=== PATIENT | male | born 1965 | race Caucasian/White ===

== ENCOUNTER 2023-11-06 10:25 | Emergency (ER) | payer SELFPAY ==
[2023-11-06] MEDS: ATIVAN 1 MG IV (10:39)
[2023-11-06 10:41] VITALS: BP 160/101; BMI 32.1
[2023-11-06 10:59] LABS: % Basophils 0.3 % (0-2); % Eosinophils 0.6 % (0-6); % Immature Granulocytes 0.3 % (0-0.5); % Monocytes 7.5 % (1.7-9.3); % Neutrophils 70.3 % (42.2-75.2); Absolute Lymphocytes 1.5 10^3/uL (1.2-3.4); Absolute Monocytes 0.5 10^3/uL (0.1-0.6); Absolute Neutrophils 5.1 10^3/uL (1.4-6.5); Hematocrit 45.7 % (39.0-52.0); Hemoglobin 15.8 g/dL (13.0-18.0); Mean Corp Hgb Conc. 34.6 g/dL (33.0-37.0); Mean Corpuscular Volume 95.4 fL (80.0-94.0); Nucleated Red Blood Cells % 0 % (-); Platelet Count 200 10^3/uL (130-400); Red Blood Cell Count 4.79 10^6/uL (4.70-6.10); Red Cell Dist. Width 12.7 % (11.5-14.5); White Blood Cell Count 7.2 10^3/uL (4.8-10.8)
--- NOTE | 2023-11-06 11:08 | ED.GENMED ---
History of Present Illness
General
Chief Complaint: Seizure
Source: patient
Exam Limitations: none
Time Seen by Provider: 11/06/23 10:26
Nursing documentation reviewed up to this point in time: agreed with
Travel History
Have you had any contact with someone who has COVID-19?: No
Do you have any symptoms of coronavirus? Fever > 100 degrees, chills, cough, shortness of breath, sore throat, loss of taste or smell, muscle aches, or headache?: No
History of Present Illness
History of Present Illness:
58-year-old male states he feels like a seizure was coming on has a long history of epilepsy, takes Dilantin and Ativan as needed, states he ran out of his Ativan, no fever or chills, no actual seizure no tongue bite no incontinence, he states his
last seizure was about a year ago, currently on disability/Workmen's Comp. does not drink or smoke
Past History
Past History
ED Past Medical History: HTN, Hypercholesterolemia, NIDDM, Seizures and Other (Seizure)
ED Past Surgical History: None
Social History
Tobacco: Non-smoker
Alcohol: None
Drug: None
Personal: Single
Living: alone
Employment: Disabled
Review of Systems
Review of Systems
All Other Systems: Not applicable
Constitutional: Denies fever or fatigue
Respiratory: Reports no symptoms
Cardiac: Reports no symptoms
ABD/GI: Reports no symptoms
: Reports no symptoms
Phy Exam
Physical Exam
Physical Exam:
Physical Exam
General: Chronically ill-appearing male appears older than stated age cooperative
Neck: No jaundice no tongue bite
Heart: s1/s2 regular rate and rhythm, no murmur. equal radial pulses.
Lungs: no acute respiratory distress. clear bilaterally
Abdomen: Not
Neuro: alert and oriented. no focal neurological deficits
Skin: no rash
Psychiatric: Somewhat disheveled but interactive and cooperative
Extremities: no edema.
Course
Orders/Labs/Results
Orders:
Orders
11/06/23 10:30
Lorazepam [Ativan] 1 mg IV NOW STA
11/06/23 10:52
Complete Blood Count/With Diff Urgent
Comprehensive Metabolic Panel Urgent
Dilantin Urgent
11/06/23 11:47
0.9% Sodium Chloride 1000 ml [Nss] 1,000 ml IV BOLUS
11/06/23 11:49
METFORMIN HCl [Glucophage] 500 mg PO NOW STA
Abnormal Lab Results
11/06/23 11/06/23
10:52 13:01
MCV 95.4 H fL
(80.0-94.0)
MCH 33.0 H pg
(27.0-31.0)
Sodium 129 L mmol/L
(135-145)
Chloride 94 L mmol/L
(98-107)
Glucose 479 H* mg/dl
(70-99)
Alkaline Phosphatase 173 H U/L
(38-126)
POC Glucose 385 H mg/dl
(70-99)
11/06/23 10:52
11/06/23 10:52
Vital Signs
Initial and Last Documented VS:
Initial Vital Signs
Temp Pulse Resp BP Pulse Ox
98.5 F 96 18 160/101 94
11/06/23 10:41 11/06/23 10:41 11/06/23 10:41 11/06/23 10:41 11/06/23 10:41
Last Documented Vital Signs
Temp Pulse Resp BP Pulse Ox
98.5 F 82 18 167/80 94
11/06/23 10:41 11/06/23 12:02 11/06/23 10:41 11/06/23 12:03 11/06/23 10:41
MDM/Problems Addressed
Differential Diagnosis Includes:
Seizure, aura before seizure dehydration electrolyte abnormality
MDM/Problems Addressed:
Possible seizure
Chronic conditions affecting care:
Seizure
Chronic conditions affecting care: DM and Neurological disorder
Acute Exacerbation and/or Progression of Chronic Illness: DM and Neurological disorder
*Pulse Oximetry
Patient hypoxic: no
*Ssn/Ssbn Assistant Navigator Interpretation
Rate: normal
Interpretation: normal
Heart Rate: 78
Rhythm: sinus
*Critical Care Note
Total Time (30-74mins, 75-104mins- exclusive of procedures): Not Applicable
Update Note
Update Note:
Update labs noted sugar up we will confirm his meds in the meantime start saline
Patient tells me he ran out of his metformin has not taken it a few weeks he believes he was on 500 mg twice a day
His Dilantin level is noted perhaps his symptoms today are as much from his hyperglycemia and or from a possible seizure coming on
Sodium is low reflecting hyperglycemia
ED Attending Note
-
Portions of this chart may have been created with voice recognition software.� Occasional wrong word or��sound alike� substitutions may have occurred due to the inherent limitations of voice recognition software.
Discharge Plan
Departure
Patient Disposition: Home (Routine Discharge)
Date of Disposition: 11/06/23
Time of Disposition: 12:38
Patient with high blood pressure during this ER visit?: No
Condition: Good
Discharge Problem:
Diabetes
Instructions: High Blood Sugar, Adult, Seizures, Adult (DC), How to Keep Track of Your Blood Sugar
Prescriptions:
New
metformin 500 mg tablet
500 mg PO BID Qty: 90 3RF
No Action
phenytoin sodium extended 100 mg Capsule
400 mg PO BID
Referrals:
UNKNOWN - PT DOES,NOT KNOW [Family Provider] -
Activity Restrictions/Additional Instructions:
Take your diabetes medication as prescribed
Continue to take Dilantin as prescribed
Call your family doctor to arrange follow-up care
Interventions
Interventions:
*Risk Screen - Suicide Last Done: 11/06/23 10:41
*General Assessment Last Done: 11/06/23 11:25
*Neglect/Abuse Screening Last Done: 11/06/23 10:41
ED- Fall Risk Assessment Last Done: 11/06/23 11:35
*ED COVID-19 Vaccine History Last Done: 11/06/23 11:25
*Nursing Disposition Last Done: 11/06/23 13:42
ED- Cardiac Assessment Last Done: 11/06/23 11:25
ED- Neurological Assessment Last Done: 11/06/23 11:25
ED- Pulmonary Assessment Last Done: 11/06/23 11:25
Discharge Date and Time
Discharge Date/Time: 11/06/23 13:43
[2023-11-06 11:16] LABS: ALT (SGPT) 18 U/L (0-50); AST (SGOT) 18 U/L (17-59); Albumin 4.1 g/dl (3.5-5.0); Alkaline Phosphatase 173 U/L (38-126); Blood Urea Nitrogen 18 mg/dl (9-20); Carbon Dioxide 26 mmol/L (22-30); Chloride 94 mmol/L (98-107); Dilantin 19.5 ug/ml (10-20); Estimated Creatinine Clearance 120 ml/min; Glucose 479 mg/dl (70-99); Potassium 4.6 mmol/L (3.5-5.1); Sodium 129 mmol/L (135-145); Total Bilirubin 0.3 mg/dl (0.2-1.3); Total Protein 7.4 g/dl (6.3-8.2); eGFR > 60.00
[2023-11-06] MEDS: GLUCOPHAGE 500 MG PO (11:54)
[2023-11-06] MEDS: NSS 1000 IV (11:55)
[2023-11-06 12:03] VITALS: BP 167/80
[2023-11-06 13:03] LABS: Glucose - Point of Care 385 mg/dl (70-99)
== END 2023-11-06 13:43 | disposition home or self-care (01) ==
LOC: EMR 10:25
PROVIDERS: EMERGENCY PHYSICIAN Emergency Medicine
DX: E11.9 Type 2 diabetes mellitus without complications (principal); G40.909 Epilepsy, unspecified, not intractable, without status epilepticus
CPT/HCPCS: 99284; 96374; 96361; 80053; 80185; 82962; 85025

== ENCOUNTER 2024-03-07 07:24 | Emergency (ER) | payer SELFPAY ==
[2024-03-07 07:35] VITALS: BMI 27.3
[2024-03-07] MEDS: ATIVAN 1 MG IV (07:50)
[2024-03-07] MEDS: NSS 1000 IV (07:50)
[2024-03-07 08:00] VITALS: BP 168/79
[2024-03-07 08:05] VITALS: BP 157/88
[2024-03-07 08:06] LABS: % Basophils 0.3 % (0-2); % Eosinophils 1.1 % (0-6); % Immature Granulocytes 0.2 % (0-0.5); % Lymphocytes 35.8 % (20.5-51.1); % Monocytes 7.8 % (1.7-9.3); % Neutrophils 54.8 % (42.2-75.2); Absolute Eosinophils 0.1 10^3/uL (0-0.7); Absolute Lymphocytes 3.2 10^3/uL (1.2-3.4); Absolute Monocytes 0.7 10^3/uL (0.1-0.6); Hematocrit 47.5 % (39.0-52.0); Hemoglobin 16.7 g/dL (13.0-18.0); Mean Corp Hgb Conc. 35.2 g/dL (33.0-37.0); Mean Corpuscular Hgb 33.3 pg (27.0-31.0); Mean Corpuscular Volume 94.6 fL (80.0-94.0); Mean Platelet Volume 9.8 fL (7.4-10.4); Nucleated Red Blood Cells % 0 % (-); Platelet Count 253 10^3/uL (130-400); Red Blood Cell Count 5.02 10^6/uL (4.70-6.10); Red Cell Dist. Width 12.7 % (11.5-14.5); White Blood Cell Count 9.1 10^3/uL (4.8-10.8)
[2024-03-07 08:17] LABS: ALT (SGPT) 18 U/L (0-50); AST (SGOT) 19 U/L (17-59); Albumin 4.7 g/dl (3.5-5.0); Alkaline Phosphatase 169 U/L (38-126); Blood Urea Nitrogen 19 mg/dl (9-20); Carbon Dioxide 31 mmol/L (22-30); Chloride 97 mmol/L (98-107); Estimated Creatinine Clearance 93 ml/min; Glucose 193 mg/dl (70-99); Potassium 4.3 mmol/L (3.5-5.1); Sodium 140 mmol/L (135-145); Total Bilirubin 0.5 mg/dl (0.2-1.3); Total Protein 8.1 g/dl (6.3-8.2); eGFR > 60.00
[2024-03-07 08:21] LABS: Dilantin 20.6 ug/ml (10-20)
--- NOTE | 2024-03-07 08:28 | ED.GENMED ---
History of Present Illness
General
Chief Complaint: Seizure
Source: patient
Exam Limitations: none
Time Seen by Provider: 03/07/24 07:37
Nursing documentation reviewed up to this point in time: agreed with
History of Present Illness
History of Present Illness:
58 y/o M with h/o NIDDM, epileopsy
on dilantin
compliant
here with feeling of aura like he may have seizure
startd this morning whne he woke up
he is extremely anxious, difficult to focus on questions
he denies drug/alcohol use, no recent illness, no head injuries
pt was seen by me previously for very similar presentation
he was extremely anxious and requesting ativan
once administered, he was calm and improved
pt is asking for ativan
Past History
Past History
ED Past Medical History: HTN, Hypercholesterolemia, NIDDM, Seizures and Other (Seizure)
ED Past Surgical History: None
Social History
Tobacco: Non-smoker
Alcohol: None
Drug: None
Personal: Single
Living: alone
Employment: Disabled
Review of Systems
Review of Systems
Allergies reviewed?: Yes
All Other Systems: Not applicable
Phy Exam
Physical Exam
Physical Exam:
GENERAL: Alert , very anxious, calling out, shifting around
HEAD: NCAT
EYE: pupils equal and reactive, no nystagmus, minimal photophobia
NECK: Supple,full rom, nontender
ENT: o/p clr, mmm.
CARDIAC: Regular rate and rhythm . no edema
LUNGS: Clear breath sounds bilaterally, no acute respiratory distress, no wheezes/rales/rhonchi
ABDOMEN: Soft, without focal tenderness, no r/g, no cvat
NEUROLOGICAL: Alert and orientedx 4, cn intact, no facial asymmetry, 5/5 strength in UE/LE, sensation intact, romberg neg, ambulates without assistance, neg pronator drift
SKIN: Warm and dry, skin intact.
MUSCULOSKELETAL: No edema, well perfused.
PSYCH: strange, anxious
Course
Orders/Labs/Results
Orders:
Orders
03/07/24 07:42
0.9% Sodium Chloride 1000 ml [Nss] 1,000 ml IV BOLUS
Lorazepam [Ativan] 1 mg IV NOW STA
03/07/24 07:53
Complete Blood Count/With Diff Urgent
Comprehensive Metabolic Panel Urgent
Dilantin Urgent
Abnormal Lab Results
03/07/24
07:53
MCV 94.6 H fL
(80.0-94.0)
MCH 33.3 H pg
(27.0-31.0)
Absolute Monos (auto) 0.7 H 10^3/uL
(0.1-0.6)
Chloride 97 L mmol/L
(98-107)
Carbon Dioxide 31 H mmol/L
(22-30)
Glucose 193 H mg/dl
(70-99)
Alkaline Phosphatase 169 H U/L
(38-126)
Phenytoin 20.6 H ug/ml
(10-20)
03/07/24 07:53
03/07/24 07:53
Vital Signs
Initial and Last Documented VS:
Initial Vital Signs
Temp Pulse Resp Pulse Ox
97.5 F 120 22 94
03/07/24 07:26 03/07/24 07:26 03/07/24 07:26 03/07/24 07:26
Last Documented Vital Signs
Temp Pulse Resp BP Pulse Ox
97.5 F 90 26 147/94 93
03/07/24 07:26 03/07/24 11:15 03/07/24 11:15 03/07/24 11:00 03/07/24 11:15
MDM/Problems Addressed
Differential Diagnosis Includes:
anxiety, panic attack, aura,
MDM/Problems Addressed:
58 y/o M with h/o NIDDM, epilepsy
compliant with dilantin
here with concerns he may have a seizure, he is getting an aura he decribes, like a feeling he will have one and is extremely anxious and wants to prevent
he says ativan works
i have seen him in the past, look just the same, very anxious, tachy, shifty, calling out and improved with ativan
his labs show some hyperglycemia which could be stress response
dilantin level therapeutic
recieved ativan, slept for a while and is no longe ranxious or tachy
d/c ome
*Critical Care Note
Total Time (30-74mins, 75-104mins- exclusive of procedures): Not Applicable
ED Attending Note
-
Portions of this chart may have been created with voice recognition software.� Occasional wrong word or��sound alike� substitutions may have occurred due to the inherent limitations of voice recognition software.
Discharge Plan
Departure
Patient Disposition: Home (Routine Discharge)
Date of Disposition: 03/07/24
Time of Disposition: 10:35
Patient with high blood pressure during this ER visit?: Yes
Condition: Fair
Covid-19: Not Applicable
Discharge Problem:
Anxiety, Aura
Instructions: Anxiety, Adult ED, Seizures, Adult ED, BLOOD PRESSURE
Prescriptions:
No Action
phenytoin sodium extended 100 mg Capsule
400 mg PO BID
metformin 500 mg tablet
500 mg PO BID Qty: 90 3RF
Referrals:
UNKNOWN - PT NOT,INTERVIEWE [Family Provider] -
Activity Restrictions/Additional Instructions:
Your blood work shows that your Dilantin level is therapeutic. Stay hydrated. Try to avoid seizure triggers. Return for any concerns
Interventions
Interventions:
*Risk Screen - Suicide Last Done: 03/07/24 07:36
*General Assessment Last Done: 03/07/24 07:28
*Neglect/Abuse Screening Last Done: 03/07/24 07:28
ED- Fall Risk Assessment Last Done: 03/07/24 07:36
*ED COVID-19 Vaccine History Last Done: 03/07/24 11:29
*Nursing Disposition Last Done: 03/07/24 11:29
ED- Cardiac Assessment Last Done: 03/07/24 07:36
ED- Neurological Assessment Last Done: 03/07/24 07:36
ED- Pulmonary Assessment Last Done: 03/07/24 07:36
Discharge Date and Time
Discharge Date/Time: 03/07/24 11:30
Print Language: ANDORRAN
[2024-03-07 09:00] VITALS: BP 155/91
[2024-03-07 10:00] VITALS: BP 151/82
[2024-03-07 11:00] VITALS: BP 147/94
== END 2024-03-07 11:30 | disposition home or self-care (01) ==
LOC: EMR 07:24
PROVIDERS: Physician Assistant; EMERGENCY PHYSICIAN Emergency Medicine
DX: G40.909 Epilepsy, unspecified, not intractable, without status epilepticus (principal); E11.65 Type 2 diabetes mellitus with hyperglycemia; E78.00 Pure hypercholesterolemia, unspecified; I10 Essential (primary) hypertension
CPT/HCPCS: 99283; 96374; 96361; 80053; 80185; 85025

== ENCOUNTER 2024-08-19 10:51 | Inpatient (IN) | payer MEDICARE, SELFPAY ==
[2024-08-19] VITALS (77 sets, daily range): BP systolic 58–241; BP diastolic 40–97; BMI 28.5
[2024-08-19 08:54] LABS: % Basophils 0.3 % (0-2); % Eosinophils 0.8 % (0-6); % Immature Granulocytes 0.4 % (0-0.5); % Lymphocytes 26.2 % (20.5-51.1); % Neutrophils 65.3 % (42.2-75.2); Absolute Eosinophils 0.1 10^3/uL (0-0.7); Absolute Monocytes 0.5 10^3/uL (0.1-0.6); Absolute Neutrophils 4.9 10^3/uL (1.4-6.5); Hematocrit 49.6 % (39.0-52.0); Hemoglobin 16.7 g/dL (13.0-18.0); Mean Corp Hgb Conc. 33.7 g/dL (33.0-37.0); Mean Corpuscular Hgb 32.6 pg (27.0-31.0); Mean Corpuscular Volume 96.9 fL (80.0-94.0); Mean Platelet Volume 9.3 fL (7.4-10.4); Nucleated Red Blood Cells % 0 % (-); Platelet Count 206 10^3/uL (130-400); Red Blood Cell Count 5.12 10^6/uL (4.70-6.10); Red Cell Dist. Width 12.6 % (11.5-14.5); White Blood Cell Count 7.5 10^3/uL (4.8-10.8)
[2024-08-19 09:06] LABS: ALT (SGPT) 24 U/L (0-50); AST (SGOT) 21 U/L (17-59); Albumin 4.6 g/dl (3.5-5.0); Alkaline Phosphatase 133 U/L (38-126); Blood Urea Nitrogen 17 mg/dl (9-20); Calcium 9.1 mg/dl (8.4-10.2); Carbon Dioxide 30 mmol/L (22-30); Chloride 94 mmol/L (98-107); Estimated Creatinine Clearance 93 ml/min; Glucose 213 mg/dl (70-99); Potassium 4.5 mmol/L (3.5-5.1); Sodium 135 mmol/L (135-145); Total Bilirubin 0.2 mg/dl (0.2-1.3); Total Protein 7.9 g/dl (6.3-8.2); eGFR > 60.00
[2024-08-19 09:09] LABS: Dilantin 22.8 ug/ml (10-20)
[2024-08-19] MEDS: NSS 1000 IV ×6 (09:49→20:05)
[2024-08-19] MEDS: ATIVAN 2 MG IV (09:50)
[2024-08-19] MEDS: SUBLIMAZE 85 MCG IV (09:52)
[2024-08-19] MEDS: DIPRIVAN 100 IV ×3 (09:55→23:33)
--- NOTE | 2024-08-19 10:09 | ED.GENMED ---
History of Present Illness
General
Chief Complaint: Seizure
Source: patient, records and other (Friend)
Exam Limitations: clinical condition
Time Seen by Provider: 08/19/24 08:57
Nursing documentation reviewed up to this point in time: agreed with
History of Present Illness
History of Present Illness:
58-year-old male presented to the emergency room with concern for seizure. Initial triage states that patient 'feels like brain is skipping.' Apparently has history of seizures and takes Dilantin. Unfortunately prior to my initial assessment
patient had a generalized tonic-clonic seizure and further history unavailable. Call placed to friend who dropped patient off but no answer x 1.
Past History
Past History
ED Past Medical History: HTN, Hypercholesterolemia, NIDDM, Seizures and Other (Seizure)
ED Past Surgical History: None
Social History
Tobacco: Non-smoker
Alcohol: None
Drug: None
Personal: Single
Living: alone
Employment: Disabled
Review of Systems
Review of Systems
Unable to obtain full review of systems at this time due to: due to acuity
All Other Systems: Not applicable
Phy Exam
Physical Exam
Physical Exam:
General: Actively seizing�tonic-clonic seizure
Head: Normocephalic, atraumatic
Eyes: Conjunctiva normal, during seizure activity gaze fixed towards the right; afterwards no gaze deviation, pupils midrange and reactive to light
Throat: Upper airway secretions which were suctioned at bedside
Neck: Trachea midline
Lungs: Bilateral breath sounds present
Heart: Tachycardia with regular rhythm, no murmurs, gallops, or rubs
Abd: Soft, non distended
Neuro: Generalized tonic-clonic movements for approximately 2 minutes followed by significant agitation and flailing
Skin: Diaphoretic, cyanotic
Extremities: No edema in extremities, warm and well-perfused
Scores
Heart Failure Risk
Heart Failure Risk Score: Not Applicable
Heart Score for Chest Pain Patients
STEMI patient?: Not applicable
Withdrawal Assessment of Alcohol
Withdrawal Assessment Completed?: Not applicable
Course
Orders/Labs/Results
Orders:
Orders
08/19/24 08:46
CMP [Comprehensive Metabolic Panel] Urgent
Complete Blood Count/With Diff Urgent
Dilantin Urgent
Erythrocyte Sed Rate Urgent
Comment: ADD ON
08/19/24 09:17
Lorazepam [Ativan] 2 mg IV NOW STA
08/19/24 09:38
CR Chest Portable - 1 View Urgent
Comment:
Reason For Exam: ETT
Reason Study Needs to be Portable: Unable to Transport
08/19/24 09:39
CT Head W/o Iv Contrast Urgent
Comment:
Reason For Exam: seizures
08/19/24 09:40
0.9% Sodium Chloride 1000 ml [Nss] 1,000 ml IV BOLUS
Fentanyl Citrate/Pf [Sublimaze] 50 mcg IV [id number] PRN
Propofol 1,000,000 Mcg/100 ml [Diprivan] 1,000,000 mcg in 100 ml IV NOW
Indication:: Light Sedation
Begin Infusion:: Now
Goal:: RASS 0 to -2
Maximum dose in mcg/kg/min:: 50
Initial dose based on RASS:: Yes
If RASS is:: +1 or pt hemodynamically unstable (SBP < 90mmHg), initiate at 10 mcg/kg/min
If RASS is:: +2, initiate at 20 mcg/kg/min
If RASS is:: greater than or equal to +3, initiate at 30 mcg/kg/min
Titration Instructions:: Titrate by 5-10 mcg/kg/min every 5 minutes until RASS 0 to -2 achieved.
Taper Instructions:: If RASS is at or below goal for 4 consecutive hours decrease infusion by
Taper Instructions:: 5-10 mcg/kg/min every 2 hours to off.
Over-sedation Instructions:: If CPOT 0-2 (at goal) AND RASS -3 to -5 (below goal) decrease sedative by
Over-sedation Instructions:: 50% first. If pain score remains at goal and RASS remains below goal in
Over-sedation Instructions:: 1 hour, decrease opioid infusion by 50%.
Notify provider:: immediately if patient exhibits signs/symptoms of propofol-related
Notify provider:: infusion syndrome.
Additional Instructions:: Patient MUST be mechanically ventilated and MUST receive analgesia.
08/19/24 09:47
Fentanyl Citrate/Pf [Sublimaze] 85 mcg IV NOW STA
08/19/24 09:54
Acetaminophen Urgent
Alcohol Urgent
COVID-19 Antigen Urgent
Source: Nasal Swab
CPK [Creatine Phosphokinase] Urgent
Free T4 Urgent
Lactate Level [Lactic Acid] Urgent
Lipase Urgent
Magnesium Urgent
TSH Reflex To Free T4 Urgent
Triglycerides Routine
Comment: baseline levels with propofol infusion
Blood Culture Q30M
ANTOINE Source: Blood/Venous
Specimen Description:
Blood Culture Q30M
ANTOINE Source: Blood/Venous
Specimen Description:
Influenza A+B Rapid Molecular Urgent
ANTOINE Source: Nasal Swab
Specimen Description:
08/19/24 09:56
FentaNYL 1,000 MCG/100 ML [Sublimaze] 1,000 mcg in 100 ml IV NOW
Indication:: Light Sedation
Begin Infusion:: Now
Goal:: pain score </= 1, CPOT 0-2
Maximum dose in mcg/hr:: 300
Continue currently infusing dose and titrate:: Yes
Initial Dose in mcg/hr:: 50.0
Titration Instructions:: Titrate every 30 minutes if patient exhibits signs of pain or discomfort
Titration Instructions:: (pain score >/= 2, CPOT >/= 3).
Titration Instructions:: Administer bolus dose and increase infusion by 25 mcg/hr.
Taper Instructions:: If pain score at goal for 4 consecutive hours (pain score </= 1, CPOT 0-2)
Taper Instructions:: decrease infusion by 50 mcg/hr every 2 hours.
Taper Instructions:: When dose </= 50 mcg/hr may turn infusion off and consider PRN
Taper Instructions:: intermittent bolus doses only.
Over-sedation Instructions:: If CPOT 0-2 (goal) and RASS -3 to -5 (below goal) decrease sedative by 50%
Over-sedation Instructions:: first. If pain score remains at goal and RASS remains below goal in 1 hour,
Over-sedation Instructions:: decrease opioid infusion by 50%.
Notify provider:: immediately if pt exhibits: chest wall rigidity, hemodynamic instability,
Notify provider:: agitation/pain despite maximum dosing, pain when RASS below goal.
Additional Instructions:: Patient MUST be mechanically ventilated.
08/19/24 09:58
Drug Screen, Urine [Urine Drug Abuse Screen] Urgent
Date Specimen was Collected: 08/19/24
Time Specimen was Collected: 09:58
Urinalysis Reflex To Culture Urgent
Date Specimen was Collected: 08/19/24
Time Specimen was Collected: 09:58
Urine Microscopic Reflex Cult Urgent
08/19/24 10:17
Admit/Transfer Patient As Directed
Co-Sign Provider:
Level of Care: Inpatient admission
Assign to:: ICU
Physician / Group: Mal
Diagnosis: seizure, acute hypoxemic respiratory failure, aspiration
Reason for Hospitalization: seizure, acute hypoxemic respiratory failure, aspiration
Expected length of stay greater than two midnights?: Yes
ELOS- Estimated Length of Stay in days: 6
I certify the patient meets the requirements for IP care: Yes
PRN Pain Medication Management As Directed
May give lesser potent ordered pain med per pt: Yes
preference::
Protocol:: Medication orders for pain may be administered in a
manner that supports deferring to patient preference
when the pt is:
- Requesting an ordered lesser potent pain medication.
Least to most potent pain medications are defined
as: acetaminophen < NSAID < tramadol < opioids
(morphine, oxycodone, hydromorphone).
- Requesting a lesser dose of the same medication IF
ORDERED.
- Requesting a less intrusive route of administration
if both routes are prescribed by the provider (PO <
IV).
08/19/24 10:19
Code Status As Directed
Resuscitation Status: Full Code
08/19/24 10:22
Consult Neurology [NEUROLOGY CONSULT] Stat
Consulting Provider: Taqueria Christensen
Was physician already notified: Yes
Reason for consult: seizure
EEG Routine Stat
Reason for Exam: seizure
08/19/24 10:39
ECG [Electrocardiogram (*1)] Stat
Reason for Study: Other
Other Reason for Exam: shock
Echo 2D MMode Color/Doppler Urgent
Reason for Study: shock
Cardiology Consult: Beto Rios
Comment: needs to be done today
CARDIOLOGY CONSULT Urgent
Consulting Provider: Beto Rios
Was physician already notified: Yes
Reason for consult: shock, concern for cardiogenic shock
08/19/24 10:42
Etomidate [Amidate 20 mg] 20 mg .ROUTE .K-MED ONE
08/19/24 10:44
Portable Chest Xray [CR Chest Portable - 1 View] Stat
Comment:
Reason For Exam: ET placement
Reason Study Needs to be Portable: Patient Unstable
08/19/24 10:45
0.9% Sodium Chloride 1000 ml [Nss] 1,000 ml IV 1,500 mls/hr
NORepinephrine 4 MG/250 ML [Levophed] 4 mg in 250 ml IV PER PROTOCOL
Initial dose in mcg/min, then titrate:: 2
Titrate to keep:: MAP > 65 mmHg
Titrate by mcg/min:: 1-2 mcg/min
Frequency of titrations (minutes):: 5
Maximum dose in ICU in mcg/min:: 30
Maximum dose in IMU in mcg/min:: 8
Maximum dose in IVU in mcg/min:: 4
Begin to taper infusion when:: Remained at goal for 4hrs
Taper by mcg/min:: 1-2 mcg/min
Frequency of taper (minutes) if patient maintains goal:: 30
Taper to off?: Yes
If infusion off & no longer maintaining goal:: Contact Provider
08/19/24 10:48
Add On- LAB Routine
Comments:: Please add to today's labs or draw as routine
Tests Added?: EtOH, UDS, ESR
08/19/24 12:00
Cefepime HCl [Maxipime] 2,000 mg IV Q8H
Valproate Sodium [Depacon] 2,000 mg 0.9% Sodium Chloride 50 ml [Nss] 50 ml IV Q12H
08/21/24 06:00
Depakane IN AM
Abnormal Lab Results
08/19/24 08/19/24 08/19/24
08:46 09:54 09:58
MCV 96.9 H fL
(80.0-94.0)
MCH 32.6 H pg
(27.0-31.0)
Chloride 94 L mmol/L
(98-107)
Glucose 213 H mg/dl
(70-99)
Lactic Acid 11.3 H* mmol/L
(0.7-2.0)
Alkaline Phosphatase 133 H U/L
(38-126)
Creatine Kinase 49 L U/L
(55-170)
Triglycerides 200 H mg/dl
(10-149)
TSH (Reflex) 45.60 H uIU/ml
(0.47-4.68)
Urine Ketones Trace A
(Negative)
Ur Occult Blood Reflex 1+ A
(Negative)
Leukocyte Esterase Rfl Trace A
(Negative)
Urine RBC 11-15 A /HPF
(0-2)
Urine Albumin (Reflex) 1+ A
(Neg - Trace)
Acetaminophen < 10 L ug/ml
(10-30)
Ur Barbiturates Screen Positive H
(Negative)
Phenytoin 22.8 H ug/ml
(10-20)
08/19/24 08:46
08/19/24 08:46
Vital Signs
Initial and Last Documented VS:
Initial Vital Signs
Temp Pulse Resp BP Pulse Ox
36.7 C 110 20 185/91 95
08/19/24 08:24 08/19/24 08:24 08/19/24 08:24 08/19/24 08:24 08/19/24 08:24
Last Documented Vital Signs
Temp Pulse Resp BP Pulse Ox
36.7 C 106 20 90/57 99
08/19/24 08:24 08/19/24 10:50 08/19/24 08:24 08/19/24 10:50 08/19/24 10:50
Procedures
Intubations
Procedure completed by: Robert Man MD
Method of Intubation: glidescope
Tube size (cm): 7.5
Placement confirmed by: auscutation, CXR, capnography, placement corrected and direct visualization
Breath sounds after intubation: equal
Additional information:
Self extubated after initial intubation and required reintubation; second intubation again done with glide scope good view of the cords, 7.5 ET tube passed, chest x-ray after reintubation showed right mainstem placement and ET tube was retracted
MDM/Problems Addressed
Differential Diagnosis Includes:
Seizure�primary seizure disorder versus alcohol withdrawal versus brain bleed
MDM/Problems Addressed:
58-year-old male presented with concern for seizure. Had witnessed grand mal seizure here and became cyanotic, hypoxic, bradycardic. Agitated and unable to adequately bag and decision was made to sedate and paralyzed for intubation. Patient was
successfully intubated and sedated. He was started on propofol and fentanyl infusions. Orders placed for CT head. Unfortunately he did self extubate after initial intubation and required reintubation as documented in procedure note. Chest x-ray
after second intubation showed right mainstem placement and ET tube was retracted. Case was discussed with neurology who evaluated the bedside, will load with valproate. Also discussed with hospitalist to facilitate ICU admission. Patient given
multiple boluses for adequate sedation after second intubation. Will take for CT head and route to ICU admission for seizure with suspected aspiration event and hypoxic respiratory failure.
Patient has had some post intubation hypotension suspect that this is primarily related to heavy sedation as well as positive pressure ventilation. He was started on Levophed by hospitalist. Hospitalist updated. Added broad-spectrum antibiotics
as well. Lactate, blood cultures, urinalysis sent off. Lactate elevated likely more related to seizures then sepsis.
Chronic conditions affecting care:
Seizures
*Radiology
Radiology exam reviewed: preliminary read by ED provider and radiology read reviewed
*Pulse Oximetry
Patient hypoxic: yes
*Critical Care Note
Total Time (30-74mins, 75-104mins- exclusive of procedures): 55
comment:
Critical care statement: A total of 55 minutes of critical care time was provided for this patient. This includes management of unstable vital signs, evaluation of the patient at bedside, frequent reassessment, discussion with
consultants/hospitalist, and review of pertinent medical records. This time was separate from time utilized to perform any aforementioned documented procedures
Data Reviewed
Review of Other/Old Records Reveals: Labs and Records
Source: patient, records and other (Friend)
Patient Management
Discussion with other providers: Hospitalist (Discussed with hospitalist) and Prosecuting Attorney (Discussed with neurologist)
Escalation/DeEscalation of care consider admission/obs:
Admission indicated to the ICU
ED Attending Note
-
Portions of this chart may have been created with voice recognition software.� Occasional wrong word or��sound alike� substitutions may have occurred due to the inherent limitations of voice recognition software.
Discharge Plan
Departure
Patient Disposition: Admit
Date of Disposition: 08/19/24
Time of Disposition: 10:09
Admit to doctor: Mal
Presentation/result/management discussed w/ accepting MD/DO: Hospitalist
Discharge Problem:
Seizure, Acute hypoxemic respiratory failure
Interventions
Interventions:
*Risk Screen - Suicide Last Done: 08/19/24 08:24
*General Assessment Last Done: 08/19/24 08:24
*Neglect/Abuse Screening Last Done: 08/19/24 08:37
ED- Fall Risk Assessment Last Done: 08/19/24 10:25
*ED COVID-19 Vaccine History Last Done: 08/19/24 08:24
ED- Cardiac Assessment Last Done: 08/19/24 08:37
ED- Neurological Assessment Last Done: 08/19/24 08:37
ED- Pulmonary Assessment Last Done: 08/19/24 08:37
[2024-08-19 10:10] LABS: Urine Albumin 1+ (Neg - Trace); Urine Bilirubin Negative (Negative); Urine Character Clear (Clear); Urine Color Yellow; Urine Glucose Negative (Negative); Urine Ketone Trace (Negative); Urine Leukocyte Trace (Negative); Urine Nitrite Negative (Negative); Urine Occult Blood 1+ (Negative); Urine Urobilinogen Negative (Neg - 1+)
[2024-08-19] MEDS: SUBLIMAZE 100 IV (10:18)
--- NOTE | 2024-08-19 10:23 | HPS.HSE ---
Family Physician
-
Family Physician:
Chief Complaint
-
seizure activity
History of Present Illness
58 y/o M with PMHx:
Essential HTN
HLD
seizure d/o
DM2
who p/w seizure activity. At the time of my evaluation the patient was intubated and sedated. Case discussed with ER attending Dr. Man. The patient apparently was dropped off by a friend. He had seizure activity in the ER and became cyanotic.
He was therefore intubated. Unable to obtain history from the patient as he is intubated and sedated.
Medical History
Past Medical History
Past Medical History: Reports NIDDM
Past Surgical History: Reports Other (unknown, intubated/sedated)
Social History
Unable to obtain full social history at this time due to: Patient Intubation
Family History
Family History: Not pertinent
Allergies / Home Medications
Allergies reflects when Allergies were last updated in [employer].
Home Medications with original date entered in [employer]
Allergy/Medication List:
Unable to obtain as pt intubated/sedated
If medication reconciliation has not been performed, why?: Other (Unable to obtain as pt intubated/sedated)
Review of Systems
-
Unable to obtain full review of systems at this time due to: Patient Intubation
Physical Exam
Vital Signs
Vital Signs
Temp Pulse Resp BP Pulse Ox
98.1 F 107 20 87/53 94
08/19/24 08:24 08/19/24 10:05 08/19/24 08:24 08/19/24 10:05 08/19/24 10:05
Physical Exam
General: Other (.)
Laboratory Results
-
08/19/24 08:46
08/19/24 08:46
Laboratory Results
Total Bilirubin 0.2 mg/dl (0.2-1.3) 08/19/24 08:46
AST 21 U/L (17-59) 08/19/24 08:46
ALT 24 U/L (0-50) 08/19/24 08:46
Alkaline Phosphatase 133 U/L (38-126) H 08/19/24 08:46
Impression/Plan
-
Gen: NAD, NCAT, appears well developed and nourished
Eyes: PERRLA, no scleral icterus.
Neck: supple.
CV: tachy, reg rhythm, +S1/S2, no m/r/g.
Resp: CTAB anteriorly, no rales, wheezes, or rhonchi.
Abd: +BS, soft, NT, ND
Skin: No rashes.
Neuro: intubated, sedated but moves all 4 extremities when nursing does nasal swab
Psych: Normal mood and affect.
Acute hypoxemic respiratory failure due to likely aspiration due to seizure activity:
-check CT Brain, UDS
-dilantin level 22.8, hold dilantin
-load with Keppra 1g IV, cont with Keppra 1g IV Q12H
-check EEG (possibly continuous, will d/w Dr. Christensen)
-cont ACMV, initial vent settings 500/16/5/60%, ABG in 1 hour
-support with IVFs
DM2:
-check a1c
-SSI/accuchecks
Essential HTN: SBP 88 at the time of my eval, cont to trend BP
HLD
FULL/SCDs until CT brain completed and without ICH
Total critical care time spent = 31 min
--- NOTE | 2024-08-19 10:27 | CON.NEURO ---
Neuro Assessment/Plan
Assessment
Acute recurrent generalized tonic-clonic seizure in a patient on routine phenytoin
Plan
Check phenytoin level
Attempt to replace phenytoin with alternative due to continued breakthrough events with the use of valproic acid 2000 mg twice a day
Follow valproic acid levels
Check blood work for additional metabolic abnormalities producing symptomatology including urine drug screen and EtOH levels
Obtain CT of head
Obtain records from usual primary care provider when such a person becomes obvious
Follow EEG
Attempt to reduce sedation and extubate when possible
Will follow
Consultation
Order
Date of Consultation: 08/19/24
Requesting Provider: Hospitalist
Reason for Consult: Epilepsy
Subjective/Objective
Subjective Data
Date of Service: August 19, 2024
Unknown handed
Patient presented to this [facility] emergency department with statement of having an aura suggestive of his usual generalized tonic-clonic seizures. The patient's history is entirely obtained after review of the patient's medical records and
discussion with professional medical care providers as the patient is intubated and sedated.
The patient reportedly was in his usual state of health until presenting to this hospital's emergency department with the above symptoms. By report, the patient was outside smoking for several minutes prior to actually entering the emergency
department and asking for assistance. After presenting, the patient became agitated and threatened legal action against the hospital before suddenly having a change in mental status and a generalized tonic-clonic event. By report, the patient
became cyanotic and therefore underwent intubation of the airway.
There is no evidence at this time that the patient had tongue biting during the event and no evidence that the patient had bowel or bladder incontinence.
By report, the patient has presented to this hospital's emergency department on several occasions requesting lorazepam as treatment of his aura. Additionally, the patient has been utilizing phenytoin as a antiseizure medication. Information
regarding workup and treatments with other therapies in the past is unavailable at this time.
Objective Data
Vital Signs
Temp Pulse Resp BP Pulse Ox
36.7 C 108 20 120/72 92
08/19/24 08:24 08/19/24 10:15 08/19/24 08:24 08/19/24 10:15 08/19/24 10:15
Lab Results
08/19/24 08:46
08/19/24 08:46
Sodium 135 mmol/L (135-145) 08/19/24 08:46
Potassium 4.5 mmol/L (3.5-5.1) 08/19/24 08:46
BUN 17 mg/dl (9-20) 08/19/24 08:46
Glucose 213 mg/dl (70-99) H 08/19/24 08:46
Calcium 9.1 mg/dl (8.4-10.2) 08/19/24 08:46
Patient Allergies
alfalfa Allergy (Unknown, Verified 08/19/24 08:31)
Unknown
Physical Exam
-
General: No Apparent Distress, Intubated and Appears Stated Age
Eyes: Round OU and [place] Conjunctivae; Negative Able to visualize OU
HEENT: Anicteric and Moist Mucous Membranes
Neck: Full Range of Motion
Respiratory: No Dyspnea
Cardiac: No JVD
GI: Non-distended
Skin: Unremarkable
Extremities: No Clubbing, No Cyanosis and No Edema
Psych: Unable to Assess
Extended Neurological Exam
Mood & Affect: Unable to Assess
Attention Span & Concentration: Other (Sitting up thrashing); Negative Awake, Alert or Interactive
Memory: Unable to Assess
Tremor: Hand Tremor Absent and Head Tremor Absent
Involuntary Movement: None
Speech: Unable to Assess
Cranial Nerve II: Left Eye: Pupillary Reactivity Unremarkable, Pupillary Size Unremarkable and Unable to Assess Visual Ward
Cranial Nerve II: Right Eye: Pupillary Reactivity Unremarkable, Pupillary Size Unremarkable and Unable to Assess Visual Ward
Cranial Nerves III, IV, : Extraocular Movement: Absent Doll's Eyes and Unable to Assess (Ptosis)
Cranial Nerve V: Facial Sensation: Unable to Assess
Cranial Nerve VII: Facial Symmetry: Normal Facial Symmetry
Cranial Nerves IX, X: Palate Movement: Unable to Assess
Cranial Nerve XI: Shoulder Shrug: Unable to Assess
Cranial Nerve XII: Tongue Protusion: Unable to Assess
Muscle Strength, Overall: Spontaneously Moves (All extremities fully)
Muscle Bulk & Tone: Bulk Unremarkable and Tone Unremarkable
Pronator Drift: Unable to Assess
Deep Tendon Reflexes: Trace Throughout
Cold Sensation: Unable to Assess
Vibration Sensation: Unable to Assess
Touch Sensation: Unable to Assess
Coordination: Unable to Assess
Babinski Sign: Absent Bilaterally
Gait & Station: Unable to Assess
Data Reviewed
-
CT Head: Pending
EEG: Ordered
Labs: Ordered, Pending and Report Reviewed
Reviewed with: Physician and Nurse
Old Records: Summarized
Medications
-
Active Medications
Generic Name Dose Route Start Last Admin
Trade Name Freq PRN Reason Stop Dose Admin
Fentanyl Citrate 50 mcg 08/19/24 09:40
Fentanyl (50 Mcg/Ml) 100 Mcg/2 Ml Ampul IV 09/02/24 09:39
[id number] PRN
see protocol
Protocol
Sodium Chloride 1,000 mls @ 1,000 mls/hr 08/19/24 09:40 08/19/24 09:49
Nss IV 08/19/24 10:39 1,000 mls
BOLUS ONE Administration
Home Medications
�Medication �Instructions �Recorded
metformin 500 mg tablet 500 mg PO BID #90 tabs 11/06/23
phenytoin sodium extended 100 mg 400 mg PO BID 11/06/23
capsule
Past History
Past History
ED Past Medical History: HTN, Hypercholesterolemia, NIDDM and Seizures
ED Past Surgical History: None
Social History
Tobacco: Smoker
Alcohol: None
Drug: None
Personal: Single
Living: alone
Employment: Disabled
Family History
Family History: Unable to obtain
[2024-08-19 10:28] LABS: Acetaminophen < 10 ug/ml (10-30); Creatine Phosphokinase 49 U/L (55-170); Lipase 85 U/L (23-300); Triglycerides 200 mg/dl (10-149)
[2024-08-19 10:29] LABS: Alcohol None Detected
[2024-08-19 10:30] LABS: Lactic Acid 11.3 mmol/L (0.7-2.0)
[2024-08-19 10:31] LABS: Urine Mucus Many
[2024-08-19 10:32] LABS: Amphetamines Negative (Negative); Barbiturates Positive (Negative); Benzodiazepines Negative (Negative); Buprenorphine Negative (Negative); Cocaine Negative (Negative); Marijuana Negative (Negative); Methadone Negative (Negative); Methamphetamines Negative (Negative); Opiates Negative (Negative); Phencyclidine Negative (Negative); Tricyclic Antidepressants Negative (Negative); Urine Amorphous Seen
[2024-08-19 10:35] LABS: COVID-19 Antigen Negative (Negative)
--- NOTE | 2024-08-19 10:38 | W.PN.UPDATE ---
Update Note
Progress Note Update
SBP now < 80 on 2 checks. Shock, unclear if septic, distributive, cardiogenic at this time. 3L NS bolus, Vanco/Cefepime, check echo.
--- NOTE | 2024-08-19 11:00 | PHA.VAN.IN ---
Addendum entered and electronically signed by Rene Ya [facility] 08/19/24 11:03:
will give 2gm load and start 1250mg q12h 08/20
Original Note:
Assessment
- Assessment
Renal Function: Appears similar to baseline
Concomitant Antimicrobials: CEFEPIME
AUC Dosing Plan
- Empiric Dosing
Initial / Loading Dose: 1250MG
Maintenance Regimen: 1250MG Q12H
Estimated AUC (mcg*h/mL): 562
Estimated Peak (mcg*h/mL): 34.6
Estimated Trough (mcg/ml): 14.7
Estimated Half Life (H): 8.5
- Monitoring
No levels ordered at this time: CONSIDER AT [facility]
Pharmacokinetics Vancomycin I
- -
Patient Age: 58
Patient Sex: Male
Vancomycin Day #: 1
Indication: [employer] Infection
Requesting Provider: DR. MACK
Height / Weight:
Height 5 ft 7 in
Actual Weight 82.6 kg
IBW in k.1
- Vital Signs / Lab Results
Temp Pulse Resp BP Pulse Ox
98.1 F 106 20 90/57 99
08/19/24 08:24 08/19/24 10:50 08/19/24 08:24 08/19/24 10:50 08/19/24 10:50
Lab Results - Hematology
08/19/24
08:46
WBC 7.5
Lab Results - Chemistry
08/19/24
08:46
BUN 17
Creatinine 0.8
Estimated Creat Clear 93
Albumin 4.6
08/19/24
09:54
Lactic Acid 11.3 H*
Lab Results - Urine
08/19/24
09:58
Urine Nitrite (Reflex) Negative
Leukocyte Esterase Rfl Trace A
Urine WBC (Reflex) 3-5
Ur Squamous Epith Cells 11-15
Microbiology Results
08/19/24 09:54 Influenza Types A & B (ESTIVEN) - Final
Nasal Swab Negative for Influenza A & B, NAAT
Negative results must be combined with clinical observations
and patient history.
Nucleic Acid Amplification test (NAAT)performed on the
[employer] platform.
[2024-08-19 11:29] LABS: Free T4 0.47 ng/dl (0.78-2.19)
[2024-08-19 11:52] LABS: Erythrocyte Sed Rate 7 mm/hour (0-20)
--- NOTE | 2024-08-19 12:41 | PHANOTE ---
med rec note- patient has no current ecw, pharmacy records are current, no family with patient and patient unable to communicated with us
[2024-08-19] MEDS: VERSED 50 IV ×2 (13:18→23:33)
[2024-08-19] MEDS: SUBLIMAZE 50 MCG IV (13:24)
[2024-08-19] MEDS: VERSED 1 MG IV ×2 (13:27→20:46)
[2024-08-19] MEDS: VANCOCIN 540 MG IV (14:21)
[2024-08-19] MEDS: DEPACON 70 MG IV ×2 (14:32→23:33)
[2024-08-19] MEDS: MAXIPIME 2000 MG IV ×2 (14:34→20:05)
[2024-08-19] MEDS: STERILE WATER FOR INJECTION 10 ML IV ×2 (14:34→20:04)
[2024-08-19] MEDS: KEPPRA 1000 MG IV ×2 (14:38→20:05)
--- NOTE | 2024-08-19 14:44 | CON.INTV ---
Consultation
Consultation Request
Date/Time Consultation Requested: 08/19/2024
Date/Time Consultation Performed: 08/19
Reason for Consultation: Critical care
Medical History
-
History of Present Illness:
History obtained from the chart and reviewing medical records as patient is currently intubated and sedated. Hx obtained from friend by phone. Patient appears older than stated age of 58 presented to the ED with questionable seizure. Patient
states he felt like his brain is skipping per ED records. Patient is on Dilantin for history of seizure disorder, also has diabetes, hypertension hypercholesterolemia. Patient proceeded with generalized tonic-clonic seizure in the ED. Patient was
apparently dropped off to the ED by a friend. Upon arrival, afebrile, pulse 110, breathing at 20, blood pressure 185/91, 95% saturation. Patient was intubated for airway protection, also became cyanotic, hypoxic and bradycardic during grand mal
seizure. Patient was started on propofol and fentanyl. Patient proceeded to self extubate himself and required reintubation. Neurology was consulted, patient was loaded with valproate. Patient required multiple doses of sedation. Patient also
required norepinephrine with hypotension. Patient was given antibiotics and admitted to ICU for further management
According to friend, does not see physician, gets medications through state assistance. Friend states his last seizure was a year and a half ago, was given Ativan. Additional details not available
.
PMH: History of seizure disorder, hypertension, hyperlipidemia, [id number] diabetes. Additional history is not available at this time
Past Medical History
Past Medical History: None (See above)
Past Surgical History: None (See above)
Social History
Tobacco: Smoker (30py ongoing 1.5ppd)
Alcohol: None
Drug: None
Personal: Single
Living: Alone
Employment: Disabled
Family History
Family History: Other (1 estranged daughter. 1 brother and parents )
Allergies / Home Medications
Allergies
Allergy/AdvReac Type Severity Reaction Status Date / Time
alfalfa Allergy Unknown Unknown Verified 08/19/24 08:31
Home Medications
�Medication �Instructions �Recorded �Confirmed �Last Taken �Type
phenytoin sodium extended 100 mg 400 mg PO BID 11/06/23 11/06/23 11/06/23 History
capsule 500 mg
metformin 500 mg tablet 1,000 mg PO BID 08/19/24 Unknown History
Review of Systems
-
Unable to Obtain full review of systems at this time due to: Patient Intubation
Vitals / Labs / Diagnostic Testing
Vital Signs
Temp Pulse Resp BP Pulse Ox
98.1 F 84 20 183/70 95
08/19/24 08:24 08/19/24 12:15 08/19/24 08:24 08/19/24 12:01 08/19/24 13:14
Lab Data
08/19/24 08:46
08/19/24 08:46
Microbiology
08/19/24 09:54 Nasal Swab Influenza Types A & B (ESTIVEN) - Final
Negative for Influenza A & B, NAAT
Negative results must be combined with clinical observations
and patient history.
Nucleic Acid Amplification test (NAAT)performed on the
[employer] NOW platform.
Diagnostic Testing:
Physical Exam
-
HEENT: Normocephalic, Anicteric and Other (Large neck)
Cardiovascular: S1/S2, Regular Rhythm, Murmur (n), Rub (n) and Peripheral Edema (n)
Respiratory: Wheeze (n), Rales (n), Rhonchi (n), Non-Labored Respirations and Other (ET tube in place)
GI: Soft and Non Distended (Obese)
Neurology: Other (Sedated)
Skin: Other (Mild pallor)
General: Comfortable
Assessment
-
58-year-old male with history of seizure disorder, hypertension, diabetes, dropped off to ED by friend. Proceeded to have witnessed seizure with hypoxia, bradycardia, cyanosis. Patient intubated in the ED. Patient then self extubated requiring
reintubation. Patient required heavy sedation to maintain adequate sedation while intubated. Head CT unremarkable. Loaded with valproate, admitted to ICU for further management
Acute hypoxic respiratory failure
Intubated in ED 08/19
Self extubated
Reintubated in ED 08/19
Acute seizure activity
Witnessed grand mal seizure in the ED
Hx of epilepsy
Hypotension, suspected sepsis
Elevated lactate
Conditions present prior to admission
Diabetes
Hypertension
[id number] history of smoking, ongoing
Plan/recommendations
At this time, patient remains critically ill. Chest x-ray cannot rule out aspiration event, with questionable biapical infiltrate per my review. ET tube noted head CT normal
Moving forward, given self extubation, witnessed seizure, risk for aspiration, continue with deep sedation
Presently on assist control
Check ABG. Wean oxygen
Continue pressors as needed, IV fluids
Wean as able, maintain maps greater than 65
Patient on Keppra, valproate
Cefepime/vancomycin for possible aspiration event
Daily chest x-ray
Head of bed elevated
Deep sedation propofol, fentanyl, Versed
Will likely small bore feeding tube, nutrition. Reassess in the next 24 hours
Reviewed with critical care nursing, respiratory care, primary service
TCCT 45 min
[2024-08-19 14:57] LABS: B.E. 0.8 mmol/L; HCO3 27.9 mmol/L (21-28); O2 Saturation % 99.3 % (94-98); PCO2 53 mmHg (35-48); PO2 96 mmHg (83-108); pH 7.33 (7.35-7.45)
[2024-08-19 16:32] LABS: Lactic Acid 4.3 mmol/L (0.7-2.0)
[2024-08-19 16:57] LABS: INR 1.01; PT 13.8 Sec (11.4-14.6)
[2024-08-19 16:59] LABS: Triglycerides 411 mg/dl (10-149)
[2024-08-19 17:01] LABS: Dilantin 10.9 ug/ml (10-20)
[2024-08-19 17:20] LABS: Glucose - Point of Care 81 mg/dl (70-99)
--- NOTE | 2024-08-19 19:31 | PTCARENOTE ---
Assumed care of pt. approx 1900.
Remains intubated/sedated.
Sedation gtt as follows
-Midazolam
-Fentanyl
-Diprivan
See titration flow sheets for details.
At this time is off vasopressors, receiving maint. fluids.
See assessment flowsheets for details.
--- NOTE | 2024-08-19 19:42 | PTCARENOTE ---
Received pt from ED intubated on prop/fent and with levophed infusing upon arrival around 1300. Upon arrival, pt was agitated/restless moving all extremities, but not directable or following commands. Fentanyl bolus given with minimal improvement,
versed bolus given and drip initiated as ordered with improvement in agitation. Pt also noted to have 3liter fluid bolus ordered and abx. All given as ordered. Able to wean off levo with IVF. Otherwise please refer to flowsheet.
Also, friend and landlord brought in 2 bottles of medication that were corrected in [employer] but not confirmed as I cannot ask pt. Friend was asked if there was any family. He said pt had a cousin that was the closest relative and called her to
make her aware of situation. He left her number in room as well as his number.
[2024-08-19 20:43] LABS: Lactic Acid 3.1 mmol/L (0.7-2.0)
--- NOTE | 2024-08-19 23:52 | PTCARENOTE ---
PT. off briefly started on norepi, titrated off now.
Midazolam gtt increased per protocol due to increased RASS.
unable to monitor BIS, due to lack of monitoring cord. ICU BEAN aware.
Midazolam pharmacy paper not in room or on chart, reviewed wasting protocol w/ Pharmacy ([facility]), instructed to record waste w. second RN on blank paper, and send to pharmacy. Current Green paper for new gtt. in lock box.
No further changes in pt. assessment.
[2024-08-20] VITALS (42 sets, daily range): BP systolic 96–173; BP diastolic 55–109; BMI 29.0
--- NOTE | 2024-08-20 01:33 | PTCARENOTE ---
Decreased urine output, IV lasix ordered.
[2024-08-20] MEDS: LASIX 20 MG IV (01:36)
--- NOTE | 2024-08-20 03:51 | PTCARENOTE ---
Pt. urine output increased w/ iv lasix.
Lactic added to morning lab draws.
No further change in pt. assessment.
[2024-08-20 03:58] LABS: B.E. 0.5 mmol/L; HCO3 25.4 mmol/L (21-28); O2 Saturation % 97.7 % (94-98); PCO2 41 mmHg (35-48); PO2 77 mmHg (83-108)
[2024-08-20] MEDS: SUBLIMAZE 100 IV ×2 (03:59→17:38)
[2024-08-20] MEDS: STERILE WATER FOR INJECTION 10 ML IV ×3 (04:01→21:37)
[2024-08-20] MEDS: MAXIPIME 2000 MG IV ×3 (04:01→21:36)
[2024-08-20] MEDS: DIPRIVAN 100 IV ×5 (04:01→23:02)
[2024-08-20] MEDS: NSS 1000 IV ×2 (04:02→12:48)
[2024-08-20 04:20] LABS: % Basophils 0.1 % (0-2); % Eosinophils 0.4 % (0-6); % Immature Granulocytes 0.3 % (0-0.5); % Lymphocytes 24.6 % (20.5-51.1); % Monocytes 7.5 % (1.7-9.3); % Neutrophils 67.1 % (42.2-75.2); Absolute Eosinophils 0.1 10^3/uL (0-0.7); Absolute Monocytes 0.9 10^3/uL (0.1-0.6); Absolute Neutrophils 8.2 10^3/uL (1.4-6.5); Hematocrit 37.6 % (39.0-52.0); Hemoglobin 12.7 g/dL (13.0-18.0); Mean Corp Hgb Conc. 33.8 g/dL (33.0-37.0); Mean Corpuscular Hgb 32.8 pg (27.0-31.0); Mean Corpuscular Volume 97.2 fL (80.0-94.0); Mean Platelet Volume 9.4 fL (7.4-10.4); Nucleated Red Blood Cells % 0 % (-); Platelet Count 143 10^3/uL (130-400); Red Blood Cell Count 3.87 10^6/uL (4.70-6.10); White Blood Cell Count 12.2 10^3/uL (4.8-10.8)
[2024-08-20 04:24] LABS: ALT (SGPT) 17 U/L (0-50); AST (SGOT) 22 U/L (17-59); Albumin 3.1 g/dl (3.5-5.0); Alkaline Phosphatase 96 U/L (38-126); Blood Urea Nitrogen 17 mg/dl (9-20); Calcium 7.6 mg/dl (8.4-10.2); Carbon Dioxide 25 mmol/L (22-30); Chloride 105 mmol/L (98-107); Estimated Creatinine Clearance 93 ml/min; Glucose 68 mg/dl (70-99); Potassium 4.2 mmol/L (3.5-5.1); Sodium 136 mmol/L (135-145); Total Bilirubin 0.5 mg/dl (0.2-1.3); Total Protein 5.7 g/dl (6.3-8.2); eGFR > 60.00
[2024-08-20] MEDS: VANCOCIN 275 MG IV ×2 (05:14→17:41)
[2024-08-20] MEDS: DEXTROSE 50% SYRINGE 12.5 GRAMS IV ×3 (07:23→17:40)
[2024-08-20] MEDS: KEPPRA 1000 MG IV (07:25)
[2024-08-20] MEDS: MIRALAX TUBE (07:29)
[2024-08-20] MEDS: NOVOLOG FLEXPEN-MODERATE RESISTANCE SC ×4 (07:29→23:46)
[2024-08-20 07:33] LABS: Glucose - Point of Care 63 mg/dl (70-99)
--- NOTE | 2024-08-20 07:41 | W.PN.INTV ---
Today's Communication / Plan
Recommendations
Continue volume-cycled ventilation, deep sedation
Remains on antibiotics, no obvious evidence of aspiration event
Wean pressors as able
Will consider SBT, extubation 08/21
Has yet to get EEG. Neurology following
Assessment
-
58-year-old male with history of seizure disorder, hypertension, diabetes, dropped off to ED by friend. Proceeded to have witnessed seizure with hypoxia, bradycardia, cyanosis. Patient intubated in the ED. Patient then self extubated requiring
reintubation. Patient required heavy sedation to maintain adequate sedation while intubated. Head CT unremarkable. Loaded with valproate, admitted to ICU for further management
Acute hypoxic respiratory failure
Intubated in ED 08/19
Self extubated
Reintubated in ED 08/19
Acute seizure activity
Witnessed grand mal seizure in the ED
Hx of epilepsy
Hypotension, suspected sepsis
Elevated lactate
Hypoglycemia
Conditions present prior to admission
Diabetes
Hypertension
[id number] history of smoking, ongoing
Plan/recommendations
At this time, patient remains critically ill.
Chest x-ray without acute findings, ET tube appropriate
Hypoglycemia noted this morning
Presently on assist control
Remains sedated
Moving forward
Continue with volume-cycled ventilation
AC 16/550/5/40%
Ppk 25, Pplat 18
No plans for weaning today
Unable to obtain EEG
Maintain sedation until EEG completed
Continue pressors as needed, IV fluids
Wean as able, maintain maps greater than 65
Echocardiogram normal biventricular function, right heart pressures could not be determined
Patient on Keppra, valproate
Cefepime/vancomycin for possible aspiration event
Daily chest x-ray
Low threshold to discontinue antibiotics. Will defer to primary service
Follow-up blood cultures
Head of bed elevated
Deep sedation propofol, fentanyl, Versed
Will likely small bore feeding tube, nutrition. Reassess in the next 24 hours if not extubated
DVT prophylaxis: Lovenox started
GI prophylaxis: Remains on famotidine
Reviewed with critical care nursing, respiratory care, primary service
TCCT 32 min
Subjective Dataa
Subjective Data
Date of Service:
Date of Service: August 20, 2024
Subjective:
Patient remains critically ill. Requiring deep sedation Fentanyl/Versed/propofol. Oxygenating, ventilating adequately. Low-grade fever noted.
Objective Data
Data Reviewed
Vital Signs / I&O / Oxygen:
Vital Signs
Temp Pulse Resp BP Pulse Ox
98.5 F 94 16 127/62 98
08/20/24 06:57 08/20/24 06:57 08/20/24 06:57 08/20/24 04:30 08/20/24 07:33
Intake and Output
08/19/24 08/20/24 08/21/24
06:59 06:59 06:59
Intake Total 5871.36 / 6302.86 431.5 / 431.5
Output Total 2280 / 2545 265 / 265
Balance 3591.36 / 3757.86 166.5 / 166.5
SaO2 [A/C] 98
SaO2 98
Physical Exam
General: Comfortable
HEENT: Normocephalic and Anicteric
Cardiovascular: S1-S2, Regular Rhythm, Murmur (n) and Rub (n)
Respiratory: Wheeze (n), Crackles (n), Rhonchi (n) and Non-Labored Respirations
GI: Soft, Non Distended and Non Tender (Obese)
Neurology: Lethargic (Sedated, spontaneously moving extremities)
Skin: Good Color (n), Cyanosis (n) and Jaundice (n)
Labs/Micro/Reports
Lab Data
08/20/24 03:37
08/20/24 03:37
Laboratory Results
08/19/24 08/19/24 08/20/24
14:48 16:41 03:37
PT 13.8
INR 1.01
APTT 28.0
pH 7.33 L 7.40
pCO2 53 H 41
pO2 96 77 L
HCO3 27.9 25.4
O2 Delivery Level
Microbiology
08/19/24 09:54 Nasal Swab Influenza Types A & B (ESTIVEN) - Final
Negative for Influenza A & B, NAAT
Negative results must be combined with clinical observations
and patient history.
Nucleic Acid Amplification test (NAAT)performed on the
[employer] NOW platform.
[2024-08-20] MEDS: SUBLIMAZE 50 MCG IV ×2 (07:46→11:34)
[2024-08-20] MEDS: VERSED 1 MG IV ×2 (08:01→12:01)
[2024-08-20 08:04] LABS: Glucose - Point of Care 99 mg/dl (70-99)
--- NOTE | 2024-08-20 08:30 | PTCARENOTE ---
Rec'd care of patient at 0700. Patient intubated and sedated. Pupils equal and reactive, +2mm. +Corneal/gag reflexes. MAEx4. Sedated on Fent/Prop/Versed drips through peripheral INT. Ordered for deep sedation. Patient opening eyes, RASS +2. Fentanyl
bolus administered and rate increased. Patient continuing with restlessness and dyssynchronous with ventilator. Versed bolus administered and rate increased. NSR on tele monitor. Tachy with agitation. Trace anasarca. Palpable pulses. #8 ett @ 25cm.
A/C 16/550/5/40%. Lung sounds coarse throughout. Fine crackles auscultated in b/l bases. Large amount of thick, linda secretions suctioned orally. +BS. No bm. Shaffer in place for critical I/O. Blood sugar 63. IV Dextrose administered. Repeat sugar 99.
--- NOTE | 2024-08-20 08:41 | PHA.VAN.FU ---
Vancomycin Assessment / Plan
- Assessment
Renal Function: Stable
WBC's are: Trending Up
In the past 24 hrs, patient has been: Afebrile
Concomitant Antimicrobials: CEFEPIME
- Dosing Plan
Continue: 1250MG Q12H
- Monitoring Plan
Peak Level: 08/21 @2100
Trough Level: 08/22 @0530
- Follow Up
Pharmacy will continue to follow.
Vancomycin Follow UP
- -
Patient Age: 58
Patient Sex: Male
Vancomycin Day #: 2
Indication: [employer] Infection
Requesting Provider: DR. MACK
Height / Weight:
Height 5 ft 7 in
Actual Weight 84 kg
IBW in k.1
- Vital Signs / Lab Results
Temp Pulse Resp BP Pulse Ox
98.5 F 111 17 173/80 97
08/20/24 06:57 08/20/24 08:00 08/20/24 08:00 08/20/24 08:00 08/20/24 08:00
Lab Results - Hematology
08/19/24 08/20/24
08:46 03:37
WBC 7.5 12.2 H
Lab Results - Chemistry
08/19/24 08/20/24
08:46 03:37
BUN 17 17
Creatinine 0.8 0.8
Estimated Creat Clear 93 93
Albumin 4.6 3.1 L D
08/19/24 08/19/24 08/19/24
09:54 16:01 20:23
Lactic Acid 11.3 H* 4.3 H* 3.1 H
08/20/24
03:37
Lactic Acid 3.0 H
Lab Results - Urine
08/19/24
09:58
Urine Nitrite (Reflex) Negative
Leukocyte Esterase Rfl Trace A
Ur Squamous Epith Cells 11-15
Microbiology Results
08/19/24 09:54 Blood Culture - Preliminary
Blood/Venous Positive culture in progress
Gram Stain - Preliminary
08/19/24 09:54 Influenza Types A & B (ESTIVEN) - Final
Nasal Swab Negative for Influenza A & B, NAAT
Negative results must be combined with clinical observations
and patient history.
Nucleic Acid Amplification test (NAAT)performed on the
[employer] NOW platform.
--- NOTE | 2024-08-20 09:01 | W.PN.HOSP.TC ---
Today's Communication/Plan
-
see bold
Assessment / Plan
Assessment / Plan
Gen: NAD, NCAT, appears well developed and nourished
Eyes: PERRLA, no scleral icterus.
Neck: supple.
CV: tachy, reg rhythm, +S1/S2, no m/r/g.
Resp: CTAB anteriorly, no rales, wheezes, or rhonchi.
Abd: +BS, soft, NT, ND
Skin: No rashes.
Neuro: intubated, sedated but moves all 4 extremities when nursing does nasal swab
Psych: Normal mood and affect.
CT brain: No acute intracranial abnormality noted. Sequelae of mild/moderate small vessel ischemic disease, similar in appearance to prior. Trace secretions within the right maxillary sinus.
Echo: Normal left ventricular size, wall thickness and systolic function.
LV ejection fraction is 55-60% by visual assessment.
Normal right ventricular size and function. Perhaps mildly underfilled.
Mildly thickened mitral valve leaflets with normal leaflet opening and no
regurgitation seen.
Sclerotic, trileaflet aortic valve with normal leaflet excursion and no
significant regurgitation seen.
Structurally normal tricuspid valve without significant stenosis or
regurgitation.
Right heart pressures could not be determined.
Structurally normal pulmonic valve without significant stenosis or
regurgitation.
Normal pericardium without effusion.
The IVC is of normal size and demonstrates normal respiratory variation.
No significant structural heart disease on current study. No priors available
for comparison.
Acute hypoxemic respiratory failure due to likely aspiration due to seizure activity:
-CT brain without acute intracranial abnormality
-UDS POS for barbiturates only
-dilantin level 22.8 on admission, now 10.9, holding dilantin
-cont IV Keppra/Depakote, neuro following
-check EEG (as per Dr. Christensen this will be done tomorrow)
-cont ACMV today, possible extubation tomorrow as per discussion with Dr. Lagos
Shock:
-s/p aggressive IVF resuscitation
-Was on Levophed, now weaned to off
-continue empiric Vanco/Cefepime and follow Cxs (1 BCx with GPC)
-Echo above, no evidence of cardiogenic shock
-currently etiology of shock is not yet identified. Cardiogenic shock has been ruled out.
DM2:
-check a1c
-SSI/accuchecks
HLD
FULL/Lovenox
Total critical care time spent = 33 min
Anticipated Discharge: > 48 hours
Subjective/Interval History
-
Date of Service: August 20, 2024
Objective Data
-
Labs:
Laboratory Results
08/20/24
03:37
WBC 12.2 H
Hgb 12.7 L D
Hct 37.6 L
Plt Count 143 D
HCO3 25.4
Sodium 136
Potassium 4.2
Chloride 105
Carbon Dioxide 25
BUN 17
Creatinine 0.8
Glucose 68 L
Calcium 7.6 L D
Total Bilirubin 0.5
AST 22
ALT 17
Alkaline Phosphatase 96
Vital Signs:
Vital Signs
Temp Pulse Resp BP Pulse Ox
98.5 F 100 26 152/74 97
08/20/24 06:57 08/20/24 08:30 08/20/24 08:30 08/20/24 08:30 08/20/24 08:30
I&O
08/19/24 08/20/24 08/21/24
06:59 06:59 06:59
Intake Total 5871.36 / 6302.86 591.5 / 591.5
Output Total 2280 / 2545 410 / 410
Balance 3591.36 / 3757.86 181.5 / 181.5
--- NOTE | 2024-08-20 09:52 | W.PN.NEURO.1 ---
Today's Communication / Plan
-
Follow valproic acid levels
Check EEG urgently as the patient described as having generalized tonic-clonic event today despite best therapies
Discontinue levetiracetam due to possible agitation side effect
Provide thiamine for completeness
Attempt to reduce sedation and extubate when possible
Neuro Assessment/Plan
Assessment
Acute recurrent generalized tonic-clonic seizure in a patient on routine phenytoin
Dose of phenytoin at the time of presentation was minimally therapeutic at 11
Patient was initiated on valproic acid as a replacement therapy due to breakthrough event
Plan
Follow valproic acid levels
Check EEG urgently as the patient described as having generalized tonic-clonic event today despite best therapies
Discontinue levetiracetam due to possible agitation side effect
Provide thiamine for completeness
Attempt to reduce sedation and extubate when possible
Will follow
Subjective/Objective
Subjective Data
Date of Service: August 20, 2024
Patient unable provide his own medical history
Objective Data
Vital Signs
Temp Pulse Resp BP Pulse Ox
36.9 C 93 16 122/64 96
08/20/24 06:57 08/20/24 09:30 08/20/24 09:30 08/20/24 09:30 08/20/24 09:30
Lab Results
08/20/24 03:37
08/20/24 03:37
PT 13.8 Sec (11.4-14.6) 08/19/24 16:41
INR 1.01 08/19/24 16:41
APTT 28.0 Sec (23.4-35.0) 08/19/24 16:41
Sodium 136 mmol/L (135-145) 08/20/24 03:37
Potassium 4.2 mmol/L (3.5-5.1) 08/20/24 03:37
BUN 17 mg/dl (9-20) 08/20/24 03:37
Glucose 68 mg/dl (70-99) L 08/20/24 03:37
Calcium 7.6 mg/dl (8.4-10.2) L D 08/20/24 03:37
Ur Buprenorphine Negative (Negative) 08/19/24 09:58
Patient Allergies
alfalfa Allergy (Unknown, Verified 08/19/24 08:31)
Unknown
Review of Systems
-
Unable to obtain full review of systems at this time due to: Lethargy
History Source: Patient
All other systems: Reviewed and negative
Physical Exam
-
General: No Apparent Distress, Intubated and Appears Stated Age
Eyes: OU Absent Papilledema, Round OU and [place] Conjunctivae
HEENT: Anicteric and Moist Mucous Membranes
Neck: Full Range of Motion
Respiratory: No Dyspnea
Cardiac: No JVD
GI: Non-distended
Skin: Unremarkable
Extremities: No Clubbing, No Cyanosis and No Edema
Psych: Unable to Assess
Extended Neurological Exam
Mood & Affect: Unable to Assess
Attention Span & Concentration: Unresponsive to Verbal Stimuli; Negative Awake, Alert, Interactive or Unresponsive to Physical Stimuli (Resists passive head turning and passive eye opening mildly)
Memory: Unable to Assess
Tremor: Hand Tremor Absent and Head Tremor Absent
Involuntary Movement: None
Speech: Unable to Assess
Cranial Nerve II: Left Eye: Pupillary Reactivity Unremarkable, Pupillary Size Unremarkable and Unable to Assess Visual Ward
Cranial Nerve II: Right Eye: Pupillary Reactivity Unremarkable, Pupillary Size Unremarkable and Unable to Assess Visual Ward
Cranial Nerves III, IV, : Extraocular Movement: Absent Doll's Eyes and Unable to Assess (Ptosis)
Cranial Nerve V: Facial Sensation: Unable to Assess
Cranial Nerve VII: Facial Symmetry: Normal Facial Symmetry
Cranial Nerves IX, X: Palate Movement: Unable to Assess
Cranial Nerve XI: Shoulder Shrug: Unable to Assess
Cranial Nerve XII: Tongue Protusion: Unable to Assess
Muscle Strength, Overall: Spontaneously Moves (All extremities minimally distally greater than proximally and rarely)
Muscle Bulk & Tone: Bulk Unremarkable and Tone Unremarkable
Pronator Drift: Unable to Assess
Cold Sensation: Unable to Assess
Vibration Sensation: Unable to Assess
Coordination: Unable to Assess
Gait & Station: Unable to Assess
Data Reviewed
-
CT Head: Report Reviewed
Labs: Report Reviewed
Reviewed with: Physician and Other
Old Records: Summarized
Past History
Past History
ED Past Medical History: HTN, Hypercholesterolemia, NIDDM and Seizures
ED Past Surgical History: None
Social History
Tobacco: Smoker
Alcohol: None
Drug: None
Personal: Single
Living: alone
Employment: Disabled
Family History
Family History: Unable to obtain
Medications
-
Medications:
Generic Name Dose Route Start Last Admin
Trade Name Freq PRN Reason Stop Dose Admin
Bisacodyl 10 mg 08/19/24 13:02
Bisacodyl 10 Mg Rectal Suppository RECTAL 09/16/24 13:01
[id number] PRN
constipation
Cefepime HCl 2,000 mg 08/19/24 12:00 08/20/24 04:01
Cefepime Hcl 2,000 Mg/12.5 Ml Vial IV 2,000 mg
Q8H ALAN Administration
Dextrose 12.5 grams 08/19/24 13:02 08/20/24 07:23
Dextrose 50% (0.5 Grams/Ml) 50 Ml Syringe IV 09/16/24 13:01 12.5 grams
[id number] PRN Administration
hypoglycemia
Protocol
Famotidine 20 mg 08/20/24 08:00 08/20/24 07:29
Famotidine 20 Mg Tablet TUBE 09/17/24 07:59 Not Given
DAILY ALAN
Fentanyl Citrate 50 mcg 08/19/24 14:44 08/20/24 07:46
Fentanyl (50 Mcg/Ml) 100 Mcg/2 Ml Ampul IV 09/02/24 14:43 50 mcg
[id number] PRN Administration
see protocol
Protocol
Glucagon 1 mg 08/19/24 13:02
Glucagon 1 Mg Vial IM 09/16/24 13:01
PRN PRN
hypoglycemia
Protocol
Norepinephrine Bitartrate 4 mg in 250 mls @ 0 mls/hr 08/19/24 10:45
Levophed IV
PER PROTOCOL ALAN
Protocol
Per Protocol
Valproate Sodium 2,000 mg/ 70 mls @ 42 mls/hr 08/19/24 12:00 08/19/24 23:33
Sodium Chloride IV 09/16/24 11:59 70 mls
Q12H ALAN Administration
Vancomycin HCl 1,250 mg/ 275 mls @ 183.33 mls/hr 08/20/24 06:00 08/20/24 05:14
Sodium Chloride IV 275 mls
Q12H ALAN Administration
Midazolam HCl 25 mg in 50 mls @ 0 mls/hr 08/19/24 12:15 08/19/24 23:33
Versed IV 50 mls
PER PROTOCOL ALAN Administration
Protocol
Per Protocol
Sodium Chloride 1,000 mls @ 125 mls/hr 08/19/24 13:02 08/20/24 04:02
Nss IV 1,000 mls
.Q8H ALAN Administration
Fentanyl Citrate 1,000 mcg in 100 mls @ 0 mls/hr 08/19/24 14:45 08/20/24 03:59
Sublimaze IV 100 mls
PER PROTOCOL ALAN Administration
Protocol
Per Protocol
Propofol 1,000,000 mcg in 100 mls @ 0 mls/hr 08/19/24 14:45 08/20/24 08:12
Diprivan IV 100 mls
PER PROTOCOL ALAN Administration
Protocol
Per Protocol
Insulin Aspart 0 units 08/20/24 08:00 08/20/24 07:29
Insulin Aspart Moderate Resistance 300 Units/3 Ml Pen.Injctr SC 09/17/24 07:59 Not Given
Q6 ALAN
Protocol
Levetiracetam 1,000 mg 08/19/24 20:00 08/20/24 07:25
Levetiracetam (100 Mg/Ml) 500 Mg/5 Ml Vial IV 09/16/24 19:59 1,000 mg
Q12 ALAN Administration
Midazolam HCl 1 mg 08/19/24 12:01 08/20/24 08:01
Midazolam (Preservative Free) 1 Mg/Ml 2 Ml Vial IV 09/16/24 12:00 1 mg
[id number] PRN Administration
see protocol
Protocol
Polyethylene Glycol 17 grams 08/19/24 13:02
Polyethylene Glycol Powder 17 Grams Packet PO 09/16/24 13:01
DAILYPRN PRN
constipation
Polyethylene Glycol 17 grams 08/20/24 08:00 08/20/24 07:29
Polyethylene Glycol Powder 17 Grams Packet TUBE 09/17/24 07:59 Not Given
DAILY ALAN
Senna/Docusate Sodium 1 tablet 08/19/24 13:02
Docusate W/Senna (Hoa-Colace) Tablet PO 09/16/24 13:01
BIDPRN PRN
constipation
Sodium Chloride 0 flush 08/19/24 12:00
Sodium Chloride 0.9% (Flush) Syringe IV 09/16/24 11:59
PER PROTOCOL ALAN
Sterile Water 10 ml 08/19/24 12:00 08/20/24 04:01
Sterile Water For Injection 10 Ml Vial IV 09/16/24 11:59 10 ml
Q8H ALAN Administration
[2024-08-20 10:08] LABS: Glucose - Point of Care 94 mg/dl (70-99)
[2024-08-20 10:15] LABS: Lactic Acid 1.3 mmol/L (0.7-2.0)
[2024-08-20 10:41] LABS: Glycohemoglobin (HgbA1c) 6.6 % (4.0-5.6)
[2024-08-20] MEDS: DEPACON 70 MG IV (11:39)
[2024-08-20] MEDS: NSS (PRESERVATIVE FREE) 1 ML IV (12:05)
[2024-08-20] MEDS: ATIVAN 2 MG IV (12:05)
--- NOTE | 2024-08-20 12:08 | W.PN.UPDATE ---
Update Note
Progress Note Update
Called to see patient for witnessed tonic-clonic seizure, posturing
Patient became tachycardic, mildly hypoxic, moving all extremities
Was given dose of Versed, 2 mg of Ativan
Stat blood sugar showed fingerstick 72
Patient also noted to have low-grade fever
Amp of D50 and Tylenol was also given
After close observation, seizures appeared to resolve
Versed drip increased to 2.5 mg/h
Neurology was contacted. EEG was requested
Will transition fluids to D5 normal saline
Maintain sedation. Currently on propofol, fentanyl, Versed drip
Head of bed elevated, aspiration precautions
Reviewed with primary service, neurology, respiratory care, CCM
TCCT 45 min
[2024-08-20] MEDS: OFIRMEV 100 IV (12:15)
[2024-08-20 12:18] LABS: Glucose - Point of Care 72 mg/dl (70-99)
--- NOTE | 2024-08-20 12:45 | PTCARENOTE ---
1130- Neurologist at bedside. Patient opening eyes and moving all extremities. Patient increasingly agitated with stimulation. Ventilator alarming for high peak airway pressures, low volumes. Fentanyl bolus administered and rate of drip increased.
Patient responsive to fentanyl.
1200- RN at bedside when patient began tremoring throughout body. Posturing. Dyssynchronous on ventilator. RT at bedside. Patient having copious amount of oral secretions. Suctioned and bite block placed. Cyanotic. HR up to 120's. Versed 1mg IV
administered and drip increased per protocol. [employer] at bedside. 2mg IV Ativan ordered and administered. Core temp up to 101.3. IV Ofirmev administered. Tmax 101.7. Blood sugar checked- 72. D50 administered. EEG ordered, tech contacted.
--- NOTE | 2024-08-20 13:26 | PTCARENOTE ---
sewer and drain technician at bedside.
--- NOTE | 2024-08-20 13:29 | CM ---
CM following re: discharge planning.
Reviewed pt's chart, met with pt.
Pt is a 58 year old male, admitted with primary dx of Acute hypoxic respiratory failure. Intubated in ED 08/19. Acute seizure activity. Pt remains intubated.
Pt lives with room mate/friend Roldan [phone] in a 2SH, 2 steps to enter, has no children, parents . Pt has cousin Zora, next of kin [phone].
Pharmacy: [facility].
D/C plan: uncertain at this time and will de[end on pt's progress.
CM will follow with discharge plan updates as hospitalization progresses
[2024-08-20] MEDS: VERSED 50 IV (15:33)
--- NOTE | 2024-08-20 15:58 | PTCARENOTE ---
Patient resting comfortably in bed. Vitals stable. Only complaints is feeling slightly diaphoretic. Denies dizziness. AM labs showing blood glucose level of 68. Fingerstick checked- 115. No other changes.
--- NOTE | 2024-08-20 16:11 | EEG.RPT ---
Electroencephalogram Report
Recording
Date of EE08/20/24
Type of EEG: Routine
Length of EEG recordin minutes
Done with Video Recording: Yes
Patient Status: Inpatient
Recording Conditions: Asleep
Hyperventilation Performed: No
Photic Stimulation Performed: Yes
Report
GREATER THAN 1 HOUR EEG REPORT
EEG INTERPRETATION:
Unremarkable EEG for age in sleep
CLINICAL CORRELATION:
A normal EEG does not rule out a diagnosis of epilepsy. If clinical suspicion for seizure persists, a prolonged recording recording wakefulness may be warranted.
Clinical correlation is advised.
METHODS:
A 21 channel digitized electroencephalogram (EEG) was performed using the 10/20 international system of electrode placement and one-lead of ECG recorded in the intensive care unit. Video was recorded. The [employer]icEEG analysis system was utilized.
ELECTROENCEPHALOGRAPHER IMPRESSION(S):
Quality of study
Good
Background
There was an unremarkable anterior-posterior voltage gradient of delta frequency.
There were no significant asymmetries of background activity noted.
Sleep
Stage 2 present
Photic Stimulation
No activation
ECG
Normal sinus rhythm
--- NOTE | 2024-08-20 16:30 | PTCARENOTE ---
Patient reassessed. Sedated. Fent/Prop/Versed infusing. Pupils equal and reactive. +Corneal/gag reflexes. MAEx4. NSR on tele. +1 anasarca. Vent settings unchanged. Fine crackles in b/l bases. Diminished anteriorly. +BS. No bm. Shaffer draining jeison
urine, 35-60 cc/hr. Vitals stable. Core temp down to 99.1.
[2024-08-20 17:22] LABS: Depakane 74.5 ug/ml (50.0-120.0)
[2024-08-20] MEDS: LOVENOX 40 MG SC (17:40)
[2024-08-20] MEDS: D5/0.9% SODIUM CHLORIDE 1000 IV (17:41)
[2024-08-20] MEDS: THIAMINE INJECTION 100 MG IV (17:41)
[2024-08-20 17:48] LABS: Glucose - Point of Care 62 mg/dl (70-99)
--- NOTE | 2024-08-20 17:50 | PTCARENOTE ---
Fingerstick 62. D50 administered. IVFs changed to D5NS.
[2024-08-20 18:17] LABS: Glucose - Point of Care 103 mg/dl (70-99)
[2024-08-20 20:13] LABS: Glucose - Point of Care 95 mg/dl (70-99)
--- NOTE | 2024-08-20 21:06 | PTCARENOTE ---
Assumed care of pt. approx 1900.
remains intubated on same settings as day team, see flowsheet for details.
Pt. pulling appropriate volumes, sp02 96-99 percent.
sedation doses increased due to increasing RASS per day team, plan is to cont. deep sedation goals.
Sedation gtt managed with
Midazolam
Fentanyl
Propofol
See titration flowshets for details.
Blood sugars running low, iv fluids switched to 0.9/d5, sugars maintaining adequate levels.
No seizure activity currently.
Normocephalic/atraumatic, pupils =/r 2mm sluggish response, deep pain w/d all extrem, full gaze w/o extra occular movements.
[2024-08-20] MEDS: DEPACON 65 MG IV (21:36)
[2024-08-20 22:13] LABS: Glucose - Point of Care 94 mg/dl (70-99)
[2024-08-20 23:44] LABS: Glucose - Point of Care 97 mg/dl (70-99)
[2024-08-21] VITALS (25 sets, daily range): BP systolic 111–208; BP diastolic 54–124; BMI 29.1
[2024-08-21 03:08] LABS: Glucose - Point of Care 103 mg/dl (70-99)
--- NOTE | 2024-08-21 03:23 | PTCARENOTE ---
Pt. noted to have Rhythmic jerking in upper extrem. slight decerebrate posturing briefly. ICU molly notified order to increase Midazolam gtt to 3 w/ bolus.
[2024-08-21] MEDS: DIPRIVAN 100 IV ×2 (03:29→06:32)
[2024-08-21] MEDS: MAXIPIME 2000 MG IV ×3 (03:29→19:27)
[2024-08-21] MEDS: VERSED 1 MG IV ×5 (03:29→14:41)
[2024-08-21] MEDS: STERILE WATER FOR INJECTION 10 ML IV ×3 (03:29→19:26)
[2024-08-21] MEDS: D5/0.9% SODIUM CHLORIDE 1000 IV ×2 (03:30→13:16)
[2024-08-21 04:00] LABS: B.E. 0.8 mmol/L; HCO3 25.3 mmol/L (21-28); O2 Saturation % 96.5 % (94-98); PCO2 39 mmHg (35-48); PO2 70 mmHg (83-108); pH 7.42 (7.35-7.45)
[2024-08-21 04:09] LABS: O2 Therapy VENT
[2024-08-21 04:21] LABS: Hematocrit 33.8 % (39.0-52.0); Hemoglobin 11.6 g/dL (13.0-18.0); Mean Corp Hgb Conc. 34.3 g/dL (33.0-37.0); Mean Corpuscular Volume 96.3 fL (80.0-94.0); Mean Platelet Volume 9.8 fL (7.4-10.4); Platelet Count 129 10^3/uL (130-400); Red Blood Cell Count 3.51 10^6/uL (4.70-6.10); Red Cell Dist. Width 12.8 % (11.5-14.5); White Blood Cell Count 6.6 10^3/uL (4.8-10.8)
--- NOTE | 2024-08-21 04:47 | PTCARENOTE ---
P02 on gas 70, fio2 increased to 50%.
No further jerking movements.
[2024-08-21 04:50] LABS: Blood Urea Nitrogen 12 mg/dl (9-20); Calcium 7.6 mg/dl (8.4-10.2); Carbon Dioxide 22 mmol/L (22-30); Chloride 108 mmol/L (98-107); Estimated Creatinine Clearance 124 ml/min; Glucose 115 mg/dl (70-99); Magnesium 1.7 mg/dl (1.6-2.3); Potassium 3.7 mmol/L (3.5-5.1); Sodium 136 mmol/L (135-145); eGFR > 60.00
[2024-08-21 05:13] LABS: Glucose - Point of Care 116 mg/dl (70-99)
[2024-08-21 05:52] LABS: Depakane 47.6 ug/ml (50.0-120.0)
[2024-08-21] MEDS: VANCOCIN 275 MG IV ×2 (06:33→17:55)
[2024-08-21] MEDS: NOVOLOG FLEXPEN-MODERATE RESISTANCE SC ×3 (06:34→18:40)
[2024-08-21] MEDS: THIAMINE INJECTION 100 MG IV (07:49)
[2024-08-21] MEDS: DEPACON 65 MG IV ×2 (07:49→19:31)
[2024-08-21] MEDS: MIRALAX TUBE (07:49)
--- NOTE | 2024-08-21 08:38 | W.PN.NEURO.1 ---
Today's Communication / Plan
-
Valproic acid 1500 BID check trough in am
urgent EEG 08/20 stage II sleep
Discontinue levetiracetam due to possible agitation side effect
propofol 50 mcg/kg/hr, Versed 3 mg/hr
Attempt to reduce propofol, then fentanyl, and finally Versed; may increase Versed if needed. extubate when possible, anticipate will take a few days given recent agitation
at 9:12 am, i was informed by ELAINE Dowell propofol decreased to 25, patient had some rhythmic shaking left shoulder and left foot, copious secretions. Propofol increased back to 50, given 1 mg Versed
I instructed propofol decrease back to 25, and 9:50 witnessed rhythmic low amplitude movement like mini poly myoclonus
instructed continue propofol 25, EEG >1hr, and when recording begins turn off propofol.
11:40 am EEG showed continuous generalized slowing, muscle artifact. shaking movements without EEG changes
exam opens eyes to voice, moving all extremities,
advised turn fentanyl and Versed off
continue EEG monitoring until end of shift
Neuro Assessment/Plan
Assessment
Acute recurrent generalized tonic-clonic seizure in a patient on routine phenytoin
Dose of phenytoin at the time of presentation was minimally therapeutic at 11
Patient was initiated on valproic acid as a replacement therapy due to breakthrough event
Plan
Valproic acid 1500 BID, VPA level 47, check trough in am
urgent EEG 08/20 stage II sleep
Discontinue levetiracetam due to possible agitation side effect
Attempt to reduce propofol, then fentanyl, and finally Versed; may increase Versed if needed. extubate when possible, anticipate will take a few days given recent agitation
Will follow
Subjective/Objective
Subjective Data
Date of Service: August 21, 2024
Overnight remains intubated, on vent, sedated with propofol, fentanyl, Versed
no further seizures witnessed.
this morning slightly febrile, suspected aspiration after self extubation and reintubation
Objective Data
Vital Signs
Temp Pulse Resp BP Pulse Ox
38.1 C H 74 16 122/55 99
08/21/24 07:25 08/21/24 06:00 08/21/24 06:00 08/21/24 06:00 08/21/24 07:44
Lab Results
08/21/24 03:04
08/21/24 03:04
PT 13.8 Sec (11.4-14.6) 08/19/24 16:41
INR 1.01 08/19/24 16:41
APTT 28.0 Sec (23.4-35.0) 08/19/24 16:41
Sodium 136 mmol/L (135-145) 08/21/24 03:04
Potassium 3.7 mmol/L (3.5-5.1) 08/21/24 03:04
BUN 12 mg/dl (9-20) 08/21/24 03:04
Glucose 115 mg/dl (70-99) H 08/21/24 03:04
Calcium 7.6 mg/dl (8.4-10.2) L 08/21/24 03:04
Ur Buprenorphine Negative (Negative) 08/19/24 09:58
Patient Allergies
alfalfa Allergy (Unknown, Verified 08/19/24 08:31)
Unknown
Physical Exam
-
intubated, sedated, on vent
RASS -3
pupils 2mm sluggish, VOR negative, no cough
no response noxious stim x4 ext
[2024-08-21] MEDS: VERSED 50 IV (09:44)
--- NOTE | 2024-08-21 09:50 | W.PN.HOSP.TC ---
Today's Communication/Plan
-
Continue mechanical ventilation, sedation, antibiotics, antiepileptic medications
Assessment / Plan
Assessment / Plan
Physical Exam
General: Not in acute distress. Unresponsive.
HEENT: Normocephalic.
Neck: Supple.
CV: tachy, reg rhythm, +S1/S2, no m/r/g.
Resp: CTAB anteriorly, no rales, wheezes, or rhonchi.
Abd: +BS, soft, NT, ND
Skin: Warm. Dry.
Neuro: intubated, sedated

CT brain: No acute intracranial abnormality noted. Sequelae of mild/moderate small vessel ischemic disease, similar in appearance to prior. Trace secretions within the right maxillary sinus.
Echo: Normal left ventricular size, wall thickness and systolic function.
LV ejection fraction is 55-60% by visual assessment.
Normal right ventricular size and function. Perhaps mildly underfilled.
Mildly thickened mitral valve leaflets with normal leaflet opening and no
regurgitation seen.
Sclerotic, trileaflet aortic valve with normal leaflet excursion and no
significant regurgitation seen.
Structurally normal tricuspid valve without significant stenosis or
regurgitation.
Right heart pressures could not be determined.
Structurally normal pulmonic valve without significant stenosis or
regurgitation.
Normal pericardium without effusion.
The IVC is of normal size and demonstrates normal respiratory variation.
No significant structural heart disease on current study. No priors available
for comparison.

Assessment/Plan
Acute hypoxemic respiratory failure due to likely aspiration due to seizure activity
Acute seizure activity - witnessed grand mal seizure in the ED (patient has history of epilepsy)
-Intubated in ED 08/19/24 - self extubated - reintubated in ED 08/19/24
-CT brain without acute intracranial abnormality
-UDS POS for barbiturates only
-dilantin level 22.8 on admission, now 10.9, holding dilantin
-cont IV Keppra/Depakote, neuro following
-EEG
-Continue sedation, mechanical ventilation
-Dobhoff tube, oral meds
Hypotension - shock, suspected sepsis
Fever, improved
Leukocytosis improved
Elevated lactate
-s/p aggressive IVF resuscitation
-Was on Levophed, now weaned to off
-continue empiric Vanco follow Cxs (blood cultures positive for GPC). Cefepime stopped.
-Echo above, no evidence of cardiogenic shock
-currently etiology of shock is not yet identified. Cardiogenic shock has been ruled out.
Type 2 Diabetes Mellitus
-check a1c
-SSI/accuchecks
Hypertension
-Sedation was added, appreciate esol instructor
Hyperlipidemia
21-uryu-pdae history of smoking, ongoing
FULL/Lovenox
Anticipated Discharge: > 48 hours
Subjective/Interval History
-
Date of Service: August 21, 2024
Patient was seen and examined. He remained intubated and sedated.
Objective Data
-
Labs:
Laboratory Results
08/21/24
03:04
WBC 6.6
Hgb 11.6 L
Hct 33.8 L
Plt Count 129 L
HCO3 25.3
Sodium 136
Potassium 3.7
Chloride 108 H
Carbon Dioxide 22
BUN 12
Creatinine 0.6 L
Glucose 115 H
Calcium 7.6 L
Vital Signs:
Vital Signs
Temp Pulse Resp BP Pulse Ox
100.5 F H 74 16 122/55 100
08/21/24 07:25 08/21/24 06:00 08/21/24 06:00 08/21/24 06:00 08/21/24 08:00
I&O
08/20/24 08/21/24 08/22/24
06:59 06:59 06:59
Intake Total 5871.36 / 6302.86 4293.0 / 4432.5 279.0 / 279.0
Output Total 2280 / 2545 1630 / 1660 60 / 60
Balance 3591.36 / 3757.86 2663.0 / 2772.5 219.0 / 219.0
--- NOTE | 2024-08-21 11:00 | SUR.PHASEI ---
0800 Received pt in bed, unresponsive. B/L wrist restraints and 4 side rails up for pt safety. Not following any commands. Pupils 2, nonreactive to light. No gag reflex. Propofol gtt, Versed gtt, Fentanyl gtt running. D5NS running per orders. L AC
INT, L Hand INT and R AC INT intact. SR/ST. Trace B/L hand edema. +radial pulses. +pedal pulses. #8 ETT positioned on left side of lip at 25. Lungs coarse throughout. 98% on 40% Fi02. Abdomen round. Hypoactive bowel sounds. Shaffer draining jeison
colored urine. Pt repositioned.
0830 Neurology into room, goal is to wean down propofol and fentanyl and versed last for a Rass of -1.
0912 Propofol gtt weaned down form 50mcg to 25mcg and noted to have rhythmic movement left leg and b/l shoulders with copious amount of thin secretions.. Propofol gtt increased back to 50mcg and 1 mg of Versed given and Neuro notified.
0924 Neuro at bedside and wants Propofol gtt back down to 25mcg and will wait on floor to see movement patient was doing.
1000 Pt having rhythmic movement. Neuro observing and will keep at 25mcg until EEG starts and then will turn gtt off.
1030 Pt starting to move extremities. Trying to open eyes. Emotional support provided. Re-oriented pt he was in hospital, does not follow any commands.
1051 Propofol gtt turned off, EEG started.
Will continue to monitor pt closely
--- NOTE | 2024-08-21 11:48 | PTCARENOTE ---
Dr. Neumann at bedside, while EEG going. No seizure activity noted. Dr. Neumann would like Fentanyl and Versed gtt off. Propofol gtt remains off. Opening eyes to verbal stimuli. But does not follow any commands at this time
--- NOTE | 2024-08-21 12:00 | PTCARENOTE ---
Pt restless, BP high, HR elevated with PVC's. Neurology at bedside will turn Versed gtt back on.
[2024-08-21 12:05] LABS: Glucose - Point of Care 109 mg/dl (70-99)
--- NOTE | 2024-08-21 12:16 | W.PN.INTV ---
Today's Communication / Plan
Recommendations
Continue mechanical ventilation without change
Minimize sedation
If appropriate later today we can try spontaneous breathing trial
Antiepileptic drugs
N.p.o. for now
Repeat blood culture
Continue vancomycin for now
Assessment
-
58-year-old male with history of seizure disorder, hypertension, diabetes, dropped off to ED by friend. Proceeded to have witnessed seizure with hypoxia, bradycardia, cyanosis. Patient intubated in the ED. Patient then self extubated requiring
reintubation. Patient required heavy sedation to maintain adequate sedation while intubated. Head CT unremarkable. Loaded with valproate, admitted to ICU for further management
Acute hypoxic respiratory failure
Intubated in ED 08/19
Self extubated
Reintubated in ED 08/19
Acute seizure activity
Witnessed grand mal seizure in the ED
Hx of epilepsy
Hypotension, suspected sepsis
Elevated lactate
Hypoglycemia
Conditions present prior to admission
Diabetes
Hypertension
[id number]-nddb history of smoking, ongoing
Plan/recommendations
Remains critically ill, on mechanical ventilation. Heavily sedated.
Continue current mechanical ventilation without change:
Continue with volume-cycled ventilation
AC 16/550/5/40%
Ppk 26, Pplat 17
No evidence for active seizures at this point on current EEG 08/21/2024.
Discussed with neurology, plan to discontinue sedation if possible.
Oral antiepileptic drugs, case discussed with neurology.
-
If appropriate after weaning of sedation will extubate.
Currently waking up slowly following commands
Tachycardic, hypertensive.
On low rate Versed, hopefully can wean off
Has history of hypertension if blood pressure remains over 160 systolic will add labetalol as needed.
Vasopressors discontinued
Echocardiogram normal biventricular function, right heart pressures could not be determined
Gentle IV fluid
Neurology continues to follow: As above
Patient on Keppra, valproate
Dobbhoff tube, may give medication
Fever, improved
leukocytosis improved.
Chest x-ray 08/20/2024 without abnormalities
Initially on cefepime/vancomycin for possible aspiration event
Cefepime discontinued
Vancomycin continues due to positive blood cultures.
Blood cultures + 08/19/2024, gram-positive cocci in [id number] final identification.
repeat blood cultures
Head of bed elevated
N.p.o.
Dobbhoff tube-if not extubated then start tube feedings in the next day or so.
DVT prophylaxis: Lovenox subcu
GI prophylaxis: IV PPI
Reviewed with critical care nursing, respiratory care, primary service
Critical care statement: A total of 35 minutes of critical care time was provided for this patient today. This includes management of unstable vital signs, evaluation of the patient at bedside, reviewing the patient's pertinent medical records
including ventilator settings, arterial blood gases, radiographs, microbiology, laboratory evaluations and discussion with primary team, critical care nursing, and respiratory therapy.
Subjective Dataa
Subjective Data
Date of Service:
Date of Service: August 21, 2024
Chief Complaint: Vamp Maker Follow Up (Respiratory failure recurrent intubation-seizure spell)
Subjective:
Sedated, unable to provide history
Critically ill
Review of Systems
General: Unobtainable - Sedation
Objective Data
Data Reviewed
Vital Signs / I&O / Oxygen:
Vital Signs
Temp Pulse Resp BP Pulse Ox
100.1 F 85 16 151/56 98
08/21/24 11:22 08/21/24 10:00 08/21/24 10:00 08/21/24 10:00 08/21/24 11:23
Intake and Output
08/20/24 08/21/24 08/22/24
06:59 06:59 06:59
Intake Total 5871.36 / 6302.86 4293.0 / 4432.5 734.2 / 734.2
Output Total 2280 / 2545 1630 / 1660 215 / 215
Balance 3591.36 / 3757.86 2663.0 / 2772.5 519.2 / 519.2
SaO2 [A/C] 100
SaO2 98
Physical Exam
General: Comfortable and Other ( unresponsive due to sedation)
HEENT: Normocephalic, Anicteric and Other (ET tube in place without secretion)
Cardiovascular: S1-S2, Regular Rhythm, Murmur (n) and Rub (n)
Respiratory: Wheeze (n), Crackles (n), Rhonchi (n) and Non-Labored Respirations
GI: Soft, Non Distended and Non Tender (Obese)
Neurology: Lethargic (Sedated, spontaneously moving extremities)
Skin: Good Color (n), Cyanosis (n) and Jaundice (n)
Labs/Micro/Reports
Lab Data
08/21/24 03:04
08/21/24 03:04
Laboratory Results
08/21/24
03:04
pH 7.42
pCO2 39
pO2 70 L
HCO3 25.3
O2 Delivery Level Vent
Microbiology
08/19/24 09:54 Blood/Venous Blood Culture - Preliminary
Positive culture in progress
08/19/24 09:54 Blood/Venous Gram Stain - Final
08/19/24 09:54 Blood/Venous Blood Culture - Preliminary
Positive culture in progress
08/19/24 09:54 Blood/Venous Gram Stain - Preliminary
08/19/24 09:54 Nasal Swab Influenza Types A & B (ESTIVEN) - Final
Negative for Influenza A & B, NAAT
Negative results must be combined with clinical observations
and patient history.
Nucleic Acid Amplification test (NAAT)performed on the
[employer] platform.
--- NOTE | 2024-08-21 12:53 | PTCARENOTE ---
L nare Dobhoff tube placed. Abd xray completed for placement. Pt agitated, versed bolus given and then gtt increased from 3mg to 3.5. Re-orienting pt to wear he is. Will continue to monitor pt. closely
[2024-08-21] MEDS: PRECEDEX 100 IV ×3 (12:58→21:51)
[2024-08-21] MEDS: SUBLIMAZE 50 MCG IV (13:42)
--- NOTE | 2024-08-21 14:20 | PTCARENOTE ---
Pt remains agitated, tachypneic, BP elevated, tachycardic, notified. Precedex gtt ordered, Fentanyl bolus given and another bolus of Versed. Will continue to monitor
--- NOTE | 2024-08-21 14:30 | PHA.VAN.FU ---
Addendum entered and electronically signed by Mariana Hernandez RPH 08/21/24 15:52:
BUN & SCR ordered per protocol
Original Note:
Vancomycin Assessment / Plan
- Assessment
Renal Function: Stable
WBC's are: WNL
Concomitant Antimicrobials: cefepime
- Dosing Plan
Continue: Vanc 1250mg Q12H
- Monitoring Plan
Peak Level: 08/21 21:00
Trough Level: 08/22 05:30
Monitoring Comments: levels to be drawn after 4th maintenance dose
- Follow Up
Pharmacy will continue to follow.
Vancomycin Follow UP
- -
Patient Age: 58
Patient Sex: Male
Vancomycin Day #: 3
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
Requesting Provider: Dr. Resendez
Pertinent Antimicrobial Allergies:
no pertinent antibiotic allergies
Height / Weight:
Height 5 ft 7 in
Actual Weight 84.3 kg
IBW in k.1
Pertinent Past Medical History: DM 2
- Vital Signs / Lab Results
Temp Pulse Resp BP Pulse Ox
100.1 F 128 18 201/66 99
08/21/24 11:22 08/21/24 14:00 08/21/24 14:00 08/21/24 14:00 08/21/24 14:00
Lab Results - Hematology
08/19/24 08/20/24 08/21/24
08:46 03:37 03:04
WBC 7.5 12.2 H 6.6
Lab Results - Chemistry
08/19/24 08/20/24 08/21/24
08:46 03:37 03:04
BUN 17 17 12
Creatinine 0.8 0.8 0.6 L
Estimated Creat Clear 93 93 124
Albumin 4.6 3.1 L D
08/19/24 08/19/24 08/19/24
09:54 16:01 20:23
Lactic Acid 11.3 H* 4.3 H* 3.1 H
08/20/24 08/20/24
03:37 09:56
Lactic Acid 3.0 H 1.3
Microbiology Results
08/19/24 09:54 Blood Culture - Preliminary
Blood/Venous Positive culture in progress
Gram Stain - Final
08/19/24 09:54 Blood Culture - Preliminary
Blood/Venous Positive culture in progress
Gram Stain - Preliminary
08/19/24 09:54 Influenza Types A & B (ESTIVEN) - Final
Nasal Swab Negative for Influenza A & B, NAAT
Negative results must be combined with clinical observations
and patient history.
Nucleic Acid Amplification test (NAAT)performed on the
[employer] platform.
--- NOTE | 2024-08-21 16:20 | PTCARENOTE ---
Pt remains agitated, tachypneic, BP elevated, tachycardic, notified. Precedex gtt ordered, Fentanyl bolus given and another bolus of Versed. Will continue to monitor
--- NOTE | 2024-08-21 17:00 | PTCARENOTE ---
Pt calm, HR down in the 70-80's. BP down. No longer tachypneic on the vent. Per neuro and lay out maker. When able will titrate Versed down and keep Precedex gtt on. Versed gtt titrated to 3.5mg/hr and Precedex running at 1mcg/kg/hr. Will continue to
monitor pt. closely
[2024-08-21] MEDS: VERSED 100 IV (17:51)
[2024-08-21] MEDS: LOVENOX 40 MG SC (17:54)
[2024-08-21 18:08] LABS: Glucose - Point of Care 148 mg/dl (70-99)
[2024-08-21] MEDS: PEPCID 20 MG TUBE (19:31)
[2024-08-21 22:10] LABS: Vancomycin Peak 24.1 ug/ml (18-26)
--- NOTE | 2024-08-21 23:38 | PTCARENOTE ---
Pt received start of shift, HR SR w/ occasional PVCs on telemetry. Versed and precedex gtts. Corneal reflexes present. Pupils +2 b/l, reactive. Continuous EEG connected. ET #8 marked at 25cm at the lip. Vent settings as follows: 16/550/5/40%. Pt
suctioned - moderate amount clear/linda sputum. Pedal pulses weak. L dobhoff 70cm at nare. Trace edema noted b/l LE, +1 b/l UE. Weaning versed per order, see worklist. RASS currently -3/-4.
[2024-08-21 23:59] LABS: Glucose - Point of Care 149 mg/dl (70-99)
[2024-08-22] VITALS (29 sets, daily range): BP systolic 102–191; BP diastolic 58–89; PULSE 100; O2SAT 93; BMI 30.1
[2024-08-22] MEDS: NOVOLOG FLEXPEN-MODERATE RESISTANCE SC ×4 (00:24→23:27)
--- NOTE | 2024-08-22 00:30 | PTCARENOTE ---
Pt asynchronous w/ vent at two separate points. Suctioned moderate amount clear sputum both times, effective. No longer asynchronous with vent. RASS -4. Continuing to wean versed and precedex gtts as ordered. Assessment otherwise unchanged.
[2024-08-22] MEDS: D5/0.9% SODIUM CHLORIDE 1000 IV ×3 (00:42→21:08)
[2024-08-22] MEDS: PRECEDEX 100 IV ×2 (03:05→08:20)
[2024-08-22] MEDS: SUBLIMAZE 50 MCG IV ×2 (04:29→06:26)
[2024-08-22 04:35] LABS: Hematocrit 34.4 % (39.0-52.0); Hemoglobin 12.1 g/dL (13.0-18.0); Mean Corp Hgb Conc. 35.2 g/dL (33.0-37.0); Mean Corpuscular Hgb 33.6 pg (27.0-31.0); Mean Corpuscular Volume 95.6 fL (80.0-94.0); Mean Platelet Volume 10.2 fL (7.4-10.4); Platelet Count 117 10^3/uL (130-400); Red Cell Dist. Width 12.6 % (11.5-14.5); White Blood Cell Count 7.4 10^3/uL (4.8-10.8)
--- NOTE | 2024-08-22 04:47 | PTCARENOTE ---
Pt more responsive, opening eyes to voice. Pt somewhat following commands, grasped RN fingers with R hand when prompted. Versed gtt off. Pt restless in bed and lightly attempting to sit up/reach towards tube - PRN fentanyl bolus (see MAR).
Tolerating vent settings, synchronous.
[2024-08-22] MEDS: VANCOCIN 275 MG IV (05:05)
[2024-08-22 05:10] LABS: Vancomycin Trough 14.1 ug/ml (5-20)
[2024-08-22 05:12] LABS: Blood Urea Nitrogen 7 mg/dl (9-20); Calcium 7.9 mg/dl (8.4-10.2); Carbon Dioxide 22 mmol/L (22-30); Chloride 107 mmol/L (98-107); Estimated Creatinine Clearance 124 ml/min; Glucose 165 mg/dl (70-99); Magnesium 1.7 mg/dl (1.6-2.3); Potassium 3.6 mmol/L (3.5-5.1); Sodium 137 mmol/L (135-145); Triglycerides 230 mg/dl (10-149); eGFR > 60.00
[2024-08-22] MEDS: KCL ELIXIR 20 MEQ TUBE (05:39)
[2024-08-22] MEDS: MAGNESIUM SULFATE 102 GRAMS IV (05:43)
[2024-08-22 06:07] LABS: Glucose - Point of Care 169 mg/dl (70-99)
[2024-08-22] MEDS: NOVOLOG FLEXPEN-MODERATE RESISTANCE 1 UNITS SC (06:12)
--- NOTE | 2024-08-22 08:15 | PHA.VAN.FU ---
Vancomycin Assessment / Plan
- Assessment
Renal Function: Stable
WBC's are: WNL
- Assessment - Therapeutic Drug Monitoring
Extrapolated Cmax (mcg/mL): 29.3
Peak level was drawn: Appropriately (drawn ~2.4H after end of previous infusion)
Extrapolated Cmin (mcg/mL): 12.3
Trough Drawn: Appropriately
Levels were drawn: At steady state (levels drawn after 4th maintenance dose)
Calculated AUC (mcg*h/mL): 475
Calculated ke: 0.0825
Calculated half life (H): 8.4
Calculated Vd (L): 63.8 (~0.73 L/kg)
Calculated Vanc CL (ml/min): 87.7
- Dosing Plan
Continue: Vanc 1250mg Q12H
- Monitoring Plan
Level(s) appropriate: Recheck trough at minimum of weekly intervals, Repeat sooner for changes in renal function or clinical status
Next Level Due (Date): ~08/29
- Follow Up
Pharmacy will continue to follow.
Vancomycin Follow UP
- -
Patient Age: 58
Patient Sex: Male
Vancomycin Day #: 4
Indication: S[employer] Infection
Requesting Provider: Dr. Resendez
Pertinent Antimicrobial Allergies:
no pertinent antibiotic allergies
Height / Weight:
Height 5 ft 7 in
Actual Weight 87.1 kg
IBW in k.1
Pertinent Past Medical History: DM 2
- Vital Signs / Lab Results
Temp Pulse Resp BP Pulse Ox
98.3 F 60 16 154/75 100
08/22/24 07:23 08/22/24 07:00 08/22/24 06:00 08/22/24 07:00 08/22/24 08:00
Lab Results - Hematology
08/19/24 08/20/24 08/21/24
08:46 03:37 03:04
WBC 7.5 12.2 H 6.6
08/22/24
04:18
WBC 7.4
Lab Results - Chemistry
08/19/24 08/20/24 08/21/24
08:46 03:37 03:04
BUN 17 17 12
Creatinine 0.8 0.8 0.6 L
Estimated Creat Clear 93 93 124
Albumin 4.6 3.1 L D
08/22/24
04:18
BUN 7 L
Creatinine 0.6 L
Estimated Creat Clear 124
Albumin
08/19/24 08/19/24 08/19/24
09:54 16:01 20:23
Lactic Acid 11.3 H* 4.3 H* 3.1 H
08/20/24 08/20/24
03:37 09:56
Lactic Acid 3.0 H 1.3
Microbiology Results
08/19/24 09:54 Blood Culture - Preliminary
Blood/Venous Positive culture in progress
Gram Stain - Preliminary
08/19/24 09:54 Blood Culture - Preliminary
Blood/Venous Positive culture in progress
Gram Stain - Final
Therapeutic Drug Monitoring
Vancomycin Peak 24.1 ug/ml (18-26) 08/21/24 21:48
Vancomycin Trough 14.1 ug/ml (5-20) 08/22/24 04:18
[2024-08-22] MEDS: DEPACON 65 MG IV ×2 (08:20→21:07)
[2024-08-22] MEDS: THIAMINE INJECTION 100 MG IV (08:21)
[2024-08-22] MEDS: MIRALAX 17 GRAMS TUBE (08:40)
[2024-08-22] MEDS: PEPCID 20 MG TUBE (08:40)
[2024-08-22 09:05] LABS: HCO3 26.6 mmol/L (21-28); O2 Saturation % 98.2 % (94-98); PCO2 45 mmHg (35-48); PO2 88 mmHg (83-108); pH 7.38 (7.35-7.45)
--- NOTE | 2024-08-22 09:15 | PTCARENOTE ---
Rec'd care of patient at 0700. Patient drowsy with periods of restlessness. Precedex drip infusing. MAEx4. Following commands. Plan discussed with Leathersmith. SBT ordered. 0750 patient placed on CPAP 5/5 40% by RT. #8 ett, 25cm @ the lip. Lung
sounds coarse. Crackles in b/l bases. Moist productive cough; linda sputum. NSR on tele. BP elevated. Trace anasarca with +2 edema in b/l hand. DHT in place for oral meds. DHT malpositioned, removed. No bm. Shaffer in place for critical I/O. Output
jeison/cloudy. Output up from 30 cc/hr to 100-200 cc/hr. ABG sent for potential extubation.
--- NOTE | 2024-08-22 09:46 | W.PN.INTV ---
Today's Communication / Plan
Recommendations
Spontaneous breathing trial to extubation
Continue antiepileptic drugs
Discontinue Precedex
Oxygen supplementation
N.p.o.
Head of the bed elevation
Continue vancomycin
Follow repeat blood cultures
Assessment
-
58-year-old male with history of seizure disorder, hypertension, diabetes, dropped off to ED by friend. Proceeded to have witnessed seizure with hypoxia, bradycardia, cyanosis. Patient intubated in the ED. Patient then self extubated requiring
reintubation. Patient required heavy sedation to maintain adequate sedation while intubated. Head CT unremarkable. Loaded with valproate, admitted to ICU for further management
Acute hypoxic respiratory failure
Intubated in ED 08/19
Self extubated
Reintubated in ED 08/19
Acute seizure activity
Witnessed grand mal seizure in the ED
Hx of epilepsy
Hypotension, suspected sepsis
Elevated lactate
Hypoglycemia
Conditions present prior to admission
Diabetes
Hypertension
24-hxtz-soro history of smoking, ongoing
Plan/recommendations
Remains critically ill, on mechanical ventilation. With manufacturing systems engineer sedation able to follow commands.
Continue current mechanical ventilation without change:
Continue with volume-cycled ventilation
AC 16/550/5/40%
Respiratory mechanics acceptable
No evidence for active seizures at this point on current EEG 08/21/2024.
No further witnessed seizures
-
Spontaneous breathing trial, after 1 hour ABG reviewed and is acceptable.
Hemodynamically stable
Cough effort is weak but present
Follow simple commands
All sedation will be discontinued, discontinue Precedex now.
Extubation now, discussed with respiratory therapist
Head of the bed elevation
N.p.o.
-
Continue antiepileptic drugs per neurology
Again, Precedex will be discontinued.
Hemodynamically stable, not requiring vasopressors. Was hypertensive yesterday due to agitation.
Echocardiogram normal biventricular function, right heart pressures could not be determined
Status post IV fluid resuscitation.
Lactic acid is cleared
Renal function is normal
Neurology continues to follow: As above
No longer febrile.
leukocytosis improved.
Chest x-ray 08/20/2024 without abnormalities
Initially on cefepime/vancomycin for possible aspiration event
Cefepime discontinued
Vancomycin continues due to positive blood cultures.
Blood cultures + 08/19/2024, with Aerococcus. Unclear significance
Repeat blood cultures 08/21/2024 are pending.
Echocardiogram without vegetation
If persistently positive blood cultures May need infectious disease consultation.
Head of bed elevated
N.p.o.
Dobbhoff tube-if not extubated then start tube feedings in the next day or so.
DVT prophylaxis: Lovenox subcu
GI prophylaxis: IV PPI
Reviewed with critical care nursing, respiratory care, primary service
Critical care statement: A total of 34 minutes of critical care time was provided for this patient today. This includes management of unstable vital signs, evaluation of the patient at bedside, reviewing the patient's pertinent medical records
including ventilator settings, arterial blood gases, radiographs, microbiology, laboratory evaluations and discussion with primary team, critical care nursing, and respiratory therapy.
Subjective Dataa
Subjective Data
Date of Service:
Date of Service: August 22, 2024
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
Subjective:
Intubated, critically ill.
No further seizures noted.
Remained hemodynamically stable
Review of Systems
General: Unobtainable - Sedation
Objective Data
Data Reviewed
Vital Signs / I&O / Oxygen:
Vital Signs
Temp Pulse Resp BP Pulse Ox
98.3 F 96 14 175/80 96
08/22/24 07:23 08/22/24 09:25 08/22/24 09:25 08/22/24 09:00 08/22/24 09:25
Intake and Output
08/21/24 08/22/24 08/23/24
06:59 06:59 06:59
Intake Total 4293.0 / 4432.5 3423.1 / 3682.0 561.9 / 561.9
Output Total 1630 / 1660 1496 / 1526 340 / 340
Balance 2663.0 / 2772.5 1927.1 / 2156.0 221.9 / 221.9
SaO2 [CPAP] 100
SaO2 [A/C] 99
SaO2 96
Nasal Cannula flow liters per 4
minute
Physical Exam
General: Comfortable and Other ( unresponsive due to sedation)
HEENT: Normocephalic, Anicteric and Other (ET tube in place without secretion)
Cardiovascular: S1-S2, Regular Rhythm, Murmur (n) and Rub (n)
Respiratory: Wheeze (n), Crackles (n), Rhonchi (n) and Non-Labored Respirations
GI: Soft, Non Distended and Non Tender (Obese)
Neurology: Lethargic (Sedated, spontaneously moving extremities)
Skin: Good Color (n), Cyanosis (n) and Jaundice (n)
Labs/Micro/Reports
Lab Data
08/22/24 04:18
08/22/24 04:18
Laboratory Results
08/22/24
08:55
pH 7.38
pCO2 45
pO2 88
HCO3 26.6
O2 Delivery Level
Microbiology
08/19/24 09:54 Blood/Venous Blood Culture - Preliminary
Aerococcus Species
08/19/24 09:54 Blood/Venous Gram Stain - Final
08/19/24 09:54 Blood/Venous Blood Culture - Preliminary
Aerococcus Species
08/19/24 09:54 Blood/Venous Gram Stain - Preliminary
08/19/24 09:54 Nasal Swab Influenza Types A & B (ESTIEVN) - Final
Negative for Influenza A & B, NAAT
Negative results must be combined with clinical observations
and patient history.
Nucleic Acid Amplification test (NAAT)performed on the
[employer] platform.
--- NOTE | 2024-08-22 09:58 | W.PN.UPDATE ---
Update Note
Progress Note Update
Extubated
No stridor on exam
Still somewhat sleepy but able to cough and follow commands
Discontinue Precedex
Patient is slightly hypertensive, I will defer to Dr. Sanches to start antihypertensive
Shaffer in place with oral diuresis.
Speech evaluation
Head of the bed elevation
Incentive spirometry
--- NOTE | 2024-08-22 09:59 | W.PN.HOSP.TC ---
Today's Communication/Plan
-
Continue Valproic Acid
Extubated Today
NPO
Assessment / Plan
Assessment / Plan
Physical Exam
General: Not in acute distress. Unresponsive.
HEENT: Normocephalic.
Neck: Supple.
CV: tachy, reg rhythm, +S1/S2, no m/r/g.
Resp: CTAB anteriorly, no rales, wheezes, or rhonchi.
Abd: +BS, soft, NT, ND
Skin: Warm. Dry.
Neuro: intubated, sedated

CT brain: No acute intracranial abnormality noted. Sequelae of mild/moderate small vessel ischemic disease, similar in appearance to prior. Trace secretions within the right maxillary sinus.
Echo: Normal left ventricular size, wall thickness and systolic function.
LV ejection fraction is 55-60% by visual assessment.
Normal right ventricular size and function. Perhaps mildly underfilled.
Mildly thickened mitral valve leaflets with normal leaflet opening and no
regurgitation seen.
Sclerotic, trileaflet aortic valve with normal leaflet excursion and no
significant regurgitation seen.
Structurally normal tricuspid valve without significant stenosis or
regurgitation.
Right heart pressures could not be determined.
Structurally normal pulmonic valve without significant stenosis or
regurgitation.
Normal pericardium without effusion.
The IVC is of normal size and demonstrates normal respiratory variation.
No significant structural heart disease on current study. No priors available
for comparison.

Assessment/Plan
Acute hypoxemic respiratory failure due to likely aspiration due to seizure activity
Acute seizure activity - witnessed grand mal seizure in the ED (patient has history of epilepsy)
Acute recurrent generalized tonic-clonic seizure in a patient on routine phenytoin
-Intubated in ED 08/19/24 - self extubated - reintubated in ED 08/19/24 - successfully extubated on 08/22/24
-[address] brain without acute intracranial abnormality
-UDS POS for barbiturates only
-Dose of phenytoin at the time of presentation was minimally therapeutic at 11
-Continue IV Depakote, neuro following
-EEG
-Dobhoff tube, oral meds
Hypotension - shock, suspected sepsis
Fever, improved
Leukocytosis improved
Elevated lactate
-s/p aggressive IVF resuscitation
-Was on Levophed, recently weaned to off
-Status post Vancomycin. Cefepime stopped.
-Echo above, no evidence of cardiogenic shock
-currently etiology of shock is not yet identified. Cardiogenic shock has been ruled out.
Concern for Aerococcus Bacteremia
-Follow repeat blood cultures
-Consulted ID, appreciate their evaluation and recommendations --> ID is suspecting that given blood cultures drawn at the same time, it is a contaminant
Concern for Aspiration Pneumonia
Fever
-Continue Unasyn
Type 2 Diabetes Mellitus
-check a1c
-SSI/accuchecks
Hypertension
-Sedation was added, appreciate care nurse rn
-Labetalol
Hyperlipidemia
89-hmck-frry history of smoking, ongoing
Speech: Dobhoff tube came up, taken out, speech consult recommendations appreciated, continue NPO, Dobhoff tube
PT/OT
FULL/Lovenox
Anticipated Discharge: > 48 hours
Subjective/Interval History
-
Date of Service: August 22, 2024
Patient was seen and examined. He was extubated today.
Objective Data
-
Labs:
Laboratory Results
08/22/24 08/22/24
04:18 08:55
WBC 7.4
Hgb 12.1 L
Hct 34.4 L
Plt Count 117 L
HCO3 26.6
Sodium 137
Potassium 3.6
Chloride 107
Carbon Dioxide 22
BUN 7 L
Creatinine 0.6 L
Glucose 165 H
Calcium 7.9 L
Vital Signs:
Vital Signs
Temp Pulse Resp BP Pulse Ox
98.3 F 96 14 175/80 96
08/22/24 07:23 08/22/24 09:25 08/22/24 09:25 08/22/24 09:00 08/22/24 09:25
I&O
08/21/24 08/22/24 08/23/24
06:59 06:59 06:59
Intake Total 4293.0 / 4432.5 3423.1 / 3682.0 561.9 / 561.9
Output Total 1630 / 1660 1496 / 1526 340 / 340
Balance 2663.0 / 2772.5 1927.1 / 2156.0 221.9 / 221.9
--- NOTE | 2024-08-22 10:00 | PTCARENOTE ---
Patient extubated. Placed on 4L nc. Pulse ox 96%. Weaning off Precedex gtt. Urine output 800 cc over past hour. Fur Storage Clerk aware.
--- NOTE | 2024-08-22 11:39 | PTCARENOTE ---
Speech therapist at bedside.
--- NOTE | 2024-08-22 11:44 | EEG.RPT ---
Electroencephalogram Report
Recording
Date of EE08/21/24
Type of EEG: Extended Monitoring
Length of EEG recordin hrs 4 mins
Done with Video Recording: Yes
Patient Status: Inpatient
Recording Conditions: Awake, Asleep, Moving and Combative
Hyperventilation Performed: No
Photic Stimulation Performed: Yes
Report
At the beginning of the recording, propofol 50 mcg/kg/min, Versed 3 mg/hr
Background: Continuous generalized slowing, polymorphic delta and theta activity. As the recording progresses, there are more theta frequencies
Sleep: spindles
Focal/rhythmic/epileptiform: none
Seizures: none
Events: The patient and some rhythmic movements on the LUE/LE with no EEG correlate
HV: not done
Photic stim: no background change
--- NOTE | 2024-08-22 11:49 | PTCARENOTE ---
Patient unable to safely swallow. BP remains elevated. Order for 10mg IV Labetolol ordered.
--- NOTE | 2024-08-22 11:53 | W.PN.NEURO.1 ---
Today's Communication / Plan
-
valproic acid 1500 BID
extubate when able
Neuro Assessment/Plan
Assessment
Acute recurrent generalized tonic-clonic seizure in a patient on routine phenytoin
Dose of phenytoin at the time of presentation was minimally therapeutic at 11
Patient was initiated on valproic acid as a replacement therapy due to breakthrough event
Plan
Valproic acid 1500 BID, VPA level 47, check trough in am
urgent EEG 08/20 stage II sleep
continuous EEG 08/21-08/22 background slow
extubate when possible, anticipate will take a few days given recent agitation
Will follow
Subjective/Objective
Subjective Data
Date of Service: August 22, 2024
Overnight patient was weaned off Versed and fentanyl. This morning undergoing SBT
No seizures
Objective Data
Vital Signs
Temp Pulse Resp BP Pulse Ox
36.8 C 93 17 182/79 97
08/22/24 07:23 08/22/24 11:00 08/22/24 11:00 08/22/24 11:00 08/22/24 11:00
Lab Results
08/22/24 04:18
08/22/24 04:18
PT 13.8 Sec (11.4-14.6) 08/19/24 16:41
INR 1.01 08/19/24 16:41
APTT 28.0 Sec (23.4-35.0) 08/19/24 16:41
Sodium 137 mmol/L (135-145) 08/22/24 04:18
Potassium 3.6 mmol/L (3.5-5.1) 08/22/24 04:18
BUN 7 mg/dl (9-20) L 08/22/24 04:18
Glucose 165 mg/dl (70-99) H 08/22/24 04:18
Calcium 7.9 mg/dl (8.4-10.2) L 08/22/24 04:18
Ur Buprenorphine Negative (Negative) 08/19/24 09:58
Patient Allergies
alfalfa Allergy (Unknown, Verified 08/19/24 08:31)
Unknown
Physical Exam
-
Awake eyes open
attends bilaterally
squeeze hand/lets go, wiggles toes
[2024-08-22] MEDS: TRANDATE 10 MG IV (12:07)
[2024-08-22 12:18] LABS: Glucose - Point of Care 139 mg/dl (70-99)
--- NOTE | 2024-08-22 13:07 | PTCARENOTE ---
Blood pressure still running high (SBP 180's). Clinic Business Manager notified.
--- NOTE | 2024-08-22 13:07 | PTOTSP ---
Speech Therapy Evaluation:
Pt demonstrates clinical signs of oropharyngeal dysphagia, likely acute in nature related to grand-mal seizure with subsequent 4 day intubation (08/19-08/22). Given ice chips x2, pt demonstrated throat clear x4 and significantly prolonged, weak
coughing episode x1. Further PO trials discontinued due to safety concerns. WBC WNL. CXR with new mild R infrahilar PNA.
Recommend:
1. Strict NPO
2. Medications non-oral
3. Oral care 3x daily
4. ST to closely follow to determine appropriateness of initiation of oral diet, ARHP, and VSE.
--- NOTE | 2024-08-22 13:35 | CON.ID ---
Consultation
-
Date/Time Consultation Requested: August 22, 2024
Date/Time Consultation Performed: August 22 2024
Requesting Provider: Dr. Gennaro Hinds
Performing Provider: Dr. Emerita Ogden
Reason for Consultation: Bacteremia
Chief Complaint / Past History
Chief Complaint
Seizure
History of Present Illness
History obtained from review medical records as patient refuses to answer my questions. He was just extubated and he croaked 'I cannot speak at this time'. He is a 58 year old male with history of seizure disorder on phenytoin who presented to the
ER on August 19 when he felt an aura. In the ED he had tonic�clonic seizure. He became hypoxic, cyanotic, and bradycardic. He was intubated for airway protection. He was very agitated and self extubated himself in the ED requiring
reintubation. Initial chest x-ray no infiltrates. Lactic acid was 11.3. He was on the very brief course of Levophed. Patient was started on vancomycin and cefepime. Admission blood cultures x 2 positive for Aerococcus. The cefepime was
discontinued yesterday. He spiked a fever the next day August 20 with temperature 101.3. Fever trended down to 100.5 on August 21. No further fevers. Patient was extubated this morning. Blood pressure now elevated.
Past History
Additional Past Medical History:
Diabetes mellitus type 2
Seizure disorder on phenytoin
Hypertension
Dyslipidemia
Allergy History:
alfalfa Allergy (Unknown, Verified 08/19/24 08:31)
Unknown
Current Antibiotics:
Vancomycin d4
s/p Cefepime 3d
Social History
Tobacco: Smoker
Personal: Single
Living: Alone
Family History
Family History: Not Pertinent
Review of Systems
Review of Systems
Unable to obtain as patient not answering my questions.
Vital Signs
Temp Pulse Resp BP Pulse Ox
99.4 F 99 22 184/68 96
08/22/24 11:00 08/22/24 13:01 08/22/24 13:01 08/22/24 13:01 08/22/24 12:05
Selected Entries
08/21/24
15:00
Temp max 100.5 F H
Physical Exam
Physical Exam
Constitutional: Acutely Ill and Other (Looks older than stated age)
Head: Other (No frontal or maxillary sinus tenderness)
Eyes: No Conjunctival Hemorrhage and Sclera Anicteric
Oral: Poor Dentition
Cardiovascular: Regular Rate and S1/S2
Pulmonary: Rhonchi and Other (hacking cough)
Gastrointestinal: Soft, Non Tender, Non Distended and Normal Bowel Sounds
Genito-Urinary: Negative CVA Tenderness
Extremities: Negative Edema
Skin: Other (Multiple tatoos BUE)
Neurological: Awake; Negative Meningeal Signs (Neck supple)
Lab / Diagnostic Study Results
08/22/24 04:18
08/22/24 04:18
Abs Immat Gran (auto) 0.0 10^3/uL (0-0.05) 08/20/24 03:37
Absolute Neuts (auto) 8.2 10^3/uL (1.4-6.5) H 08/20/24 03:37
Absolute Lymphs (auto) 3.0 10^3/uL (1.2-3.4) 08/20/24 03:37
Absolute Monos (auto) 0.9 10^3/uL (0.1-0.6) H 08/20/24 03:37
Absolute Basos (auto) 0.0 10^3/uL (0-0.2) 08/20/24 03:37
Immature Gran % 0.3 % (0-0.5) 08/20/24 03:37
Neutrophils % 67.1 % (42.2-75.2) 08/20/24 03:37
Lymphocytes % 24.6 % (20.5-51.1) 08/20/24 03:37
Monocytes % 7.5 % (1.7-9.3) 08/20/24 03:37
Eosinophils % 0.4 % (0-6) 08/20/24 03:37
Basophils % 0.1 % (0-2) 08/20/24 03:37
ESR 7 mm/hour (0-20) 08/19/24 08:46
PT 13.8 Sec (11.4-14.6) 08/19/24 16:41
INR 1.01 08/19/24 16:41
Lactic Acid 1.3 mmol/L (0.7-2.0) 08/20/24 09:56
Ur Squamous Epith Cells 11-15 /LPF (Few) 08/19/24 09:58
Microbiology Results
Micro:
08/19/24 09:54 Blood Culture - Preliminary
Blood/Venous Aerococcus Species
Gram Stain - Final
08/19/24 09:54 Blood Culture - Preliminary
Blood/Venous Aerococcus Species
Gram Stain - Preliminary
08/21/24 16:14 Blood Culture - Pending
Blood/Venous
08/21/24 15:39 Blood Culture - Pending
Blood/Venous
08/19/24 09:54 Influenza Types A & B (ESTIVEN) - Final
Nasal Swab Negative for Influenza A & B, NAAT
Negative results must be combined with clinical observations
and patient history.
Nucleic Acid Amplification test (NAAT)performed on the
[employer] platform.
08/19/24 CXR: No acute cardiopulmonary process.
08/20/24 CXR: No acute cardiopulmonary process.
08/20/24 CXR: No acute cardiopulmonary process.
08/21/24 Feeding tube placement as described above. Findings concerning for new mild right infrahilar pneumonia. Clinical correlation recommended
Assessment / Plan
# Aerococcus bacteremia 2 out of 2 sets drawn at the SAME time
-Suspect contaminant
-DC Vancomycin
# Suspect aspiration pneumonitis ->pneumonia
- Was intubated for airway protection -> extubated 08/22
- 08/21 AXR: new right lung infiltrate
- Start short course Unasyn 3g IV q6h.
# s/p tonic-clonic seizure
-hx of seizure
# Fever - resolved
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
Diabetes mellitus type 2
Seizure disorder on phenytoin
Hypertension
Dyslipidemia
[2024-08-22] MEDS: OFIRMEV 100 IV ×2 (14:56→23:13)
[2024-08-22] MEDS: APRESOLINE 5 MG IV ×2 (14:57→22:34)
--- NOTE | 2024-08-22 15:00 | PTCARENOTE ---
Minor changes in assessment. Patient alert. Forgetful requiring frequent reminders. MAEx4. ST on tele. Hypertensive post Labetalol. Orders for PRN Hydralazine obtained and administered. Pulse ox 92% on 4L nc. Tachypneic. Lung sounds
coarse/diminished throughout. Core temp 100.8. Ofirmev administered. No other changes
--- NOTE | 2024-08-22 16:06 | PTCARENOTE ---
PT/OT at bedside.
--- NOTE | 2024-08-22 16:29 | PTCARENOTE ---
Patient assisted out to chair by PT. Chair alarm on.
[2024-08-22] MEDS: UNASYN IV ×2 (17:58→23:31)
[2024-08-22] MEDS: LOVENOX 40 MG SC (17:58)
[2024-08-22 18:04] LABS: Glucose - Point of Care 140 mg/dl (70-99)
[2024-08-22] MEDS: NSS (PRESERVATIVE FREE) 8 ML IV (21:09)
[2024-08-22] MEDS: PEPCID 20 MG IV (21:10)
--- NOTE | 2024-08-22 21:20 | PTCARENOTE ---
Resumed care of pt this evening. Received pt A&Ox2, confused to time. Pt is forgetful and requires reorientation at times. Pt's voice is garbled. Pt can move all 4 extremities and has generalized weakness. Pt is ST on tele monitor w/ PVCs. Pt has +1
edema B/L hands and trace GA. Pt on 4L of O2 satting at 95 % pulse ox. On auscultation pt's lungs sound diminished TO. Pt has an occasional moist productive cough that requires oral suctioning. Pt is NPO, has a round, obese, abdomen, and +BS. Pt has
roberts cath in place draining jeison colored urine.
--- NOTE | 2024-08-22 22:40 | PTCARENOTE ---
Pt's BP elevated, 188/69. PRN hydralazine administered by this RN.
[2024-08-22 23:38] LABS: Glucose - Point of Care 128 mg/dl (70-99)
[2024-08-23] VITALS (23 sets, daily range): BP systolic 123–183; BP diastolic 53–95; BMI 29.3
[2024-08-23] MEDS: TRANDATE 10 MG IV (02:20)
--- NOTE | 2024-08-23 02:30 | PTCARENOTE ---
Pt's BP still elevated upon reassessment. 10 mg of IV labetalol administered by this RN.
[2024-08-23 05:57] LABS: Hematocrit 34.4 % (39.0-52.0); Hemoglobin 11.9 g/dL (13.0-18.0); Mean Corp Hgb Conc. 34.6 g/dL (33.0-37.0); Mean Corpuscular Hgb 33.1 pg (27.0-31.0); Mean Corpuscular Volume 95.6 fL (80.0-94.0); Mean Platelet Volume 10.1 fL (7.4-10.4); Platelet Count 142 10^3/uL (130-400); Red Cell Dist. Width 12.5 % (11.5-14.5); White Blood Cell Count 9.3 10^3/uL (4.8-10.8)
[2024-08-23 06:12] LABS: Blood Urea Nitrogen 4 mg/dl (9-20); Calcium 8.2 mg/dl (8.4-10.2); Carbon Dioxide 32 mmol/L (22-30); Chloride 102 mmol/L (98-107); Estimated Creatinine Clearance > 125 ml/min; Glucose 124 mg/dl (70-99); Magnesium 1.8 mg/dl (1.6-2.3); Potassium 2.9 mmol/L (3.5-5.1); Sodium 142 mmol/L (135-145); eGFR > 60.00
[2024-08-23] MEDS: NOVOLOG FLEXPEN-MODERATE RESISTANCE SC ×3 (06:18→18:57)
[2024-08-23] MEDS: UNASYN IV ×4 (06:20→23:46)
[2024-08-23] MEDS: D5/0.9% SODIUM CHLORIDE 1000 IV (06:21)
[2024-08-23 06:36] LABS: Depakane 60.2 ug/ml (50.0-120.0)
[2024-08-23] MEDS: MIRALAX TUBE (08:13)
[2024-08-23] MEDS: DEPACON 65 MG IV ×2 (08:22→19:31)
[2024-08-23] MEDS: NSS (PRESERVATIVE FREE) 8 ML IV ×2 (08:28→19:35)
[2024-08-23] MEDS: THIAMINE INJECTION 100 MG IV (08:28)
[2024-08-23] MEDS: PEPCID 20 MG IV ×2 (08:29→19:35)
[2024-08-23] MEDS: KCL 270 MEQ IV ×2 (08:39→17:25)
--- NOTE | 2024-08-23 09:15 | PTCARENOTE ---
Rec'd pt at 0800 awake resting in bed. Constantly asking when the doctor is going to be seeing him. Explanations given and repeated multiple times. Overall is more oriented. His conversation is appropriated - just very repatative on certain subjects
- mostly when is the doctor coming and when can the catheter be taken out. Pt is HOH. AZEVEDO. Speech is clear for the most part but slow at times and intermittently some words come out a little garbled. Denies distinct pain. Skin is pale wm and dry.
Hoa area with some MASD-protective cream applied. Respirs are sl shallow but non-labored. Rec;d pt on 5L nc with sats of 97%- currently on 3l nc with sats of 94%. BS are sl coarse and decreased. Coughing a moist occasional non-prod cough. Monitor
SR with isolated PVC's. + pulses. Edema as noted. Abd is round and soft with + BS. Denies nausea. Rec'd pt with thermistor roberts in place draining yellow urine. Removed at 0900. IV D5 NS infusing at 100 ml/hr via R forearm IV site. KCL 40 meq rider
hung via L forearm IV site for K+ of 2.9. Sites wnl. Complete CHG bath given. Roberts care given earlier prior to removal at 0900. Plan of care reviewed with pt and call layton in reach.
--- NOTE | 2024-08-23 09:17 | W.PN.INTV ---
Today's Communication / Plan
Recommendations
Speech reevaluation
Repeat chest x-ray
Replete potassium
Repeat BMP later today
Continue antibiotics
Follow blood cultures
N.p.o.
Aspiration precautions
Discontinue Shaffer
Assessment
-
58-year-old male with history of seizure disorder, hypertension, diabetes, dropped off to ED by friend. Proceeded to have witnessed seizure with hypoxia, bradycardia, cyanosis. Patient intubated in the ED. Patient then self extubated requiring
reintubation. Patient required heavy sedation to maintain adequate sedation while intubated. Head CT unremarkable. Loaded with valproate, admitted to ICU for further management
Acute hypoxic respiratory failure
Intubated in ED 08/19
Self extubated
Reintubated in ED 08/19
Acute seizure activity
Witnessed grand mal seizure in the ED
Hx of epilepsy
Hypotension, suspected sepsis-resolved
Elevated lactate
Hypoglycemia
Conditions present prior to admission
Diabetes
Hypertension
[id number] history of smoking, ongoing
Plan/recommendations
Overall clinically improved-extubated 08/22/2024.
Mental status improved today 08/23/2024: Following commands, strong cough effort, oriented to place and self. Patient is hard of hearing.
-
Currently on supplemental oxygen-currently at 3 L. Continue to wean down as able.
Has a strong cough effort
Unfortunately did not pass swallowing evaluation-remains NPO.
-
No further seizures.
Continue antiepileptic drugs per neurology
Will try to avoid other sedatives.
Patient is intermittently confused-currently sitting out of bed.
Hemodynamically improved: He was hypertensive after extubation. Required hydralazine and labetalol as needed.
Echocardiogram normal biventricular function, right heart pressures could not be determined
Again, he remains n.p.o. unable to take oral antihypertensive. Does not have history of hypertension.
Continue IV hydralazine and labetalol for now.
Patient autodiuresed after extubation-creatinine is normal.
Okay to discontinue Shaffer today.
No further IV fluids needed.
Potassium repleted
Repeat BMP later
Neurology continues to follow: As above-patient remains intermittently confused.
Since yesterday with low-grade fevers again.
leukocytosis resolved.
Chest x-ray 08/20/2024 without abnormalities. Given low-grade fevers, repeat chest x-ray today.
-
Initially on cefepime/vancomycin for possible aspiration event
Cefepime discontinued
Blood cultures + 08/19/2024, with Aerococcus. Unclear significance-possibly contaminant
Repeat blood cultures 08/21/2024 are pending.
Echocardiogram without vegetation
Infectious disease consulted, transition to Unasyn 08/22/2024.
Head of bed elevated
N.p.o.
Patient pulled out his Dobbhoff tube.
Reassessed by speech today. Hopefully can advance diet.
Physical therapy
Occupational Therapy
DVT prophylaxis: Lovenox subcu
GI prophylaxis: IV PPI
Reviewed with critical care nursing, respiratory care, primary service
For now continue critical care monitoring, particularly neurological status.
If improved later today we will transfer to intermediate care unit.
Subjective Dataa
Subjective Data
Date of Service:
Date of Service: August 23, 2024
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
Subjective:
Intermittently confused
Asking to get the Shaffer out
Denies headache, nausea or vomiting.
Review of Systems
Cardiopulmonary: Dyspnea (n) and Dyspnea on Exertion (n)
GI: Abdominal Pain (n)
Objective Data
Data Reviewed
Vital Signs / I&O / Oxygen:
Vital Signs
Temp Pulse Resp BP Pulse Ox
100.1 F 96 31 136/91 95
08/23/24 07:00 08/23/24 06:00 08/23/24 06:00 08/23/24 05:00 08/23/24 06:00
Intake and Output
08/22/24 08/23/24 08/24/24
06:59 06:59 06:59
Intake Total 3423.1 / 3682.0 2944.4 / 2944.4
Output Total 1496 / 1526 5695 / 5695
Balance 1927.1 / 2156.0 -2750.6 / -2750.6
SaO2 [CPAP] 100
SaO2 [A/C] 99
SaO2 95
Nasal Cannula flow liters per 4
minute
Physical Exam
General: Comfortable and Other (Sitting out of bed, hard of hearing.)
HEENT: Normocephalic and Anicteric
Cardiovascular: S1-S2, Regular Rhythm, Murmur (n) and Rub (n)
Respiratory: Wheeze (n), Crackles (n), Rhonchi (n) and Non-Labored Respirations
GI: Soft, Non Distended and Non Tender (Obese)
Neurology: Awake, Alert, No Motor Deficits and Other (Intermittently confused.)
Skin: Good Color (n), Cyanosis (n) and Jaundice (n)
Labs/Micro/Reports
Lab Data
08/23/24 05:37
08/23/24 05:37
Microbiology
08/19/24 09:54 Blood/Venous Blood Culture - Preliminary
Aerococcus Species
08/19/24 09:54 Blood/Venous Gram Stain - Final
08/21/24 16:14 Blood/Venous Blood Culture - Preliminary
No Growth in 24 hours- Final report to follow
08/21/24 15:39 Blood/Venous Blood Culture - Preliminary
No Growth in 24 hours- Final report to follow
08/19/24 09:54 Blood/Venous Blood Culture - Preliminary
Aerococcus Species
08/19/24 09:54 Blood/Venous Gram Stain - Preliminary
--- NOTE | 2024-08-23 09:50 | PTCARENOTE ---
Port CXRay taken. Dr. Beck in to see pt and updated. Trying to void now that his catheter is out. No other changes. Tolerating 3l nc
[2024-08-23] MEDS: APRESOLINE 10 MG IV ×3 (10:13→23:46)
--- NOTE | 2024-08-23 10:25 | PTCARENOTE ---
Hydralazine 10 mg IV given for BP 183 syst. Neurology in to see pt. Pts friend Kushal in to visit.
--- NOTE | 2024-08-23 11:00 | PTCARENOTE ---
Pt saying frequently that he has to urinate since his roberts was removed. - sat on the commode with no results. Pt then assisted into the chair. Able to bear wt with assistance but very weak. Pt tends to be spastic at times with movement and needs
frequent direction. Currently oob in the chair. Tolerating 3L,
--- NOTE | 2024-08-23 11:05 | PTOTSP ---
Speech Language Pathology
Pt seen for dysphagia tx. Sitting upright in recliner upon arrival. Slight hoarse vocal quality noted, but intensity adequate. Pt [place] with many missing teeth. Initially stated he can eat anything at baseline, but when offered a cracker, stated
he can't chew crackers given minimal dentition. Therefore, provided P.O. trials of puree, soft solids (crackers coated in applesauce), and thin liquids. Adequate mastication, bolus formation, and A-P transit noted with no oral residue. No overt
signs of aspiration.
Recommend:
(1) Initiate regular solids (easy to chew) and thin liquids
(2) Aspiration precautions: sit upright, slow rate
(3) Meds as tolerated
(4) MEDICAL RECORDS RECEPTIONIST to continue to follow
--- NOTE | 2024-08-23 11:32 | W.PN.HOSP.TC ---
Today's Communication/Plan
-
Doing better
Amlodipine
Diet upgraded -- okay for diet as per speech
Stop IV fluids
Assessment / Plan
Assessment / Plan
Physical Exam
General: Not in acute distress.
HEENT: Normocephalic.
Neck: Supple.
CV: tachy, reg rhythm, +S1/S2, no m/r/g.
Resp: CTAB anteriorly, no rales, wheezes, or rhonchi.
Abd: +BS, soft, NT, ND
Skin: Warm. Dry.
Neuro: Awake. Alert. Oriented x2 (not date). Follows commands.

CT brain: No acute intracranial abnormality noted. Sequelae of mild/moderate small vessel ischemic disease, similar in appearance to prior. Trace secretions within the right maxillary sinus.
Echo: Normal left ventricular size, wall thickness and systolic function.
LV ejection fraction is 55-60% by visual assessment.
Normal right ventricular size and function. Perhaps mildly underfilled.
Mildly thickened mitral valve leaflets with normal leaflet opening and no
regurgitation seen.
Sclerotic, trileaflet aortic valve with normal leaflet excursion and no
significant regurgitation seen.
Structurally normal tricuspid valve without significant stenosis or
regurgitation.
Right heart pressures could not be determined.
Structurally normal pulmonic valve without significant stenosis or
regurgitation.
Normal pericardium without effusion.
The IVC is of normal size and demonstrates normal respiratory variation.
No significant structural heart disease on current study. No priors available
for comparison.

Assessment/Plan
Acute hypoxemic respiratory failure due to likely aspiration due to seizure activity
Acute seizure activity - witnessed grand mal seizure in the ED (patient has history of epilepsy)
Acute recurrent generalized tonic-clonic seizure in a patient on routine phenytoin
-Intubated in ED 08/19/24 - self extubated - reintubated in ED 08/19/24 - successfully extubated on 08/22/[address] brain without acute intracranial abnormality
-UDS POS for barbiturates only
-Dose of phenytoin at the time of presentation was minimally therapeutic at 11
-Continue Depakote, neuro following
-EEG
-Dobhoff tube, oral meds
-Wean off oxygen as able
Hypotension - shock, suspected sepsis
Fever
Leukocytosis improved
Elevated lactate
Concern for Aspiration Pneumonia
-s/p aggressive IVF resuscitation
-Was on Levophed, recently weaned to off
-Status post Vancomycin. Cefepime stopped.
-Echo above, no evidence of cardiogenic shock
-Continue Unasyn
Hypokalemia
-Potassium replaced
-Repeat BMP
Concern for Aerococcus Bacteremia - contamination
-Follow repeat blood cultures - no growth to date
-Consulted ID, appreciate their evaluation and recommendations --> ID is suspecting that given blood cultures drawn at the same time, it is a contaminant
Type 2 Diabetes Mellitus
-check a1c
-SSI/accuchecks
Hypertension
-Sedation was added, appreciate engineering illustrator
-Continue prn IV Hydralazine and Labetalol
Hyperlipidemia
[id number] history of smoking, ongoing
Speech: Dobhoff tube came up, taken out, speech consult recommendations appreciated, continue NPO, Dobhoff tube
PT/OT
Diet: Regular solids/thin liquids
FULL/Lovenox
Anticipated Discharge: > 48 hours
Subjective/Interval History
-
Date of Service: August 23, 2024
Patient was seen and examined. He appeared to be doing better, denied any active symptoms or complaints.
Objective Data
-
Labs:
Laboratory Results
08/23/24 08/23/24
05:37 13:00
WBC 9.3
Hgb 11.9 L
Hct 34.4 L
Plt Count 142 D
Sodium 142 Pending
Potassium 2.9 L Pending
Chloride 102 Pending
Carbon Dioxide 32 H Pending
BUN 4 L Pending
Creatinine 0.6 L Pending
Glucose 124 H Pending
Calcium 8.2 L Pending
Vital Signs:
Vital Signs
Temp Pulse Resp BP Pulse Ox
98.2 F 88 20 183/82 96
08/23/24 11:00 08/23/24 10:09 08/23/24 10:09 08/23/24 10:13 08/23/24 10:09
I&O
08/22/24 08/23/24 08/24/24
06:59 06:59 06:59
Intake Total 3423.1 / 3682.0 2944.4 / 3044.4 427.5 / 427.5
Output Total 1496 / 1526 5695 / 5695 425 / 425
Balance 1927.1 / 2156.0 -2750.6 / -2650.6 2.5 / 2.5
--- NOTE | 2024-08-23 12:15 | PTCARENOTE ---
Speech therapy in to see pt and tested pts swallowing sitting oob in the chair as documented.Passed swallowing eval. Insisting that he has to urinate and felt if he could stand he could do so. Bladder scanned for 381 mls. Stood with assist of 2 but
was unable to void. Because he has been hyperfocused on urinating and his BP has been up Straight cathed for 400 mls of yellow urine then at pt request assisted with assist of 2 back to bed. Repositioned. Of note with exertion-especially trying to
stand to void - pt definately had SAAVEDRA. Got easily winded. Sats did not drop below 91% but was winded until he rested. Call layton in reach. Now that he passed swallowing eval will ask md's for something additonal for his BP which syst is in the 170's
--- NOTE | 2024-08-23 12:22 | W.PN.ID1 ---
Date of Service
Date of Service: August 23, 2024
Today's Communication
Continue empiric Unasyn for now.
Assessment / Plan
# Fever - low grade
- ? from Precedex - > dc'd today
- WBC normal
- Continue empiric Unasyn for now (d5 abx)
- Follow temps.
# Aerococcus bacteremia 2 out of 2 sets drawn at the SAME time
# Peptostreptococcus bacteremia 1 out of 2 sets drawn at the SAME time
-Suspect contaminants
- repeat blood cx's neg to date
# Suspect aspiration pneumonitis
- Was intubated for airway protection -> extubated 08/22
- 08/23/24 CXR: no infiltrates
# s/p tonic-clonic seizure
-hx of seizure
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
Diabetes mellitus type 2
Seizure disorder on phenytoin
Hypertension
Dyslipidemia
Chief Complaint
-: Bacteremia
Subjective / Review of Systems
Somewhat agitated.
Vital Signs / Physical Exam
Vital Signs
Vital Signs
Temp Pulse Resp BP Pulse Ox
98.2 F 88 20 183/82 96
08/23/24 11:00 08/23/24 10:09 08/23/24 10:09 08/23/24 10:13 08/23/24 10:09
Selected Entries
08/22/24
15:04
Temp 100.8 F H
Physical Exam
Constitutional: Acutely Ill
Eyes: Sclera Anicteric
Cardiovascular: Regular Rate and S1/S2
Pulmonary: Clear
Gastrointestinal: Soft, Non Tender, Non Distended and Normal Bowel Sounds
Extremities: Negative Edema
Objective Data
Lab Data
Lab Results
08/23/24 05:37
ESR 7 mm/hour (0-20) 08/19/24 08:46
PT 13.8 Sec (11.4-14.6) 08/19/24 16:41
INR 1.01 08/19/24 16:41
APTT 28.0 Sec (23.4-35.0) 08/19/24 16:41
Estimated Creat Clear > 125 ml/min 08/23/24 05:37
Lactic Acid 1.3 mmol/L (0.7-2.0) 08/20/24 09:56
Total Bilirubin 0.5 mg/dl (0.2-1.3) 08/20/24 03:37
AST 22 U/L (17-59) 08/20/24 03:37
ALT 17 U/L (0-50) 08/20/24 03:37
Alkaline Phosphatase 96 U/L (38-126) 08/20/24 03:37
Most recent labs reviewed.
Micro Results:
08/19/24 09:54 Blood Culture - Preliminary
Blood/Venous Aerococcus Species
Gram Stain - Final
08/21/24 16:14 Blood Culture - Preliminary
Blood/Venous No Growth in 24 hours- Final report to follow
08/21/24 15:39 Blood Culture - Preliminary
Blood/Venous No Growth in 24 hours- Final report to follow
08/19/24 09:54 Blood Culture - Preliminary
Blood/Venous Aerococcus Species
Gram Stain - Preliminary
08/19/24 09:54 Influenza Types A & B (ESTIVEN) - Final
Nasal Swab Negative for Influenza A & B, NAAT
Negative results must be combined with clinical observations
and patient history.
Nucleic Acid Amplification test (NAAT)performed on the
[employer] platform.
08/19/24 CXR: No acute cardiopulmonary process.
08/20/24 CXR: No acute cardiopulmonary process.
08/20/24 CXR: No acute cardiopulmonary process.
08/21/24 Feeding tube placement as described above. Findings concerning for new mild right infrahilar pneumonia. Clinical correlation recommended
08/23/24 CXR: No acute cardiopulmonary process.
[2024-08-23] MEDS: NORVASC 5 MG PO (13:09)
[2024-08-23] MEDS: TRANDATE 100 MG PO ×2 (13:09→19:35)
--- NOTE | 2024-08-23 14:13 | PTCARENOTE ---
KCL rider finished infusing at 1315- had to run it slower as it was burning his arm earlier. IV team in and R upper arm Midline placed. Labs sent as ordered. Pt currently working on lunch. Slow to chew as he is missing alot of teeth but no issue
with swallowing . Pt is oriented but does get forgetful but moreso somewhat impatient at times although very cooperative. He will tend to ask for something over and over again despite explanations- ex lunch ordered and was told it would take about
45 min to come up and he asked an additonal 4 times where lunch was. Call layton in reach.
[2024-08-23 14:24] LABS: Blood Urea Nitrogen 5 mg/dl (9-20); Calcium 8.1 mg/dl (8.4-10.2); Carbon Dioxide 32 mmol/L (22-30); Chloride 101 mmol/L (98-107); Estimated Creatinine Clearance 124 ml/min; Glucose 125 mg/dl (70-99); Magnesium 1.8 mg/dl (1.6-2.3); Sodium 141 mmol/L (135-145); eGFR > 60.00
--- NOTE | 2024-08-23 15:15 | PTCARENOTE ---
Ate lunch- slow to swallow but no difficulty noted with swallowing. Ate about 75% of lunch. Pt very proud to show staff what he is able to do- especially some fine motor skills like pouring gingerale into a cup or using a spoon. Overall did well
with some supervision. Currently was able to void on his own 250 mls of yellow urine. Did desat to 88% when off of O2 to blow his nose and clean his nose out. On the 3l nc is 94%. No other changes. Call layton in reach- will both use the call layton
for staff but also call out if he sees staff walk by.
--- NOTE | 2024-08-23 15:27 | W.PN.NEURO.1 ---
Today's Communication / Plan
-
continue Depakote 1500 BID
downgrade when able
Neuro Assessment/Plan
Assessment
Acute recurrent generalized tonic-clonic seizure in a patient on routine phenytoin
Dose of phenytoin at the time of presentation was minimally therapeutic at 11
Patient was initiated on valproic acid as a replacement therapy due to breakthrough event
Plan
Valproic acid 1500 BID, VPA level 60.2
urgent EEG 08/20 stage II sleep
continuous EEG 08/21-08/22 background slow
Will follow
Subjective/Objective
Subjective Data
Date of Service: August 23, 2024
yesterday extubated, sat up in chair x1 hr
reports that he does not follow with a neurologist, was on Dilantin prescribed by PCP Mnidi Campa
Objective Data
Vital Signs
Temp Pulse Resp BP Pulse Ox
36.8 C 106 20 161/83 96
08/23/24 11:00 08/23/24 13:09 08/23/24 10:09 08/23/24 13:09 08/23/24 10:09
Lab Results
08/23/24 05:37
08/23/24 14:00
PT 13.8 Sec (11.4-14.6) 08/19/24 16:41
INR 1.01 08/19/24 16:41
APTT 28.0 Sec (23.4-35.0) 08/19/24 16:41
Sodium 141 mmol/L (135-145) 08/23/24 14:00
Potassium 3.0 mmol/L (3.5-5.1) L 08/23/24 14:00
BUN 5 mg/dl (9-20) L 08/23/24 14:00
Glucose 125 mg/dl (70-99) H 08/23/24 14:00
Calcium 8.1 mg/dl (8.4-10.2) L 08/23/24 14:00
Ur Buprenorphine Negative (Negative) 08/19/24 09:58
Patient Allergies
alfalfa Allergy (Unknown, Verified 08/19/24 08:31)
Unknown
Physical Exam
-
AAOx3, spech clear, language intact
VFF, EOMI, face symmetric
full strength b/l UE/LE
sensation intact touch/pin
[2024-08-23] MEDS: KCL ELIXIR 40 MEQ PO (17:25)
[2024-08-23] MEDS: LOVENOX 40 MG SC (17:40)
--- NOTE | 2024-08-23 17:40 | PTCARENOTE ---
Visiting with friends this afternoon. Remains oriented but will frequently call out to staff if he need things even though he has the callbell but has been appropriate. of note he is very [place] and staff need to talk in his Right ear. Also he is
sensitive to light which has been a longstanding issue for him. Does get winded with exertion- sats on 3l have been 92-94%. Coughing a moist cough that he expectorates whitish mucous that he uses the [place] for. C/O his nose feeling blocked and
is frequently taking out his O2 to blow his nose. Sats will dip to 90% but then come back up. Monitor ST. VS as documented. Apresoline 10 mg IV given currently for BP 163/73. Voiding yellow urine in the urinal - has been voiding every hour anywhere
from 150-250 mls of urine. K+ on BMP recheck this afternoon post 1st KCL Aramis was 3.0 - Dr. Beck updated and at 1730 KCL Elixer 40 meq Po given and KCL 40 meq rider hung via R midline. Pt repositioned. Call layton, yankeur and urinals all in
reach. Dinner ordered.
[2024-08-23 19:04] LABS: Glucose - Point of Care 133 mg/dl (70-99)
--- NOTE | 2024-08-23 20:00 | PTCARENOTE ---
Resumed care of pt this evening. 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 Pt's speech is also improved and easier to understand. Pt can move all 4 extremities and can make needs known. Pt is ST on tele monitor, has +1
edema B/L hands, and palpable pedal pulses. Pt tolerating 4L of O2 satting at 96% pulse ox. On auscultation pt lungs sound diminished TO. Pt has an occasional productive cough. Pt coughs up white colored sputum. Pt's abdomen is round w/ active BS.
Condom cath placed for incontinence. Pt voiding yellow colored urine.
[2024-08-23 23:56] LABS: Blood Urea Nitrogen 7 mg/dl (9-20); Calcium 8.3 mg/dl (8.4-10.2); Carbon Dioxide 32 mmol/L (22-30); Chloride 101 mmol/L (98-107); Estimated Creatinine Clearance 124 ml/min; Glucose 126 mg/dl (70-99); Potassium 3.7 mmol/L (3.5-5.1); Sodium 138 mmol/L (135-145); eGFR > 60.00
[2024-08-24] VITALS (24 sets, daily range): BP systolic 100–185; BP diastolic 75–110; PULSE 110; O2SAT 92–97; BMI 28.1
--- NOTE | 2024-08-24 | PTCARENOTE ---
Upon reassessment pt is resting comfortably. PRN dose of hydralazine administered by this RN for elevated BP.
[2024-08-24 04:01] LABS: Hemoglobin 12.8 g/dL (13.0-18.0); Mean Corp Hgb Conc. 33.7 g/dL (33.0-37.0); Mean Corpuscular Hgb 32.9 pg (27.0-31.0); Mean Corpuscular Volume 97.7 fL (80.0-94.0); Mean Platelet Volume 9.8 fL (7.4-10.4); Platelet Count 179 10^3/uL (130-400); Red Blood Cell Count 3.89 10^6/uL (4.70-6.10); Red Cell Dist. Width 12.4 % (11.5-14.5); White Blood Cell Count 10.3 10^3/uL (4.8-10.8)
[2024-08-24 04:18] LABS: Blood Urea Nitrogen 8 mg/dl (9-20); Calcium 8.6 mg/dl (8.4-10.2); Carbon Dioxide 34 mmol/L (22-30); Chloride 100 mmol/L (98-107); Estimated Creatinine Clearance 106 ml/min; Glucose 121 mg/dl (70-99); Sodium 141 mmol/L (135-145); eGFR > 60.00
[2024-08-24] MEDS: UNASYN IV (05:13)
[2024-08-24] MEDS: NOVOLOG FLEXPEN-MODERATE RESISTANCE SC ×2 (07:53→12:55)
[2024-08-24] MEDS: PEPCID 20 MG IV (07:53)
[2024-08-24] MEDS: MIRALAX 17 GRAMS TUBE (07:54)
[2024-08-24] MEDS: NSS (PRESERVATIVE FREE) 8 ML IV (07:54)
[2024-08-24] MEDS: DEPACON 65 MG IV (07:54)
[2024-08-24] MEDS: NORVASC 5 MG PO (07:56)
[2024-08-24] MEDS: TRANDATE 100 MG PO ×2 (07:56→19:28)
[2024-08-24 08:04] LABS: Glucose - Point of Care 101 mg/dl (70-99)
--- NOTE | 2024-08-24 09:53 | W.PN.ID1 ---
Date of Service
Date of Service: August 24, 2024
Today's Communication
DC abx.
Assessment / Plan
# Fever
- ? from Precedex - > dc'd 08/23/24
- Fever resolved.
- WBC normal
-Repeat bcx's x2 neg.
-DC empiric Unasyn (d6 abx)
# Aerococcus bacteremia 2 out of 2 sets drawn at the SAME time
# Peptostreptococcus bacteremia 1 out of 2 sets drawn at the SAME time
-Suspect contaminants
- repeat blood cx's neg
# Suspect aspiration pneumonitis
- Was intubated for airway protection -> extubated 08/22
- 08/23/24 CXR: no infiltrates
# s/p tonic-clonic seizure
-hx of seizure
#Conditions APIARIST
Diabetes mellitus type 2
Seizure disorder on phenytoin
Hypertension
Dyslipidemia
Chief Complaint
-: Bacteremia
Subjective / Review of Systems
Sitting up in chair.
'I want to get out of this room.' + nose bleed
Cough much improved.
Vital Signs / Physical Exam
Vital Signs
Vital Signs
Temp Pulse Resp BP Pulse Ox
98.2 F 114 22 179/85 97
08/24/24 08:25 08/24/24 09:00 08/24/24 09:00 08/24/24 07:56 08/24/24 09:00
Physical Exam
Constitutional: Chronically Ill
Eyes: No Conjunctival Hemorrhage and Sclera Anicteric
Cardiovascular: Other (tachycardic)
Pulmonary: Clear
Gastrointestinal: Soft, Non Tender, Non Distended and Normal Bowel Sounds
Genito-Urinary: Negative CVA Tenderness
Extremities: Negative Edema
Neurological: Awake and Alert
Psychological: Confused (somewhat confused)
Objective Data
Lab Data
Lab Results
08/24/24 03:46
08/24/24 03:46
ESR 7 mm/hour (0-20) 08/19/24 08:46
PT 13.8 Sec (11.4-14.6) 08/19/24 16:41
INR 1.01 08/19/24 16:41
APTT 28.0 Sec (23.4-35.0) 08/19/24 16:41
Estimated Creat Clear 106 ml/min 08/24/24 03:46
Lactic Acid 1.3 mmol/L (0.7-2.0) 08/20/24 09:56
Total Bilirubin 0.5 mg/dl (0.2-1.3) 08/20/24 03:37
AST 22 U/L (17-59) 08/20/24 03:37
ALT 17 U/L (0-50) 08/20/24 03:37
Alkaline Phosphatase 96 U/L (38-126) 08/20/24 03:37
Most recent labs reviewed.
Micro Results:
08/21/24 16:14 Blood Culture - Preliminary
Blood/Venous No Growth in 48 hours- Final report to follow
08/21/24 15:39 Blood Culture - Preliminary
Blood/Venous No Growth in 48 hours- Final report to follow
08/19/24 09:54 Blood Culture - Final
Blood/Venous Aerococcus Species
Peptostrep. asaccharolyticus
Gram Stain - Final
08/19/24 09:54 Blood Culture - Preliminary
Blood/Venous Aerococcus Species
Gram Stain - Preliminary
08/19/24 09:54 Influenza Types A & B (ESTIVEN) - Final
Nasal Swab Negative for Influenza A & B, NAAT
Negative results must be combined with clinical observations
and patient history.
Nucleic Acid Amplification test (NAAT)performed on the
[employer] platform.
08/19/24 CXR: No acute cardiopulmonary process.
08/20/24 CXR: No acute cardiopulmonary process.
08/20/24 CXR: No acute cardiopulmonary process.
08/21/24 Feeding tube placement as described above. Findings concerning for new mild right infrahilar pneumonia. Clinical correlation recommended
08/23/24 CXR: No acute cardiopulmonary process.
--- NOTE | 2024-08-24 10:00 | PTCARENOTE ---
Assumed care of patient at 0700. Patient alert and oriented x2, disoriented to time. Very [place]- hearing better on right. Hearing aids found in belongings bag, battery . Patient's roommate at bedside and stating he will bring electronic communications technician in later
today. ST with occasional pvcs on tele monitor. Rate in the 100-110's. +1 edema in b/l hand, trace anasarca. Lung sounds diminished with fine crackles in b/l bases. IS teaching provided. Occasional moist productive cough. Oral suctioning as needed.
Pulse ox 96% on 4L nc. Weaned to 2L. Attempted to wean further to RA, pulse ox dropped to mid 80's. 2L placed back on. +BS. Incontinent of stool at start of shift. Sacral foam removed and stage 2 PI found. Are cleansed and Calazime applied. WOC
consult placed. Patient assisted x1RW to chair at 0845. Once out of bed, utilizing bedside commode for BM and urinal for voiding needs. Right midline and peripheral INTs flushed and capped. Chair alarm on and functioning. Patient requiring frequent
reminders not to get up alone. Call layton within reach; ringing appropriately.
--- NOTE | 2024-08-24 10:34 | PTCARENOTE ---
Patient downgraded to tele level.
[2024-08-24 11:44] LABS: Glucose - Point of Care 142 mg/dl (70-99)
--- NOTE | 2024-08-24 12:09 | PTCARENOTE ---
PT/OT at bedside.
--- NOTE | 2024-08-24 12:30 | W.PN.HOSP.TC ---
Addendum entered and electronically signed by Gennaro Hinds MD 08/24/24 21:44:
I just received a text from the radiologist who stated in the [facility] Text that patient's 'Examination is positive for small volume pulmonary embolism in the lateral segment of the right lower lobe, medial segment of the right middle lobe, and
lingula; No right ventricular heart strain; Small bilateral pleural effusions with adjacent compressive atelectasis.'
Therefore, have started Eliquis 10 mg BID for 14 doses, followed by Eliquis 5 mg BID.
Original Note:
Today's Communication/Plan
-
On PO seizure medication now
Continues with tachycardia -- check CT Chest to rule out any possible PE, TSH
Added ARB for better blood pressure control
Assessment / Plan
Assessment / Plan
Physical Exam
General: Not in acute distress.
HEENT: Normocephalic.
Neck: Supple.
CV: tachy, reg rhythm, +S1/S2
Resp: CTAB anteriorly, no rales, wheezes, or rhonchi.
Abd: +BS, soft, NT, ND
Skin: Warm. Dry.
Neuro: Awake. Alert. Oriented x2 (not date). Follows commands.

CT brain: No acute intracranial abnormality noted. Sequelae of mild/moderate small vessel ischemic disease, similar in appearance to prior. Trace secretions within the right maxillary sinus.
Echo: Normal left ventricular size, wall thickness and systolic function.
LV ejection fraction is 55-60% by visual assessment.
Normal right ventricular size and function. Perhaps mildly underfilled.
Mildly thickened mitral valve leaflets with normal leaflet opening and no
regurgitation seen.
Sclerotic, trileaflet aortic valve with normal leaflet excursion and no
significant regurgitation seen.
Structurally normal tricuspid valve without significant stenosis or
regurgitation.
Right heart pressures could not be determined.
Structurally normal pulmonic valve without significant stenosis or
regurgitation.
Normal pericardium without effusion.
The IVC is of normal size and demonstrates normal respiratory variation.
No significant structural heart disease on current study. No priors available
for comparison.

Assessment/Plan
Acute hypoxemic respiratory failure due to likely aspiration due to seizure activity
Acute seizure activity - witnessed grand mal seizure in the ED (patient has history of epilepsy)
Acute recurrent generalized tonic-clonic seizure in a patient on routine phenytoin
-Intubated in ED 08/19/24 - self extubated - reintubated in ED 08/19/24 - successfully extubated on 08/22/[address]
-[address] brain without acute intracranial abnormality
-UDS POS for barbiturates only
-Dose of phenytoin at the time of presentation was minimally therapeutic at 11
-Continue Depakote PO 1500 mg BID, neuro following
-EEG
-Dobhoff tube, oral meds
-Wean off oxygen as able
Hypotension - shock, suspected sepsis
Fever
Leukocytosis improved
Elevated lactate
Concern for Aspiration Pneumonia
-s/p aggressive IVF resuscitation
-Was on Levophed, recently weaned to off
-Status post Vancomycin. Cefepime stopped.
-Echo above, no evidence of cardiogenic shock
-Course of Unasyn completed
Concern for Aerococcus Bacteremia - contamination
Concern for Peptostreptococcus Bacteremia - contamination
-Follow repeat blood cultures - no growth to date
-Consulted ID, appreciate their evaluation and recommendations --> ID is suspecting that given blood cultures drawn at the same time, it is a contaminant
Hypokalemia
-Potassium replaced
-Repeat BMP
Type 2 Diabetes Mellitus
-HbA1c: 6.6%
-SSI/accuchecks
Sinus Tachycardia
Hypertension
-No fever since 08/22/24, blood pressure is elevated, still needing oxygen, anemia is mild, does not appear to be in pain. Anxiety, sleep deprived?
-Check TSH
-Check CT Imaging for PE
-EKG with sinus tach. Check troponins. Recheck EKG.
-Continue antihypertensives
Hyperlipidemia
[id number] history of smoking, ongoing
Pressure Wounds on Coccyx Area
PT/OT
Diet: Regular solids/thin liquids - LOW SODIUM DIET
FULL/Lovenox
Anticipated Discharge: 24 - 48 hours
Subjective/Interval History
-
Date of Service: August 24, 2024
Patient was seen and examined. He denied any complaints. He was ambulating well with physical therapy.
Objective Data
-
Labs:
Laboratory Results
08/24/24
03:46
WBC 10.3
Hgb 12.8 L
Hct 38.0 L
Plt Count 179 D
Sodium 141
Potassium 4.0
Chloride 100
Carbon Dioxide 34 H
BUN 8 L
Creatinine 0.7
Glucose 121 H
Calcium 8.6
Vital Signs:
Vital Signs
Temp Pulse Resp BP Pulse Ox
97.9 F 101 28 153/86 94
08/24/24 12:14 08/24/24 12:00 08/24/24 12:00 08/24/24 12:00 08/24/24 12:00
I&O
08/23/24 08/24/24 08/25/24
06:59 06:59 06:59
Intake Total 2944.4 / 3044.4 1972.5 / 1972.5 240 / 240
Output Total 5695 / 5695 3300 / 3300 350 / 350
Balance -2750.6 / -2650.6 -1327.5 / -1327.5 -110 / -110
--- NOTE | 2024-08-24 12:33 | W.PN.NEURO.1 ---
Today's Communication / Plan
-
valproic acid 1500 BID switched to PO, continue on discharge
d/c Dilantin
could probably go home if he passes PT
Neuro Assessment/Plan
Assessment
Acute recurrent generalized tonic-clonic seizure in a patient on routine phenytoin
Dose of phenytoin at the time of presentation was minimally therapeutic at 11
Patient was initiated on valproic acid 1500 BID as a replacement therapy due to breakthrough event
Plan
Valproic acid 1500 BID, VPA level 60.2
urgent EEG 08/20 stage II sleep
continuous EEG 08/21-08/22 background slow
Will follow
Subjective/Objective
Subjective Data
Date of Service: August 24, 2024
sitting up in chair
wants to get out of here
Objective Data
Vital Signs
Temp Pulse Resp BP Pulse Ox
36.6 C 101 28 153/86 94
08/24/24 12:14 08/24/24 12:00 08/24/24 12:00 08/24/24 12:00 08/24/24 12:00
Lab Results
08/24/24 03:46
08/24/24 03:46
PT 13.8 Sec (11.4-14.6) 08/19/24 16:41
INR 1.01 08/19/24 16:41
APTT 28.0 Sec (23.4-35.0) 08/19/24 16:41
Sodium 141 mmol/L (135-145) 08/24/24 03:46
Potassium 4.0 mmol/L (3.5-5.1) 08/24/24 03:46
BUN 8 mg/dl (9-20) L 08/24/24 03:46
Glucose 121 mg/dl (70-99) H 08/24/24 03:46
Calcium 8.6 mg/dl (8.4-10.2) 08/24/24 03:46
Ur Buprenorphine Negative (Negative) 08/19/24 09:58
Patient Allergies
alfalfa Allergy (Unknown, Verified 08/19/24 08:31)
Unknown
Physical Exam
-
AAOx3 speech clear, language intact
VFF, EOMI, face symmetric
full strength b/l UE/LE
sensation intact to touch
DTR 1+ symmetric
--- NOTE | 2024-08-24 12:49 | W.PN.INTV ---
Today's Communication / Plan
Recommendations
Oral antiepileptic drugs
Increase activity as able
Advance diet
Completed antibiotics today
Wean off oxygen
Transferred to telemetry
Sign off
Assessment
-
58-year-old male with history of seizure disorder, hypertension, diabetes, dropped off to ED by friend. Proceeded to have witnessed seizure with hypoxia, bradycardia, cyanosis. Patient intubated in the ED. Patient then self extubated requiring
reintubation. Patient required heavy sedation to maintain adequate sedation while intubated. Head CT unremarkable. Loaded with valproate, admitted to ICU for further management
Acute hypoxic respiratory failure
Intubated in ED 08/19
Self extubated
Reintubated in ED 08/19
Acute seizure activity
Witnessed grand mal seizure in the ED
Hx of epilepsy
Hypotension, suspected sepsis-resolved
Elevated lactate
Hypoglycemia
Conditions present prior to admission
Diabetes
Hypertension
26-usmn-gnly history of smoking, ongoing
Plan/recommendations
Overall clinically improved-extubated 08/22/2024.
Mental status improved today 08/23/2024: Following commands, strong cough effort, oriented to place and self. Patient is hard of hearing.
Clinically improved from the neurological perspective 1-2-20 25
No further seizures
-
Wean off oxygen as able. Currently on 2-3 L.
Has a strong cough effort
-
No further seizures.
Continue antiepileptic drugs per neurology
Physical therapy/Occupational Therapy
Hemodynamically stable.
Hypertension noted. Antihypertensive per primary team
=
Low-grade fevers resolved
leukocytosis resolved.
Chest x-ray 08/20/2024 without abnormalities.
Chest x-ray 08/23/2024: No acute cardiopulmonary process
-
Initially on cefepime/vancomycin for possible aspiration event
Cefepime discontinued
Blood cultures + 08/19/2024, with Aerococcus. Unclear significance-possibly contaminant
Repeat blood cultures 08/21/2024 are pending.
Echocardiogram without vegetation
Infectious disease consulted, transition to Unasyn 08/22/2024 to 08/24/2024. No further antibiotic
Head of bed elevated
Tolerating diet
Increase activity as able
Physical therapy as
DVT prophylaxis: Lovenox subcu
GI prophylaxis: IV PPI
Transferred to telemetry.
Critical care team will sign off.
Call pulmonary if any respiratory issues arise
Subjective Dataa
Subjective Data
Date of Service:
Date of Service: August 24, 2024
Chief Complaint: Top Trimmer Follow Up (Respiratory failure recurrent intubation-seizure spell)
Subjective:
Clinically improved
Denies headache
Denies blurry vision
No further seizures
Denies shortness of breath at rest
Review of Systems
Cardiopulmonary: Dyspnea (none at rest)
GI: Abdominal Pain (n) and Nausea (n)
Neuro: Headache (n)
Objective Data
Data Reviewed
Vital Signs / I&O / Oxygen:
Vital Signs
Temp Pulse Resp BP Pulse Ox
97.9 F 101 28 153/86 94
08/24/24 12:14 08/24/24 12:00 08/24/24 12:00 08/24/24 12:00 08/24/24 12:00
Intake and Output
08/23/24 08/24/24 08/25/24
06:59 06:59 06:59
Intake Total 2944.4 / 3044.4 1972.5 / 1972.5 240 / 240
Output Total 5695 / 5695 3300 / 3300 350 / 350
Balance -2750.6 / -2650.6 -1327.5 / -1327.5 -110 / -110
SaO2 [CPAP] 100
SaO2 [A/C] 99
SaO2 94
Nasal Cannula flow liters per 2
minute
Physical Exam
General: Comfortable and Other (Sitting out of bed, hard of hearing.)
HEENT: Normocephalic and Anicteric
Cardiovascular: S1-S2, Regular Rhythm, Murmur (n) and Rub (n)
Respiratory: Wheeze (n), Crackles (n), Rhonchi (n) and Non-Labored Respirations
GI: Soft, Non Distended and Non Tender (Obese)
Neurology: Awake, Alert, No Motor Deficits and Other (Intermittently confused.)
Skin: Good Color (n), Cyanosis (n) and Jaundice (n)
Labs/Micro/Reports
Lab Data
08/24/24 03:46
08/24/24 03:46
Microbiology
08/21/24 16:14 Blood/Venous Blood Culture - Preliminary
No Growth in 48 hours- Final report to follow
08/21/24 15:39 Blood/Venous Blood Culture - Preliminary
No Growth in 48 hours- Final report to follow
08/19/24 09:54 Blood/Venous Blood Culture - Final
Aerococcus Species
Peptostrep. asaccharolyticus
08/19/24 09:54 Blood/Venous Gram Stain - Final
08/19/24 09:54 Blood/Venous Blood Culture - Preliminary
Aerococcus Species
08/19/24 09:54 Blood/Venous Gram Stain - Preliminary
--- NOTE | 2024-08-24 12:56 | PTCARENOTE ---
Wound care nurse at bedside to assess patient's sacrum- stage 2 (new). Air cushion already on chair. Calazime and sacral foam applied.
--- NOTE | 2024-08-24 13:40 | WOUNDNOTE ---
[facility] RN NOTE: Reviewed chart and met with patient. Patient was intubated and sedated on 08/19 and extubated 08/22. Patient found to be sitting in a chair with air cushion. Patient easily stood with walker. On assessment, patient has multiple
superficial stage to PI to sacral/coccyx/buttocks. The surrounding intact skin is red and blanchable. Staff have appropriately been applying Calazime to open areas. The wound was first noted this morning by RN, Flores. This policy writer typist reviewed the
importance of turning/repositioning self now that he is mobile. He stated understanding of instruction. He also reports good appetite and is on a Centrella Max Air. Heels intact. Plan is to keep sacral area clean and dry and apply Calazime and
silicone border foam daily. All care completed as ordered by this policy writer typist. ELAINE Tanner given update and Dr. Hinds notified of new PI.
--- NOTE | 2024-08-24 13:57 | CM ---
Addendum entered by River Rosas 08/24/24 14:31:
CM spoke to pt again and pt is very INUPIAT and he asked to talk to his friend Roldan.
CM spoke to pt's friend Roldan who stated he will not be able to bring the pt home right away because pt is very weak. pt's friend Roldan has been informed that a referral made to [facility] that requires insurance approval. Pt's friend Roldan
agrees to make a referral to a SNFs in case [facility] will not be approved. For a back up plan following SNFs requested: [facility], [facility], [facility], [facility]. A referral to above SNFs made.
D/C plan: Number one choice - [facility]. Back up plan - preferred SNF. PM&R consult requested for acute rehab eligibility.
Original Note:
CM following re: discharge planning.
Reviewed pt's chart, met with pt.
PT and OT have been recommending acute rehab. Pt is aware, expressed his agreement and [facility] requested.
A referral to [facility] made.
D/C plan: [facility] when medically stable and if accepted.
CM will follow with discharge plan updates as hospitalization progresses
[2024-08-24] MEDS: APRESOLINE 10 MG IV (16:10)
[2024-08-24 16:59] LABS: Glucose - Point of Care 182 mg/dl (70-99)
[2024-08-24] MEDS: NOVOLOG FLEXPEN-MODERATE RESISTANCE 1 UNITS SC (17:05)
[2024-08-24] MEDS: LOVENOX 40 MG SC (17:05)
--- NOTE | 2024-08-24 17:21 | PTCARENOTE ---
Patient's blood pressure at 1600- 184/84. PRN 10mg IV Hydralazine administered as ordered. Blood pressure rechecked- 181/83, HR up to 120's. Hospitalist notified. Order for Losartan placed.
[2024-08-24] MEDS: COZAAR 50 MG PO (17:33)
[2024-08-24] MEDS: DEPAKOTE (12 HR RELEASE) 1500 MG PO (19:28)
[2024-08-24] MEDS: NSS (PRESERVATIVE FREE) IV (19:28)
[2024-08-24 20:20] LABS: Troponin I 0.018 ng/ml
--- NOTE | 2024-08-24 21:38 | PTCARENOTE ---
pt AAOx3 forgetful at times, ST on the monitor, 2LNC, productive moist cough, 2gm Na diet, takes pills whole with thins, voids in the urinal, RUE midline, ambulates with rolling walker, report called to tx pt, all belongings with pt and tx without
issue, once tx to new room tele pack on and pt states having no complaints at this time. call layton in reach and 4th floor RN at bedside.
--- NOTE | 2024-08-24 22:00 | PTCARENOTE ---
Patient transferred from ICU. Patient AAO x3 but forgetful. Bed alarm is on. Patient on 2LNC, tele monitor, in no acute distress. Seizure precautions in place. Will continue to monitor.
[2024-08-24] MEDS: ELIQUIS 10 MG PO (22:03)
[2024-08-25] VITALS (9 sets, daily range): BP systolic 156–195; BP diastolic 83–108
[2024-08-25] MEDS: TRANDATE 10 MG IV (01:21)
[2024-08-25 02:09] LABS: Troponin I 0.016 ng/ml
[2024-08-25 07:30] LABS: Glucose - Point of Care 126 mg/dl (70-99)
[2024-08-25] MEDS: NOVOLOG FLEXPEN-MODERATE RESISTANCE SC ×3 (07:36→16:53)
[2024-08-25] MEDS: DEPAKOTE (12 HR RELEASE) 1500 MG PO ×2 (07:57→20:20)
[2024-08-25] MEDS: COZAAR 50 MG PO ×2 (07:58→20:20)
[2024-08-25] MEDS: ELIQUIS 10 MG PO ×2 (07:58→20:20)
[2024-08-25] MEDS: NORVASC 5 MG PO (07:58)
[2024-08-25] MEDS: TRANDATE 100 MG PO (07:58)
[2024-08-25] MEDS: MIRALAX TUBE (08:05)
[2024-08-25] MEDS: NSS (PRESERVATIVE FREE) IV ×2 (08:06→21:46)
[2024-08-25 09:29] LABS: Hematocrit 41.4 % (39.0-52.0); Mean Corp Hgb Conc. 33.8 g/dL (33.0-37.0); Mean Corpuscular Hgb 32.7 pg (27.0-31.0); Mean Corpuscular Volume 96.7 fL (80.0-94.0); Mean Platelet Volume 9.7 fL (7.4-10.4); Platelet Count 220 10^3/uL (130-400); Red Blood Cell Count 4.28 10^6/uL (4.70-6.10); Red Cell Dist. Width 12.5 % (11.5-14.5); White Blood Cell Count 7.5 10^3/uL (4.8-10.8)
[2024-08-25 09:32] LABS: Troponin I < 0.012 ng/ml
--- NOTE | 2024-08-25 09:49 | W.PN.HOSP.TC ---
Today's Communication/Plan
-
Awaiting [facility]
Increased blood pressure medications
Eliquis for PE
Assessment / Plan
Assessment / Plan
Physical Exam
General: Not in acute distress.
HEENT: Normocephalic.
Neck: Supple.
CV: tachy, reg rhythm, +S1/S2
Resp: CTAB anteriorly, no rales, wheezes, or rhonchi.
Abd: +BS, soft, NT, ND
Skin: Warm. Dry.
Neuro: Awake. Alert. Oriented x2 (not date). Follows commands.

CT brain: No acute intracranial abnormality noted. Sequelae of mild/moderate small vessel ischemic disease, similar in appearance to prior. Trace secretions within the right maxillary sinus.
Echo: Normal left ventricular size, wall thickness and systolic function.
LV ejection fraction is 55-60% by visual assessment.
Normal right ventricular size and function. Perhaps mildly underfilled.
Mildly thickened mitral valve leaflets with normal leaflet opening and no
regurgitation seen.
Sclerotic, trileaflet aortic valve with normal leaflet excursion and no
significant regurgitation seen.
Structurally normal tricuspid valve without significant stenosis or
regurgitation.
Right heart pressures could not be determined.
Structurally normal pulmonic valve without significant stenosis or
regurgitation.
Normal pericardium without effusion.
The IVC is of normal size and demonstrates normal respiratory variation.
No significant structural heart disease on current study. No priors available
for comparison.

Assessment/Plan
Acute hypoxemic respiratory failure due to likely aspiration due to seizure activity
Acute seizure activity - witnessed grand mal seizure in the ED (patient has history of epilepsy)
Acute recurrent generalized tonic-clonic seizure in a patient on routine phenytoin
-Intubated in ED 08/19/24 - self extubated - reintubated in ED 08/19/24 - successfully extubated on 08/22/24
-CT brain without acute intracranial abnormality
-UDS POS for barbiturates only
-Dose of phenytoin at the time of presentation was minimally therapeutic at 11
-Continue Depakote PO 1500 mg BID, neuro evaluation appreciated
-EEG
-Dobhoff tube, oral meds
-Wean off oxygen as able
Hypotension - shock, suspected sepsis
Fever
Leukocytosis improved
Elevated lactate
Concern for Aspiration Pneumonia
-s/p aggressive IVF resuscitation
-Was on Levophed, recently weaned to off
-Status post Vancomycin. Cefepime stopped.
-Echo above, no evidence of cardiogenic shock
-Course of Unasyn completed
Pulmonary Emboli
-Found after started work-up for PE
-Continue Eliquis 10 mg BID followed by 5 mg BID
Concern for Aerococcus Bacteremia - contamination
Concern for Peptostreptococcus Bacteremia - contamination
-Follow repeat blood cultures - no growth to date
-Consulted ID, appreciate their evaluation and recommendations --> ID is suspecting that given blood cultures drawn at the same time, it is a contaminant
Hypokalemia
-Potassium replaced
-Repeat BMP
Type 2 Diabetes Mellitus
-HbA1c: 6.6%
-SSI/accuchecks
Hypertension
-So far have started patient on Labetalol, Losartan and Amlodipine
-Will consider starting Aldactone
-Will continue to titrate blood pressure medications
Sinus Tachycardia Secondary to PE and Agitation/Anxiety
-CT Imaging showed PE
-EKG with sinus tach. Troponins negative. No concerns for myocardial ischemia.
-Patient already has Labetalol on board
Subclinical Hypothyroidism
-TSH 18.20, Free T4 1.02
-Start Levothyroxine 12.5 daily
Hyperlipidemia
[id number] history of smoking, ongoing
Pressure Wounds on Coccyx Area
PT/OT
Diet: Regular solids/thin liquids - LOW SODIUM DIET
FULL/Lovenox
Anticipated Discharge: > 48 hours
Subjective/Interval History
-
Date of Service: August 25, 2024
Patient was seen and examined. He was agitated because he did not like being in the hospital room.
Objective Data
-
Labs:
Laboratory Results
08/25/24
08:24
WBC 7.5
Hgb 14.0
Hct 41.4
Plt Count 220 D
Sodium Pending
Potassium Pending
Chloride Pending
Carbon Dioxide Pending
BUN Pending
Creatinine Pending
Glucose Pending
Calcium Pending
Vital Signs:
Vital Signs
Temp Pulse Resp BP Pulse Ox
98.2 F 110 18 174/92 93
08/25/24 07:30 08/25/24 09:30 08/25/24 07:30 08/25/24 09:30 08/25/24 07:30
I&O
08/24/24 08/25/24 08/26/24
06:59 06:59 06:59
Intake Total 1972.5 / 1972.5 473 / 473
Output Total 3300 / 3300 2074
Balance -1327.5 / -1327.5 -1602 / -1602
--- NOTE | 2024-08-25 09:54 | PTCARENOTE ---
Seizure pads not on bed but the bed rails have been padded with blankets
[2024-08-25 10:21] LABS: Blood Urea Nitrogen 16 mg/dl (9-20); Calcium 9.2 mg/dl (8.4-10.2); Carbon Dioxide 28 mmol/L (22-30); Chloride 97 mmol/L (98-107); Estimated Creatinine Clearance 106 ml/min; Glucose 121 mg/dl (70-99); Potassium 3.9 mmol/L (3.5-5.1); Sodium 139 mmol/L (135-145); Triglycerides 306 mg/dl (10-149); eGFR > 60.00
[2024-08-25 10:32] LABS: Free T4 1.02 ng/dl (0.78-2.19)
[2024-08-25] MEDS: APRESOLINE 10 MG IV (11:37)
[2024-08-25 11:41] LABS: Glucose - Point of Care 142 mg/dl (70-99)
--- NOTE | 2024-08-25 12:44 | W.PN.ID1 ---
Date of Service
Date of Service: August 25, 2024
Today's Communication
ID will sign off.
Assessment / Plan
# Fever - resolved
- ? from Precedex - > dc'd 08/23/24
- WBC normal
-Repeat bcx's x2 neg.
-Observe off abx.
# Aerococcus bacteremia 2 out of 2 sets drawn at the SAME time
# Peptostreptococcus bacteremia 1 out of 2 sets drawn at the SAME time
-Suspect contaminants
- repeat blood cx's neg
- No need for abx
# Suspect aspiration pneumonitis
- Was intubated for airway protection -> extubated 08/22
- 08/23/24 CXR: no infiltrates
# s/p tonic-clonic seizure
-hx of seizure
ID will sign off.
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
Diabetes mellitus type 2
Seizure disorder on phenytoin
Hypertension
Dyslipidemia
Chief Complaint
-: Bacteremia
Subjective / Review of Systems
No new complaints.
Vital Signs / Physical Exam
Vital Signs
Vital Signs
Temp Pulse Resp BP Pulse Ox
98.1 F 104 20 168/83 95
08/25/24 11:03 08/25/24 11:37 08/25/24 11:03 08/25/24 11:37 08/25/24 11:03
Physical Exam
Constitutional: No Acute Distress and Comfortable
Cardiovascular: Regular Rate and S1/S2
Pulmonary: Clear
Gastrointestinal: Soft and Non Tender
Extremities: Negative Edema
Psychological: Calm
Objective Data
Lab Data
Lab Results
08/25/24 08:24
08/25/24 08:24
ESR 7 mm/hour (0-20) 08/19/24 08:46
PT 13.8 Sec (11.4-14.6) 08/19/24 16:41
INR 1.01 08/19/24 16:41
APTT 28.0 Sec (23.4-35.0) 08/19/24 16:41
Estimated Creat Clear 106 ml/min 08/25/24 08:24
Lactic Acid 1.3 mmol/L (0.7-2.0) 08/20/24 09:56
Total Bilirubin 0.5 mg/dl (0.2-1.3) 08/20/24 03:37
AST 22 U/L (17-59) 08/20/24 03:37
ALT 17 U/L (0-50) 08/20/24 03:37
Alkaline Phosphatase 96 U/L (38-126) 08/20/24 03:37
Most recent labs reviewed.
Micro Results:
08/21/24 16:14 Blood Culture - Preliminary
Blood/Venous No Growth in 72 hours- Final report to follow
08/21/24 15:39 Blood Culture - Preliminary
Blood/Venous No Growth in 72 hours- Final report to follow
08/19/24 09:54 Blood Culture - Final
Blood/Venous Aerococcus Species
Peptostrep. asaccharolyticus
Gram Stain - Final
08/19/24 09:54 Blood Culture - Preliminary
Blood/Venous Aerococcus Species
Gram Stain - Preliminary
08/19/24 09:54 Influenza Types A & B (ESTIVEN) - Final
Nasal Swab Negative for Influenza A & B, NAAT
Negative results must be combined with clinical observations
and patient history.
Nucleic Acid Amplification test (NAAT)performed on the
[employer] platform.
08/19/24 CXR: No acute cardiopulmonary process.
08/20/24 CXR: No acute cardiopulmonary process.
08/20/24 CXR: No acute cardiopulmonary process.
08/21/24 Feeding tube placement as described above. Findings concerning for new mild right infrahilar pneumonia. Clinical correlation recommended
08/23/24 CXR: No acute cardiopulmonary process.
[2024-08-25 14:11] LABS: Troponin I < 0.012 ng/ml
--- NOTE | 2024-08-25 15:49 | PN.CDI ---
CDI
- -
CDI:
Physician Documentation Request
Admit Date: 08/19/24 10:51
Dear Doctor Guzman,
Patient admitted with acute seizure activity.
1/2 PN, 'elevated lactate.'
Lactic acid levels documented below:
Patient received IV NSS.
Laboratory Tests
08/19/24 08/19/24 08/19/24
09:54 16:01 20:23
Lactic Acid 11.3 H* 4.3 H* 3.1 H
Based on the above, please clarify in the progress notes, the appropriate diagnosis, if significant, that supports the above abnormalities and additional evaluation, monitoring and/or treatment rendered:
Lactic acidosis
Insignificant abnormal lab findings
Other
Use of terms such as suspected, likely, concern for, or probable (associated with a specific diagnosis that is being evaluated, monitored, or treated as if it exists) are acceptable and can be coded in the inpatient setting, when documented at the
time of discharge.
Thank you,
Amira CHOPRA,RN,CCDS
CDI Specialist
Available via [place] text
Please use your independent medical judgment in providing your response.
--- NOTE | 2024-08-25 16:00 | PN.CDI ---
CDI
- -
CDI:
Physician Documentation Request
Admit Date: 08/19/24 10:51
Dear Doctor Guzman,
Patient admitted with acute seizure activity.
1/2 Nursing skin assessment, 'Stage 2 sacral pressure injury.'
Physician documentation of the type and location of wounds is required for compliant documentation. Based on the above clinical findings and your assessment, please provide the following in your progress note:
Type (etiology) of ulcer/wound:
- Pressure (decubitus) ulcer
- Other
- Unable to determine
For a pressure ulcer, please also include the stage* of the ulcer:
- Stage 1 - Skin intact, non-blanchable redness
- Stage 2 - Partial thickness loss of dermis, includes intact or open blister
- Stage 3 - Full thickness tissue not including bone, tendon or muscle
- Stage 4 - Full thickness tissue loss, including exposed bone, tendon or muscle
- Unstageable - Full thickness loss in which the base of the ulcer is covered by slough (yellow, linda, paula, green or brown) and/or eschar (linda, brown or black) in the wound bed.
- Unable to determine
Use of terms such as suspected, likely, concern for, or probable (associated with a specific diagnosis that is being evaluated, monitored, or treated as if it exists) are acceptable and can be coded in the inpatient setting, when documented at the
time of discharge.
Thank you,
Amira CHOPRA,RN,CCDS
CDI Specialist
Available via [place] text
Please use your independent medical judgment in providing your response.
*Source: National Pressure Ulcer Advisory Panel (NPUAP)
[2024-08-25 16:43] LABS: Glucose - Point of Care 109 mg/dl (70-99)
--- NOTE | 2024-08-25 17:19 | CM ---
Spoke with Jennifer at [facility] . Dr Ibarra consult ordered.
Jennifer [facility] said she will evaluate Wednesday. Will need auth.
Above explained to pt.
Pt SYCUAN.
requested [facility]jas of Eliquis . Could not be determined. Pt give Eliquis first month free and Eliquis $10.00 / month coupons.
Pt on oxygen 2 liters Pox 93%.
[facility]
report [phone]
fax [phone]
PLAN To [facility] if DR Ibarra accepts Wednesday after auth
[2024-08-25] MEDS: TRANDATE 150 MG PO (20:21)
[2024-08-25 21:47] LABS: Glucose - Point of Care 90 mg/dl (70-99)
[2024-08-26 03:27] VITALS: BP 149/94
[2024-08-26] MEDS: SYNTHROID 12.5 MCG PO (05:50)
[2024-08-26 07:20] VITALS: BP 179/92
[2024-08-26 07:52] LABS: Glucose - Point of Care 108 mg/dl (70-99)
[2024-08-26] MEDS: MIRALAX TUBE (08:10)
[2024-08-26] MEDS: NOVOLOG FLEXPEN-MODERATE RESISTANCE SC ×2 (08:10→17:12)
[2024-08-26 09:25] LABS: Hematocrit 41.3 % (39.0-52.0); Hemoglobin 13.9 g/dL (13.0-18.0); Mean Corp Hgb Conc. 33.7 g/dL (33.0-37.0); Mean Corpuscular Hgb 32.6 pg (27.0-31.0); Mean Corpuscular Volume 96.7 fL (80.0-94.0); Mean Platelet Volume 9.3 fL (7.4-10.4); Platelet Count 277 10^3/uL (130-400); Red Blood Cell Count 4.27 10^6/uL (4.70-6.10); Red Cell Dist. Width 12.4 % (11.5-14.5); White Blood Cell Count 8.9 10^3/uL (4.8-10.8)
[2024-08-26] MEDS: ELIQUIS 10 MG PO ×2 (09:27→20:18)
[2024-08-26 09:42] LABS: Blood Urea Nitrogen 22 mg/dl (9-20); Calcium 8.9 mg/dl (8.4-10.2); Carbon Dioxide 33 mmol/L (22-30); Chloride 97 mmol/L (98-107); Estimated Creatinine Clearance 93 ml/min; Glucose 105 mg/dl (70-99); Potassium 4.2 mmol/L (3.5-5.1); Sodium 141 mmol/L (135-145); eGFR > 60.00
[2024-08-26] MEDS: DEPAKOTE (12 HR RELEASE) 1500 MG PO ×2 (09:51→20:18)
[2024-08-26] MEDS: COZAAR 50 MG PO ×2 (09:52→20:17)
[2024-08-26] MEDS: NORVASC 5 MG PO ×2 (09:55→20:20)
[2024-08-26] MEDS: NSS (PRESERVATIVE FREE) IV ×2 (09:56→20:19)
[2024-08-26] MEDS: TRANDATE 50 MG PO ×2 (09:59→20:18)
[2024-08-26] MEDS: TRANDATE PO (10:01)
[2024-08-26 11:28] LABS: Glucose - Point of Care 228 mg/dl (70-99)
[2024-08-26 11:46] VITALS: BP 140/78
[2024-08-26] MEDS: NOVOLOG FLEXPEN-MODERATE RESISTANCE 3 UNITS SC (14:06)
[2024-08-26 15:36] VITALS: BP 146/79
[2024-08-26 16:35] LABS: Glucose - Point of Care 86 mg/dl (70-99)
--- NOTE | 2024-08-26 17:10 | W.PN.HOSP.TC ---
Today's Communication/Plan
-
Await placement to [facility]
BP and anxiety have improved after moving to private room
Assessment / Plan
Assessment / Plan
Physical Exam
General: Not in acute distress.
HEENT: Normocephalic.
Neck: Supple.
CV: tachy, reg rhythm, +S1/S2
Resp: CTAB anteriorly, no rales, wheezes, or rhonchi.
Abd: +BS, soft, NT, ND
Skin: Warm. Dry.
Neuro: Awake. Alert. Oriented x2 (not date). Follows commands.

CT brain: No acute intracranial abnormality noted. Sequelae of mild/moderate small vessel ischemic disease, similar in appearance to prior. Trace secretions within the right maxillary sinus.
Echo: Normal left ventricular size, wall thickness and systolic function.
LV ejection fraction is 55-60% by visual assessment.
Normal right ventricular size and function. Perhaps mildly underfilled.
Mildly thickened mitral valve leaflets with normal leaflet opening and no
regurgitation seen.
Sclerotic, trileaflet aortic valve with normal leaflet excursion and no
significant regurgitation seen.
Structurally normal tricuspid valve without significant stenosis or
regurgitation.
Right heart pressures could not be determined.
Structurally normal pulmonic valve without significant stenosis or
regurgitation.
Normal pericardium without effusion.
The IVC is of normal size and demonstrates normal respiratory variation.
No significant structural heart disease on current study. No priors available
for comparison.

Assessment/Plan
Acute hypoxemic respiratory failure due to likely aspiration due to seizure activity
Acute seizure activity - witnessed grand mal seizure in the ED (patient has history of epilepsy)
Acute recurrent generalized tonic-clonic seizure in a patient on routine phenytoin
-Intubated in ED 08/19/24 - self extubated - reintubated in ED 08/19/24 - successfully extubated on 08/22/24
-CT brain without acute intracranial abnormality
-UDS POS for barbiturates only
-Dose of phenytoin at the time of presentation was minimally therapeutic at 11
-Continue Depakote PO 1500 mg BID, neuro evaluation appreciated
-EEG
-Dobhoff tube, oral meds
-Wean off oxygen as able
Hypotension - shock, suspected sepsis
Fever
Leukocytosis improved
Elevated lactate
Concern for Aspiration Pneumonia
-s/p aggressive IVF resuscitation
-Was on Levophed, recently weaned to off
-Status post Vancomycin. Cefepime stopped.
-Echo above, no evidence of cardiogenic shock
-Course of Unasyn completed
Pulmonary Emboli
-Found after started work-up for PE
-Continue Eliquis 10 mg BID followed by 5 mg BID
Concern for Aerococcus Bacteremia - contamination
Concern for Peptostreptococcus Bacteremia - contamination
-Follow repeat blood cultures - no growth to date
-Consulted ID, appreciate their evaluation and recommendations --> ID is suspecting that given blood cultures drawn at the same time, it is a contaminant
Hypokalemia
-Potassium replaced
-Repeat BMP
Type 2 Diabetes Mellitus
-HbA1c: 6.6%
-SSI/accuchecks
Hypertension
-So far have started patient on Labetalol, Losartan and Amlodipine
Sinus Tachycardia Secondary to PE and Agitation/Anxiety
-CT Imaging showed PE
-EKG with sinus tach. Troponins negative. No concerns for myocardial ischemia.
-Patient already has Labetalol on board
Subclinical Hypothyroidism
-TSH 18.20, Free T4 1.02
-Start Levothyroxine 12.5 daily
Hyperlipidemia
[id number] history of smoking, ongoing
Pressure Wounds on Coccyx Area
PT/OT
Diet: Regular solids/thin liquids - LOW SODIUM DIET
FULL/Lovenox
Anticipated Discharge: > 48 hours
Subjective/Interval History
-
Date of Service: August 26, 2024
Patient was seen and examined. He reported feeling better in his new private room, denied any new complaints. He denied headache, chest pain, shortness of breath or any other complaints.
Objective Data
-
Labs:
Laboratory Results
08/26/24
08:48
WBC 8.9
Hgb 13.9
Hct 41.3
Plt Count 277 D
Sodium 141
Potassium 4.2
Chloride 97 L
Carbon Dioxide 33 H
BUN 22 H
Creatinine 0.8
Glucose 105 H
Calcium 8.9
Vital Signs:
Vital Signs
Temp Pulse Resp BP Pulse Ox
97.5 F 103 18 146/79 92
08/26/24 15:36 08/26/24 15:36 08/26/24 15:36 08/26/24 15:36 08/26/24 15:36
I&O
08/25/24 08/26/24 08/27/24
06:59 06:59 06:59
Intake Total 473 / 473 480 / 480
Output Total 2074 600 / 600 300 / 300
Balance -1602 / -1602 -120 / -120 -300 / -300
--- NOTE | 2024-08-26 18:20 | PTCARENOTE ---
Assumed care of pt from previous nurse. pt took a few walks today, slightly unsteady at times on his feet. Completed hygiene with minimal assist. Pt call [facility] is within reach, bed and charm alarm in place, forgets to ring at times. Pt is on tele
running sinus tachy. will cont to monitor.
[2024-08-26 19:28] VITALS: BP 125/69
[2024-08-26 21:15] LABS: Glucose - Point of Care 126 mg/dl (70-99)
[2024-08-26 23:55] VITALS: BP 150/69
[2024-08-27 03:46] VITALS: BP 143/77
[2024-08-27] MEDS: SYNTHROID 12.5 MCG PO (05:56)
[2024-08-27 07:20] VITALS: BP 128/71
[2024-08-27 07:45] LABS: Glucose - Point of Care 114 mg/dl (70-99)
[2024-08-27] MEDS: NOVOLOG FLEXPEN-MODERATE RESISTANCE SC ×3 (07:55→18:02)
[2024-08-27] MEDS: DEPAKOTE (12 HR RELEASE) 1500 MG PO ×2 (07:55→20:33)
[2024-08-27] MEDS: TRANDATE 50 MG PO (07:56)
[2024-08-27] MEDS: ELIQUIS 10 MG PO ×2 (08:07→20:33)
[2024-08-27] MEDS: MIRALAX TUBE ×2 (08:07→08:10)
[2024-08-27] MEDS: COZAAR 50 MG PO ×2 (08:07→20:33)
[2024-08-27] MEDS: NORVASC 5 MG PO ×2 (08:08→20:34)
[2024-08-27] MEDS: NSS (PRESERVATIVE FREE) IV (08:08)
[2024-08-27 08:37] LABS: Blood Urea Nitrogen 23 mg/dl (9-20); Calcium 8.6 mg/dl (8.4-10.2); Carbon Dioxide 32 mmol/L (22-30); Chloride 95 mmol/L (98-107); Estimated Creatinine Clearance 93 ml/min; Glucose 117 mg/dl (70-99); Magnesium 2.3 mg/dl (1.6-2.3); Sodium 137 mmol/L (135-145); eGFR > 60.00
[2024-08-27 11:45] LABS: Glucose - Point of Care 133 mg/dl (70-99)
[2024-08-27 11:49] VITALS: BP 116/64
[2024-08-27 15:20] VITALS: BP 134/65
--- NOTE | 2024-08-27 17:46 | W.PN.HOSP.TC ---
Today's Communication/Plan
-
Blood pressure and heart rate improved
Await discharge to [facility]
Assessment / Plan
Assessment / Plan
Physical Exam
General: Not in acute distress.
HEENT: Normocephalic.
Neck: Supple.
CV: tachy, reg rhythm, +S1/S2
Resp: CTAB anteriorly, no rales, wheezes, or rhonchi.
Abd: +BS, soft, NT, ND
Skin: Warm. Dry.
Neuro: Awake. Alert. Oriented x2 (not date). Follows commands.

CT brain: No acute intracranial abnormality noted. Sequelae of mild/moderate small vessel ischemic disease, similar in appearance to prior. Trace secretions within the right maxillary sinus.
Echo: Normal left ventricular size, wall thickness and systolic function.
LV ejection fraction is 55-60% by visual assessment.
Normal right ventricular size and function. Perhaps mildly underfilled.
Mildly thickened mitral valve leaflets with normal leaflet opening and no
regurgitation seen.
Sclerotic, trileaflet aortic valve with normal leaflet excursion and no
significant regurgitation seen.
Structurally normal tricuspid valve without significant stenosis or
regurgitation.
Right heart pressures could not be determined.
Structurally normal pulmonic valve without significant stenosis or
regurgitation.
Normal pericardium without effusion.
The IVC is of normal size and demonstrates normal respiratory variation.
No significant structural heart disease on current study. No priors available
for comparison.

Assessment/Plan
Acute hypoxemic respiratory failure due to likely aspiration due to seizure activity
Acute seizure activity - witnessed grand mal seizure in the ED (patient has history of epilepsy)
Acute recurrent generalized tonic-clonic seizure in a patient on routine phenytoin
-Intubated in ED 08/19/24 - self extubated - reintubated in ED 08/19/24 - successfully extubated on 08/22/24
-CT brain without acute intracranial abnormality
-UDS POS for barbiturates only
-Dose of phenytoin at the time of presentation was minimally therapeutic at 11
-Continue Depakote PO 1500 mg BID, neuro evaluation appreciated
Hypotension - shock, suspected sepsis
Fever
Leukocytosis improved
Lactic Acidosis
Concern for Aspiration Pneumonia
-s/p aggressive IVF resuscitation
-Was previously on Levophed
-Status post Vancomycin. Cefepime stopped.
-Echo above, no evidence of cardiogenic shock
-Course of Unasyn completed
Pulmonary Emboli
-Found after started work-up for PE
-Continue Eliquis 10 mg BID followed by 5 mg BID
Concern for Aerococcus Bacteremia - contamination
Concern for Peptostreptococcus Bacteremia - contamination
-Follow repeat blood cultures - no growth to date
-Consulted ID, appreciate their evaluation and recommendations --> ID is suspecting that given blood cultures drawn at the same time, it is a contaminant
Hypokalemia
-Potassium replaced
-Repeat BMP
Type 2 Diabetes Mellitus
-HbA1c: 6.6%
-SSI/accuchecks
Hypertension
-So far have started patient on Losartan and Amlodipine
-Change Labetalol to Coreg small dose
Sinus Tachycardia Secondary to PE and Agitation/Anxiety
-CT Imaging showed PE
-EKG with sinus tach. Troponins negative. No concerns for myocardial ischemia.
-Patient already has Labetalol on board
Subclinical Hypothyroidism
-TSH 18.20, Free T4 1.02
-Start Levothyroxine 12.5 daily
Hyperlipidemia
11-[id number]-[id number] history of smoking, ongoing
Stage 2 sacral pressure injury
PT/OT
Diet: Regular solids/thin liquids - LOW SODIUM DIET
FULL/Lovenox
Anticipated Discharge: 24 - 48 hours
Subjective/Interval History
-
Date of Service: August 27, 2024
Patient was seen and examined. He denied any new symptoms or complaints.
Objective Data
-
Labs:
Laboratory Results
08/27/24
07:34
Sodium 137
Potassium 4.0
Chloride 95 L
Carbon Dioxide 32 H
BUN 23 H
Creatinine 0.8
Glucose 117 H
Calcium 8.6
Vital Signs:
Vital Signs
Temp Pulse Resp BP Pulse Ox
98.7 F 93 20 134/65 91
08/27/24 15:20 08/27/24 15:20 08/27/24 15:20 08/27/24 15:20 08/27/24 15:20
I&O
08/26/24 08/27/24 08/28/24
06:59 06:59 06:59
Intake Total 480 / 480 1440 / 1440
Output Total 600 / 600 600 / 600
Balance -120 / -120 840 / 840
[2024-08-27 18:02] LABS: Glucose - Point of Care 99 mg/dl (70-99)
[2024-08-27 19:45] VITALS: BP 122/69
[2024-08-27] MEDS: COREG 3.125 MG PO (20:33)
[2024-08-27 21:27] LABS: Glucose - Point of Care 187 mg/dl (70-99)
[2024-08-27 23:12] VITALS: BP 142/66
[2024-08-28] MEDS: SYNTHROID 12.5 MCG PO (05:20)
[2024-08-28 07:10] VITALS: BP 121/68
[2024-08-28 07:36] LABS: Glucose - Point of Care 136 mg/dl (70-99)
[2024-08-28] MEDS: NOVOLOG FLEXPEN-MODERATE RESISTANCE SC ×3 (07:54→16:55)
[2024-08-28] MEDS: COREG 3.125 MG PO ×2 (09:31→18:17)
[2024-08-28] MEDS: COZAAR 50 MG PO ×2 (09:31→18:17)
[2024-08-28] MEDS: NORVASC 5 MG PO ×2 (09:32→18:17)
[2024-08-28] MEDS: ELIQUIS 10 MG PO ×2 (09:32→18:17)
[2024-08-28] MEDS: DEPAKOTE (12 HR RELEASE) 1500 MG PO ×2 (09:33→18:17)
[2024-08-28] MEDS: MIRALAX 17 GRAMS TUBE (09:33)
--- NOTE | 2024-08-28 10:21 | W.PN.HOSP.TC ---
Today's Communication/Plan
-
Discharge today
Assessment / Plan
Assessment / Plan
Physical Exam
General: Not in acute distress.
HEENT: Normocephalic.
Neck: Supple.
CV: tachy, reg rhythm, +S1/S2
Resp: CTAB anteriorly, no rales, wheezes, or rhonchi.
Abd: +BS, soft, NT, ND
Skin: Warm. Dry.
Neuro: Awake. Alert. Oriented x2 (not date). Follows commands.

CT brain: No acute intracranial abnormality noted. Sequelae of mild/moderate small vessel ischemic disease, similar in appearance to prior. Trace secretions within the right maxillary sinus.
Echo: Normal left ventricular size, wall thickness and systolic function.
LV ejection fraction is 55-60% by visual assessment.
Normal right ventricular size and function. Perhaps mildly underfilled.
Mildly thickened mitral valve leaflets with normal leaflet opening and no
regurgitation seen.
Sclerotic, trileaflet aortic valve with normal leaflet excursion and no
significant regurgitation seen.
Structurally normal tricuspid valve without significant stenosis or
regurgitation.
Right heart pressures could not be determined.
Structurally normal pulmonic valve without significant stenosis or
regurgitation.
Normal pericardium without effusion.
The IVC is of normal size and demonstrates normal respiratory variation.
No significant structural heart disease on current study. No priors available
for comparison.

Assessment/Plan
Acute hypoxemic respiratory failure due to likely aspiration due to seizure activity - RESOLVED
Acute seizure activity - witnessed grand mal seizure in the ED (patient has history of epilepsy)
Acute recurrent generalized tonic-clonic seizure in a patient on routine phenytoin
-Intubated in ED 08/19/24 - self extubated - reintubated in ED 08/19/24 - successfully extubated on 08/22/24
-CT brain without acute intracranial abnormality
-UDS POS for barbiturates only
-Dose of phenytoin at the time of presentation was minimally therapeutic at 11
-Continue Depakote PO 1500 mg BID, neuro evaluation appreciated
-Stop Dilantin
Hypotension - shock, suspected sepsis
Fever
Leukocytosis improved
Lactic Acidosis
Concern for Aspiration Pneumonia
-s/p aggressive IVF resuscitation
-Was previously on Levophed
-Status post Vancomycin. Cefepime stopped.
-Echo above, no evidence of cardiogenic shock
-Course of Unasyn completed
Pulmonary Emboli
-Found after started work-up for PE
-Continue Eliquis 10 mg BID followed by 5 mg BID
Concern for Aerococcus Bacteremia - contamination
Concern for Peptostreptococcus Bacteremia - contamination
-Follow repeat blood cultures - no growth to date
-Consulted ID, appreciate their evaluation and recommendations --> ID is suspecting that given blood cultures drawn at the same time, it is a contaminant
Hypokalemia
-Potassium replaced
-Repeat BMP
Type 2 Diabetes Mellitus
-HbA1c: 6.6%
-SSI/accuchecks
Hypertension
-So far have started patient on Losartan and Amlodipine
-Change Labetalol to Coreg small dose
Sinus Tachycardia Secondary to PE and Agitation/Anxiety
-CT Imaging showed PE
-EKG with sinus tach. Troponins negative. No concerns for myocardial ischemia.
-Patient already has Labetalol on board
Subclinical Hypothyroidism
-TSH 18.20, Free T4 1.02
-Start Levothyroxine 12.5 daily
Hyperlipidemia
35-[id number]-[id number] history of smoking, ongoing
Stage 2 sacral pressure injury
PT/OT
Diet: Regular solids/thin liquids - LOW SODIUM DIET
FULL/Lovenox
More than 30 minutes spent in discharge including
Final examination of the patient
Summarizing hospital stay
Instructions for continuing care to all relevant caregivers
Preparation of discharge records, prescriptions, and referral forms
Total time spent (in minutes): 37
Anticipated Discharge: Today
Subjective/Interval History
-
Date of Service: August 28, 2024
Patient was seen and examined. He reported doing great, denied any chest pain or any other symptoms or complaints.
Objective Data
-
Labs:
Laboratory Results
08/28/24
06:00
Sodium Pending
Potassium Pending
Chloride Pending
Carbon Dioxide Pending
BUN Pending
Creatinine Pending
Glucose Pending
Calcium Pending
Vital Signs:
Vital Signs
Temp Pulse Resp BP Pulse Ox
98.1 F 100 18 121/68 91
08/28/24 07:10 08/28/24 07:10 08/28/24 07:10 08/28/24 07:10 08/28/24 07:10
I&O
08/27/24 08/28/24 08/29/24
06:59 06:59 06:59
Intake Total 1440 / 1440 1920 / 1920
Output Total 600 / 600 500 / 500
Balance 840 / 840 1420 / 1420
[2024-08-28 11:16] LABS: Blood Urea Nitrogen 20 mg/dl (9-20); Calcium 8.7 mg/dl (8.4-10.2); Chloride 92 mmol/L (98-107); Estimated Creatinine Clearance 93 ml/min; Glucose 122 mg/dl (70-99); Magnesium 2.3 mg/dl (1.6-2.3); Potassium 4.3 mmol/L (3.5-5.1); Sodium 140 mmol/L (135-145); Triglycerides 179 mg/dl (10-149); eGFR > 60.00
--- NOTE | 2024-08-28 11:23 | CM ---
Addendum entered by Kaitlynn Farrell 08/28/24 15:53:
CM reviewed PT recommendations, outpatient therapy. Script placed in patients chart.
Original Note:
CM reviewed chart, patient seen in room. Patient reports he would like to go home, patient reports his dog is at home and he has a few things to take care of. CM discussed patient is not able to discharge home then go to [place], would need to obtain
authorization to [facility] from Hospital. Patient confirms he would like to return home. CM offered VN services to patient, patient not interested at this time. PT will evaluate patient prior to discharge. Patient reports his friend will
provide transport home. CM will continue to follow for all discharge planning needs.
Plan; home no needs likely, PT to evaluate patient prior to d/c.
[2024-08-28 11:27] LABS: Carbon Dioxide 33 mmol/L (22-30)
[2024-08-28 11:46] LABS: Glucose - Point of Care 137 mg/dl (70-99)
[2024-08-28 15:20] VITALS: BP 132/63
[2024-08-28 16:53] LABS: Glucose - Point of Care 103 mg/dl (70-99)
[2024-08-28 18:23] VITALS: BP 141/63
== END 2024-08-28 18:42 | disposition home or self-care (01) | DRG 100 ==
LOC: 4 WEST ACU 10:51
PROVIDERS: Internal Medicine Critical Care Medicine; Nurse Practitioner Family; Nurse Practitioner Primary Care; Physician Assistant; Psychiatry & Neurology Clinical Neurophysiology; ADMITTING PHYSICIAN Internal Medicine; ATTENDING PHYSICIAN Hospitalist; CONSULT PHYSICIAN Internal Medicine Critical Care Medicine; CONSULT PHYSICIAN Internal Medicine Infectious Disease; CONSULT PHYSICIAN Psychiatry & Neurology Neurology; EMERGENCY PHYSICIAN Emergency Medicine
PROC: 5A1945Z Respiratory Ventilation, 24-96 Consecutive Hours (ICD-10-PCS; 2024-08-19)
PROC: 0BH17EZ Insertion of Endotracheal Airway into Trachea, Via Natural or Artificial Opening (ICD-10-PCS; 2024-08-19)
DX: G40.409 Other generalized epilepsy and epileptic syndromes, not intractable, without status epilepticus (principal); A41.9 Sepsis, unspecified organism; J96.01 Acute respiratory failure with hypoxia; R65.21 Severe sepsis with septic shock; J69.0 Pneumonitis due to inhalation of food and vomit; E87.20 Acidosis, unspecified; I10 Essential (primary) hypertension; E11.9 Type 2 diabetes mellitus without complications; E87.6 Hypokalemia; L89.152 Pressure ulcer of sacral region, stage 2
CPT/HCPCS: 31500; 36600; 51702; 70450; 71045; 71275; 74018; 80048; 80053; 80143; 80164; 80185; 80202; 80306; 81003; 81015; 82077; 82550; 82565; 82805; 82962; 83036; 83605; 83690; 83735; 84439; 84443; 84478; 84484; 85025; 85027; 85610; 85652; 85730; 87040; 87077; 87205; 87502; 87811; 92526; 92610; 93005; 93306; 94002; 94003; 95714; 95813; 96365; 96366; 96367; 96375; 96376; 97116; 97163; 97167; 97535; 99291; Q9967

== ENCOUNTER 2024-09-21 19:38 | Inpatient (IN) | payer MEDICARE, SELFPAY ==
[2024-09-21] VITALS (20 sets, daily range): BP systolic 55–169; BP diastolic 34–108
--- NOTE | 2024-09-21 15:26 | ED.GENMED ---
History of Present Illness
General
Chief Complaint: Fall
Source: patient
Exam Limitations: none
Time Seen by Provider: 09/21/24 15:19
History of Present Illness
History of Present Illness:
See MDM
Past History
Past History
ED Past Medical History: HTN, Hypercholesterolemia, NIDDM and Seizures
ED Past Surgical History: None
Social History
Tobacco: Smoker
Alcohol: None
Drug: None
Personal: Single
Living: alone
Employment: Disabled
Family History
Family History: Unable to obtain
Phy Exam
Physical Exam
Physical Exam:
See MDM
Course
Orders/Labs/Results
Orders:
Orders
09/21/24 15:25
Divalproex Delayed Rel. 12 Hr [Depakote (12 Hr Release)] 1,500 mg PO ONCE ONE
CR Chest - 2 Views Urgent
Comment:
Reason For Exam: hypoxic after seizure
09/21/24 15:27
CT Head W/o Iv Contrast Urgent
Comment:
Reason For Exam: fall, seizure
09/21/24 15:38
Basic Metabolic Panel Urgent
Complete Blood Count/With Diff Urgent
Free T4 Urgent
TSH Reflex To Free T4 Urgent
Comment: ADD ON
09/21/24 18:24
Add On- LAB Urgent
Tests Added?: mag, phos, potassium,tsh with free t4 reflex,
09/21/24 18:25
Urine Drug Abuse Screen Routine
09/21/24 18:41
Acetaminophen Urgent
Comment: ADD ON
Alcohol Urgent
Depakane Urgent
Date and Time of Last Dose: ADD ON
Magnesium Urgent
Comment: ADD ON
Phosphorus Urgent
Comment: ADD ON
Potassium Urgent
Comment: ADD ON
Salicylate Urgent
Date and Time of Last Dose: ADD ON
09/21/24 18:45
COVID-19 Antigen Urgent
Source: Nasal Swab
Influenza A+B Rapid Molecular Urgent
ANTOINE Source: Nasal Swab
Specimen Description:
09/21/24 18:[address] [CT Chest PE Study] Urgent
Comment:
Reason For Exam: hypoxia recent pe
09/21/24 18:55
Admit/Transfer Patient As Directed
Co-Sign Provider:
Level of Care: Inpatient admission
Assign to:: IMU- Intermediate Care
Physician / Group: clemente ware
Diagnosis: confusion with hypoxia uclear prolonged ictal state vs infectios/viral
Reason for Hospitalization: confusion with hypoxia uclear prolonged ictal state vs infectios/viral
Expected length of stay greater than two midnights?: Yes
ELOS- Estimated Length of Stay in days: 5
I certify the patient meets the requirements for IP care: Yes
Code Status As Directed
Resuscitation Status: Full Code
09/21/24 18:57
Heparin Protocol- PTT Orders As Directed
PTT per Heparin protocol: -Obtain CBC and baseline PTT - if not already collected.
-Obtain PTT 6 hours from start of infusion. Then, every 6 hours until 2 consecutive
PTT's are therapeutic. Then, PTT Daily.
-With each rate change, obtain PTT every 6 hours until 2 consecutive PTT's are
therapeutic. Then, PTT Daily.
Notify MD As Directed
Notify physician if: PTT is greater than or equal to 200.
09/21/24 19:00
Heparin 3,000 units IV PRN PRN
Heparin 6,100 units IV PRN PRN
Heparin 74449 Units/250 ml 25,000 units in 250 ml IV PER PROTOCOL
Weight to be used for heparin protocol in kilograms (kg):: 75.8
Protocol:: DVT/PE
PTT Goal Range to be used:: PTT 73 to 111 seconds
Order type:: Initial
INITIAL Infusion Dose (UNITS/KG/hr) & then follow protocol:: 18 units/kg/hr
Infusion Dose in UNITS/hr & then follow protocol (UNITS/hr):: 1,400
INFUSION RATE in mL/hr & then follow protocol (mL/hr):: 14
For DVT/PE algorithm, re-bolus for low PTT?: Yes
PTT less than or equal to 64 seconds:: Re-bolus 80 units/kg (max 10,000units). Increase by 300 units/hr
(+ 3mL/hr)
PTT 64.1 to 72.9 seconds:: Re-bolus 40 units/kg (max 5,000 units). Increase by 200 units/hr
(+ 2mL/hr)
PTT 73 to 111 seconds:: Target Range. No change in rate.
PTT 111.1 to 130.9 seconds:: Decrease rate by 200 units/hr (- 2 mL/hr)
PTT 131 to 199.9 seconds:: HOLD for 1 hr. Then decrease by 200 units/hr (- 2mL/hr)
PTT greater than or equal to 200 seconds:: HOLD for 2 hrs & Notify Provider. Then decrease by 300 units/hr
(- 3mL/hr)
Lab follow-up:: Each change, PTT q6h until 2 consecutive are therapeutic. Then
PTT daily.
09/21/24 19:01
Straight Cath As Directed
Frequency: PRN
Additional Instructions: if unable to obtain urine sample
09/21/24 19:02
PRN Pain Medication Management As Directed
May give lesser potent ordered pain med per pt: Yes
preference::
Protocol:: Medication orders for pain may be administered in a
manner that supports deferring to patient preference
when the pt is:
- Requesting an ordered lesser potent pain medication.
Least to most potent pain medications are defined
as: acetaminophen < NSAID < tramadol < opioids
(morphine, oxycodone, hydromorphone).
- Requesting a lesser dose of the same medication IF
ORDERED.
- Requesting a less intrusive route of administration
if both routes are prescribed by the provider (PO <
IV).
09/21/24 19:04
Add On- LAB Urgent
Tests Added?: Acetaminophen, salicylate
09/21/24 19:06
NEUROLOGY CONSULT Urgent
Consulting Provider: Ivana Diego
Was physician already notified: Yes
Reason for consult: poss seizure with prolonged ictal state
09/21/24 19:15
EKG [Electrocardiogram (*1)] Urgent
Reason for Study: QTc Monitoring
09/21/24 19:24
ABG [Arterial Blood Gas] Urgent
%Oxygen/Room Air: 89
09/21/24 19:59
ALT (SGPT) Urgent
AST (SGOT) Urgent
Alkaline Phosphatase Urgent
PTT Urgent
Comment: Obtain baseline before beginning heparin infusion if not already collected
09/21/24 20:00
Piperacillin/Tazo 3.375 Gram [Zosyn] 3.375 gram in 50 ml IV Q6H
09/21/24 20:47
0.9% Sodium Chloride [Nss (Preservative Free)] See Protocol IV PRN PRN
Lorazepam [Ativan] 1 mg IV Q1HPRN PRN
Lorazepam [Ativan] 1 mg PO Q2HPRN PRN
Lorazepam [Ativan] 2 mg IV Q1HPRN PRN
09/21/24 20:48
MSAS SCORE As Directed
MSAS Score 0-4: Repeat MSAS every 2 hours until 0-4 for three consecutive assessments, then every 4 hours x 48
hours.
MSAS Score 5-7: For MILD withdrawl symptoms. Repeat MSAS and RASS every 2 hours
MSAS Score 8-11: For MODERATE withdrawal symptoms. Repeat MSAS and RASS every 1 hour. Consider ICU or IMU
level of care.
MSAS Score > 11: For SEVERE withdrawal symptoms. Repeat MSAS and RASS every 1 hour. Notify provider, consider
ICU level of care.
MSAS Additional Instructions: If no improvement or no decrease in score from severe to moderate within 12
hours, consult psychiatry
MSAS Notify Provider: Notify provider if patient requires more than 10 mg of Lorazepam in eight hour period.
09/21/24 21:18
B-Hydroxybutyrate Urgent
GGTP Urgent
PTT Urgent
Prothrombin Time Urgent
09/23/24 06:00
Complete Blood Count/No Diff IN AM
Comment: Notify MD if platelet count is <130,000 or decreases by 50% from baseline
09/24/24 06:00
Complete Blood Count/No Diff IN AM
Comment: Notify MD if platelet count is <130,000 or decreases by 50% from baseline
09/25/24 06:00
Complete Blood Count/No Diff IN AM
Comment: Notify MD if platelet count is <130,000 or decreases by 50% from baseline
09/26/24 06:00
Complete Blood Count/No Diff IN AM
Comment: Notify MD if platelet count is <130,000 or decreases by 50% from baseline
09/27/24 06:00
Complete Blood Count/No Diff IN AM
Comment: Notify MD if platelet count is <130,000 or decreases by 50% from baseline
09/28/24 06:00
Complete Blood Count/No Diff IN AM
Comment: Notify MD if platelet count is <130,000 or decreases by 50% from baseline
09/29/24 06:00
Complete Blood Count/No Diff IN AM
Comment: Notify MD if platelet count is <130,000 or decreases by 50% from baseline
09/30/24 06:00
Complete Blood Count/No Diff IN AM
Comment: Notify MD if platelet count is <130,000 or decreases by 50% from baseline
Abnormal Lab Results
09/21/24 09/21/24 09/21/24
15:38 18:41 18:41
WBC 11.4 H 10^3/uL
(4.8-10.8)
RBC 4.07 L 10^6/uL
(4.70-6.10)
MCV 106.4 H fL
(80.0-94.0)
MCH 33.4 H pg
(27.0-31.0)
MCHC 31.4 L g/dL
(33.0-37.0)
RDW 15.9 H %
(11.5-14.5)
Abs Immat Gran (auto) 0.3 H 10^3/uL
(0-0.05)
Absolute Neuts (auto) 8.2 H 10^3/uL
(1.4-6.5)
Absolute Monos (auto) 1.0 H 10^3/uL
(0.1-0.6)
Immature Gran % 2.3 H %
(0-0.5)
Lymphocytes % 17.3 L %
(20.5-51.1)
pH
pCO2
pO2
HCO3
ABG O2 Sat (Measured)
Chloride 90 L mmol/L
(98-107)
Carbon Dioxide 35 H mmol/L
(22-30)
Glucose 130 H mg/dl
(70-99)
Phosphorus 5.0 H mg/dl 5.1 H mg/dl
(2.5-4.5) (2.5-4.5)
Magnesium 2.4 H mg/dl
(1.6-2.3)
TSH (Reflex) 12.30 H uIU/ml
(0.47-4.68)
Salicylates < 1.0 L mg/dl
(2.0-20.0)
Acetaminophen < 10 L ug/ml
(10-30)
Valproic Acid 179.7 H* ug/ml
(50.0-120.0)
09/21/24
19:24
WBC
RBC
MCV
MCH
MCHC
RDW
Abs Immat Gran (auto)
Absolute Neuts (auto)
Absolute Monos (auto)
Immature Gran %
Lymphocytes %
pH 7.29 L
(7.35-7.45)
pCO2 93 H* mmHg
(35-48)
pO2 66 L mmHg
(83-108)
HCO3 44.7 H* mmol/L
(21-28)
ABG O2 Sat (Measured) 91.5 L %
(94-98)
Chloride
Carbon Dioxide
Glucose
Phosphorus
Magnesium
TSH (Reflex)
Salicylates
Acetaminophen
Valproic Acid
09/21/24 15:38
09/21/24 18:41
Vital Signs
Initial and Last Documented VS:
Initial Vital Signs
Temp Pulse Resp BP Pulse Ox
98.3 F 64 16 142/108 78
09/21/24 15:02 09/21/24 15:02 09/21/24 15:02 09/21/24 15:02 09/21/24 15:02
Last Documented Vital Signs
Temp Pulse Resp BP Pulse Ox
98.3 F 105 26 133/57 94
09/21/24 15:02 09/21/24 21:00 09/21/24 21:00 09/21/24 20:34 09/21/24 21:00
Procedures
Intubations
Procedure completed by: Lio Almanza DO
Method of Intubation: glidescope
Tube size (cm): 7.0
Placement confirmed by: auscutation, CXR, capnography and direct visualization
Breath sounds after intubation: equal
Intubation complications: no complications
MDM/Problems Addressed
Differential Diagnosis Includes:
HPI and MDM Narrative:
58-year-old male presenting with apparent witnessed fall by his roommate. On arrival, patient apparently altered and confused. Patient was placed on oxygen for hypoxia. Went into the room, patient appears somewhat postictal. He thinks he had a
seizure. Patient thinks he forgot to take his Depakote this morning. Patient was recently admitted. During that admission, patient was found to have a PE for which he was started on Eliquis. Patient was also switched to Depakote.
Once started talking to the patient, he is now much more awake and alert per nursing staff. His hypoxia appears to be resolving. Given the fall versus possible seizure in addition to the mild hypoxia, will obtain CT head and chest x-ray to ensure
that he did not aspirate
Physical exam
General: Well appearing and non-toxic
HEENT: protecting airway
Neck: appears supple
CV: No evidence of cyanosis. Regular rate and rhythm
Resp: No accessory muscle use. Lungs clear
Abd: Non-distended
Extremities: No deformities
Neuro: Mildly postictal
Psych: Normal affect
Skin: Intact
Problems Addressed including Acute and Chronic Conditions affecting care:
1. Fall
Acuity: acute
Prognosis: stable
Details: Potentially mechanical fall versus seizure. Will obtain CT head given his new prescription of Eliquis
2. Mild hypoxia
Acuity: acute
Prognosis: stable
Details: Potentially related to decreased respirations from being postictal versus aspiration. Will obtain chest x-ray
Updates
Although the hypoxia seemed to improve initially. Patient remains hypoxic on room air. Chest x-ray is clear. He may have aspirated and possibly has pneumonitis. Will admit for postictal state and hypoxia
10:40 PM patient was admitted and the hospital team indicating the patient coming more hypercapnic. Patient was requiring BiPAP. Patient went into respiratory failure requiring emergent intubation
Differential Diagnosis (but not limited to): Aspiration, seizure, mechanical fall
Testing considered: EKG
Drug therapy (if applicable): OTC meds, please see d/c instruction regarding Rx drugs
Amount and/or Complexity of Data Reviewed
Clinical info obtained from: Patient
External data reviewed: Recent admission where his seizure medicines were changed and he was started on Eliquis for PE
Labs I independently reviewed (but not limited to): Mild leukocytosis
Radiology: X-ray independently reviewed: Chest x-ray clear
Pulse Ox: hypoxic
EKG independently reviewed: N/A
Population Health Manager: The high probability of a clinically significant, sudden or life threatening deterioration of the pulmonary system(s) required my full and direct attention, intervention and personal management. The aggregate critical care time was
33 minutes. This time is in addition to time spent performing reported procedures but includes the following:
[x] Data Review and interpretation
[x] Patient assessment and monitoring of vital signs
[x] Documentation
[x] Medication orders and management
Critical Care: N/A
Risk of Complication:
Social Determinants of health: Good social support
Discussed with other providers: Hospitalist
Escalation of Care includes Admit/Obs: Given the persistent hypoxia, will admit
Occasional wrong word or 'sound a like' substitutions may have occurred due to the inherent limitations of voice recognition software. Read the chart carefully and recognize, using context, where substitutions have occurred.
*Critical Care Note
Total Time (30-74mins, 75-104mins- exclusive of procedures): 33 min
ED Attending Note
-
Portions of this chart may have been created with voice recognition software.� Occasional wrong word or��sound alike� substitutions may have occurred due to the inherent limitations of voice recognition software.
Discharge Plan
Departure
Patient Disposition: Admit
Date of Disposition: 09/21/24
Time of Disposition: 17:47
Admit to: Telemetry
Presentation/result/management discussed w/ accepting MD/DO: Hospitalist
Discharge Problem:
Seizure, Hypoxia, Acute hypoxemic respiratory failure
Interventions
Interventions:
*Risk Screen - Suicide Last Done: 09/21/24 14:57
*General Assessment Last Done: 09/21/24 14:57
*Neglect/Abuse Screening Last Done: 09/21/24 14:57
*ED COVID-19 Vaccine History Last Done: 09/21/24 14:57
ED-Musculoskeletal Assessment Last Done: 09/21/24 15:00
ED- Neurological Assessment Last Done: 09/21/24 15:00
ED-Skin Assessment Last Done: 09/21/24 15:00
[2024-09-21] MEDS: DEPAKOTE (12 HR RELEASE) 1500 MG PO (15:35)
[2024-09-21 15:49] LABS: % Basophils 0.4 % (0-2); % Immature Granulocytes 2.3 % (0-0.5); % Lymphocytes 17.3 % (20.5-51.1); % Monocytes 8.5 % (1.7-9.3); % Neutrophils 71.5 % (42.2-75.2); Absolute Immature Granulocytes 0.3 10^3/uL (0-0.05); Absolute Neutrophils 8.2 10^3/uL (1.4-6.5); Hematocrit 43.3 % (39.0-52.0); Hemoglobin 13.6 g/dL (13.0-18.0); Mean Corp Hgb Conc. 31.4 g/dL (33.0-37.0); Mean Corpuscular Hgb 33.4 pg (27.0-31.0); Mean Corpuscular Volume 106.4 fL (80.0-94.0); Mean Platelet Volume 8.9 fL (7.4-10.4); Nucleated Red Blood Cells % 0.5 % (-); Platelet Count 182 10^3/uL (130-400); Red Blood Cell Count 4.07 10^6/uL (4.70-6.10); Red Cell Dist. Width 15.9 % (11.5-14.5); White Blood Cell Count 11.4 10^3/uL (4.8-10.8)
[2024-09-21 16:12] LABS: Blood Urea Nitrogen 20 mg/dl (9-20); Calcium 8.4 mg/dl (8.4-10.2); Chloride 90 mmol/L (98-107); Glucose 130 mg/dl (70-99); Sodium 135 mmol/L (135-145); eGFR > 60.00
[2024-09-21 16:46] LABS: Carbon Dioxide 35 mmol/L (22-30)
--- NOTE | 2024-09-21 18:01 | HPS.HSE ---
Family Physician
-
Family Physician: NOT KNOW UNKNOWN - PT DOES
Chief Complaint
-
confusion poss seizure
History of Present Illness
58-year-old male who had witnessed fall by his roommate on arrival by EMS he was altered and confused he was placed on oxygen for hypoxia the patient appeared postictal he believes he had a seizure and forgot to take his Depakote this morning . The
patient during my exam is extremely confused appears to be visually hallucinating grabbing things in the air repetitive stating about a a week ago' he is unable to follow commands or give any review of systems or past medical history. According to
his records he had a recent admission August 28 for pulmonary embolism for which she was started on Eliquis and was also switched to Depakote. During that admission he was cyanotic he required intubation he self extubated himself needed to be
reintubated he required IV antibiotics and IV vasopressors. He was initially started on valproate and Keppra his Keppra was later stopped due to agitation. His Dilantin was also later stopped he denies fever, chills, chest pain, palpitations, neck
pain, shortness of breath, cough, abdominal pain, nausea, vomiting, diarrhea, urinary symptoms, sick contacts. He has past medical history of hypertension, HLD, DM 2, seizure disorder, pulmonary embolism Dx 08/28/2024, active smoker, sinus
tachycardia secondary to PE/agitation anxiety, subclinical hypothyroidism sacral to pressure injury
Medical History
Past Medical History
Past Medical History: Reports Other
Additional Past Medical History:
hypertension
HLD
DM 2
seizure disorder,
pulmonary embolism Dx 08/28/2024
active smoker
sinus tachycardia secondary to PE/agitation anxiety
subclinical hypothyroidism
sacral to pressure injury
Left ear hearing loss wears hearing aid
Past Surgical History: Reports Other
Additional Past Surgical History:
left ear urgery
Social History
Tobacco: Smoker
Personal: Single
Living: With Roomate
Family History
Family History: Unable to Obtain
Allergies / Home Medications
Allergies reflects when Allergies were last updated in Seen.
Home Medications with original date entered in Seen
Allergy/Medication List:
Allergies
Allergy/AdvReac Type Severity Reaction Status Date / Time
alfalfa Allergy Unknown Unknown Verified 08/19/24 08:31
Home Medications
amlodipine 5 mg tablet 5 mg PO BID #60 tabs 08/28/24
apixaban 5 mg tablet (Eliquis) 5 mg PO BID #60 tabs 08/28/24
carvedilol 3.125 mg tablet 3.125 mg PO BID #60 tabs 08/28/24
divalproex 500 mg tablet,delayed release 1,500 mg (3 x 500 mg) PO BID #180 tabs 08/28/24
losartan 50 mg tablet 50 mg PO BID #60 tabs 08/28/24
levothyroxine 25 mcg tablet 12.5 mcg PO DAILY 09/21/24
Review of Systems
-
History Source: Patient
A 12 point ROS was completed and negative except as noted: Yes
Constitutional: Reports Other (Confused grabbing things in the air looking left to right unable to follow commands or give review of systems); Denies Fever or Chills
Respiratory: Denies Trouble Breathing
Cardiac: Denies Diaphoresis
Abdomen/GI: Denies Vomiting or Diarrhea
Musculoskeletal: Denies Joint Swelling or Edema
Skin: Denies Rash
Neurological: Denies Headache
Psych: Reports Audio or Visual Hallucinations (Appears to have visual hallucinations as he is grabbing at things in the air)
Physical Exam
Vital Signs
Vital Signs
Temp Pulse Resp BP Pulse Ox
98.3 F 102 23 168/69 91
09/21/24 15:02 09/21/24 17:00 09/21/24 17:00 09/21/24 16:00 09/21/24 17:02
Physical Exam
General: Other (Confused grabbing things in the air looking left to right unable to follow commands or give review of systems); No Fever or Chills
HEENT: NormoCephalic, Anicteric, Moist mucous membranes, PERRLA, Shambaugh Conjunctivae, No Ptosis and Neck Nontender
Respiratory: Clear; No Wheezes, Rales or Rhonchi
Cardiac: S1/S2 and Regular Rhythm; No Murmur, Rub, Gallop or Peripheral Edema
GI: Soft, Non Tender, Non Distended, Normal Bowel Sounds and No Hepatosplenomegaly
Rectal: Deferred by Provider
Musculoskeletal: No Clubbing, No Cyanosis and No Edema
Skin: Warm and Dry; No Rash
Neuro: No Motor Deficits (Moving all extremities in bed attempting to get out of bed) and Other (Confused grabbing things in the air looking left to right unable to follow commands or give review of systems, chronic left hearing aid); No Slurred
Speech, Facial Droop, Tremors or Sedated
Psych: Agitated (Appears to be visually hallucinating grabbing things is not present in the air)
Laboratory Results
-
09/21/24 15:38
09/21/24 15:38
Laboratory Results
Total Bilirubin Cancelled 09/21/24 15:38
AST Cancelled 09/21/24 15:38
ALT Cancelled 09/21/24 15:38
Alkaline Phosphatase Cancelled 09/21/24 15:38
Data Reviewed
-
Lab Data: Labs Reviewed by me
Impression/Plan
-
Impression/plan:
Admit to telemetry
#Acute on chronic seizure
#History of Epilepsy
#History of [place] seizure witnessed in ER 08/19/2024
Reported witnessed fall by his roommate
He had Dilantin stopped, his Keppra was stopped due to agitation
Patient is currently on Depakote which he believes he missed this a.m.
-Check Depakote level
-May give divalproex 1500 mg twice daily
-Give Fosphenytoin 20 mg/kg loading dose 1500 mg (LFTs were normal as of July we will recheck)
will check Phenytoin level at 22;30pm if Less then 20 sofy give fosphenytoin 100 mg every 8 hours may be given IV or p.o. if patient is able to swallow
-No need for current EEG at present time we will consider in a.m.
-Iv thiamine, IV folate, IV Ativan, and MSAS protocol unsure if alcohol use
CXR: No evidence of acute cardiopulmonary disease
#Acute confusion unclear if Prolonged postictal state versus intracranial process versus viral/infectious process
We will check stat CT head given patient started Eliquis approximately 3 weeks ago for PE
-Check [employer], UDS, TSH with free T4 reflex, Depakote level
- check flu and covid swab, alcohol level
-One-to-one observation due to patient confusion
# Acute hypoxic respiratory failure with recent PE on current Eliquis Dx 08/28/2024 unclear if compliant with Eliquis
-We will check CT PE study to evaluate prior pulmonary embolism
ct pe study on 08/28/24 - positive for small volume pulmonary embolism in the lateral segment of the right lower lobe, medial segment of the right middle lobe, and lingula.
-Will place patient on IV heparin drip due to unsure if compliant with medication
#Hypertension
BP 168/69
-Continue amlodipine 5 mg twice daily, carvedilol 3.125 mg p.o. twice daily, losartan 50 mg p.o. twice daily
#HLD
No reported meds
#DM 2
No reported diabetic meds
Will check HgbA1c
#Active smoker
- cessation advised
#Sinus tachycardia secondary to PE/agitation anxiety
#Subclinical hypothyroidism
-Check TSH with free T4 reflex
-Continue levothyroxine 12.5 mcg p.o. daily
sacral to pressure injury hx
DVT prophylaxis
pt on eliquis
full code
--- NOTE | 2024-09-21 18:11 | W.PN.UPDATE ---
Addendum entered and electronically signed by Angelique Crews MD 09/21/24 22:47:
patient with increasing lethargy requiring intubation. Intubated in the ER. friend updated
Addendum entered and electronically signed by Angelique Crews MD 09/21/24 20:54:
discussed ABG results with Dr. Lagos - he is alert and restless, not lethargic. Per Dr. Lagos, trial of BiPAP and repeat ABG in 2 hours. He is likely a chronic retainer over past month, elevated CO2 on admission.
patient may need PRN ativan and restraints with BiPAP
Original Note:
Update Note
Progress Note Update
This is an addendum to H&P written by DAIRY CHEMIST Jenni Robles
I saw and examined the patient.
The DAIRY CHEMIST's note was reviewed and I agree with the note.
Comment:
Mr. Earnest Yeung is a 58 yo man with hx seizure disorder, essential HTN, HLD, DM2, recent admission 08/19/24-08/28/24 for seizure, septic shock thought 2/2 aspiration pneumonia with recurrent seizure and new diagnosis of PE presents to the ER with a
fall versus seizure at home. Patient did not take his morning medications including Depakote.
On my exam patient is altered with intermittent closing his eyes. He is not able to follow commands. He sounds with upper airway congestion; lungs without wheezing. No JVP. Abdomen soft, non-tender. No LE swelling.
Triage VS: T 98.3, P 64, RR 16, BP 142/108, SpO2 78%
LABS: WBC 11.4, Hg 13.6, PLT 182
CXR
IMPRESSION:
No evidence of active cardiopulmonary disease.
HEAD CT
IMPRESSION:
No evidence of acute intracranial abnormality.
Seizure Disorder
Postictal State
AMS
-patient remains altered and hypoxic, will obtain ABG
-patient cannot take PO now, will give IV Depakote
-seizure precautions
-NPO
-PT/OT/ST
-further work-up of continued altered mentation with alcohol screen, UTox, salicylate, tylenol levels, TSH
-test covid and flu
-gentle fluids given NPO status
-F/U Depakote level
-Neurology consult
Hypoxic Respiratory Failure
-admit to IMU
-unclear etiology - aspiration pneumonitis? versus progression of PE, unclear if he's been taking Eliquis
-obtain CTA chest
-with congestion upper airways and resp failure will start treatment for aspiration pneumonia with IV Zosyn
-gentle fluids as above - stop if worsening hypoxia
Hx PE
-diagnosis 08/24/24
-with recent diagnosis and inability to take PO will start heparin gtt
Essential HTN
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
-IV hydral PRN
Hypothyroidism
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
DVT PPx Heparin gtt
FULL CODE
Total Critical Care Time 50 minutes. I was immediately available to the patient and staff. I personally examined, reviewed labs, diagnostic images/reports, interpretations, treatment plans, discussed patient care with other providers and family
or caregivers (if patient is unable to make decisions), entered orders as appropriate and documented the medical record.
[2024-09-21 19:16] LABS: Alcohol None Detected; Magnesium 2.4 mg/dl (1.6-2.3); Potassium 5.1 mmol/L (3.5-5.1)
[2024-09-21 19:26] LABS: COVID-19 Antigen Negative (Negative)
[2024-09-21 19:29] LABS: Acetaminophen < 10 ug/ml (10-30); Salicylate < 1.0 mg/dl (2.0-20.0)
[2024-09-21 19:45] LABS: Depakane 179.7 ug/ml (50.0-120.0)
[2024-09-21 20:24] LABS: B.E. 13.3 mmol/L; O2 Saturation % 91.5 % (94-98); PO2 66 mmHg (83-108); pH 7.29 (7.35-7.45)
[2024-09-21] MEDS: ZOSYN 50 IV (20:24)
[2024-09-21 20:26] LABS: HCO3 44.7 mmol/L (21-28); PCO2 93 mmHg (35-48)
[2024-09-21 20:33] LABS: Free T4 0.82 ng/dl (0.78-2.19)
[2024-09-21 20:36] LABS: ALT (SGPT) < 10 U/L (0-50); AST (SGOT) 16 U/L (17-59); Alkaline Phosphatase 70 U/L (38-126)
[2024-09-21 20:40] LABS: APTT 29.4 Sec (23.4-35.0)
--- NOTE | 2024-09-21 20:43 | W.PN.UPDATE ---
Update Note
Progress Note Update
Hypercarbic respiratory failure
Patient ABG 7.29, CO2 93, O2 66, CO3 44.7
-Will place patient in soft wrist restraints
-Will attempt BiPAP to see if patient can tolerate
-Pulmonary was consulted
[2024-09-21] MEDS: ATIVAN 1 MG IV (21:02)
[2024-09-21] MEDS: CEREBYX 130 MG IV (21:23)
[2024-09-21 21:41] LABS: INR 1.09; PT 14.6 Sec (11.4-14.6)
[2024-09-21 22:01] LABS: GGTP 23 U/L (15-73)
[2024-09-21 22:02] LABS: Magnesium 2.3 mg/dl (1.6-2.3); Phosphorus 5.1 mg/dl (2.5-4.5)
[2024-09-21 22:08] LABS: B-Hydroxybutyrate 0.17 mmol/L (0.02-0.27)
[2024-09-21] MEDS: NSS 1000 IV ×2 (23:37→23:39)
[2024-09-22] VITALS (63 sets, daily range): BP systolic 57–134; BP diastolic 32–114; PULSE 70; BMI 24.8
[2024-09-22 00:37] LABS: B.E. 7.9 mmol/L; HCO3 35.6 mmol/L (21-28); O2 Saturation % 99.9 % (94-98); PCO2 63 mmHg (35-48); PO2 176 mmHg (83-108); pH 7.36 (7.35-7.45)
[2024-09-22 00:39] LABS: O2 Therapy 89%
[2024-09-22 00:43] LABS: Amphetamines Negative (Negative); Barbiturates Positive (Negative)
[2024-09-22 00:44] LABS: Benzodiazepines Negative (Negative); Buprenorphine Negative (Negative); Cocaine Negative (Negative); Marijuana Negative (Negative); Methadone Negative (Negative); Methamphetamines Negative (Negative); Opiates Negative (Negative); Phencyclidine Negative (Negative); Tricyclic Antidepressants Negative (Negative)
[2024-09-22 01:09] LABS: Dilantin 12.3 ug/ml (10-20)
[2024-09-22] MEDS: HEPARIN 25000 UNITS/250 ML IV ×2 (01:33→18:59)
[2024-09-22] MEDS: ZOSYN 50 IV ×4 (01:33→20:27)
[2024-09-22] MEDS: NSS 1000 IV ×2 (01:42→12:15)
[2024-09-22] MEDS: LEVOPHED 250 IV ×2 (01:49→11:39)
[2024-09-22] MEDS: DUONEB 3 ML INH ×5 (01:50→20:04)
[2024-09-22 02:21] LABS: Urine Albumin 2+ (Neg - Trace); Urine Bilirubin Negative (Negative); Urine Character Cloudy (Clear); Urine Color Yellow; Urine Glucose Negative (Negative); Urine Ketone 1+ (Negative); Urine Leukocyte Negative (Negative); Urine Nitrite Negative (Negative); Urine Occult Blood Negative (Negative); Urine Specific Gravity 1.025 (<1.030); Urine Urobilinogen Negative (Neg - 1+)
--- NOTE | 2024-09-22 02:51 | PTCARENOTE ---
Pt received from ED to room 3365. Pt intubated/no sedation, restless at times, not following commands, becomes agitated w/ minimal stimulation. +cough/gag/corneal reflexes. ETT @ 25cm in the center. AC 20/450/60%/+5. Rhonchi t/o. Large amount of
clear thick secretions orally and via ETT. Sinus joon, 40s-50s. Hypotensive, started on levophed gtt as ordered. Hypoactive bowel sounds. Shaffer in place, jeison urine. Sacral wound present on admission, see wound flowsheet.
[2024-09-22 03:19] LABS: Urine Amorphous Seen; Urine Bacteria Many (Negative); Urine Red Blood Cell 0-2 /HPF (0-2); Urine Squamous Cell 0-2 /LPF (Few); Urine White Cell 0-2 /HPF (0-5)
[2024-09-22] MEDS: SUBLIMAZE 50 MCG IV ×5 (03:41→20:14)
[2024-09-22] MEDS: DIPRIVAN 100 IV (03:59)
[2024-09-22 04:29] LABS: Triglycerides 200 mg/dl (10-149)
[2024-09-22 04:35] LABS: % Basophils 0.2 % (0-2); % Immature Granulocytes 1.9 % (0-0.5); % Lymphocytes 17.1 % (20.5-51.1); % Neutrophils 70.8 % (42.2-75.2); Absolute Immature Granulocytes 0.3 10^3/uL (0-0.05); Absolute Lymphocytes 2.8 10^3/uL (1.2-3.4); Absolute Monocytes 1.7 10^3/uL (0.1-0.6); Absolute Neutrophils 11.8 10^3/uL (1.4-6.5); Hematocrit 41.6 % (39.0-52.0); Hemoglobin 12.9 g/dL (13.0-18.0); Mean Corpuscular Volume 106.4 fL (80.0-94.0); Nucleated Red Blood Cells % 0.8 % (-); Platelet Count 177 10^3/uL (130-400); Red Blood Cell Count 3.91 10^6/uL (4.70-6.10); White Blood Cell Count 16.6 10^3/uL (4.8-10.8)
[2024-09-22 04:37] LABS: Ammonia < 9 umol/L (9-30)
[2024-09-22 04:58] LABS: ALT (SGPT) < 10 U/L (0-50); AST (SGOT) 19 U/L (17-59); Alkaline Phosphatase 56 U/L (38-126); Blood Urea Nitrogen 19 mg/dl (9-20); Carbon Dioxide 35 mmol/L (22-30); Chloride 95 mmol/L (98-107); Estimated Creatinine Clearance 72 ml/min; Glucose 171 mg/dl (70-99); HDL Cholesterol 35 mg/dl; LDL Cholesterol, Calculated 57 mg/dl; Potassium 5.1 mmol/L (3.5-5.1); Sodium 139 mmol/L (135-145); Total Bilirubin 0.8 mg/dl (0.2-1.3); Total Cholesterol 131 mg/dl (50-199); Total Protein 6.2 g/dl (6.3-8.2); Triglyceride 199 mg/dl (10-149); Very Low Density Lipoprotein 39 mg/dl (0-30); eGFR > 60.00
[2024-09-22 05:11] LABS: Triglycerides 203 mg/dl (10-149)
--- NOTE | 2024-09-22 05:30 | W.PN.UPDATE ---
Update Note
Progress Note Update
Procedure Note: Arterial Line�
� Ledt Wrist Arrow 20 (10/24)�
Diagnosis:��Acute hypoxic respiratory failure
IV Line Comments: Uneventful Procedure�
Glenn's test completed pre-procedure: Yes�
A-Line Comments: Sterile technique as per standard protocol, Ultrasound guided insertion�
Functioning A-line in situ: Yes�
A-line Insertion Start Time:��0
A-line in at:�435�
[2024-09-22 05:37] LABS: HCO3 32.7 mmol/L (21-28); O2 Saturation % 98.9 % (94-98); PCO2 40 mmHg (35-48); PO2 82 mmHg (83-108); pH 7.52 (7.35-7.45)
[2024-09-22 05:42] LABS: O2 Therapy 40%
[2024-09-22] MEDS: CALCIUM CHLORIDE 10% SYRINGE 60 MG IV (06:29)
[2024-09-22] MEDS: NOVOLOG FLEXPEN-MODERATE RESISTANCE SC ×3 (06:38→18:00)
[2024-09-22 06:39] LABS: Glucose - Point of Care 137 mg/dl (70-99)
--- NOTE | 2024-09-22 08:12 | CON.INTV ---
Addendum entered and electronically signed by Arline Lagos MD 09/22/24 13:40:
Patient seen and examined independently by myself. Resident note reviewed below. Agree with assessment and plan
Patient recently hospitalized early August, discharged 08/28/24 for sz , VDRF, hx of epilepsy, Hx of PE. Patient presented after possible witnessed seizure, brought to ED in postictal state. Per records, he may have forgotten to take his
medications. Initial ABG showed pH 7.2 . BiPAP was attempted but patient was intubated thereafter. Post intubation pressures decreased in the 60s, improved thereafter. We are asked to help from critical care standpoint. Of note,
creatinine 1.1, hemoglobin 12.9. Follow-up intubation ABG showed alkalemia. Chest x-ray suggested possible right lower lobe pneumonia. This was confirmed on CT chest. Head CT was normal
Please see below for social history, family history, past medical history, surgical history. Review of systems unobtainable
Physical exam
Presently, intubated, multiple tattoos. Right upper extremity midline. Sacral decubitus wound ulcer noted. Left upper extremity
No crepitus, chest exam with few rhonchi, otherwise clear breath sounds
Abdominal exam soft, nontender
Extremities no clubbing, cyanosis
Data reviewed
A/P
Moving forward, will continue with volume-cycled ventilation. Patient with history of noncompliance. Neurology following, EEG pending.
Currently on norepinephrine at 6 mcg, will wean as able. Obtain blood cultures, continue antibiotics for possible right lower lobe pneumonia.
Patient with history of PEs, continue with heparin therapy. Likely not taking Eliquis given normal coagulation studies. Unfortunate patient is noncompliant with medications
Aspiration precautions, DVT prophylaxis, GI prophylaxis as indicated
Reviewed with critical care nursing, respiratory care, Pharmacy, case management
TCCT 40 min
Original Note:
Consultation
Consultation Request
Date/Time Consultation Requested: 09/22/2024, 01: 21
Date/Time Consultation Performed: 09/22/2024, 08: 12
Requesting Provider: Jenni Robles
Performing Provider: Arline Lagos
Reason for Consultation: Hypercarbic respiratory failure
Medical History
-
Chief Complaint: Seizure disorder, altered mental status
History of Present Illness:
Patient is a 58-year-old male, who has history of seizure disorder, lives with his roommate, arrived in the emergency after a witnessed seizure followed with altered mental status, brought to ER in confused postictal state. As per chart, he forgot
to take his Depakote in the morning and that might have triggered the seizure. Patient was very agitated, visually hallucinating and was unable to follow commands in the ER. Patient had acute hypoxic respiratory failure with a pH of 7.29, carbon
dioxide of 93, pO2 of 66 and bicarb of 44.7. BiPAP was attempted but ultimately patient was intubated in ICU. As per records patient is a chronic carbon dioxide retainer.
Of note, patient had recent admission for a pulmonary embolism on August 28 for which she was started on Eliquis and was also switched to Depakote for his seizures. During that admission he was intubated, was agitated, self extubated and needed to
be reintubated.
Unable to do systemic review with the patient as patient is sedated
Patient is an active smoker and, lives with his roommate. As per the evaluation till now for his confusion/altered mental status, CT head was negative, ammonia levels less than 9,Tylenol levels less than 10, salicylate levels less than 1, urine tox
positive for barbiturates, could be medicinal.
Patient had a spike of feverOf 100.7 today in the morning, TLC count increased to 16.6, evidence of right lower lobe peribronchial thickening and patchy peribronchial opacities suspicious for aspiration and/or bronchopneumonia. Patient being
managed with Zosyn, urine cultures are pending. Follow blood culture and sputum culture as well.
Past Medical History
Past Medical History: HTN, Hypercholesterolemia, Hypothyroidism (Subclinical hypothyroidism his free T4 normal, TSH increased), NIDDM, Seizures and Other (Pulmonary embolism diagnosed on 08/28/2024, wears hearing aid)
Past Surgical History: Other (Left ear surgery?)
Social History
Tobacco: Smoker
Alcohol: None
Personal: Single
Living: With Roomate
Family History
Family History: Unable to Obtain (patient sedated)
Allergies / Home Medications
Allergies
Allergy/AdvReac Type Severity Reaction Status Date / Time
alfalfa Allergy Unknown Verified 09/21/24 18:58
Home Medications
�Medication �Instructions �Recorded �Confirmed �Last Taken �Type
amlodipine 5 mg tablet 5 mg PO BID #60 tabs 08/28/24 09/21/24 Unknown Rx
apixaban 5 mg tablet (Eliquis) 5 mg PO BID #60 tabs 08/28/24 09/21/24 Unknown Rx
carvedilol 3.125 mg tablet 3.125 mg PO BID #60 tabs 08/28/24 09/21/24 Unknown Rx
divalproex 500 mg tablet,delayed 1,500 mg (3 x 500 mg) PO BID #180 08/28/24 09/21/24 Unknown Rx
release tabs
losartan 50 mg tablet 50 mg PO BID #60 tabs 08/28/24 09/21/24 Unknown Rx
levothyroxine 25 mcg tablet 12.5 mcg PO DAILY 09/21/24 09/21/24 Unknown History
Review of Systems
-
Unable to Obtain full review of systems at this time due to: Patient Intubation
Vitals / Labs / Diagnostic Testing
Vital Signs
Temp Pulse Resp BP Pulse Ox
100.7 F H 62 12 121/38 96
09/22/24 08:02 09/22/24 07:59 09/22/24 07:59 09/22/24 05:45 09/22/24 08:04
Lab Data
09/22/24 04:13
09/22/24 04:13
Laboratory Results
09/21/24 09/21/24 09/21/24
19:24 19:59 21:18
PT 14.6
INR 1.09
APTT 29.4 28.0
pH 7.29 L
pCO2 93 H*
pO2 66 L
HCO3 44.7 H*
O2 Delivery Level
09/21/24 09/21/24 09/22/24
22:32 23:00 00:31
PT
INR
APTT
pH Cancelled Cancelled 7.36
pCO2 Cancelled Cancelled 63 H
pO2 Cancelled Cancelled 176 H
HCO3 Cancelled Cancelled 35.6 H
O2 Delivery Level Cancelled Cancelled 89%
09/22/24 09/22/24
05:12 05:30
PT
INR
APTT
pH Cancelled 7.52 H
pCO2 Cancelled 40
pO2 Cancelled 82 L
HCO3 Cancelled 32.7 H
O2 Delivery Level Cancelled 40%
Microbiology
09/21/24 18:45 Nasal Swab Influenza Types A & B (ESTIVEN) - Final
Negative for Influenza A & B, NAAT
Negative results must be combined with clinical observations
and patient history.
Nucleic Acid Amplification test (NAAT)performed on the
[employer] platform.
Diagnostic Testing:
Physical Exam
-
HEENT: Normocephalic, Anicteric and Other (ETT-tube in place Vent settings RR12/VT450/Peep +5/FiO2 50%)
Cardiovascular: S1/S2, Regular Rhythm and Other (No murmur rub or gallop)
Respiratory: Clear and Other (No wheezes rhonchi or rales)
GI: Soft, Non Distended and Normal Bowel Sounds
Neurology: Other (Sedated)
Skin: Warm, Good Color and Other (No clubbing, cyanosis or edema)
General: Other (Sedated and on vasopressors)
Assessment
-
Impression
Patient is a 58-year-old male with history of seizure disorder, diabetes mellitus, hyperlipidemia and hypertension. Recently diagnosed with pulmonary embolism on his recent admission and [facility] on 08/28/2024, started on Eliquis, unsure
if he was taking it as INR is normal. Admitted with confusion/altered mental status. Workup till now shows a normal CT scan of head, normal ammonia levels, urine tox screen inconclusive, normal Tylenol levels, normal salicylate levels. Currently
being managed on lines of aspiration pneumonia/sepsis/acute respiratory failure. Currently intubated, sedated and on vasopressors. Had a spike of fever of 100.7 on 09/22, blood culture, urine culture and sputum culture pending. CT chest revealed
peribronchial thickening in the right lower lobe suspicious for aspiration pneumonia/bronchopneumonia.
Assessment
Acute confusion
Aspiration pneumonia/bronchopneumonia
Acute respiratory failure
Subclinical hypothyroidism
Hypocalcemia
Pulmonary embolism
Essential hypertension
Hyperlipidemia
Diabetes mellitus type 2
History of seizure disorder
Sacral pressure injury
Plan
Acute confusion
Presented in acute confusion state to the ER/history of fall/history of seizure at home
Head CT negative-ruled out any acute intracranial process-was checked as patient was on blood thinners and had a fall
Urine drug screen positive for barbiturates, could be medicinal-normal salicylate levels-normal Tylenol levels
Alcohol not detected, ammonia levels normal
ABG suggested acute respiratory failure, could be the cause of confusion?
Plan to stop propofol, continue with fentanyl boluses, can start fentanyl drip if needed
Continue to evaluate the cause of acute confusion
Aspiration pneumonia/bronchopneumonia
CT chest done for hypoxia-Right lower lobe peribronchial thickening and patchy peribronchial opacities suspicious for aspiration and/or bronchopneumonia-no acute pulmonary embolism.
On Zosyn for management of aspiration pneumonia
Trend WBC and temperature-follow cultures-monitor hemodynamics
Acute respiratory failure
Patient intubated on 09/21/2024 for acute respiratory failure, ABGs at that time-pH 7.29, pCO2 93, pO2 66, bicarb 44.7
Records show, patient is chronic carbon dioxide retainer
ABGs on 09/22/2024 show-pCO2 of 40, decreased respiratory rate, do not want to overcorrect the carbon dioxide
Continue to monitor, stop propofol, continue with fentanyl boluses, can switch to fentanyl drip if needed
Repeat ABGs in the morning, assess for ventilator needs
Subclinical hypothyroidism
TSH increased to 12, free T4 normal, likely subclinical hypothyroidism
Continue to monitor-treat the underlying infection
Hypocalcemia-Replete as needed
Pulmonary embolism-
on Eliquis 5 mg twice daily at home-INR 1.09-was using Eliquis questionable-repeat CT chest showed no active pulmonary embolism-currently on heparin infusion
Monitor APTT
Essential hypertension
Currently antihypertensives on hold, patient is on Levophed 1.6 mcg/kg/min, taper as able
Hyperlipidemia
No reported meds, given hypertriglyceridemia, stop propofol, continue fentanyl
If patient agitated on fentanyl drip can use propofol to help with the agitation
Diabetes mellitus type 2
No reported meds-check [id number] blood sugar levels
Blood sugar today 171
History of seizure disorder
Patient received phenytoin and lorazepam in ER
Takes Depakote at home, believes he missed his morning dose
Check LFT levels-management of antiepileptic drugs deferred to neurology
Currently on valproate 1500 mg IV twice daily
Sacral pressure injury
#- DVT prophylaxis-heparin infusion
# CODE STATUS-full code
# GI prophylaxis-Protonix 40 mg daily as on vasopressors
# On vasopressors-keep MAP greater than 65-taper as able
# On dezdcjhi-Pxnbumzo-Mxinf as able
# Keep potassium greater than 4 and magnesium greater than 2
# Replete calcium as needed
--- NOTE | 2024-09-22 08:12 | CON.NEURO ---
Consultation
Order
Date of Consultation: 09/22/24
Requesting Provider: Jenni Robles CRNP
Reason for Consult: Possible seizure with prolonged postictal state
Neurology Consultation Note.
HPI: This is a 58-year-old man who presented to [facility] on 09/21/2024 with encephalopathy status post witnessed fall.
Mr. Yeung was recently hospitalized earlier this month with seizure, pneumonia/respiratory failure.
VS:142/108-57/39, 64-102, T max 38.2C
EKG: Sinus bradycardia at 43, QTc Int : 429 ms
PDMP: No recently prescribed medication
Labs: Glucose�130, WBC�11.4�16.6, MCV�106.4, platelets�182, normal sodium, creatinine, magnesium�2.3, LDL�57, free T4�normal, UA�positive for albumin, bacteria, ketones negative for leukocyte esterase,
VPA�179.7 ug/ml (50.0-120.0 ug/ml), EtOH�not detected SARS-CoV-2�negative, urine tox�positive for benzodiazepines (given in the hospital
CT head wo contrast-mild to moderate leukomalacia, cavum septal pellucidum at vergae(normal variant.)
CXR-patchy airspace opacity in the medial right lung base suspicious for aspiration/pneumonia.
The patient was intubated for respiratory failure and started on pressure support.
PMH: Seizure DO, PE, HTN, DLP, hypothyroidism, JOANNA, left hearing impairment, nicotine addiction
PSH: Unknown
SH: Lives with a roommate
FH: Unknown
All:alfalfa
ROS: Unable due to encephalopathy
General: Intubated
Cardio: RR>vent
Neuro:
Mental Status: Comatose.
Cranial Nerves: Orthophoric primary gaze. Pupils 3 mm, reactive. Negative corneals, oculocephalics.
Motor: Triple flexion bilaterally
Reflexes: Bilateral plantar�mute
Sensory: Does not grimace to painful stimuli
Coordination: No tremors, clonic movement
Gait: Unable.
Assessment and Plan:
I. Valproate toxicity encephalopathy (toxic, vascular, infectious, hypoxic)
II. Encephalopathy (toxic, vascular, infectious, hypoxic)
III. Epilepsy
-Aspiration precautions.
-Avoid cerebral hypoperfusion, HR PAYROLL COORDINATOR suppressants and anticholinergic medications.
-Brain MRI wo joanna
-Avoid neurotoxic medications
-EEG
-Keppra load
-Continue propofol
-Repeat VPA level
-Check ammonia,
-Monitor for hepatotoxicity, cerebral edema
-Hold VPA
-DVT prophylaxis.
I personally reviewed all radiology and labs along with past medical records pertinent to current medical problems. Total time spent in patient care is 60 minutes.
Thank you for allowing us to participate in the care of this patient. We will continue to follow. Please do not hesitate to contact us with any questions or concerns.
Subjective/Objective
Subjective Data
Date of Service: September 22, 2024
Objective Data
Vital Signs
Temp Pulse Resp BP Pulse Ox
38.2 C H 62 12 121/38 96
09/22/24 08:02 09/22/24 07:59 09/22/24 07:59 09/22/24 05:45 09/22/24 08:04
Lab Results
09/22/24 04:13
09/22/24 04:13
PT 14.6 Sec (11.4-14.6) 09/21/24 21:18
INR 1.09 09/21/24 21:18
APTT 28.0 Sec (23.4-35.0) 09/21/24 21:18
Sodium 139 mmol/L (135-145) 09/22/24 04:13
Potassium 5.1 mmol/L (3.5-5.1) 09/22/24 04:13
BUN 19 mg/dl (9-20) 09/22/24 04:13
Glucose 171 mg/dl (70-99) H 09/22/24 04:13
Calcium 7.0 mg/dl (8.4-10.2) L 09/22/24 04:13
Phosphorus Cancelled 09/21/24 21:18
LDL Cholesterol, Calc 57 mg/dl 09/22/24 04:13
Ur Buprenorphine Negative (Negative) 09/22/24 00:13
Patient Allergies
alfalfa Allergy (Verified 09/21/24 18:58)
Unknown
Medications
-
Active Medications
Generic Name Dose Route Start Last Admin
Trade Name Freq PRN Reason Stop Dose Admin
Acetaminophen 650 mg 09/22/24 01:21
Acetaminophen 325 Mg Tablet PO 10/20/24 01:20
Q4HPRN PRN
mild pain/[place]/temp> 100.4F
Albuterol/Ipratropium 3 ml 09/22/24 01:21 09/22/24 07:58
Ipratropium 0.5/Albuterol 3 Mg (3 Ml Ampul) INH 3 ml
R QID ALAN Administration
Protocol
Albuterol/Ipratropium 3 ml 09/22/24 01:21
Ipratropium 0.5/Albuterol 3 Mg (3 Ml Ampul) INH
R Q4HPRN PRN
shortness of breath
Protocol
Fentanyl Citrate 50 mcg 09/22/24 01:32 09/22/24 03:41
Fentanyl (50 Mcg/Ml) 100 Mcg/2 Ml Ampul IV 10/06/24 01:31 50 mcg
[id number] PRN Administration
see protocol
Protocol
Folic Acid 1 mg 09/22/24 08:00
Folic Acid 1 Mg Tablet PO 10/20/24 07:59
DAILY ALAN
Heparin Sodium 6,100 units 09/21/24 19:00
Heparin 80 Units/Kg Iv Rebolus IV 10/19/24 18:59
PRN PRN
PTT < OR = 64 seconds
Heparin Sodium 3,000 units 09/21/24 19:00
Heparin 40 Units/Kg Iv Rebolus IV 10/19/24 18:59
PRN PRN
PTT = 64.1 to 72.9 seconds
Heparin Sodium 25,000 units in 250 mls @ 0 mls/hr 09/21/24 19:00 09/22/24 01:33
Heparin 45411 Units/250 Ml IV 250 mls
PER PROTOCOL ALAN Administration
Protocol
Per Protocol
Piperacillin Sod/Tazobactam Sod 3.375 gram in 50 mls @ 100 mls/hr 09/21/24 20:00 09/22/24 01:33
Zosyn IV 50 mls
Q6H ALAN Administration
Valproate Sodium 1,500 mg/ 65 mls @ 52 mls/hr 09/22/24 03:00
Sodium Chloride IV 10/19/24 02:59
Q12H LAAN
Folic Acid 1 mg/ Sodium 50.2 mls @ 200.8 mls/hr 09/22/24 01:21
Chloride IV 10/20/24 01:20
DAILYPRN PRN
if NPO
Sodium Chloride 1,000 mls @ 100 mls/hr 09/22/24 01:21 09/22/24 01:42
Nss IV 1,000 mls
.Q10H ALAN Administration
Fentanyl Citrate 1,000 mcg in 100 mls @ 0 mls/hr 09/22/24 01:45
Sublimaze IV
PER PROTOCOL ALAN
Protocol
Per Protocol
Norepinephrine Bitartrate 4 mg in 250 mls @ 0 mls/hr 09/22/24 01:45 09/22/24 01:49
Levophed IV 250 mls
PER PROTOCOL ALAN Administration
Protocol
Per Protocol
Propofol 1,000,000 mcg in 100 mls @ 0 mls/hr 09/22/24 04:00 09/22/24 03:59
Diprivan IV 100 mls
PER PROTOCOL ALAN Administration
Protocol
Per Protocol
Insulin Aspart 0 units 09/22/24 06:00 09/22/24 06:38
Insulin Aspart Moderate Resistance 300 Units/3 Ml Pen.Injctr SC 10/20/24 05:59 Not Given
Q6 ALAN
Protocol
Sodium Chloride 0 flush 09/21/24 21:00
Sodium Chloride 0.9% (Flush) Syringe IV 10/19/24 20:59
PER PROTOCOL ALAN
Home Medications
�Medication �Instructions �Recorded
amlodipine 5 mg tablet 5 mg PO BID #60 tabs 08/28/24
apixaban 5 mg tablet (Eliquis) 5 mg PO BID #60 tabs 08/28/24
carvedilol 3.125 mg tablet 3.125 mg PO BID #60 tabs 08/28/24
divalproex 500 mg tablet,delayed 1,500 mg (3 x 500 mg) PO BID #180 08/28/24
release tabs
losartan 50 mg tablet 50 mg PO BID #60 tabs 08/28/24
levothyroxine 25 mcg tablet 12.5 mcg PO DAILY 09/21/24
Vital Signs and Labs
-
Vital Signs and Labs:
Vital Signs
Temp Pulse Resp BP Pulse Ox
38.2 C H 62 12 121/38 96
09/22/24 08:02 09/22/24 07:59 09/22/24 07:59 09/22/24 05:45 09/22/24 08:04
Lab Results
09/22/24 04:13
09/22/24 04:13
PT 14.6 Sec (11.4-14.6) 09/21/24 21:18
INR 1.09 09/21/24 21:18
APTT 28.0 Sec (23.4-35.0) 09/21/24 21:18
Sodium 139 mmol/L (135-145) 09/22/24 04:13
Potassium 5.1 mmol/L (3.5-5.1) 09/22/24 04:13
BUN 19 mg/dl (9-20) 09/22/24 04:13
Glucose 171 mg/dl (70-99) H 09/22/24 04:13
Calcium 7.0 mg/dl (8.4-10.2) L 09/22/24 04:13
Phosphorus Cancelled 09/21/24 21:18
LDL Cholesterol, Calc 57 mg/dl 09/22/24 04:13
Ur Buprenorphine Negative (Negative) 09/22/24 00:13
Medications
-
Medications:
Generic Name Dose Route Start Last Admin
Trade Name Freq PRN Reason Stop Dose Admin
Acetaminophen 650 mg 09/22/24 01:21
Acetaminophen 325 Mg Tablet PO 10/20/24 01:20
Q4HPRN PRN
mild pain/[place]/temp> 100.4F
Albuterol/Ipratropium 3 ml 09/22/24 01:21 09/22/24 07:58
Ipratropium 0.5/Albuterol 3 Mg (3 Ml Ampul) INH 3 ml
R QID AALN Administration
Protocol
Albuterol/Ipratropium 3 ml 09/22/24 01:21
Ipratropium 0.5/Albuterol 3 Mg (3 Ml Ampul) INH
R Q4HPRN PRN
shortness of breath
Protocol
Fentanyl Citrate 50 mcg 09/22/24 01:32 09/22/24 03:41
Fentanyl (50 Mcg/Ml) 100 Mcg/2 Ml Ampul IV 10/06/24 01:31 50 mcg
[id number] PRN Administration
see protocol
Protocol
Folic Acid 1 mg 09/22/24 08:00
Folic Acid 1 Mg Tablet PO 10/20/24 07:59
DAILY ALAN
Heparin Sodium 6,100 units 09/21/24 19:00
Heparin 80 Units/Kg Iv Rebolus IV 10/19/24 18:59
PRN PRN
PTT < OR = 64 seconds
Heparin Sodium 3,000 units 09/21/24 19:00
Heparin 40 Units/Kg Iv Rebolus IV 10/19/24 18:59
PRN PRN
PTT = 64.1 to 72.9 seconds
Heparin Sodium 25,000 units in 250 mls @ 0 mls/hr 09/21/24 19:00 09/22/24 01:33
Heparin 01859 Units/250 Ml IV 250 mls
PER PROTOCOL ALAN Administration
Protocol
Per Protocol
Piperacillin Sod/Tazobactam Sod 3.375 gram in 50 mls @ 100 mls/hr 09/21/24 20:00 09/22/24 08:17
Zosyn IV 50 mls
Q6H ALAN Administration
Valproate Sodium 1,500 mg/ 65 mls @ 52 mls/hr 09/22/24 03:00
Sodium Chloride IV 10/19/24 02:59
Q12H ALAN
Folic Acid 1 mg/ Sodium 50.2 mls @ 200.8 mls/hr 09/22/24 01:21
Chloride IV 10/20/24 01:20
DAILYPRN PRN
if NPO
Sodium Chloride 1,000 mls @ 100 mls/hr 09/22/24 01:21 09/22/24 01:42
Nss IV 1,000 mls
.Q10H ALAN Administration
Fentanyl Citrate 1,000 mcg in 100 mls @ 0 mls/hr 09/22/24 01:45
Sublimaze IV
PER PROTOCOL ALAN
Protocol
Per Protocol
Norepinephrine Bitartrate 4 mg in 250 mls @ 0 mls/hr 09/22/24 01:45 09/22/24 01:49
Levophed IV 250 mls
PER PROTOCOL ALAN Administration
Protocol
Per Protocol
Propofol 1,000,000 mcg in 100 mls @ 0 mls/hr 09/22/24 04:00 09/22/24 03:59
Diprivan IV 100 mls
PER PROTOCOL ALAN Administration
Protocol
Per Protocol
Insulin Aspart 0 units 09/22/24 06:00 09/22/24 06:38
Insulin Aspart Moderate Resistance 300 Units/3 Ml Pen.Injctr SC 10/20/24 05:59 Not Given
Q6 ALAN
Protocol
Sodium Chloride 0 flush 09/21/24 21:00
Sodium Chloride 0.9% (Flush) Syringe IV 10/19/24 20:59
PER PROTOCOL ALAN
Home Medications
-
Home Medications
amlodipine 5 mg tablet 5 mg PO BID #60 tabs 08/28/24
apixaban 5 mg tablet (Eliquis) 5 mg PO BID #60 tabs 08/28/24
carvedilol 3.125 mg tablet 3.125 mg PO BID #60 tabs 08/28/24
divalproex 500 mg tablet,delayed release 1,500 mg (3 x 500 mg) PO BID #180 tabs 08/28/24
losartan 50 mg tablet 50 mg PO BID #60 tabs 08/28/24
levothyroxine 25 mcg tablet 12.5 mcg PO DAILY 09/21/24
[2024-09-22 08:36] LABS: APTT 57.1 Sec (23.4-35.0)
--- NOTE | 2024-09-22 09:00 | PTCARENOTE ---
pt SR on monitor , on vent , sat 96% , on propofol for sedation, opens eyes to tactile stimulation , norepinephrine at 30mcg for SBP > 90, plan to wean off propofol , and use fentanyl pushes as needed for comfort , labs noted
[2024-09-22 09:40] LABS: Creatine Phosphokinase 22 U/L (55-170)
[2024-09-22] MEDS: FOLVITE PO (09:56)
[2024-09-22] MEDS: HEPARIN 6100 UNITS IV (11:16)
[2024-09-22] MEDS: SUBLIMAZE 100 IV (11:45)
--- NOTE | 2024-09-22 11:52 | CM ---
CM following re: discharge planning.
Reviewed pt's chart, met with pt.
Pt is a 58 year old male, admitted with primary dx of Acute hypoxic respiratory failure, Seizure disorder. Intubated in ED, remains intubated, continue supportive care.
Pt is well known to this CM from previous admission, lives with room mate/friend Roldan [phone] in a 2SH, 2 steps to enter, has no children, parents . Pt has cousin Zora, next of kin [phone].
During last admissions at last month, acute rehab recommended and pt preferred to return back home instead.
Pharmacy: [facility].
D/C plan: uncertain at this time and will depend on pt's progress.
CM will follow with discharge plan updates as hospitalization progresses
--- NOTE | 2024-09-22 12:10 | W.PN.HOSP.TC ---
Addendum entered and electronically signed by Nabeel Chance MD 09/22/24 14:53:
Acute respiratory failure with hypoxia requiring intubation
Became agitated, intermittently following commands
Settlement Worker made decision to extubate
Shock medication induced versus septic
-On propofol as well as mechanically ventilated, known to cause hypotension
However chest x-ray does show concerning findings for right lower lobe pneumonia
-Since extubated we will see how well he does off of propofol and if able to wean off norepinephrine, if able to do so likely shock was precipitated by medication with propofol
-If unable to wean norepinephrine after stopping propofol for some time likely septic shock. Continue IV antibiotics.
Seizure history
Continue AEDs
EEG
Neurology evaluated
-S/p Keppra load, on Depakote IV.
Right lower lobe pneumonia�likely aspiration
-On Zosyn, will also cover for anaerobes for concerns of aspiration in the setting of seizure
-Can check sputum cultures blood cultures Legionella/strep pneumo urinary antigen
Acute confusion unclear if related to postictal state versus infectious/viral
Will continue to follow his mental status
UDS positive for barbs
Negative for alcohol and ammonia
Check MRI
If not improvign may need LP, at this time Neuro has not recommened this
PE
-Continue Eliquis
Hypertension
-hold antihypertensives as on Levophed
Diabetes
-Carb controlled diet
-Sliding scale
-Blood glucose 1 40-1 80
Original Note:
Today's Communication/Plan
-
Brain MRI
EEG
Assessment / Plan
Assessment / Plan
#Seizure with history of epilepsy
Last grand mal seizure witnessed the ER 08/19/2024
Patient given phenytoin and lorazepam in ER
Patient is currently on Depakote
Depakote level elevated
Monitor LFTs
Currently on valproate 1500 mg twice daily
Allergy consulted, appreciate input
Plan for brain MRI without gadolinium
EEG pending
#Acute confusion
Head CT negative
UDS positive for barbiturates
Negative for alcohol, normal ammonia
Per 411 directory assistance operator team, plan to stop propofol, continue fentanyl boluses and start fentanyl drip if needed
#Aspiration pneumonia
CT chest shows right lower lobe peribronchial thickening and patchy peribronchial opacities suspicious for aspiration and/or bronchopneumonia. Negative for acute PE
Continue Zosyn
Trend WBC and temperature curve
#Acute respiratory failure
Patient currently intubated
Continue to monitor ABG, stop propofol,'s continue fentanyl boluses, switch to fentanyl drip if needed
Repeat ABG in the morning
#Subclinical hypothyroidism
Continue to monitor treat underlying infection
#Hypocalcemia
Replete as necessary
# Pulmonary embolism
Continue Eliquis twice daily [address] negative for acute PE
Monitor APTT
#Essential hypertension
Continue to hold antihypertensives as patient is currently on Levophed
#Hyperlipidemia
Currently on manage
#Diabetes mellitus type 2
Currently unmanaged
Hemoglobin A1c pending
Blood sugar today 171
#History of sacral pressure injury
#DVT prophylaxis�heparin
Full code
GI prophylaxis�Protonix 40 mg
Anticipated Discharge: > 48 hours
Subjective/Interval History
-
Date of Service: September 22, 2024
58-year-old male with past medical history of hypertension, hyperlipidemia, diabetes type 2, seizure disorder, pulmonary embolism, active smoker, sinus tachycardia, clinical hypothyroidism, sacral pressure injury who presented to [facility]
after witnessed fall by roommate potentially secondary to missing Depakote dose this morning. Patient currently intubated. No history able to be taken. Per nursing patient was intubated overnight.
Objective Data
-
Labs:
Laboratory Results
09/21/24 09/22/24 09/22/24
23:00 00:31 04:13
WBC 16.6 H
Hgb 12.9 L
Hct 41.6
Plt Count 177
APTT
HCO3 Cancelled 35.6 H
Sodium 139
Potassium 5.1
Chloride 95 L
Carbon Dioxide 35 H
BUN 19
Creatinine 1.1
Glucose 171 H
Calcium 7.0 L
Total Bilirubin 0.8
AST 19
ALT < 10
Alkaline Phosphatase 56
09/22/24 09/22/24 09/22/24
05:12 05:30 08:07
WBC
Hgb
Hct
Plt Count
APTT 57.1 H
HCO3 Cancelled 32.7 H
Sodium
Potassium
Chloride
Carbon Dioxide
BUN
Creatinine
Glucose
Calcium
Total Bilirubin
AST
ALT
Alkaline Phosphatase
Vital Signs:
Vital Signs
Temp Pulse Resp BP Pulse Ox
100.1 F 61 12 121/38 96
09/22/24 11:30 09/22/24 11:37 09/22/24 11:37 09/22/24 05:45 09/22/24 11:38
I&O
09/21/24 09/22/24 09/23/24
06:59 06:59 06:59
Intake Total 720.4 / 720.4
Output Total 260 / 260
Balance 460.4 / 460.4
Review of Systems
-
Unable to obtain full review of systems at this time due to: Patient Intubation
Physical Exam
-
General: Well Developed, Well Nourished and Comfortable
HEENT: Normocephalic and Atraumatic
Respiratory: Clear to Auscultation
Cardiac: Regular Rhythm and S1/S2
GI: Soft and Nondistended
Musculoskeletal: No Edema
Neuro: Sedated
Data Reviewed
-
Labs: Labs Reviewed by me and Discussed with Physician
Old Records: Reviewed
[2024-09-22] MEDS: PROTONIX IV 40 MG IV (12:16)
[2024-09-22 12:31] LABS: Glucose - Point of Care 89 mg/dl (70-99)
[2024-09-22] MEDS: KEPPRA 1000 MG IV (12:48)
--- NOTE | 2024-09-22 13:00 | PTCARENOTE ---
pt on went wean at and became very restless and agitated , his 02 sat 97% , he was seen by Dr Lagos , he is off , his propofol and Levophed , he was extubated at 1245 and placed on NIV , pt is now drowsy , Dr Lagos at bedside , another ABG due
at 1430
[2024-09-22 13:09] LABS: Creatine Phosphokinase 33 U/L (55-170)
[2024-09-22 13:20] LABS: Depakane 69.8 ug/ml (50.0-120.0)
[2024-09-22 13:27] LABS: Ammonia 38 umol/L (9-30)
--- NOTE | 2024-09-22 13:41 | W.PN.UPDATE ---
Update Note
Progress Note Update
Patient became extremely agitated grabbing for ET tube, A-line, banging arms on the side of the bed. Presently on fentanyl drip. Propofol had been weaned off.
Patient intermittently following commands.
With respiratory in the room, patient transition to CPAP. He would intermittently get agitated, get tidal volumes up to 600. When sleeping, tidal volumes about 250/300 on CPAP 5/5
Throughout this, systolic pressure 140s
Decision was made to extubate
Patient had similar presentation yesterday p.m. per discussion with hospitalist. He would intermittently go in and out of following commands
Reviewed prior ABGs. There is a component of chronic CO2 retention
Will extubate and placed on NIV/BiPAP as indicated.
Repeat ABG in the next 1 hour while on NIV
Discontinue sedation
EEG has been completed, continue with antiseizure therapy per neurology
Continue heparin therapy
Wean off norepinephrine
Reviewed with critical care nursing, respiratory care, pharmacy
TCCT 37 min
--- NOTE | 2024-09-22 14:26 | RESPNOTE ---
Respiratory: patient was extubated, per Dr. Lagos@[id number] without incident. No stridor/no wheeze. Patient placed on AVAPS 500 Tv 15-22/5 40%.
[2024-09-22 14:59] LABS: B.E. -10.2 mmol/L; PCO2 32 mmHg (35-48); PO2 188 mmHg (83-108); pH 7.29 (7.35-7.45)
[2024-09-22 15:00] LABS: HCO3 15.4 mmol/L (21-28)
[2024-09-22 15:24] LABS: B.E. 6.8 mmol/L; HCO3 36.3 mmol/L (21-28); O2 Saturation % 95.5 % (94-98); PO2 72 mmHg (83-108); pH 7.27 (7.35-7.45)
[2024-09-22 15:25] LABS: PCO2 79 mmHg (35-48)
--- NOTE | 2024-09-22 16:08 | EEGC.RPT ---
Continuous EEG Report
Recording
Start Date of Data Reviewed: 09/22/24
Done with Video Recording: Yes
Electrocardiogram: Unremarkable
Report
TECHNICAL REMARKS:��This is a technically satisfactory eighteen channel record employing 21 disc electrodes applied according to a measured international 10-20 electrode placement system.��There were no significant technical difficulties.��The study
was done on a [employer] System.
STUDY DURATION: 27 min, 58 sec
MEDICATIONS: Depakote, fentanyl
CLINICAL HISTORY: This is a 58-year-old man with encephalopathy�this study was requested to look for epileptiform activity.
REPORT: �At the onset of the EEG, the patient is comatose. The background activity consists of 10-11 Hz, persistent, posteriorly dominant, moderate amplitude, symmetric, and rhythmic activity. Diffuse alpha activity is present. Continuous
generalized, 2-3 Hz, 30-50 uV polymorphic delta activity was seen.� Stepwise intermittent photic stimulation did not induce additional abnormalities. Hyperventilation was not performed. No epileptiform activity was seen.�
�
IMPRESSION: �This is an abnormal EEG recorded in the patient in coma due excessive alpha activity suggestive of alpha coma as well as severe generalized slowing. Alpha coma is generally associated with a poor prognosis for recovery of
consciousness.�However, the outcome can vary depending on the underlying cause, duration of coma, and patient's age.
�
[2024-09-22] MEDS: DEPACON 60 MG IV (16:46)
--- NOTE | 2024-09-22 16:55 | PTCARENOTE ---
pt ABG at 1430 27.7 /79/72/36.3 , his NIV setting were changed as per Dr Lagos to rate 20, TB 600 , 40% , he is now awake and restless , he is asking to go home, his 02 sat 96% , will check another ABG at 1800
[2024-09-22 17:48] LABS: Glucose - Point of Care 67 mg/dl (70-99)
[2024-09-22] MEDS: DEXTROSE 50% SYRINGE 12.5 GRAMS IV (18:15)
[2024-09-22 18:47] LABS: Glucose - Point of Care 87 mg/dl (70-99)
[2024-09-22 19:04] LABS: APTT > 200 Sec (23.4-35.0)
[2024-09-22 19:07] LABS: Venous Blood Gas B.E. 7.9 mmol/L (-4 to +4); Venous Blood Gas HCO3 37.7 mmol/L (22-27); Venous Blood Gas O2 Sat % 98.1 %; Venous Blood Gas pH 7.27 (7.32-7.43); Venous Blood Gas pO2 88 mmHg (30-50)
[2024-09-22 19:09] LABS: Venous Blood Gas pCO2 82 mmHg (35-48)
--- NOTE | 2024-09-22 19:38 | PTCARENOTE ---
pt blood glucose 67 , pt had 1/2 D 50 and blood glucose up to 87 , pt restless in bed at times , pt restless at times and Apex waveform dampened , nadia removed .
--- NOTE | 2024-09-22 19:57 | W.PN.UPDATE ---
Update Note
Progress Note Update
8830 Acute hypercarbic respiratory failure, requiring intubation. No issues during intubation. FOOTWEAR SALES LEADER did stated, ' notable vocal cord swelling and if patient requires intubation in the next 24 hours will need a 6.0 ETT.
--- NOTE | 2024-09-22 19:58 | W.PN.ANESINT ---
Anesthesia Intubation Note
- Intubation Note
Intubation Note:
Diagnosis: Hypercapnia
Blade: Glidescope 4
Tube Size: 8.0
Depth: 24
Side Taped:R
Drugs Used: Propofol 50 mg, Rocuronium 5 mg, Succinycholine 100 mg
Grade View: I
EtCO2 Present: Yes
Atraumatic: Yes
Attempts: 1
Insertion Start and Stop Time: 1945
SaO2 Pre: 98
SaO2 Post:99
Glidescope Used: Yes
Other Airway Adjustments: None
Pre-Oxygenated: Yes
Portable Chest X-Ray: Pending
RSI: Yes
Suctioned: Yes
Bilateral Breath Sounds Confirmed: Yes
Vent Settings:
Settings per ICU Attending Physician
Edematous vocal cords, ICU team aware
[2024-09-22 20:16] LABS: Glucose - Point of Care 90 mg/dl (70-99)
--- NOTE | 2024-09-22 21:00 | PTCARENOTE ---
Pt received start of shift, HR SR/SB on telemetry. Bedside handoff with previous shift RN. PT was on NIV, settings as follows: Rate 16, PEEP 5, 40% FiO2, IPAP 22. NSS infusing at 100mL/hr. Heparin protocol followed per order for PTT result>200.
Lungs coarse b/l with inspiratory and expiratory wheezes present. Pt arouses to tactile stimuli, blinking spontaneously, moving all limbs. Not following commands. VBG result - INSPECTOR OUTSIDE STEAM DISTRIBUTION Franco Phillips at bedside and Dr. Lagos notified. Decision made to
reintubate pt. Propofol and fentanyl gtts, Fentanyl bolus - see MAR and worklist. Vent settings as ordered: AC 12/450/40%/+5. SpO2 97-99%. Levo gtt back on for MAP 53 - see worklist.
[2024-09-22 22:13] LABS: Glucose - Point of Care 90 mg/dl (70-99)
--- NOTE | 2024-09-22 23:42 | PTCARENOTE ---
Pt received start of shift, HR SR/SB on telemetry. Bedside handoff with previous shift RN. Pt was on NIV, settings as follows: Rate 16, PEEP 5, 40% FiO2, IPAP 22. NSS infusing at 100mL/hr. Heparin protocol followed per order for PTT result>200.
Lungs coarse b/l with inspiratory and expiratory wheezes present. Pt arouses to tactile stimuli, blinking spontaneously, moving all limbs. Not following commands. VBG result - PRODUCTION SHIFT SUPERVISOR Franco Phillips at bedside and Dr. Lagos notified. Decision made to
reintubate pt. Propofol and fentanyl gtts, Fentanyl bolus - see MAR and worklist. Vent settings as ordered: AC 12/450/40%/+5. SpO2 97-99%. Levo gtt back on for MAP 53 - see worklist.
[2024-09-23] VITALS (31 sets, daily range): BP systolic 40–140; BP diastolic 18–72; BMI 25.7
[2024-09-23 00:09] LABS: Glucose - Point of Care 97 mg/dl (70-99)
[2024-09-23] MEDS: NSS 1000 IV ×2 (00:13→07:59)
[2024-09-23] MEDS: NOVOLOG FLEXPEN-MODERATE RESISTANCE SC ×4 (00:28→17:33)
--- NOTE | 2024-09-23 00:30 | PTCARENOTE ---
Pt reassessed. Levo infusing at 5 mcgs/min. MAP>60. Fent and propofol gtts infusing- see worklist. B/l Corneal and gag reflexes present. Pt continues to tolerate vent settings as charted; #8 ETT, 25cm at the lip. SpO2 99%. Cloudy yellow urine
draining in roberts. Frequent oral suctioning for large amount thin clear secretions. Suctioning ETT for moderate amount linda secretions.
[2024-09-23] MEDS: ZOSYN 50 IV ×4 (01:29→19:50)
[2024-09-23] MEDS: DIPRIVAN 100 IV ×3 (03:00→19:02)
[2024-09-23 03:38] LABS: % Basophils 0.3 % (0-2); % Immature Granulocytes 0.9 % (0-0.5); % Lymphocytes 30.6 % (20.5-51.1); % Monocytes 10.5 % (1.7-9.3); % Neutrophils 57.7 % (42.2-75.2); Absolute Immature Granulocytes 0.1 10^3/uL (0-0.05); Absolute Lymphocytes 3.2 10^3/uL (1.2-3.4); Absolute Monocytes 1.1 10^3/uL (0.1-0.6); Hematocrit 34.4 % (39.0-52.0); Hemoglobin 10.9 g/dL (13.0-18.0); Mean Corp Hgb Conc. 31.7 g/dL (33.0-37.0); Mean Corpuscular Hgb 33.6 pg (27.0-31.0); Mean Corpuscular Volume 106.2 fL (80.0-94.0); Mean Platelet Volume 9.1 fL (7.4-10.4); Nucleated Red Blood Cells % 0.2 % (-); Platelet Count 125 10^3/uL (130-400); Red Blood Cell Count 3.24 10^6/uL (4.70-6.10); Red Cell Dist. Width 16.7 % (11.5-14.5); White Blood Cell Count 10.4 10^3/uL (4.8-10.8)
[2024-09-23 03:41] LABS: APTT 79.9 Sec (23.4-35.0)
[2024-09-23 03:59] LABS: B.E. 7.5 mmol/L; HCO3 34.3 mmol/L (21-28); O2 Saturation % 99.5 % (94-98); PCO2 58 mmHg (35-48); PO2 119 mmHg (83-108); pH 7.38 (7.35-7.45)
--- NOTE | 2024-09-23 04:00 | PTCARENOTE ---
Reassessed. Sacral wound dressing changed. On removal of packing, green tinged drainage noted on gauze. Cleansed area with saline, new gauze and sacral foam placed. A-line placed, zeroed. No further change in assessment.
[2024-09-23 04:08] LABS: ALT (SGPT) < 10 U/L (0-50); AST (SGOT) 14 U/L (17-59); Albumin 2.2 g/dl (3.5-5.0); Alkaline Phosphatase 44 U/L (38-126); Blood Urea Nitrogen 17 mg/dl (9-20); Calcium 6.9 mg/dl (8.4-10.2); Carbon Dioxide 31 mmol/L (22-30); Chloride 102 mmol/L (98-107); Estimated Creatinine Clearance 88 ml/min; Glucose 104 mg/dl (70-99); Potassium 3.8 mmol/L (3.5-5.1); Sodium 138 mmol/L (135-145); Total Bilirubin 0.6 mg/dl (0.2-1.3); eGFR > 60.00
[2024-09-23] MEDS: DEPACON 60 MG IV ×2 (05:03→15:48)
[2024-09-23] MEDS: CALCIUM GLUCONATE 130 MG IV (05:19)
[2024-09-23] MEDS: DEXTROSE 50% SYRINGE 12.5 GRAMS IV ×2 (06:12→12:04)
--- NOTE | 2024-09-23 06:16 | PTCARENOTE ---
blood glucose 68 on check, 1/2 amp dextrose administered - see MAR.
[2024-09-23 06:21] LABS: Glucose - Point of Care 68 mg/dl (70-99)
[2024-09-23 06:43] LABS: Glucose - Point of Care 106 mg/dl (70-99)
--- NOTE | 2024-09-23 07:09 | W.PN.INTV ---
Today's Communication / Plan
Recommendations
Continue antibiotics for right lower lobe pneumonia
Heparin therapy for underlying PE, noncompliance with Eliquis
Repeat ammonia levels 2/2. May require GI evaluation
Continue with antiseizure medication. Neurology following
No plans for weaning at this time. Avoid over ventilation
Assessment
-
Impression
Patient is a 58-year-old male with history of seizure disorder, diabetes mellitus, hyperlipidemia and hypertension. Recently diagnosed with pulmonary embolism on his recent admission and [facility] on 08/28/2024, started on Eliquis, unsure
if he was taking it as INR is normal. Admitted with confusion/altered mental status. Workup till now shows a normal CT scan of head, normal ammonia levels, urine tox screen inconclusive, normal Tylenol levels, normal salicylate levels. Currently
being managed on lines of aspiration pneumonia/sepsis/acute respiratory failure. Currently intubated, sedated and on vasopressors. Had a spike of fever of 100.7 on 09/22, blood culture, urine culture and sputum culture pending. CT chest revealed
peribronchial thickening in the right lower lobe suspicious for aspiration pneumonia/bronchopneumonia.
Assessment
VDRF, intubated 09/21
Extubated 09/22, reintubated in the p.m.
Acute hypercapnic respiratory failure
Acute confusion
Aspiration pneumonia/bronchopneumonia
Acute respiratory failure
Subclinical hypothyroidism
Hypocalcemia
Pulmonary embolism
Essential hypertension
Hyperlipidemia
Diabetes mellitus type 2
History of seizure disorder
Sacral pressure injury
Noncompliance
Plan/recommendations
Acute confusion
Presented in acute confusion state to the ER/history of fall/history of seizure at home
Head CT negative-ruled out any acute intracranial process-was checked as patient was on blood thinners and had a fall
Urine drug screen positive for barbiturates, could be medicinal-normal salicylate levels-normal Tylenol levels
Alcohol not detected, ammonia levels normal
ABG suggested acute respiratory failure, could be the cause of confusion?
Plan to stop propofol, continue with fentanyl boluses, can start fentanyl drip if needed
Continue to evaluate the cause of acute confusion
Unfortunate had to be reintubated, continue with sedation for now
EEG completed, neurology following
No plans for weaning at this time
Of note, ammonia levels are elevated
Unclear whether there may be a component of liver disease
Repeat ammonia levels 2/2. May need GI evaluation
Aspiration pneumonia/bronchopneumonia
CT chest done for hypoxia-Right lower lobe peribronchial thickening and patchy peribronchial opacities suspicious for aspiration and/or bronchopneumonia-no acute pulmonary embolism.
On Zosyn for management of aspiration pneumonia
Trend WBC and temperature-follow cultures-monitor hemodynamics
Follow cultures
Acute respiratory failure
Patient intubated on 09/21/2024 for acute respiratory failure, ABGs at that time-pH 7.29, pCO2 93, pO2 66, bicarb 44.7
Extubated 09/22 but reintubated later p.m.
Avoid over ventilation
Continue volume-cycled ventilation, AC 12/450/5/40%
Ppk 23, Pplat 20
No plans for weaning at this time
Continue with airway clearance measures
Subclinical hypothyroidism
TSH increased to 12, free T4 normal, likely subclinical hypothyroidism
Continue to monitor-treat the underlying infection
Hypocalcemia-Replete as needed
Pulmonary embolism-
on Eliquis 5 mg twice daily at home-INR 1.09-was using Eliquis questionable-repeat CT chest showed no active pulmonary embolism-currently on heparin infusion
Monitor APTT
Unfortunate, appears patient is noncompliant with Eliquis therapy
Essential hypertension
Currently on hold
Continue with pressors as needed, currently on norepinephrine. Wean as able
Hyperlipidemia
No reported meds, given hypertriglyceridemia
Follow while on propofol
Diabetes mellitus type 2
No reported meds-check [id number] blood sugar levels
Follow blood sugars
History of seizure disorder
Patient received phenytoin and lorazepam in ER
Takes Depakote at home, believes he missed his morning dose
Check LFT levels-management of antiepileptic drugs deferred to neurology
Currently on valproate 1500 mg IV twice daily
Sacral pressure injury
#- DVT prophylaxis-heparin infusion
# CODE STATUS-full code
# GI prophylaxis-Protonix 40 mg daily as on vasopressors
# On vasopressors-keep MAP greater than 65-taper as able
# On cavbwndt-Yunkavye-Iurse as able
# Keep potassium greater than 4 and magnesium greater than 2
# Replete calcium as needed
reviewed with critical care nursing, Respiratory care
TCCT 35 min
Subjective Dataa
Subjective Data
Date of Service:
Date of Service: September 23, 2024
Subjective:
Patient remains critically ill. Unfortunately required reintubation yesterday p.m. due to persistent CO2 retention. Patient with significant secretions this morning remains on norepinephrine drip, fentanyl, propofol, heparin drip
Objective Data
Data Reviewed
Vital Signs / I&O / Oxygen:
Vital Signs
Temp Pulse Resp BP Pulse Ox
98.6 F 59 12 105/49 98
09/23/24 03:30 09/23/24 06:15 09/23/24 06:15 09/23/24 05:30 09/23/24 06:15
Intake and Output
09/22/24 09/23/24 09/24/24
06:59 06:59 06:59
Intake Total 720.4 / 878.1 3402.6 / 3402.6
Output Total 260 / 310 988 / 988
Balance 460.4 / 568.1 2414.6 / 2414.6
SaO2 [NIV (Non Invasive 96
Ventilation)]
SaO2 [A/C] 99
SaO2 98
Nasal Cannula flow liters per 6
minute
Physical Exam
General: Comfortable
HEENT: Normocephalic and Anicteric
Cardiovascular: S1-S2, Regular Rhythm, Murmur (n) and Rub (n)
Respiratory: Wheeze (n), Crackles (n), Rhonchi (few), Non-Labored Respirations and ET Tube
GI: Soft, Non Distended and Non Tender
Neurology: Lethargic (Sedated)
Skin: Cyanosis (n), Jaundice (n), Rash (n) and Other (Multiple tattoos)
Labs/Micro/Reports
Lab Data
09/23/24 03:03
09/23/24 03:03
Laboratory Results
09/22/24 09/22/24 09/22/24
08:07 14:49 15:13
APTT 57.1 H
pH 7.29 L 7.27 L
pCO2 32 L 79 H*
pO2 188 H 72 L
HCO3 15.4 L* 36.3 H
O2 Delivery Level
09/22/24 09/22/24 09/23/24
18:11 18:21 03:03
APTT > 200 H* 79.9 H
pH Cancelled
pCO2 Cancelled
pO2 Cancelled
HCO3 Cancelled
O2 Delivery Level Cancelled
09/23/24
03:47
APTT
pH 7.38
pCO2 58 H
pO2 119 H
HCO3 34.3 H
O2 Delivery Level
Microbiology
09/22/24 12:36 Endotracheal Gram Stain - Preliminary
09/21/24 18:45 Nasal Swab Influenza Types A & B (ESTIVEN) - Final
Negative for Influenza A & B, NAAT
Negative results must be combined with clinical observations
and patient history.
Nucleic Acid Amplification test (NAAT)performed on the
[employer] platform.
[2024-09-23] MEDS: DUONEB 3 ML INH ×4 (07:44→20:38)
[2024-09-23] MEDS: FOLVITE PO (07:59)
[2024-09-23] MEDS: PROTONIX IV 40 MG IV (07:59)
[2024-09-23] MEDS: SUBLIMAZE 100 IV ×2 (08:00→19:51)
[2024-09-23 09:37] LABS: Glucose - Point of Care 75 mg/dl (70-99)
[2024-09-23 11:36] LABS: APTT 77.5 Sec (23.4-35.0)
--- NOTE | 2024-09-23 12:03 | W.PN.HOSP.TC ---
Today's Communication/Plan
-
Assessment / Plan
Assessment / Plan
NAD
Scleral Anicteric
MMM
No JVD
CTABL
RRR, S1/S2
Soft, NT, ND, BS+
Warm, Dry
AAOx3
Calm
Acute respiratory failure with hypoxia requiring intubation
Became agitated, intermittently following commands
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
On 09/22 evening required reintubation
-Continue sedation
daily sat/sbt
-rass/cam
-gi ppx
Shock medication induced
-Was able to come off of pressor support once prop/fent was weaned
Seizure history
Continue AEDs
EEG: coma due excessive alpha activity suggestive of alpha coma
Neurology following
-S/p Keppra load, on Depakote IV.
Right lower lobe pneumonia�likely aspiration
-On Zosyn, will also cover for anaerobes for concerns of aspiration in the setting of seizure
-Can check sputum cultures blood cultures Legionella/strep pneumo urinary antigen
Acute confusion unclear if related to postictal state versus infectious/viral
Will continue to follow his mental status
UDS positive for barbs
Negative for alcohol and ammonia
Check MRI
If not improvign may need LP, at this time Neuro has not recommened this
Corrected Ca - 8.3
PE
-Continue Eliquis
Hypertension
-hold antihypertensives as on Levophed
Diabetes
-Carb controlled diet
-Sliding scale
-Blood glucose 1 40-1 80
Anticipated Discharge: > 48 hours
Subjective/Interval History
-
Date of Service: September 23, 2024
Required reintubation. Currently sedated
Objective Data
-
Labs:
Laboratory Results
09/23/24 09/23/24 09/23/24
03:03 03:47 11:14
WBC 10.4
Hgb 10.9 L
Hct 34.4 L
Plt Count 125 L D
APTT 79.9 H 77.5 H
HCO3 34.3 H
Sodium 138
Potassium 3.8 D
Chloride 102
Carbon Dioxide 31 H
BUN 17
Creatinine 0.9
Glucose 104 H
Calcium 6.9 L*
Total Bilirubin 0.6
AST 14 L
ALT < 10
Alkaline Phosphatase 44
Vital Signs:
Vital Signs
Temp Pulse Resp BP Pulse Ox
98.0 F 50 12 120/50 99
09/23/24 08:31 09/23/24 11:30 09/23/24 11:30 09/23/24 08:31 09/23/24 11:30
I&O
09/22/24 09/23/24 09/24/24
06:59 06:59 06:59
Intake Total 720.4 / 878.1 3402.6 / 3591.1 955.9 / 955.9
Output Total 260 / 310 988 / 1033 190 / 190
Balance 460.4 / 568.1 2414.6 / 2558.1 765.9 / 765.9
[2024-09-23 12:13] LABS: Glucose - Point of Care 67 mg/dl (70-99)
[2024-09-23 12:38] LABS: Glucose - Point of Care 125 mg/dl (70-99)
[2024-09-23] MEDS: HEPARIN 25000 UNITS/250 ML IV (12:42)
[2024-09-23] MEDS: LEVOPHED 250 IV (13:28)
[2024-09-23 14:29] LABS: Glucose - Point of Care 106 mg/dl (70-99)
[2024-09-23] MEDS: NSS IV (17:19)
[2024-09-23] MEDS: D5/0.9% SODIUM CHLORIDE 1000 IV (17:19)
[2024-09-23 17:43] LABS: Glucose - Point of Care 76 mg/dl (70-99)
--- NOTE | 2024-09-23 18:24 | PTCARENOTE ---
Update with intelligence intern team. Await RD plan of supplementation, tube feeds, changes made to IVF. Continue accu data trends. Follow up plan of cares with family at bedside. Continue ongoing skin cares, oral cares, follow up mobility plan for day.
Patient with periods of wakefulness, restlessness, appeared this evening to attempt to follow commands and shake head. Not consistent commands. No noted seizure activity. Medications as ordered and followed via Emar and with pharmacy thru day.
Heparin drip as per protocol and PTT range remains therapeutic will follow am trend. Continue supportive cares.
--- NOTE | 2024-09-23 21:07 | PTCARENOTE ---
Pt received at 19:00. Intubated and sedated on propofol and fentanyl gtts. RASS -1 to -2. +protective reflexes. Not following commands or nodding at this time, periods of restlessness. Opens eyes to loud verbal stimuli at times, withdrawals and
opens eyes intermittently from tactile stimuli. Inconsistently spontaneously AZEVEDO and opens eyes. #8 ETT @ 25 at the lip, repositioned from R to L. Suctioned for moderate amount of thick linda/yellow secretions. Weak but palpable pulses. SR to sinus
joon. L radial nadia zeroed and correlating with cuff pressure, SBP/MAP goal maintained. DHT in place, hypoactive bowel sounds. Shaffer in place, yellow/jeison urine. Safe environment maintained, pt repositioned.
[2024-09-24] MEDS: NOVOLOG FLEXPEN-MODERATE RESISTANCE SC ×4 (00:34→17:59)
[2024-09-24 00:35] LABS: Glucose - Point of Care 71 mg/dl (70-99)
[2024-09-24] MEDS: ZOSYN 50 IV ×4 (02:35→20:35)
[2024-09-24] MEDS: DIPRIVAN 100 IV (02:37)
[2024-09-24] MEDS: D5/0.9% SODIUM CHLORIDE 1000 IV (02:38)
[2024-09-24] MEDS: NSS IV (03:41)
[2024-09-24 03:54] LABS: B.E. 6.6 mmol/L; HCO3 33.1 mmol/L (21-28); O2 Saturation % 99.1 % (94-98); PCO2 56 mmHg (35-48); PO2 105 mmHg (83-108); pH 7.38 (7.35-7.45)
[2024-09-24 03:55] LABS: O2 Therapy 40%
[2024-09-24 04:12] LABS: % Basophils 0.1 % (0-2); % Lymphocytes 25.4 % (20.5-51.1); % Monocytes 11.2 % (1.7-9.3); % Neutrophils 61.3 % (42.2-75.2); Absolute Eosinophils 0.1 10^3/uL (0-0.7); Absolute Immature Granulocytes 0.1 10^3/uL (0-0.05); Absolute Lymphocytes 2.2 10^3/uL (1.2-3.4); Absolute Neutrophils 5.4 10^3/uL (1.4-6.5); Hematocrit 34.2 % (39.0-52.0); Hemoglobin 10.6 g/dL (13.0-18.0); Mean Corpuscular Hgb 33.3 pg (27.0-31.0); Mean Corpuscular Volume 107.5 fL (80.0-94.0); Nucleated Red Blood Cells % 0 % (-); Red Blood Cell Count 3.18 10^6/uL (4.70-6.10); White Blood Cell Count 8.8 10^3/uL (4.8-10.8)
[2024-09-24 04:28] LABS: APTT 115.6 Sec (23.4-35.0)
[2024-09-24 04:35] LABS: ALT (SGPT) < 10 U/L (0-50); AST (SGOT) 12 U/L (17-59); Albumin 2.2 g/dl (3.5-5.0); Alkaline Phosphatase 47 U/L (38-126); Blood Urea Nitrogen 13 mg/dl (9-20); Calcium 7.5 mg/dl (8.4-10.2); Carbon Dioxide 35 mmol/L (22-30); Chloride 102 mmol/L (98-107); Estimated Creatinine Clearance 114 ml/min; Glucose 80 mg/dl (70-99); Potassium 4.2 mmol/L (3.5-5.1); Sodium 138 mmol/L (135-145); Total Bilirubin 0.5 mg/dl (0.2-1.3); Total Protein 5.3 g/dl (6.3-8.2); eGFR > 60.00
[2024-09-24] MEDS: DEPACON 60 MG IV (04:50)
[2024-09-24 06:00] VITALS: BMI 26.0
[2024-09-24 06:04] LABS: Triglycerides 129 mg/dl (10-149)
[2024-09-24] MEDS: SUBLIMAZE 100 IV ×2 (06:30→18:09)
[2024-09-24] MEDS: HEPARIN 25000 UNITS/250 ML IV (06:32)
[2024-09-24 06:53] LABS: Mean Platelet Volume 9.1 fL (7.4-10.4); Platelet Count 98 10^3/uL (130-400)
--- NOTE | 2024-09-24 07:18 | W.PN.INTV ---
Addendum entered and electronically signed by Arline Lagos MD 09/24/24 12:03:
Given possibility of HIT, we will start Eliquis tonight, 5 mg twice daily of the Dobbhoff tube
HIT panel wont be back for a few days. Although decreased platelets may be due to sepsis.
Continue heparin for now without bolus till around 5 PM, then discontinue
Orders placed
Reviewed with critical care nursing
Original Note:
Today's Communication / Plan
Recommendations
Sedation vacation today, no plans for extubation
Start Decadron for upper airway swelling, no cuff leak (vocal cord swelling noted on reintubation)
Check HIT panel, remains on heparin drip for PEs
Start tube feeds
Avoid over ventilation
Chest x-ray, ABG in a.m.
Assessment
-
Impression
Patient is a 58-year-old male with history of seizure disorder, diabetes mellitus, hyperlipidemia and hypertension. Recently diagnosed with pulmonary embolism on his recent admission and [facility] on 08/28/2024, started on Eliquis, unsure
if he was taking it as INR is normal. Admitted with confusion/altered mental status. Workup till now shows a normal CT scan of head, normal ammonia levels, urine tox screen inconclusive, normal Tylenol levels, normal salicylate levels. Currently
being managed on lines of aspiration pneumonia/sepsis/acute respiratory failure. Currently intubated, sedated and on vasopressors. Had a spike of fever of 100.7 on 09/22, blood culture, urine culture and sputum culture pending. CT chest revealed
peribronchial thickening in the right lower lobe suspicious for aspiration pneumonia/bronchopneumonia.
Assessment
VDRF, intubated 09/21
Extubated 09/22, reintubated in the p.m.
Hypoglycemia
Bradycardia
While on norepinephrine
Thrombocytopenia
Acute hypercapnic respiratory failure
Acute confusion
Aspiration pneumonia/bronchopneumonia
Acute respiratory failure
Subclinical hypothyroidism
Hypocalcemia
Pulmonary embolism
Essential hypertension
Hyperlipidemia
Diabetes mellitus type 2
History of seizure disorder
Sacral pressure injury
Noncompliance
Plan/recommendations
Acute confusion
Presented in acute confusion state to the ER/history of fall/history of seizure at home
Head CT negative-ruled out any acute intracranial process-was checked as patient was on blood thinners and had a fall
Urine drug screen positive for barbiturates, could be medicinal-normal salicylate levels-normal Tylenol levels
Alcohol not detected, ammonia levels normal
ABG suggested acute respiratory failure, could be the cause of confusion?
Plan to stop propofol, continue with fentanyl boluses, can start fentanyl drip if needed
Continue to evaluate the cause of acute confusion
Unfortunate had to be reintubated, continue with sedation for now
EEG completed, neurology following
Sedation vacation 09/24 but no plans for extubation today
Of note, ammonia levels are elevated
Unclear whether there may be a component of liver disease
Repeat ammonia levels 2/3. May need GI evaluation
Aspiration pneumonia/bronchopneumonia
CT chest done for hypoxia-Right lower lobe peribronchial thickening and patchy peribronchial opacities suspicious for aspiration and/or bronchopneumonia-no acute pulmonary embolism.
On Zosyn for management of aspiration pneumonia
Trend WBC and temperature-follow cultures-monitor hemodynamics
Follow cultures
Acute respiratory failure
Patient intubated on 09/21/2024 for acute respiratory failure, ABGs at that time-pH 7.29, pCO2 93, pO2 66, bicarb 44.7
Extubated 09/22 but reintubated later p.m.
Avoid over ventilation
Continue volume-cycled ventilation, AC 12/450/5/40%
Ppk 22, Pplat 14
No plans for weaning at this time. Will pursue sedation vacation today
Of note, there was upper airway edema on reintubation. There is no cuff leak presently
Start Decadron
Continue with airway clearance measures
Subclinical hypothyroidism
TSH increased to 12, free T4 normal, likely subclinical hypothyroidism
Continue to monitor-treat the underlying infection
Hypocalcemia-Replete as needed
Hypoglycemia also noted
Start tube feeds via Dobbhoff
Follow
Pulmonary embolism-
on Eliquis 5 mg twice daily at home-INR 1.09-was using Eliquis questionable-repeat CT chest showed no active pulmonary embolism-currently on heparin infusion
Monitor APTT
Unfortunate, appears patient is noncompliant with Eliquis therapy
Platelets also decreased to 125
Check HIT panel
Essential hypertension
Currently on hold
Continue with pressors as needed, currently on norepinephrine. Wean as able
Hyperlipidemia
No reported meds, given hypertriglyceridemia
Follow while on propofol
Diabetes mellitus type 2
No reported meds-check [id number] blood sugar levels
Follow blood sugars
History of seizure disorder
Patient received phenytoin and lorazepam in ER
Takes Depakote at home, believes he missed his morning dose
Check LFT levels-management of antiepileptic drugs deferred to neurology
Currently on valproate 1500 mg IV twice daily
Sacral pressure injury
#- DVT prophylaxis-heparin infusion
# CODE STATUS-full code
# GI prophylaxis-Protonix 40 mg daily as on vasopressors
# On vasopressors-keep MAP greater than 65-taper as able
# On rhxkzhck-Rpckpuyx-Abuax as able
# Keep potassium greater than 4 and magnesium greater than 2
# Replete calcium as needed
reviewed with critical care nursing, Respiratory care
TCCT 34 min
Subjective Dataa
Subjective Data
Date of Service:
Date of Service: September 24, 2024
Subjective:
Patient remains critically ill, episode of bradycardia yesterday p.m. noted, improved with stimulation. Platelets decreased to 125. Blood sugars also decreased. No cuff leak. Remains on norepinephrine intermittently
Objective Data
Data Reviewed
Vital Signs / I&O / Oxygen:
Vital Signs
Temp Pulse Resp BP Pulse Ox
98.4 F 61 12 102/49 100
09/23/24 18:12 09/23/24 23:30 09/23/24 23:30 09/23/24 20:00 09/24/24 04:00
Intake and Output
09/23/24 09/24/24 09/25/24
06:59 06:59 06:59
Intake Total 3402.6 / 3591.1 3633.0 / 3633.0
Output Total 988 / 1033 870 / 870
Balance 2414.6 / 2558.1 2763.0 / 2763.0
SaO2 [NIV (Non Invasive 96
Ventilation)]
SaO2 [A/C] 100
SaO2 98
Nasal Cannula flow liters per 6
minute
Physical Exam
General: Comfortable
HEENT: Normocephalic and Anicteric
Cardiovascular: S1-S2, Regular Rhythm, Murmur (n) and Rub (n)
Respiratory: Wheeze (n), Crackles (n), Rhonchi (few), Non-Labored Respirations and ET Tube
GI: Soft, Non Distended, Non Tender and Other (Dobbhoff tube)
Neurology: Lethargic (Sedated)
Skin: Cyanosis (n), Jaundice (n), Rash (n) and Other (Multiple tattoos)
Labs/Micro/Reports
Lab Data
09/24/24 03:48
09/24/24 03:48
Laboratory Results
09/23/24 09/24/24
11:14 03:48
APTT 77.5 H 115.6 H
pH 7.38
pCO2 56 H
pO2 105
HCO3 33.1 H
O2 Delivery Level 40%
Microbiology
09/22/24 12:36 Blood/Venous Blood Culture - Preliminary
No Growth in 24 hours- Final report to follow
09/22/24 12:36 Endotracheal Respiratory Culture - Preliminary
Usual Respiratory Mireya
09/22/24 12:36 Endotracheal Gram Stain - Preliminary
09/22/24 00:13 Urine Urine Culture - Final
NO GROWTH
09/21/24 18:45 Nasal Swab Influenza Types A & B (ESTIVEN) - Final
Negative for Influenza A & B, NAAT
Negative results must be combined with clinical observations
and patient history.
Nucleic Acid Amplification test (NAAT)performed on the
[employer] platform.
[2024-09-24] MEDS: DUONEB 3 ML INH ×4 (08:14→20:43)
[2024-09-24] MEDS: PROTONIX IV 40 MG IV (08:27)
[2024-09-24] MEDS: FOLVITE 1 MG PO (08:28)
[2024-09-24 08:50] VITALS: BP 99/56
[2024-09-24 08:52] VITALS: BP 99/46
[2024-09-24] MEDS: DECADRON 4 MG IV ×2 (10:57→18:03)
[2024-09-24 11:20] VITALS: BP 93/46
[2024-09-24 11:24] LABS: APTT 66.3 Sec (23.4-35.0)
--- NOTE | 2024-09-24 11:33 | W.PN.NEURO.1 ---
Today's Communication / Plan
-
.
Subjective/Objective
Subjective Data
Date of Service: September 24, 2024
Neurology follow-up note
Hypotensive down to 40/18 on 09/23/2024 at 03:34.
Reintubated, afebrile, sedated on propofol. Continues to require Levophed.
Labs: Pl 98, normal Cr, Na, WBC, bili
VPA(09/22/2024)-69.8.
PMH: Seizure DO, PE, HTN, DLP, hypothyroidism, JOANNA, left hearing impairment, nicotine addiction
PSH: Unknown
SH: lives with a roommate
FH: Unknown
All:alfalfa
ROS: Unable due to encephalopathy
General: Intubated
Cardio: RR=vent
Neuro:
Mental Status: Comatose.
Cranial Nerves: Orthophoric primary gaze. Pupils 3 mm, reactive. Negative corneals, oculocephalics.
Motor: Triple flexion bilaterally
Reflexes: Bilateral plantar�mute
Sensory: Does not grimace to painful stimuli
Coordination: No tremors, clonic movement
Gait: Unable.
Assessment and Plan:
I. Multifactorial encephalopathy (toxic, vascular, infectious, hypoxic)
II. Valproate toxicity, resolved.
III. Seizure DO
IV. Thrombocytopenia
-Aspiration precautions.
-Avoid cerebral hypoperfusion, [employer] suppressants and anticholinergic medications.
-Brain MRI wo joanna
-Continue VPA 1g Q12h IV
-Monitor for hepatotoxicity, cerebral edema
-Monitor platelet count
-DVT prophylaxis.
I personally reviewed all radiology and labs along with past medical records pertinent to current medical problems. Total time spent in patient care is 36 minutes.
Thank you for allowing us to participate in the care of this patient. We will continue to follow. Please do not hesitate to contact us with any questions or concerns
Objective Data
Vital Signs
Temp Pulse Resp BP Pulse Ox
37.3 C 69 12 99/46 98
09/24/24 11:05 09/24/24 11:21 09/24/24 11:21 09/24/24 08:52 09/24/24 11:21
Lab Results
09/24/24 03:48
09/24/24 03:48
PT 14.6 Sec (11.4-14.6) 09/21/24 21:18
INR 1.09 09/21/24 21:18
APTT 66.3 Sec (23.4-35.0) H 09/24/24 11:05
Sodium 138 mmol/L (135-145) 09/24/24 03:48
Potassium 4.2 mmol/L (3.5-5.1) 09/24/24 03:48
BUN 13 mg/dl (9-20) 09/24/24 03:48
Glucose 80 mg/dl (70-99) 09/24/24 03:48
Calcium 7.5 mg/dl (8.4-10.2) L 09/24/24 03:48
Phosphorus Cancelled 09/21/24 21:18
LDL Cholesterol, Calc 57 mg/dl 09/22/24 04:13
Ur Buprenorphine Negative (Negative) 09/22/24 00:13
Patient Allergies
alfalfa Allergy (Verified 09/21/24 18:58)
Unknown
Vital Signs and Labs
-
Vital Signs and Labs:
Vital Signs
Temp Pulse Resp BP Pulse Ox
37.3 C 69 12 99/46 98
09/24/24 11:05 09/24/24 11:21 09/24/24 11:21 09/24/24 08:52 09/24/24 11:21
Lab Results
09/24/24 03:48
09/24/24 03:48
PT 14.6 Sec (11.4-14.6) 09/21/24 21:18
INR 1.09 09/21/24 21:18
APTT 66.3 Sec (23.4-35.0) H 09/24/24 11:05
Sodium 138 mmol/L (135-145) 09/24/24 03:48
Potassium 4.2 mmol/L (3.5-5.1) 09/24/24 03:48
BUN 13 mg/dl (9-20) 09/24/24 03:48
Glucose 80 mg/dl (70-99) 09/24/24 03:48
Calcium 7.5 mg/dl (8.4-10.2) L 09/24/24 03:48
Phosphorus Cancelled 09/21/24 21:18
LDL Cholesterol, Calc 57 mg/dl 09/22/24 04:13
Ur Buprenorphine Negative (Negative) 09/22/24 00:13
Medications
-
Medications:
Generic Name Dose Route Start Last Admin
Trade Name Freq PRN Reason Stop Dose Admin
Acetaminophen 650 mg 09/22/24 01:21
Acetaminophen 325 Mg Tablet PO 10/20/24 01:20
Q4HPRN PRN
mild pain/[place]/temp> 100.4F
Albuterol/Ipratropium 3 ml 09/22/24 01:21 09/24/24 11:19
Ipratropium 0.5/Albuterol 3 Mg (3 Ml Ampul) INH 3 ml
R QID ALAN Administration
Protocol
Albuterol/Ipratropium 3 ml 09/22/24 01:21
Ipratropium 0.5/Albuterol 3 Mg (3 Ml Ampul) INH
R Q4HPRN PRN
shortness of breath
Protocol
Dexamethasone Sodium Phosphate 4 mg 09/24/24 10:00 09/24/24 10:57
Dexamethasone 4 Mg/Ml 1 Ml Vial IV 10/22/24 09:59 4 mg
Q8H ALAN Administration
Dextrose 12.5 grams 09/22/24 18:24 09/23/24 12:04
Dextrose 50% (0.5 Grams/Ml) 50 Ml Syringe IV 10/20/24 18:23 12.5 grams
[id number] PRN Administration
BS < 70
Fentanyl Citrate 50 mcg 09/22/24 20:14 09/22/24 20:14
Fentanyl (50 Mcg/Ml) 100 Mcg/2 Ml Ampul IV 10/06/24 20:13 50 mcg
Q1HPRN PRN Administration
agitation
Folic Acid 1 mg 09/22/24 08:00 09/24/24 08:28
Folic Acid 1 Mg Tablet PO 10/20/24 07:59 1 mg
DAILY ALAN Administration
Heparin Sodium 6,100 units 09/21/24 19:00 09/22/24 11:16
Heparin 80 Units/Kg Iv Rebolus IV 10/19/24 18:59 6,100 units
PRN PRN Administration
PTT < OR = 64 seconds
Heparin Sodium 3,000 units 09/21/24 19:00
Heparin 40 Units/Kg Iv Rebolus IV 10/19/24 18:59
PRN PRN
PTT = 64.1 to 72.9 seconds
Piperacillin Sod/Tazobactam Sod 3.375 gram in 50 mls @ 100 mls/hr 09/21/24 20:00 09/24/24 08:28
Zosyn IV 50 mls
Q6H ALAN Administration
Folic Acid 1 mg/ Sodium 50.2 mls @ 200.8 mls/hr 09/22/24 01:21
Chloride IV 10/20/24 01:20
DAILYPRN PRN
if NPO
Valproate Sodium 1,000 mg/ 60 mls @ 52 mls/hr 09/22/24 16:00 09/24/24 04:50
Sodium Chloride IV 10/20/24 15:59 60 mls
Q12H ALAN Administration
Dextrose/Sodium Chloride 1,000 mls @ 100 mls/hr 09/23/24 17:00 09/24/24 02:38
D5/0.9% Sodium Chloride IV 1,000 mls
.Q10H ALAN Administration
Heparin Sodium 25,000 units in 250 mls @ 0 mls/hr 09/24/24 04:45 09/24/24 06:32
Heparin 46380 Units/250 Ml IV 250 mls
PER PROTOCOL ALAN Administration
Protocol
Per Protocol
Fentanyl Citrate 1,000 mcg in 100 mls @ 0 mls/hr 09/24/24 04:45 09/24/24 06:30
Sublimaze IV 100 mls
PER PROTOCOL ALAN Administration
Protocol
Per Protocol
Propofol 1,000,000 mcg in 100 mls @ 0 mls/hr 09/24/24 04:45
Diprivan IV
PER PROTOCOL ALAN
Protocol
Per Protocol
Norepinephrine Bitartrate 4 mg in 250 mls @ 0 mls/hr 09/24/24 04:45
Levophed IV
PER PROTOCOL ALAN
Protocol
Per Protocol
Dextrose/Sodium Chloride 1,000 mls @ 100 mls/hr 09/24/24 05:00 09/24/24 06:21
D5/0.9% Sodium Chloride IV Not Given
.Q10H ALAN
Insulin Aspart 0 units 09/22/24 06:00 09/24/24 07:08
Insulin Aspart Moderate Resistance 300 Units/3 Ml Pen.Injctr SC 10/20/24 05:59 Not Given
Q6 ALAN
Protocol
Pantoprazole Sodium 40 mg 09/22/24 11:00 09/24/24 08:27
Pantoprazole Sodium 40 Mg/10 Ml Vial IV 10/20/24 10:59 40 mg
DAILY ALAN Administration
Sodium Chloride 0 flush 09/21/24 21:00
Sodium Chloride 0.9% (Flush) Syringe IV 10/19/24 20:59
PER PROTOCOL ALAN
Home Medications
-
Home Medications
amlodipine 5 mg tablet 5 mg PO BID #60 tabs 08/28/24
apixaban 5 mg tablet (Eliquis) 5 mg PO BID #60 tabs 08/28/24
carvedilol 3.125 mg tablet 3.125 mg PO BID #60 tabs 08/28/24
divalproex 500 mg tablet,delayed release 1,500 mg (3 x 500 mg) PO BID #180 tabs 08/28/24
losartan 50 mg tablet 50 mg PO BID #60 tabs 08/28/24
levothyroxine 25 mcg tablet 12.5 mcg PO DAILY Thyroid 09/21/24
[2024-09-24 11:50] LABS: Glucose - Point of Care 97 mg/dl (70-99)
[2024-09-24] MEDS: NICODERM TRANSDERMAL 14 MG TRANSDERM (12:36)
[2024-09-24] MEDS: VIMPAT 200 MG IV (12:36)
[2024-09-24] MEDS: D5/0.9% SODIUM CHLORIDE IV (13:26)
[2024-09-24] MEDS: D5/0.45%NACL 500 IV (13:38)
--- NOTE | 2024-09-24 13:42 | W.PN.HOSP.TC ---
Today's Communication/Plan
-
Assessment / Plan
Assessment / Plan
NAD
Scleral Anicteric
MMM
No JVD
CTABL
RRR, S1/S2
Soft, NT, ND, BS+
Warm, Dry
AAOx3
Calm
Acute respiratory failure with hypoxia requiring intubation
Became agitated, intermittently following commands
Cv Rn made decision to extubate 09/22
On 09/22 evening required reintubation
-Continue sedation, on propofol, triglycerides 129 would every 3 to every 5 days
daily sat/sbt
-rass/cam
-gi ppx
-Started steroids for airway swelling
Shock medication induced
-Was able to come off of pressor support once prop/fent was weaned
Seizure history
Continue AEDs
EEG: coma due excessive alpha activity suggestive of alpha coma
Neurology following
-S/p Keppra load, on Depakote IV.
Right lower lobe pneumonia�likely aspiration
-On Zosyn, will also cover for anaerobes for concerns of aspiration in the setting of seizure
-Can check sputum cultures blood cultures Legionella/strep pneumo urinary antigen
Acute confusion unclear if related to postictal state versus infectious/viral
Will continue to follow his mental status
UDS positive for barbs
Negative for alcohol and ammonia
Check MRI
If not improvign may need LP, at this time Neuro has not recommened this
PE
-Held Eliquis
Thrombocytopenia
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
Hypertension
-hold antihypertensives as on Levophed
Diabetes
-Carb controlled diet
-Sliding scale
-Blood glucose 140-180
Anticipated Discharge: > 48 hours
Subjective/Interval History
-
Date of Service: September 24, 2024
Required reintubation
This morning attempted SAT/SBT, cuff was deflated however no air movement. Concern for swallowing.
Objective Data
-
Labs:
Laboratory Results
09/24/24 09/24/24
03:48 11:05
WBC 8.8
Hgb 10.6 L
Hct 34.2 L
Plt Count 98 L D
APTT 115.6 H 66.3 H
HCO3 33.1 H
Sodium 138
Potassium 4.2
Chloride 102
Carbon Dioxide 35 H
BUN 13
Creatinine 0.7
Glucose 80
Calcium 7.5 L
Total Bilirubin 0.5
AST 12 L
ALT < 10
Alkaline Phosphatase 47
Vital Signs:
Vital Signs
Temp Pulse Resp BP Pulse Ox
99.2 F 72 12 93/46 98
09/24/24 11:05 09/24/24 13:00 09/24/24 13:00 09/24/24 11:20 09/24/24 13:00
I&O
09/23/24 09/24/24 09/25/24
06:59 06:59 06:59
Intake Total 3402.6 / 3591.1 3768.4 / 4011.7 1107.4 / 1107.4
Output Total 988 / 1033 870 / 930 375 / 375
Balance 2414.6 / 2558.1 2898.4 / 3081.7 732.4 / 732.4
--- NOTE | 2024-09-24 16:38 | W.PN.UPDATE ---
Update Note
Progress Note Update
Spoke to patient's friend Mr. Brinda Montilla who stated that patient has had change in his baseline cognition following his last hospitalization in July 2024. He would forget to take his medications, feed his dog, leave the gas stove on, ect.
The patient reportedly has history of epilepsy since the age of 10. Prior to transitioning to Depakote he was on Dilantin. I have contacted patient's pharmacy who confirmed that Mr. Yeung filled in Dilantin 400 twice daily regularly. He has
never been prescribed phenobarbital based on records review.
Assessment and plan:
I. Multifactorial encephalopathy (toxic (propofol), vascular(hypotension), infectious(PNA), hypoxic, postictal)
II. Valproate toxicity, resolved.
III. Epilepsy
IV. Thrombocytopenia
-Aspiration precautions.
-Avoid cerebral hypoperfusion, FOL[employer] SE[employer]ER suppressants and anticholinergic medications.
-Brain MRI wo alexa
-Continue Vimpat 100 mg every 12 hours IV. Depakote would not be an optimal choice with AC for PE and new thrombocytopenia
-Routine EEG
-Consider CSF studies if no clinical improvement
-DVT prophylaxis.
Ivana Diego MD.
[2024-09-24] MEDS: ELIQUIS 5 MG PO (16:39)
[2024-09-24 17:14] VITALS: BP 117/50
[2024-09-24 17:44] LABS: Glucose - Point of Care 114 mg/dl (70-99)
[2024-09-24 18:18] VITALS: BP 127/52
--- NOTE | 2024-09-24 21:18 | PTCARENOTE ---
Received at 19:00. Remains intubated/sedated on fent/prop, easily arousable to loud verbal/tactile stimuli--agitated/restless when awake, AZEVEDO, not following commands. #8 ETT @ 26cm, repositioned to the R. Breath sounds coarse t/o, thick linda
secretions via ETT, clear thin oral secretions. SR w/ PACs, HR 60s. Pulses weak but palpable. Levophed gtt titrated off at this time, MAP goal of >65 maintained. +1 generalized edema. L radial a-line, zeroed, transduced, and correlating with cuff
pressure. DHT in place, flushed. Hypoactive bowel sounds, no BM at this time. Shaffer in place, cloudy jeison urine. Safe environment maintained, pt repositioned, call layton within reach.
[2024-09-24 22:00] VITALS: BP 93/46
[2024-09-25] VITALS (19 sets, daily range): BP systolic 92–152; BP diastolic 46–95; BMI 27.2
[2024-09-25] MEDS: SUBLIMAZE 50 MCG IV ×7 (00:19→20:25)
[2024-09-25] MEDS: DIPRIVAN 100 IV ×4 (00:20→21:29)
[2024-09-25] MEDS: VIMPAT 100 MG IV ×3 (00:20→23:29)
[2024-09-25 00:35] LABS: Glucose - Point of Care 128 mg/dl (70-99)
[2024-09-25] MEDS: NOVOLOG FLEXPEN-MODERATE RESISTANCE SC ×4 (02:03→18:10)
[2024-09-25] MEDS: D5/0.45%NACL IV (02:03)
--- NOTE | 2024-09-25 02:12 | PTCARENOTE ---
Pt with episode of increased agitation/restlessness and vent dyssynchrony. PRN fentanyl bolus given as ordered, effective. Otherwise assessment unchanged.
[2024-09-25] MEDS: DECADRON 4 MG IV ×3 (02:47→18:19)
[2024-09-25] MEDS: ZOSYN 50 IV ×4 (02:47→20:13)
[2024-09-25] MEDS: SUBLIMAZE 100 IV ×3 (04:16→21:29)
[2024-09-25 04:37] LABS: B.E. 6.3 mmol/L; O2 Saturation % 99.4 % (94-98); PCO2 57 mmHg (35-48); PO2 169 mmHg (83-108); pH 7.37 (7.35-7.45)
[2024-09-25 04:39] LABS: O2 Therapy 40$
[2024-09-25 04:59] LABS: Ammonia 36 umol/L (9-30)
[2024-09-25 05:02] LABS: % Basophils 0.1 % (0-2); % Eosinophils 0.1 % (0-6); % Immature Granulocytes 0.7 % (0-0.5); % Lymphocytes 10.8 % (20.5-51.1); % Monocytes 10.4 % (1.7-9.3); % Neutrophils 77.9 % (42.2-75.2); Absolute Immature Granulocytes 0.1 10^3/uL (0-0.05); Absolute Lymphocytes 0.8 10^3/uL (1.2-3.4); Absolute Monocytes 0.8 10^3/uL (0.1-0.6); Absolute Neutrophils 5.8 10^3/uL (1.4-6.5); Hematocrit 34.2 % (39.0-52.0); Hemoglobin 10.6 g/dL (13.0-18.0); Mean Corpuscular Hgb 32.9 pg (27.0-31.0); Mean Corpuscular Volume 106.2 fL (80.0-94.0); Mean Platelet Volume 9.6 fL (7.4-10.4); Nucleated Red Blood Cells % 0 % (-); Platelet Count 92 10^3/uL (130-400); Red Blood Cell Count 3.22 10^6/uL (4.70-6.10); Red Cell Dist. Width 16.2 % (11.5-14.5); White Blood Cell Count 7.5 10^3/uL (4.8-10.8)
[2024-09-25 05:13] LABS: ALT (SGPT) < 10 U/L (0-50); AST (SGOT) 13 U/L (17-59); Albumin 2.5 g/dl (3.5-5.0); Alkaline Phosphatase 51 U/L (38-126); Blood Urea Nitrogen 11 mg/dl (9-20); Calcium 7.4 mg/dl (8.4-10.2); Carbon Dioxide 32 mmol/L (22-30); Chloride 101 mmol/L (98-107); Estimated Creatinine Clearance 99 ml/min; Glucose 124 mg/dl (70-99); Potassium 4.4 mmol/L (3.5-5.1); Sodium 139 mmol/L (135-145); Total Bilirubin 0.7 mg/dl (0.2-1.3); Triglycerides 176 mg/dl (10-149); eGFR > 60.00
[2024-09-25] MEDS: D5/0.45%NACL 500 IV (07:08)
--- NOTE | 2024-09-25 07:51 | W.PN.UPDATE ---
Update Note
Progress Note Update
I saw and evaluated the patient. I reviewed the resident�s note and agree with findings and plan as documented in the resident�s note.
Intubated
Gen: NAD, Awake and alert
Eyes: EOMI, PERRLA, no scleral icterus.
Neck: supple.
CV: tachy, reg rhythm, +S1/S2, no m/r/g.
Resp: CTAB anteriorly, no rales, wheezes, or rhonchi.
Abd: +BS, soft, NT, ND
Skin: No rashes.
Neuro: CN 2-12 intact, non-focal.
Psych: slightly agitated
CT brain 09/21/24: No evidence of acute intracranial abnormality.
CTA chest 09/21/24: No PE. RLL peribronchial thickening and patchy peribronchial opacities suspicious for aspiration and/or bronchopneumonia.
CXR 09/25/24: Endotracheal tube with tip in trachea above the avril and nasogastric tube with tip in proximal stomach. No pneumothorax.
Acute hypoxemia respiratory failure requiring intubation:
-Became agitated, intermittently following commands
-extubated 09/22, then required reintubation M, cont ACMV
-cont propofol/fentanyl for sedation
-Started steroids for airway edema
Acute toxic and metabolic encephalopathy:
-UDS POS for barbiturates
-possible component of post-ictal state
-MRI brain ordered, not yet done
-will discuss need for LP with neuro
Shock, medication induced
-Was able to come off of pressor support once prop/fent was weaned
Seizure d/o:
-EEG: coma due excessive alpha activity suggestive of alpha coma
-check EEG today
-Neurology following
-S/p Keppra load
-cont Vimpat
Right lower lobe pneumonia (likely aspiration):
-cont Zosyn
-RespCx/BCx/COVID/Flu NEG
Thrombocytopenia:
-Acute, concern for HIT, was on heparin drip
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
Other problems:
h/o PE: cont Eliquis
Essential HTN: home antihypertensives on hold
DM2: SSI/accuchecks
FULL/Eliquis
Total critical care time spent = 33 min
[2024-09-25] MEDS: DUONEB 3 ML INH ×4 (07:54→19:48)
[2024-09-25] MEDS: NICODERM TRANSDERMAL 14 MG TRANSDERM (08:38)
[2024-09-25] MEDS: ELIQUIS 5 MG PO ×2 (08:38→20:14)
[2024-09-25] MEDS: FOLVITE 1 MG PO (08:38)
--- NOTE | 2024-09-25 08:38 | PTCARENOTE ---
pt having bedside eeg
[2024-09-25] MEDS: PROTONIX IV 40 MG IV (08:39)
--- NOTE | 2024-09-25 09:03 | W.PN.NEURO.1 ---
Today's Communication / Plan
-
Not clear patient would benefit from continued antiseizure medication at this time
Continue lacosamide 100 mg every 12 hours
Attempted minimize sedation when possible
Neuro Assessment/Plan
Assessment
Repeated EEG during this admission failed to demonstrate epileptiform activity
Toxic metabolic encephalopathy in a patient with chronic mild intellectual disability, presumed seizures despite unremarkable EEGs on numerous occasions; this is the second round of change in mental status followed by intubation followed by
unremarkable EEGs in the last 2 months
Patient presented with valproate toxicity, resolved.
Plan
Not clear patient would benefit from continued antiseizure medication at this time
Continue lacosamide 100 mg every 12 hours
Attempted minimize sedation when possible
Will follow peripherally
Subjective/Objective
Subjective Data
Date of Service: September 25, 2024
Patient unable to divide his own medical history.
Objective Data
Vital Signs
Temp Pulse Resp BP Pulse Ox
36.6 C 101 12 93/46 99
09/25/24 04:38 09/25/24 08:00 09/25/24 08:00 09/24/24 22:00 09/25/24 08:00
Lab Results
09/25/24 04:23
09/25/24 04:23
PT 14.6 Sec (11.4-14.6) 09/21/24 21:18
INR 1.09 09/21/24 21:18
APTT 66.3 Sec (23.4-35.0) H 09/24/24 11:05
Sodium 139 mmol/L (135-145) 09/25/24 04:23
Potassium 4.4 mmol/L (3.5-5.1) 09/25/24 04:23
BUN 11 mg/dl (9-20) 09/25/24 04:23
Glucose 124 mg/dl (70-99) H 09/25/24 04:23
Calcium 7.4 mg/dl (8.4-10.2) L 09/25/24 04:23
Phosphorus Cancelled 09/21/24 21:18
LDL Cholesterol, Calc 57 mg/dl 09/22/24 04:13
Ur Buprenorphine Negative (Negative) 09/22/24 00:13
Patient Allergies
alfalfa Allergy (Verified 09/21/24 18:58)
Unknown
Review of Systems
-
Unable to obtain full review of systems at this time due to: Lethargy
History Source: Patient
All other systems: Reviewed and negative
Physical Exam
-
General: No Apparent Distress, Intubated and Appears Stated Age
Eyes: Round OU and [place] Conjunctivae; Negative Able to visualize OU
HEENT: Anicteric and Moist Mucous Membranes
Neck: Full Range of Motion
Respiratory: No Dyspnea
Cardiac: No JVD
GI: Non-distended
Skin: Unremarkable
Extremities: No Clubbing, No Cyanosis and No Edema
Psych: Unable to Assess
Extended Neurological Exam
Mood & Affect: Unable to Assess
Attention Span & Concentration: Awake and Unresponsive to Verbal Stimuli; Negative Alert, Interactive or Unresponsive to Physical Stimuli (Minimally resists passive head turning and passive eye opening mildly)
Memory: Unable to Assess
Tremor: Hand Tremor Absent and Head Tremor Absent
Involuntary Movement: None
Speech: Unable to Assess
Cranial Nerve II: Left Eye: Pupillary Reactivity Unremarkable, Pupillary Size Unremarkable and Unable to Assess Visual Ward
Cranial Nerve II: Right Eye: Pupillary Reactivity Unremarkable, Pupillary Size Unremarkable and Unable to Assess Visual Ward
Cranial Nerves III, IV, : Extraocular Movement: Absent Doll's Eyes and Unable to Assess (Ptosis)
Cranial Nerve V: Facial Sensation: Unable to Assess
Cranial Nerve VII: Facial Symmetry: Normal Facial Symmetry
Cranial Nerves IX, X: Palate Movement: Unable to Assess
Cranial Nerve XI: Shoulder Shrug: Unable to Assess
Cranial Nerve XII: Tongue Protusion: Unable to Assess
Muscle Strength, Overall: Negative Spontaneously Moves
Muscle Bulk & Tone: Bulk Unremarkable and Tone Unremarkable
Pronator Drift: Unable to Assess
Cold Sensation: Unable to Assess
Vibration Sensation: Unable to Assess
Coordination: Unable to Assess
Gait & Station: Unable to Assess
Data Reviewed
-
EEG: Report Reviewed
Labs: Report Reviewed
Reviewed with: Physician
Old Records: Summarized
Past History
Past History
ED Past Medical History: HTN, Hypercholesterolemia, NIDDM, Seizures, Hypothyroidism, Psychiatric (Generalized anxiety disorder) and Other (Left-sided hearing impairment)
ED Past Surgical History: None
Social History
Tobacco: Smoker
Alcohol: None
Drug: None
Personal: Single
Living: alone
Employment: Disabled
Family History
Family History: Unable to obtain
Medications
-
Medications:
Generic Name Dose Route Start Last Admin
Trade Name Freq PRN Reason Stop Dose Admin
Acetaminophen 650 mg 09/22/24 01:21
Acetaminophen 325 Mg Tablet PO 10/20/24 01:20
Q4HPRN PRN
mild pain/[place]/temp> 100.4F
Albuterol/Ipratropium 3 ml 09/22/24 01:21 09/25/24 07:54
Ipratropium 0.5/Albuterol 3 Mg (3 Ml Ampul) INH 3 ml
R QID ALAN Administration
Protocol
Albuterol/Ipratropium 3 ml 09/22/24 01:21
Ipratropium 0.5/Albuterol 3 Mg (3 Ml Ampul) INH
R Q4HPRN PRN
shortness of breath
Protocol
Apixaban 5 mg 09/24/24 17:00 09/25/24 08:38
Apixaban (Eliquis) 5 Mg Tablet PO 10/22/24 16:59 5 mg
BID ALAN Administration
Dexamethasone Sodium Phosphate 4 mg 09/24/24 10:00 09/25/24 02:47
Dexamethasone 4 Mg/Ml 1 Ml Vial IV 10/22/24 09:59 4 mg
Q8H ALAN Administration
Dextrose 12.5 grams 09/22/24 18:24 09/23/24 12:04
Dextrose 50% (0.5 Grams/Ml) 50 Ml Syringe IV 10/20/24 18:23 12.5 grams
[id number] PRN Administration
BS < 70
Fentanyl Citrate 50 mcg 09/22/24 20:14 09/25/24 07:39
Fentanyl (50 Mcg/Ml) 100 Mcg/2 Ml Ampul IV 10/06/24 20:13 50 mcg
Q1HPRN PRN Administration
agitation
Folic Acid 1 mg 09/22/24 08:00 09/25/24 08:38
Folic Acid 1 Mg Tablet PO 10/20/24 07:59 1 mg
DAILY ALAN Administration
Piperacillin Sod/Tazobactam Sod 3.375 gram in 50 mls @ 100 mls/hr 09/21/24 20:00 09/25/24 08:39
Zosyn IV 50 mls
Q6H ALAN Administration
Folic Acid 1 mg/ Sodium 50.2 mls @ 200.8 mls/hr 09/22/24 01:21
Chloride IV 10/20/24 01:20
DAILYPRN PRN
if NPO
Fentanyl Citrate 1,000 mcg in 100 mls @ 0 mls/hr 09/24/24 04:45 09/25/24 04:16
Sublimaze IV 100 mls
PER PROTOCOL ALAN Administration
Protocol
Per Protocol
Propofol 1,000,000 mcg in 100 mls @ 0 mls/hr 09/24/24 04:45 09/25/24 06:43
Diprivan IV 100 mls
PER PROTOCOL ALAN Administration
Protocol
Per Protocol
Norepinephrine Bitartrate 4 mg in 250 mls @ 0 mls/hr 09/24/24 04:45
Levophed IV
PER PROTOCOL ALAN
Protocol
Per Protocol
Dextrose/Sodium Chloride 1,000 mls @ 100 mls/hr 09/24/24 05:00 09/25/24 02:03
D5/0.9% Sodium Chloride IV Not Given
.Q10H ALAN
Dextrose/Sodium Chloride 500 mls @ 60 mls/hr 09/24/24 14:00 09/25/24 07:08
D5/0.45%Nacl IV 500 mls
.Q8H20M ALAN Administration
Insulin Aspart 0 units 09/22/24 06:00 09/25/24 05:00
Insulin Aspart Moderate Resistance 300 Units/3 Ml Pen.Injctr SC 10/20/24 05:59 Not Given
Q6 ALAN
Protocol
Lacosamide 100 mg 09/25/24 00:00 09/25/24 00:20
Lacosamide (10 Mg/Ml) 200 Mg/20 Ml Vial IV 10/09/24 00:00 100 mg
Q12H ALAN Administration
Nicotine 14 mg 09/24/24 13:00 09/25/24 08:38
Nicotine 14 Mg Patch TRANSDERM 10/22/24 12:59 14 mg
DAILY ALAN Administration
Pantoprazole Sodium 40 mg 09/22/24 11:00 09/25/24 08:39
Pantoprazole Sodium 40 Mg/10 Ml Vial IV 10/20/24 10:59 40 mg
DAILY ALAN Administration
Sodium Chloride 0 flush 09/21/24 21:00
Sodium Chloride 0.9% (Flush) Syringe IV 10/19/24 20:59
PER PROTOCOL ALAN
--- NOTE | 2024-09-25 09:08 | EEG.RPT ---
Electroencephalogram Report
Recording
Date of EE09/25/24
Type of EEG: Routine
Length of EEG recordin minutes
Done with Video Recording: Yes
Patient Status: Inpatient
Recording Conditions: Awake and Drowsy
Hyperventilation Performed: No
Photic Stimulation Performed: Yes
Report
LESS THAN 1 HOUR REPORT
LESS THAN 1 HOUR EEG INTERPRETATION:
Mildly abnormal EEG for age due to mild diffuse bihemispheric slowing
CLINICAL CORRELATION:
This study was suggestive of mild diffuse cortical dysfunction without focal abnormality. No seizures were recorded.
Clinical correlation is advised.
METHODS:
A 21 channel digitized electroencephalogram (EEG) was performed at the bedside in the ICU. The 10/20 international system of electrode placement was used with ECG and lateral/vertical eye movements recorded. [employer] quantitative EEG analysis
software was utilized.
QUALITY OF STUDY:
Fair
ELECTROENCEPHALOGRAPHER IMPRESSION(S):
Background
Low amplitude poorly organized anterior-posterior voltage gradient of mixed beta and theta activity, non-variable, bursts of generalized non-rhythmic theta activity noted
There were no significant asymmetries of background activity noted.
Sleep
Not delineated
Photic Stimulation
Failed to activate the record
ECG
Normal sinus rhythm
Abnormal EEG Activity
None
--- NOTE | 2024-09-25 10:19 | PTCARENOTE ---
Received pt this am on vent, with sedation as charted. Pt restless, lots of secretions and coughing. Multiple fentanyl boluses given and propofol increased as charted. Pt attempted to pull out ett/and roberts tubing. REstraints remain in placed.
REpositioned, mouth care, roberts care. Otherwise please see flow sheets
--- NOTE | 2024-09-25 11:32 | W.PN.INTV ---
Today's Communication / Plan
Recommendations
Remove Shaffer catheter
Continue tube feeds
Discontinue IV fluids
Mittens on left hand is pulling on lines
Keep sedated for next 48 to 72 hours while treating the vocal cord edema with Decadron-use cuff leak test to assess the edema status
Follow HIT panel
Repeat ammonia level tomorrow
Monitor platelet count
Taper sedation as able
Assessment
-
Impression
Patient is a 58-year-old male with history of seizure disorder, diabetes mellitus, hyperlipidemia and hypertension. Recently diagnosed with pulmonary embolism on his recent admission and [facility] on 08/28/2024, started on Eliquis, unsure
if he was taking it as INR is normal. Admitted with confusion/altered mental status. Workup till now shows a normal CT scan of head, normal ammonia levels, urine tox screen inconclusive, normal Tylenol levels, normal salicylate levels. Currently
being managed on lines of aspiration pneumonia/sepsis/acute respiratory failure. Currently intubated, sedated and on vasopressors. Had a spike of fever of 100.7 on 09/22, blood culture, urine culture and sputum culture negative. CT chest revealed
peribronchial thickening in the right lower lobe suspicious for aspiration pneumonia/bronchopneumonia.
Patient has vocal cord swelling requiring reintubation on 09/22, keep sedated for the next 48 - 72 hours and treat edema with Decadron
Follow HIT panel, continue Eliquis, continue checking platelet counts
On tube feeds
Avoid over ventilation-patient is a chronic carbon dioxide retainer
Assessment
Acute hypercapnic respiratory failure requiring intubation
Bradycardia--While on norepinephrine
Thrombocytopenia
Acute confusion
Aspiration pneumonia/bronchopneumonia
Subclinical hypothyroidism
Pulmonary embolism
Essential hypertension
Hyperlipidemia
Diabetes mellitus type 2
History of seizure disorder
Sacral pressure injury
Noncompliance to antiepileptic medications
Hypocalcemia
Plan/recommendations
Acute hypercapnic respiratory failure requiring intubation
Patient intubated on 09/21/2024 for acute respiratory failure, ABGs at that time-pH 7.29, pCO2 93, pO2 66, bicarb 44.7
Extubated 09/22 but reintubated later p.m.
Avoid over ventilation
Continue volume-cycled ventilation, AC 12/450/5/40%
Patient had vocal cord edema, give 48 to 72 hours, treat edema with Decadron, no weaning trial before that
Continue with airway clearance measures
Acute confusion
Presented in acute confusion state to the ER/history of fall/history of seizure at home
Head CT negative-ruled out any acute intracranial process-was checked as patient was on blood thinners and had a fall
Urine drug screen positive for barbiturates, could be medicinal-normal salicylate levels-normal Tylenol levels
Alcohol not detected, ammonia levels on 09/22/2024, were up to 38, continue to monitor ammonia levels every couple of days, may need GI evaluation
ABG suggested acute respiratory failure, could be the cause of confusion?
Unfortunate had to be reintubated, continue with sedation for now
EEG completed, neurology following
Sedation vacation 09/24 but no plans for extubation today
Aspiration pneumonia/bronchopneumonia
CT chest done for hypoxia-Right lower lobe peribronchial thickening and patchy peribronchial opacities suspicious for aspiration and/or bronchopneumonia-no acute pulmonary embolism.
On Zosyn for management of aspiration pneumonia-WBC count trending down-4th day of Zosyn
Cultures negative to date
Subclinical hypothyroidism
TSH increased to 12, free T4 normal, likely subclinical hypothyroidism
Continue to monitor-treat the underlying infection
Hypocalcemia-Replete as needed
Pulmonary embolism-
on Eliquis 5 mg twice daily at home-INR 1.09-was using Eliquis questionable-repeat CT chest showed no active pulmonary embolism
Initially started on heparin-platelet count started to drop-heparin stopped-HIT panel sent-currently on Eliquis 5 mg twice daily
Essential hypertension
Currently on hold
Continue with pressors as needed, currently off vasopressors
Hyperlipidemia
No reported meds, given hypertriglyceridemia
Follow while on propofol
Diabetes mellitus type 2
No reported meds- HbA1c 6.6-monitor blood sugars
On insulin aspart moderate resistance scale
History of seizure disorder
Patient received phenytoin and lorazepam in ER
Takes Depakote at home, believes he missed his morning dose
Check LFT levels-management of antiepileptic drugs deferred to neurology
Currently on lacosamide 100 mg twice daily
Folic acid 1 mg daily, nicotine transdermal patch 14 mg daily
On sedation with fentanyl infusion and propofol boluses
Sacral pressure injury
#- DVT prophylaxis-Eliquis
# CODE STATUS-full code
# GI prophylaxis-Protonix 40 mg daily as on vasopressors-on tube feeds
# keep MAP greater than 65-taper as able
# On mfvnbggk-Osbsnkgx-Mnaif as able
# Keep potassium greater than 4 and magnesium greater than 2
# Replete calcium as needed
Subjective Dataa
Subjective Data
Date of Service:
Date of Service: September 25, 2024
Chief Complaint: Quality Control Lab Tech Follow Up, Pulmonary Follow Up and Vent Management Follow Up
Subjective:
Patient's condition critical
Extubated on 09/22, reintubated on 09/22 in p.m., due to laryngeal edema/hypoxia
Off vasopressors, on sedation with fentanyl 100 mcg/h and propofol boluses
Awake, agitated and unable to follow commands in the morning, received propofol boluses for agitation
Had to be placed on mittens due to agitation and pulling on lines
Review of Systems
General: Unobtainable - Pat Unresp and Unobtainable - Sedation
Objective Data
Data Reviewed
Vital Signs / I&O / Oxygen:
Vital Signs
Temp Pulse Resp BP Pulse Ox
98.4 F 58 12 127/60 98
09/25/24 07:35 09/25/24 11:00 09/25/24 11:00 09/25/24 11:00 09/25/24 11:00
Intake and Output
09/24/24 09/25/24 09/26/24
06:59 06:59 06:59
Intake Total 3768.4 / 4011.7 2751.9 / 2835.6 295.7 / 295.7
Output Total 870 / 930 1070 / 1110 110 / 110
Balance 2898.4 / 3081.7 1681.9 / 1725.6 185.7 / 185.7
SaO2 [NIV (Non Invasive 96
Ventilation)]
SaO2 [A/C] 100
SaO2 98
Nasal Cannula flow liters per 6
minute
Physical Exam
General: Other (Patient intubated, sedated, mittens on left hand for agitation)
HEENT: Normocephalic and Anicteric
Cardiovascular: S1-S2, Regular Rhythm and Other (No murmurs or rubs)
Respiratory: Clear, Non-Labored Respirations and ET Tube (When settings AC 12/450/+5/40%)
GI: Soft, Non Distended, Non Tender, Normal Bowel Sounds and Other (Dobbhoff tube in place)
Neurology: Lethargic (Sedated)
Skin: Warm and Other (Multiple tattoos on both arms)
Labs/Micro/Reports
Lab Data
09/25/24 04:23
09/25/24 04:23
Laboratory Results
09/25/24
04:23
pH 7.37
pCO2 57 H
pO2 169 H
HCO3 33.0 H
O2 Delivery Level 40$
Microbiology
09/22/24 12:36 Blood/Venous Blood Culture - Preliminary
No Growth in 48 hours- Final report to follow
09/22/24 12:36 Endotracheal Respiratory Culture - Final
Usual Respiratory Mireya
09/22/24 12:36 Endotracheal Gram Stain - Final
09/22/24 00:13 Urine Urine Culture - Final
NO GROWTH
--- NOTE | 2024-09-25 11:36 | W.PN.HOSP.TC ---
Addendum entered and electronically signed by Linnette Drummond DO, Resident 09/26/24 15:24:
Septic shock with sepsis POA
Sacral pressure injury
Original Note:
Today's Communication/Plan
-
EEG today
Assessment / Plan
Assessment / Plan
#Acute hypoxic respiratory failure
Currently intubated, was reintubated over the weekend
Continue propofol, fentanyl for sedation
Continue steroids for edema
#Acute toxic metabolic encephalopathy
UDS positive for barbiturates, potentially overdosed on Depakote
MRI brain pending
Ongoing conversation regarding LP with neurology
#Shock
Currently not on any pressor support
#Seizures
EEG today
Neurology following
Continue Vimpat
#Right lower lobe pneumonia
Continue Zosyn
#Thrombocytopenia
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
#History of pulmonary embolism
Continue Eliquis
#Essential hypertension
Hold antihypertensives
#Diabetes mellitus
Continue SSI and Accu-Cheks
Full code
DVT prophylaxis�Eliquis
Anticipated Discharge: > 48 hours
Subjective/Interval History
-
Date of Service: September 25, 2024
Patient currently intubated and having EEG done. Per nursing, patient was agitated and had to remain on propofol and fentanyl through the weekend and was reintubated.
Objective Data
-
Labs:
Laboratory Results
09/25/24
04:23
WBC 7.5
Hgb 10.6 L
Hct 34.2 L
Plt Count 92 L
HCO3 33.0 H
Sodium 139
Potassium 4.4
Chloride 101
Carbon Dioxide 32 H
BUN 11
Creatinine 0.8
Glucose 124 H
Calcium 7.4 L
Total Bilirubin 0.7
AST 13 L
ALT < 10
Alkaline Phosphatase 51
Vital Signs:
Vital Signs
Temp Pulse Resp BP Pulse Ox
98.4 F 58 12 127/60 98
09/25/24 07:35 09/25/24 11:00 09/25/24 11:00 09/25/24 11:00 09/25/24 11:00
I&O
09/24/24 09/25/24 09/26/24
06:59 06:59 06:59
Intake Total 3768.4 / 4011.7 2751.9 / 2835.6 295.7 / 295.7
Output Total 870 / 930 1070 / 1110 110 / 110
Balance 2898.4 / 3081.7 1681.9 / 1725.6 185.7 / 185.7
Review of Systems
-
Unable to obtain full review of systems at this time due to: Patient Intubation
Physical Exam
-
General: Intubated and Appears Chronically Ill
HEENT: Normocephalic and Atraumatic
Cardiac: Regular Rhythm and S1/S2
GI: Soft, Nontender and Nondistended
Musculoskeletal: Edema, Right Upper Extrem, Edema, Left Upper Extrem, Edema, Right Lower Extrem and Edema, Left Lower Extrem
Neuro: Awake
Psych: Agitated (Mild)
Data Reviewed
-
Medical Tests (Nuc Med, Echo etc): Report Reviewed by me
Labs: Labs Reviewed by me and Discussed with Physician
Old Records: Reviewed
[2024-09-25] MEDS: MIRALAX 17 GRAMS TUBE (11:53)
[2024-09-25 12:03] LABS: Glucose - Point of Care 120 mg/dl (70-99)
--- NOTE | 2024-09-25 12:11 | PTCARENOTE ---
Pt less restless on increased dose of propofol. His tube feedings have been initiated and ivf stopped. Otherwise assessment unchanged.
--- NOTE | 2024-09-25 15:45 | CM ---
CM following re: discharge planning.
Reviewed pt's chart, met with pt.
Per Rounds meeting, pt intubated on 09/22/24, remains intubated, continue supportive care.
Pt is well known to this CM from previous admission, lives with room mate/friend Roldan [phone] in a 2SH, 2 steps to enter, has no children, parents . Pt has cousin Zora, next of kin [phone].
During last admissions at last month, acute rehab recommended and pt preferred to return back home instead.
Pharmacy: [facility].
D/C plan: uncertain at this time and will depend on pt's progress.
CM will follow with discharge plan updates as hospitalization progresses
--- NOTE | 2024-09-25 16:49 | PTCARENOTE ---
systems reviewed, pt remains either sedate or restless/tachycardiac and coughing/agitated. continues to move all extremities when aware, but does not follow commands ?because of hearing issues at baseline. Deena and nadia removed. Sedation
continues as charted.
[2024-09-25 17:54] LABS: Glucose - Point of Care 134 mg/dl (70-99)
--- NOTE | 2024-09-25 20:00 | PTCARENOTE ---
Rec'd pt with wrists restrained for safety, easily awaken, follows simple commands, diprivan gtt at 40mic, fent gtt at 125mic, ALEXIS at 2mm, sluggish, Sinus joon, bp stable, weak distal pulses, + anasarca, skin warm/dry, #8 ett- moved to center at
26cm, ac 12, tv 450, 5 peep, 40%, sat 99, lungs w/ rhonchi, decr in baes, sm amt white secretions via tube, left nares dobhoff- jevity 1.5 incr to goal 35ml/hr & 25ml/hr h20 flush, debbie feedings, no bm, HNV yet
--- NOTE | 2024-09-25 22:00 | PTCARENOTE ---
bladder scanned fo 209 ml
[2024-09-25 23:59] LABS: Glucose - Point of Care 131 mg/dl (70-99)
[2024-09-26] VITALS (26 sets, daily range): BP systolic 98–173; BP diastolic 49–91; BMI 27.5
--- NOTE | 2024-09-26 00:20 | PTCARENOTE ---
sys reviewed, fent 50 rohit iv given befoe am care, CHG bath done, linens changed
[2024-09-26] MEDS: NOVOLOG FLEXPEN-MODERATE RESISTANCE SC ×4 (00:21→17:53)
[2024-09-26] MEDS: SUBLIMAZE 50 MCG IV ×6 (00:22→22:00)
[2024-09-26] MEDS: DIPRIVAN 100 IV ×6 (01:25→22:19)
[2024-09-26] MEDS: DECADRON 4 MG IV ×3 (01:25→17:53)
[2024-09-26] MEDS: ZOSYN 50 IV ×4 (01:25→19:29)
[2024-09-26 03:30] LABS: Hematocrit 34.2 % (39.0-52.0); Mean Corp Hgb Conc. 32.2 g/dL (33.0-37.0); Mean Corpuscular Hgb 33.1 pg (27.0-31.0); Platelet Count 97 10^3/uL (130-400); Red Blood Cell Count 3.32 10^6/uL (4.70-6.10); Red Cell Dist. Width 15.9 % (11.5-14.5); White Blood Cell Count 6.2 10^3/uL (4.8-10.8)
[2024-09-26] MEDS: APRESOLINE 10 MG IV (03:42)
--- NOTE | 2024-09-26 03:45 | PTCARENOTE ---
sys reviewed, bladder scanned fr 510 ml, str cathed for 500ml jeison urine, apresoline 10mg iv given for elevated bp
[2024-09-26 03:49] LABS: ALT (SGPT) < 10 U/L (0-50); AST (SGOT) 14 U/L (17-59); Albumin 2.7 g/dl (3.5-5.0); Alkaline Phosphatase 51 U/L (38-126); Blood Urea Nitrogen 13 mg/dl (9-20); Calcium 7.8 mg/dl (8.4-10.2); Carbon Dioxide 32 mmol/L (22-30); Chloride 100 mmol/L (98-107); Estimated Creatinine Clearance 99 ml/min; Glucose 157 mg/dl (70-99); Potassium 4.1 mmol/L (3.5-5.1); Sodium 136 mmol/L (135-145); Total Bilirubin 0.5 mg/dl (0.2-1.3); Total Protein 6.3 g/dl (6.3-8.2); eGFR > 60.00
[2024-09-26] MEDS: SUBLIMAZE 100 IV ×2 (05:58→17:54)
[2024-09-26 06:16] LABS: Glucose - Point of Care 147 mg/dl (70-99)
[2024-09-26] MEDS: DUONEB 3 ML INH ×4 (07:31→19:46)
[2024-09-26] MEDS: ELIQUIS 5 MG PO ×2 (07:38→19:30)
[2024-09-26] MEDS: FOLVITE 1 MG PO (07:38)
[2024-09-26] MEDS: MIRALAX 17 GRAMS TUBE (07:38)
[2024-09-26] MEDS: NICODERM TRANSDERMAL 14 MG TRANSDERM (07:38)
[2024-09-26] MEDS: PROTONIX IV 40 MG IV (07:39)
[2024-09-26] MEDS: NSS (PRESERVATIVE FREE) 10 ML IV (07:39)
--- NOTE | 2024-09-26 07:54 | W.PN.NEURO.1 ---
Today's Communication / Plan
-
Not clear patient would benefit from continued antiseizure medication at this time
Continue lacosamide 100 mg every 12 hours, if alternative medication is needed, consideration for lamotrigine may be given
Follow ammonia levels, although EEG did not demonstrate clear evidence of hepatic encephalopathy
Attempt to minimize sedation when possible
Neuro Assessment/Plan
Assessment
Repeated EEG during this admission failed to demonstrate epileptiform activity
Toxic metabolic encephalopathy in a patient with chronic mild intellectual disability, by report, presumed seizures, despite unremarkable EEGs on numerous occasions; this is the second round of change in mental status followed by intubation followed
by unremarkable EEGs in the last 2 months
Patient presented with valproate toxicity, resolved.
Plan
Not clear patient would benefit from continued antiseizure medication at this time
Continue lacosamide 100 mg every 12 hours, if alternative medication is needed, consideration for lamotrigine may be given
Follow ammonia levels, although EEG did not demonstrate clear evidence of hepatic encephalopathy
Attempt to minimize sedation when possible
Will follow peripherally
Subjective/Objective
Subjective Data
Date of Service: September 26, 2024
Patient unable to provide his own medical history
Objective Data
Vital Signs
Temp Pulse Resp BP Pulse Ox
36.6 C 54 12 130/59 99
09/26/24 03:30 09/26/24 07:32 09/26/24 07:32 09/26/24 06:00 09/26/24 07:32
Lab Results
09/26/24 03:13
09/26/24 03:13
PT 14.6 Sec (11.4-14.6) 09/21/24 21:18
INR 1.09 09/21/24 21:18
APTT 66.3 Sec (23.4-35.0) H 09/24/24 11:05
Sodium 136 mmol/L (135-145) 09/26/24 03:13
Potassium 4.1 mmol/L (3.5-5.1) 09/26/24 03:13
BUN 13 mg/dl (9-20) 09/26/24 03:13
Glucose 157 mg/dl (70-99) H 09/26/24 03:13
Calcium 7.8 mg/dl (8.4-10.2) L 09/26/24 03:13
Phosphorus Cancelled 09/21/24 21:18
LDL Cholesterol, Calc 57 mg/dl 09/22/24 04:13
Ur Buprenorphine Negative (Negative) 09/22/24 00:13
Patient Allergies
alfalfa Allergy (Verified 09/21/24 18:58)
Unknown
Review of Systems
-
Unable to obtain full review of systems at this time due to: Patient Intubation
History Source: Patient
All other systems: Reviewed and negative
Physical Exam
-
General: No Apparent Distress, Intubated and Appears Stated Age
Eyes: Round OU and Halliday Conjunctivae; Negative Able to visualize OU
HEENT: Anicteric and Moist Mucous Membranes
Neck: Full Range of Motion
Respiratory: No Dyspnea
Cardiac: No JVD
GI: Non-distended
Skin: Other (Numerous tattoos on arms)
Extremities: No Clubbing, No Cyanosis and No Edema
Psych: Unable to Assess
Extended Neurological Exam
Mood & Affect: Anxious
Attention Span & Concentration: Awake, Alert, Interactive and Other (Did not perform 1-step request)
Memory: Unable to Assess
Tremor: Hand Tremor Absent and Head Tremor Absent
Involuntary Movement: None
Speech: Unable to Assess
Cranial Nerve II: Left Eye: Pupillary Size Unremarkable and Visual Ward Grossly Intact
Cranial Nerve II: Right Eye: Pupillary Size Unremarkable and Visual Ward Grossly Intact
Cranial Nerves III, IV, : Extraocular Movement: Grossly Intact
Cranial Nerve V: Facial Sensation: Unable to Assess
Cranial Nerve VII: Facial Symmetry: Normal Facial Symmetry
Cranial Nerve XII: Tongue Protusion: Unable to Assess
Muscle Strength, Overall: Spontaneously Moves
Muscle Bulk & Tone: Bulk Unremarkable and Tone Unremarkable
Pronator Drift: Unable to Assess
Cold Sensation: Unable to Assess
Vibration Sensation: Unable to Assess
Coordination: Unable to Assess
Gait & Station: Unable to Assess
Data Reviewed
-
Labs: Report Reviewed
Reviewed with: Nurse and Patient
Old Records: Summarized
Past History
Past History
ED Past Medical History: HTN, Hypercholesterolemia, NIDDM, Seizures, Hypothyroidism, Psychiatric (Generalized anxiety disorder) and Other (Left-sided hearing impairment, pulmonary embolism August 2024)
ED Past Surgical History: None
Social History
Tobacco: Smoker
Drug: None
Personal: Single
Living: alone
Employment: Disabled
Family History
Family History: Unable to obtain
Medications
-
Medications:
Generic Name Dose Route Start Last Admin
Trade Name Freq PRN Reason Stop Dose Admin
Acetaminophen 650 mg 09/22/24 01:21
Acetaminophen 325 Mg Tablet PO 10/20/24 01:20
Q4HPRN PRN
mild pain/[place]/temp> 100.4F
Albuterol/Ipratropium 3 ml 09/22/24 01:21 09/26/24 07:31
Ipratropium 0.5/Albuterol 3 Mg (3 Ml Ampul) INH 3 ml
R QID ALAN Administration
Protocol
Albuterol/Ipratropium 3 ml 09/22/24 01:21
Ipratropium 0.5/Albuterol 3 Mg (3 Ml Ampul) INH
R Q4HPRN PRN
shortness of breath
Protocol
Apixaban 5 mg 09/24/24 17:00 09/26/24 07:38
Apixaban (Eliquis) 5 Mg Tablet PO 10/22/24 16:59 5 mg
BID ALAN Administration
Dexamethasone Sodium Phosphate 4 mg 09/24/24 10:00 09/26/24 01:25
Dexamethasone 4 Mg/Ml 1 Ml Vial IV 10/22/24 09:59 4 mg
Q8H ALAN Administration
Dextrose 12.5 grams 09/22/24 18:24 09/23/24 12:04
Dextrose 50% (0.5 Grams/Ml) 50 Ml Syringe IV 10/20/24 18:23 12.5 grams
[id number] PRN Administration
BS < 70
Fentanyl Citrate 50 mcg 09/22/24 20:14 09/26/24 07:40
Fentanyl (50 Mcg/Ml) 100 Mcg/2 Ml Ampul IV 10/06/24 20:13 50 mcg
Q1HPRN PRN Administration
agitation
Folic Acid 1 mg 09/22/24 08:00 09/26/24 07:38
Folic Acid 1 Mg Tablet PO 10/20/24 07:59 1 mg
DAILY ALAN Administration
Hydralazine HCl 10 mg 09/26/24 03:31 09/26/24 03:42
Hydralazine 20 Mg/Ml Vial IV 10/24/24 03:30 10 mg
Q4HPRN PRN Administration
SBP>160
Piperacillin Sod/Tazobactam Sod 3.375 gram in 50 mls @ 100 mls/hr 09/21/24 20:00 09/26/24 07:39
Zosyn IV 50 mls
Q6H ALAN Administration
Folic Acid 1 mg/ Sodium 50.2 mls @ 200.8 mls/hr 09/22/24 01:21
Chloride IV 10/20/24 01:20
DAILYPRN PRN
if NPO
Fentanyl Citrate 1,000 mcg in 100 mls @ 0 mls/hr 09/24/24 04:45 09/26/24 05:58
Sublimaze IV 100 mls
PER PROTOCOL ALAN Administration
Protocol
Per Protocol
Propofol 1,000,000 mcg in 100 mls @ 0 mls/hr 09/24/24 04:45 09/26/24 06:00
Diprivan IV 100 mls
PER PROTOCOL ALAN Administration
Protocol
Per Protocol
Norepinephrine Bitartrate 4 mg in 250 mls @ 0 mls/hr 09/24/24 04:45
Levophed IV
PER PROTOCOL ALAN
Protocol
Per Protocol
Insulin Aspart 0 units 09/22/24 06:00 09/26/24 06:05
Insulin Aspart Moderate Resistance 300 Units/3 Ml Pen.Injctr SC 10/20/24 05:59 Not Given
Q6 ALAN
Protocol
Lacosamide 100 mg 09/25/24 00:00 09/25/24 23:29
Lacosamide (10 Mg/Ml) 200 Mg/20 Ml Vial IV 10/09/24 00:00 100 mg
Q12H ALAN Administration
Nicotine 14 mg 09/24/24 13:00 09/26/24 07:38
Nicotine 14 Mg Patch TRANSDERM 10/22/24 12:59 14 mg
DAILY ALAN Administration
Pantoprazole Sodium 40 mg 09/22/24 11:00 09/26/24 07:39
Pantoprazole Sodium 40 Mg/10 Ml Vial IV 10/20/24 10:59 40 mg
DAILY ALAN Administration
Polyethylene Glycol 17 grams 09/25/24 12:00 09/26/24 07:38
Polyethylene Glycol Powder 17 Grams Packet TUBE 10/23/24 11:59 17 grams
DAILY ALAN Administration
Senna/Docusate Sodium 1 tablet 09/25/24 09:48
Docusate W/Senna (Hoa-Colace) Tablet TUBE 10/23/24 09:47
DAILYPRN PRN
constipation
Sodium Chloride 0 flush 09/21/24 21:00
Sodium Chloride 0.9% (Flush) Syringe IV 10/19/24 20:59
PER PROTOCOL ALAN
Sodium Chloride 10 ml 09/26/24 08:00 09/26/24 07:39
Sodium Chloride 0.9% (Preservative Free) 10 Ml Vial IV 10/24/24 07:59 10 ml
DAILY ALAN Administration
--- NOTE | 2024-09-26 09:00 | PTCARENOTE ---
pt given fentanyl bolus and still restless and agitated, propofol increased as charted with good results.
--- NOTE | 2024-09-26 09:00 | W.PN.HOSP.TC ---
Today's Communication/Plan
-
.
Assessment / Plan
Assessment / Plan
#Acute hypoxic respiratory failure
Currently intubated, was reintubated over the weekend
Continue propofol, fentanyl for sedation. will continue for at least 24-48 more hours
Continue steroids for edema
#Acute toxic metabolic encephalopathy
UDS positive for barbiturates, potentially overdosed on Depakote
MRI brain pending
Ongoing conversation regarding LP with neurology
#Shock
Currently not on any pressor support
#Seizures
EEG completed /
Neurology following
Continue Vimpat
#Right lower lobe pneumonia
Continue Zosyn
#Thrombocytopenia
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
#History of pulmonary embolism
Continue Eliquis
#Essential hypertension
Hold antihypertensives
#Diabetes mellitus
Continue SSI and Accu-Cheks
Full code
DVT prophylaxis�Eliquis
Anticipated Discharge: > 48 hours
Subjective/Interval History
-
Date of Service: September 26, 2024
Patient trae intubated. He continues to require fentanyl and propofol for agitation management.
Objective Data
-
Labs:
Laboratory Results
09/26/24
03:13
WBC 6.2
Hgb 11.0 L
Hct 34.2 L
Plt Count 97 L
Sodium 136
Potassium 4.1
Chloride 100
Carbon Dioxide 32 H
BUN 13
Creatinine 0.8
Glucose 157 H
Calcium 7.8 L
Total Bilirubin 0.5
AST 14 L
ALT < 10
Alkaline Phosphatase 51
Vital Signs:
Vital Signs
Temp Pulse Resp BP Pulse Ox
97.8 F 54 12 130/59 99
09/26/24 03:30 09/26/24 07:32 09/26/24 07:32 09/26/24 06:00 09/26/24 07:32
I&O
09/25/24 09/26/24 09/27/24
06:59 06:59 06:59
Intake Total 2751.9 / 2835.6 2223.4 / 2314.2 90.8 / 90.8
Output Total 1070 / 1110 800 / 800
Balance 1681.9 / 1725.6 1423.4 / 1514.2 90.8 / 90.8
Review of Systems
-
Unable to obtain full review of systems at this time due to: Patient Intubation
History Source: Patient
Physical Exam
-
General: Appears Chronically Ill
HEENT: Normocephalic and Atraumatic
Cardiac: Regular Rhythm and S1/S2
GI: Soft, Nontender, Nondistended and Normal Bowel Sounds
Musculoskeletal: No Clubbing, No Cyanosis and No Edema
Neuro: Sedated
Psych: Calm
Data Reviewed
-
Labs: Labs Reviewed by me and Discussed with Physician
Old Records: Reviewed
--- NOTE | 2024-09-26 11:21 | PN.CDI ---
CDI
- -
CDI:
Physician Documentation Request
Admit Date: 09/21/24 19:38
Dear Doctor Mal/ Resident ,
Please review the following and provide your response in the progress notes.
Clinical Indicators:
Pt admitted with seizure /Aspiration Pneumonia/ Acute Hypoxic/Hypercapnic Respiratory Failure
Documented per Nursing wound care 09/21 progress note , ' present on admission sacrum pressure injury stage 3 ... silicone border placed ...'
Documented in record, ' #History of sacral pressure injury...'
Physician documentation of the type and location of wounds is required for compliant documentation. Based on the above clinical findings and your assessment, please provide the following in your progress note:
1. Location of the ulcer/wound, including laterality.
2. Type (etiology) of ulcer/wound:
- Pressure (decubitus) ulcer
- Non-pressure injury
- Other (please specify)
Use of terms such as suspected, likely, concern for, or probable (associated with a specific diagnosis that is being evaluated, monitored, or treated as if it exists) are acceptable and can be coded in the inpatient setting, when documented at the
time of discharge.
Thank you,
Amanda Spencer RN
CDI Specialist
[facility]
Please use your independent medical judgment in providing your response.
*Source: National Pressure Ulcer Advisory Panel (NPUAP)
--- NOTE | 2024-09-26 11:37 | W.PN.INTV ---
Today's Communication / Plan
Recommendations
Continue IV steroids
Continue sedation and cuff leak test intermittently for upper airway edema
Can start to attempt to wean off ventilator tomorrow
Assessment
-
Impression
Patient is a 58-year-old male with history of seizure disorder, diabetes mellitus, hyperlipidemia and hypertension. Recently diagnosed with pulmonary embolism on his recent admission and [facility] on 08/28/2024, started on Eliquis, unsure
if he was taking it as INR is normal. Admitted with confusion/altered mental status. Workup till now shows a normal CT scan of head, normal ammonia levels, urine tox screen inconclusive, normal Tylenol levels, normal salicylate levels. Possible
valproate toxicity resolved. Currently being managed on lines of aspiration pneumonia/sepsis/acute respiratory failure. Currently intubated, sedated and on vasopressors. Had a spike of fever of 100.7 on 09/22, blood culture, urine culture and
sputum culture negative. CT chest revealed peribronchial thickening in the right lower lobe suspicious for aspiration pneumonia/bronchopneumonia.
Patient has vocal cord swelling requiring reintubation on 09/22, keep sedated for the next 48 - 72 hours and treat edema with Decadron
Follow HIT panel, continue Eliquis, continue checking platelet counts
On tube feeds
Avoid over ventilation-patient is a chronic carbon dioxide retainer
Assessment
Acute hypercapnic respiratory failure requiring intubation
Bradycardia--While on norepinephrine
Thrombocytopenia
Acute confusion
Aspiration pneumonia/bronchopneumonia
Subclinical hypothyroidism
Pulmonary embolism
Essential hypertension
Hyperlipidemia
Diabetes mellitus type 2
History of seizure disorder
Sacral pressure injury
Noncompliance to antiepileptic medications
Hypocalcemia
Plan/recommendations
Acute hypercapnic respiratory failure requiring intubation
Patient intubated on 09/21/2024 for acute respiratory failure, ABGs at that time-pH 7.29, pCO2 93, pO2 66, bicarb 44.7
Extubated 09/22 but reintubated later p.m.
Avoid over ventilation
Continue volume-cycled ventilation, AC 12/450/5/40%
Patient had vocal cord edema, give another 24 hours, treat edema with Decadron, no weaning trial before that
Continue with airway clearance measures
cuff Leak test negative
Acute confusion
Presented in acute confusion state to the ER/history of fall/history of seizure at home
Head CT negative-ruled out any acute intracranial process-was checked as patient was on blood thinners and had a fall
Urine drug screen positive for barbiturates, could be medicinal-normal salicylate levels-normal Tylenol levels
Alcohol not detected, ammonia levels on 09/22/2024, were up to 38, continue to monitor ammonia levels every couple of days, may need GI evaluation
ABG suggested acute respiratory failure, could be the cause of confusion?
Unfortunate had to be reintubated, continue with sedation for now
EEG completed, neurology following-no seizure activity noted on EEG, unsure about antiseizure medications-placed on lacosamide 100 mg 12 hourly by neuro-minimize sedation
Sedation vacation 09/24 but no plans for extubation today
Aspiration pneumonia/bronchopneumonia
CT chest done for hypoxia-Right lower lobe peribronchial thickening and patchy peribronchial opacities suspicious for aspiration and/or bronchopneumonia-no acute pulmonary embolism.
On Zosyn for management of aspiration pneumonia-WBC count trending down-5th day of Zosyn-stop after 7 days
Cultures negative to date
Subclinical hypothyroidism
TSH increased to 12, free T4 normal, likely subclinical hypothyroidism
Resume home dose of levothyroxine
Hypocalcemia-Replete as needed
Pulmonary embolism-
on Eliquis 5 mg twice daily at home-INR 1.09-was using Eliquis questionable-repeat CT chest showed no active pulmonary embolism
Initially started on heparin-platelet count started to drop-heparin stopped-heparin associated antibody came less than 0.1-test negative-currently on Eliquis 5 mg twice daily
Essential hypertension
Currently on hold
Continue with pressors as needed, currently off vasopressors
Hyperlipidemia
No reported meds, given hypertriglyceridemia
Follow while on propofol
Diabetes mellitus type 2
No reported meds- HbA1c 6.6-monitor blood sugars
On insulin aspart moderate resistance scale
History of seizure disorder
Patient received phenytoin and lorazepam in ER
Takes Depakote at home, believes he missed his morning dose
Check LFT levels-management of antiepileptic drugs deferred to neurology
Currently on lacosamide 100 mg twice daily
Folic acid 1 mg daily, nicotine transdermal patch 14 mg daily
On sedation with fentanyl infusion and propofol boluses
Sacral pressure injury
#- DVT prophylaxis-Eliquis
# CODE STATUS-full code
# GI prophylaxis-Protonix 40 mg daily as on vasopressors-on tube feeds
# keep MAP greater than 65-taper as able
# On omxzhbcq-Jacowuls-Hxewd as able
# Keep potassium greater than 4 and magnesium greater than 2
# Replete calcium as needed
Subjective Dataa
Subjective Data
Date of Service:
Date of Service: September 26, 2024
Chief Complaint: System Configuration Specialist Follow Up, Pulmonary Follow Up and Vent Management Follow Up
Subjective:
Patient remains critically ill
Clinical ventilation--- when settings AC 12/tidal volume 450/PEEP +5/FiO2 40%
Patient: Sedation with fentanyl at 75 mcg/min and propofol at 50 mcg/min, patient remains agitated, further exacerbating the vocal cord edema
Patient is on tube feeds at 35 mL/h
EEG failed to demonstrate any epileptiform activity
Keep on sedation for next 24 hours, treat edema with IV steroids, give sedation vacation tomorrow and provide to wean off the patient
Patient remains on lacosamide 100 mg twice daily as per neuro
Valproate toxicity-resolved
Review of Systems
General: Unobtainable - Pat Unresp and Unobtainable - Sedation
Objective Data
Data Reviewed
Vital Signs / I&O / Oxygen:
Vital Signs
Temp Pulse Resp BP Pulse Ox
98.3 F 64 12 141/62 97
09/26/24 07:00 09/26/24 11:24 09/26/24 11:24 09/26/24 10:08 09/26/24 11:24
Intake and Output
09/25/24 09/26/24 09/27/24
06:59 06:59 06:59
Intake Total 2751.9 / 2835.6 2223.4 / 2314.2 311.6 / 311.6
Output Total 1070 / 1110 800 / 800
Balance 1681.9 / 1725.6 1423.4 / 1514.2 311.6 / 311.6
SaO2 [NIV (Non Invasive 96
Ventilation)]
SaO2 [A/C] 98
SaO2 97
Nasal Cannula flow liters per 6
minute
Physical Exam
General: Other (Patient intubated, sedated, soft restraints applied for agitation)
HEENT: Normocephalic and Anicteric
Cardiovascular: S1-S2, Regular Rhythm and Other (No murmurs or rubs)
Respiratory: Clear, Non-Labored Respirations and ET Tube (When settings AC 12/450/+5/40%)
GI: Soft, Non Distended, Non Tender, Normal Bowel Sounds and Other (Dobbhoff tube in place)
Neurology: Lethargic (Sedated)
Skin: Warm and Other (Multiple tattoos on both arms)
Labs/Micro/Reports
Lab Data
09/26/24 03:13
09/26/24 03:13
Microbiology
09/22/24 12:36 Blood/Venous Blood Culture - Preliminary
No Growth in 72 hours- Final report to follow
09/22/24 12:36 Endotracheal Respiratory Culture - Final
Usual Respiratory Mireya
09/22/24 12:36 Endotracheal Gram Stain - Final
09/22/24 00:13 Urine Urine Culture - Final
NO GROWTH
--- NOTE | 2024-09-26 11:39 | PN.CDI ---
CDI
- -
CDI:
Physician Documentation Request
Admit Date: 09/21/24 19:38
Dear Doctor Mal/Resident,
Please review the following and provide your response in the progress notes.
Clinical Indicators:
Pt admitted with seizure /Aspiration Pneumonia/ Acute Hypoxic/Hypercapnic Respiratory Failure
Progress note 09/22, ' Shock medication induced versus septic...#Aspiration pneumonia...Continue Zosyn..Trend WBC and temperature curve...'
On admission Tmax 100.7, HR 110, Respirations 31, WBC 11.4, 16.6
Please clarify which of the following most accurately describes the status of the patient's infection:
Sepsis-POA
- Systemic manifestations of infection, with 2 or more SIRS criteria which include:
- Fever >100.4 degrees F or hypothermia < 96.8 degrees F
- Leukocytosis - WBC > 12,000 or leukopenia - WBC < 4,000 or > 10% bands
- Tachycardia > 90 beats per minute
- Tachypnea - RR > 20 breaths per minute or PaCO2 , 32mmHg
Source: Merck Manual 2013
Aspiration Pneumonia only, Without Systemic Illness
-
Other ( please specify )
Use of terms such as suspected, likely, concern for, or probable (associated with a specific diagnosis that is being evaluated, monitored, or treated as if it exists) are acceptable and can be coded in the inpatient setting, when documented at the
time of discharge.
Thank you,
Amanda Spencer RN
CDI Specialist
[place] [facility]
Please use your independent medical judgment in providing your response.
--- NOTE | 2024-09-26 11:42 | PN.CDI ---
CDI
- -
CDI:
Physician Documentation Request
Admit Date: 09/21/24 19:38
Dear Doctor Mal/Resident,
Please review the following and provide your response in the progress notes.
Clinical Indicators:
Pt admitted with seizure /Aspiration Pneumonia/ Acute Hypoxic/Hypercapnic Respiratory Failure
Progress note 09/22, ' Shock medication induced versus septic.'
Progress note 09/24, 'Shock medication induced Was able to come off of pressor support once prop/fent was weaned...'
Progress note /, '#Shock..'
Please clarify which of the following is the most likely etiology of the above symptoms and treatment rendered/Type of shock:
Septic shock
Drug induced Shock
Other ( please specify)
Use of terms such as suspected, likely, concern for, or probable (associated with a specific diagnosis that is being evaluated, monitored, or treated as if it exists) are acceptable and can be coded in the inpatient setting, when documented at the
time of discharge.
Thank you,
Amanda Spencer RN
CDI Specialist
[place] [facility]
Please use your independent medical judgment in providing your response.
--- NOTE | 2024-09-26 11:47 | W.PN.UPDATE ---
Update Note
Progress Note Update
I saw and evaluated the patient. I reviewed the resident�s note and agree with findings and plan as documented in the resident�s note.
Intubated/sedated.
Gen: NAD, NCAT
CV: RRR, +S1/S2, no m/r/g.
Resp: CTAB anteriorly, no rales, wheezes, or rhonchi.
Abd: +BS, soft, NT, ND
Skin: No rashes.
Neuro: sedated
Psych: calm
09/22/24 12:36 Blood/Venous Blood Culture - Preliminary
No Growth in 72 hours- Final report to follow
09/22/24 12:36 Endotracheal Respiratory Culture - Final
Usual Respiratory Mireya
09/22/24 12:36 Endotracheal Gram Stain - Final
09/22/24 00:13 Urine Urine Culture - Final
NO GROWTH
09/21/24 18:45 Nasal Swab Influenza Types A & B (ESTIVEN) - Final
Negative for Influenza A & B, NAAT
Negative results must be combined with clinical observations
and patient history.
Nucleic Acid Amplification test (NAAT)performed on the
[employer] NOW platform.
CT brain 09/21/24: No evidence of acute intracranial abnormality.
CTA chest 09/21/24: No PE. RLL peribronchial thickening and patchy peribronchial opacities suspicious for aspiration and/or bronchopneumonia.
CXR 09/25/24: Endotracheal tube with tip in trachea above the avril and nasogastric tube with tip in proximal stomach. No pneumothorax.
Acute hypoxemia respiratory failure/VDRF:
-Became agitated, intermittently following commands
-extubated 09/22, then required reintubation 1/31PM, cont ACMV
-cont propofol/fentanyl for sedation
-cont steroids for airway edema
-discussed with Dr. Beck, remain intubated today. No cuff leak currently. Possible SBT tomorrow.
Acute toxic and metabolic encephalopathy:
-UDS POS for barbiturates
-possible component of post-ictal state
-as per discussion with Dr. Christensen via [employer] on 09/25/24 MRI brain and LP are not necessary at this time
Drug induced shock:
-Was able to come off of pressor support once prop/fent was weaned
Seizure d/o:
-EEG: coma due excessive alpha activity suggestive of alpha coma
-repeat EEG 09/25/24: This study was suggestive of mild diffuse cortical dysfunction without focal abnormality. No seizures were recorded.
-Neurology following
-S/p Keppra load
-cont Vimpat
Right lower lobe pneumonia (likely aspiration):
-remains on Zosyn
-RespCx/BCx/COVID/Flu NEG
Thrombocytopenia:
-Acute, concern for HIT, was on heparin drip
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
Other problems:
h/o PE: cont Eliquis
Essential HTN: home antihypertensives on hold
DM2: SSI/accuchecks
Sacral pressure injury stage 3 (POA)
FULL/Eliquis
Total critical care time spent = 31 min
[2024-09-26 12:10] LABS: Glucose - Point of Care 138 mg/dl (70-99)
[2024-09-26] MEDS: SYNTHROID 12.5 MCG TUBE (12:22)
[2024-09-26] MEDS: VIMPAT 100 MG IV ×2 (12:22→23:23)
[2024-09-26 13:12] LABS: Ammonia < 9 umol/L (9-30)
--- NOTE | 2024-09-26 13:25 | CM ---
CM following re: discharge planning.
Reviewed pt's chart, met with pt.
Per Rounds meeting, pt intubated on 09/22/24, remains intubated, continue supportive care.
Pt lives with room mate/friend Roldan [phone] in a 2SH, 2 steps to enter, has no children, parents . Pt has cousin Zora, next of kin [phone].
D/C plan: uncertain at this time and will depend on pt's progress.
CM will follow with discharge plan updates as hospitalization progresses
--- NOTE | 2024-09-26 14:25 | WOUNDNOTE ---
VIPIN RN note: Patient admitted with seizures, hypoxia, s/p fall.
See H&P for complete history.
PMH: smoker, NIDDM, HTN.
Wound Location and type/assessment: Patient admitted with: L buttock stage 1 PI, non blanchable red mary. Sacrum/gluteal cleft with stage 3 PI, edges with light purple proximally. R lateral ankle with abrasion vs unstageable PI, has brown intact
scab, no drainage. Patient incontinent of stool. Heels dry but intact.
Appetite: TF, Jevity.
Pressure redistribution devices in place: [employer] air bed. Pillows under calves.
Plan:Local wound care provided to buttock and sacrum. Will order Santyl for sacral wound to start tomorrow.
Will confirm orders with hospitalist and updated nurse.
Updated care plan and will follow as needed.
Note to case management of equipment requested for discharge: VN.
Recommend follow up at wound care center upon discharge.
--- NOTE | 2024-09-26 15:58 | PTCARENOTE ---
Pt placed on [facility] air [facility]. Systems otherwise unchanged.
[2024-09-26 17:31] LABS: Glucose - Point of Care 142 mg/dl (70-99)
--- NOTE | 2024-09-26 20:00 | PTCARENOTE ---
Rec'd pt with wrists restrained, diprivan gtt at 45mic, fent gtt at 75 rohit, receiving prn fent doses- see MAR, pt gets restless at times, follows simple commands, SR/ Stach, bp stable, weak distal pulses, + edema, skin warm/dry, #8 oral ett- moved
to left at 26cm, ac 12, tv 450, 5 peep, 40%, lungs w/ rhonchi, suct freq for linda/white secretions, freq cough, hypo bowel sounds, no bm, abd round, left nares dobhoff- jevity 1.5 at 35ml/hr & 25ml/hr h20 flush, prosource given, HNV yet this shift,
bladder scan prn- see flow sheet
[2024-09-26 23:52] LABS: Glucose - Point of Care 167 mg/dl (70-99)
[2024-09-26] MEDS: NOVOLOG FLEXPEN-MODERATE RESISTANCE 1 UNITS SC (23:53)
[2024-09-27] VITALS (25 sets, daily range): BP systolic 97–172; BP diastolic 44–87; PULSE 91–93; O2SAT 90–98; BMI 27.9
--- NOTE | 2024-09-27 | PTCARENOTE ---
sys reviewed, inc sm amt brown soft stool, inc of urine, chg bath done, linens changed
[2024-09-27] MEDS: ZOSYN 50 IV ×4 (01:35→20:08)
[2024-09-27] MEDS: DECADRON 4 MG IV ×3 (01:36→20:07)
[2024-09-27] MEDS: DIPRIVAN 100 IV ×2 (01:36→05:56)
--- NOTE | 2024-09-27 04:00 | PTCARENOTE ---
sys reviewed, ett repos on R side at 26cm, bladder scanned for 653ml, str cathed for 670ml
[2024-09-27 05:01] LABS: Blood Urea Nitrogen 18 mg/dl (9-20); Calcium 8.1 mg/dl (8.4-10.2); Carbon Dioxide 33 mmol/L (22-30); Chloride 99 mmol/L (98-107); Estimated Creatinine Clearance 98 ml/min; Glucose 168 mg/dl (70-99); Magnesium 2.3 mg/dl (1.6-2.3); Potassium 3.9 mmol/L (3.5-5.1); Sodium 136 mmol/L (135-145); eGFR > 60.00
[2024-09-27 05:16] LABS: Hematocrit 34.2 % (39.0-52.0); Hemoglobin 10.9 g/dL (13.0-18.0); Mean Corp Hgb Conc. 31.9 g/dL (33.0-37.0); Mean Corpuscular Hgb 32.8 pg (27.0-31.0); Mean Platelet Volume 9.9 fL (7.4-10.4); Platelet Count 143 10^3/uL (130-400); Red Blood Cell Count 3.32 10^6/uL (4.70-6.10); Red Cell Dist. Width 15.8 % (11.5-14.5); White Blood Cell Count 6.3 10^3/uL (4.8-10.8)
[2024-09-27] MEDS: SUBLIMAZE 100 IV (05:22)
[2024-09-27] MEDS: SYNTHROID 12.5 MCG TUBE (05:24)
[2024-09-27] MEDS: NOVOLOG FLEXPEN-MODERATE RESISTANCE 1 UNITS SC ×2 (05:47→12:33)
[2024-09-27 05:55] LABS: Glucose - Point of Care 181 mg/dl (70-99)
[2024-09-27] MEDS: DUONEB 3 ML INH ×2 (07:32→11:19)
--- NOTE | 2024-09-27 07:42 | W.PN.HOSP.TC ---
Today's Communication/Plan
-
Extubation trial today
Assessment / Plan
Assessment / Plan
#Acute hypoxic respiratory failure
Currently intubated, was reintubated over the weekend
Continue propofol, fentanyl for sedation. Will attempt extubation today per ICU team
Continue steroids for edema
Continue tube feed
#Acute toxic metabolic encephalopathy
UDS positive for barbiturates, potentially overdosed on Depakote
no need for brain MRI or LP per Neurology
#Shock
Currently not on any pressor support
#Seizures
EEG completed /
Neurology following
Continue Vimpat
#Right lower lobe pneumonia
Continue Zosyn
#Thrombocytopenia
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
#History of pulmonary embolism
Continue Eliquis
#Essential hypertension
Hold antihypertensives
#Diabetes mellitus
Continue SSI and Accu-Cheks
Full code
DVT prophylaxis�Eliquis
Anticipated Discharge: > 48 hours
Subjective/Interval History
-
Date of Service: September 27, 2024
Patient still intubated. Patient will open eyes to name and touch. Plan to have extubation trial today.
Objective Data
-
Labs:
Laboratory Results
09/27/24 09/27/24
04:15 04:19
WBC 6.3
Hgb 10.9 L
Hct 34.2 L
Plt Count 143 D
Sodium 136
Potassium 3.9
Chloride 99
Carbon Dioxide 33 H
BUN 18
Creatinine 0.8
Glucose 168 H
Calcium 8.1 L
Vital Signs:
Vital Signs
Temp Pulse Resp BP Pulse Ox
97.9 F 46 12 140/59 99
09/27/24 03:30 09/27/24 07:34 09/27/24 07:34 09/27/24 06:00 09/27/24 07:34
I&O
09/26/24 09/27/24 09/28/24
06:59 06:59 06:59
Intake Total 2223.4 / 2314.2 2635.7 / 2635.7
Output Total 800 / 800 1120 / 1120
Balance 1423.4 / 1514.2 1515.7 / 1515.7
Review of Systems
-
Unable to obtain full review of systems at this time due to: Patient Intubation
History Source: Patient
Physical Exam
-
General: Intubated
HEENT: Normocephalic and Atraumatic
Respiratory: Crackles
Cardiac: Regular Rhythm and S1/S2
GI: Soft, Nontender, Nondistended and Normal Bowel Sounds
Musculoskeletal: No Clubbing, No Cyanosis, Edema, Right Upper Extrem and Edema, Left Upper Extrem
Skin: Warm and Dry
Neuro: Awake
Data Reviewed
-
Labs: Labs Reviewed by me and Discussed with Physician
Old Records: Reviewed
[2024-09-27] MEDS: NICODERM TRANSDERMAL 14 MG TRANSDERM (07:43)
[2024-09-27] MEDS: ELIQUIS 5 MG PO ×2 (07:43→20:07)
[2024-09-27] MEDS: FOLVITE 1 MG PO (07:43)
[2024-09-27] MEDS: NSS (PRESERVATIVE FREE) 10 ML IV (07:44)
[2024-09-27] MEDS: DESENEX/MITRAZOL/ZEASORB 1 APPLIC TOPICAL (07:44)
[2024-09-27] MEDS: MIRALAX TUBE ×2 (07:44→09:58)
[2024-09-27] MEDS: PROTONIX IV 40 MG IV (07:44)
[2024-09-27] MEDS: SANTYL OINTMENT 1 APPLIC TOPICAL (07:44)
--- NOTE | 2024-09-27 08:32 | W.PN.INTV ---
Today's Communication / Plan
Recommendations
Sedation vacation-cuff Leak test positive-spontaneous breathing trial today
Assessment
-
Impression
Patient is a 58-year-old male with history of seizure disorder, diabetes mellitus, hyperlipidemia and hypertension. Recently diagnosed with pulmonary embolism on his recent admission and [facility] on 08/28/2024, started on Eliquis, unsure
if he was taking it as INR is normal. Admitted with confusion/altered mental status. Workup till now shows a normal CT scan of head, normal ammonia levels, urine tox screen inconclusive, normal Tylenol levels, normal salicylate levels. Possible
valproate toxicity resolved. Currently being managed on lines of aspiration pneumonia/sepsis/acute respiratory failure. Currently intubated, sedated and on vasopressors. Had a spike of fever of 100.7 on 09/22, blood culture, urine culture and
sputum culture negative. CT chest revealed peribronchial thickening in the right lower lobe suspicious for aspiration pneumonia/bronchopneumonia.
Patient has vocal cord swelling requiring reintubation on 09/22, keep sedated for the next 48 - 72 hours and treat edema with Decadron
Follow HIT panel, continue Eliquis, continue checking platelet counts
On tube feeds
Avoid over ventilation-patient is a chronic carbon dioxide retainer
Assessment
Acute hypercapnic respiratory failure requiring intubation
Bradycardia--While on norepinephrine
Thrombocytopenia
Acute confusion
Aspiration pneumonia/bronchopneumonia
Subclinical hypothyroidism
Pulmonary embolism
Essential hypertension
Hyperlipidemia
Diabetes mellitus type 2
History of seizure disorder
Sacral pressure injury
Noncompliance to antiepileptic medications
Hypocalcemia
Plan/recommendations
Acute hypercapnic respiratory failure requiring intubation
Patient intubated on 09/21/2024 for acute respiratory failure, ABGs at that time-pH 7.29, pCO2 93, pO2 66, bicarb 44.7
Extubated 09/22 but reintubated later p.m.
Avoid over ventilation
Continue volume-cycled ventilation, AC 12/450/5/40%
Continue with airway clearance measures
Cuff Leak test positive today, patient more responsive and following commands, plan to give spontaneous breathing trial today and if all goes well can extubate today
Acute confusion
Presented in acute confusion state to the ER/history of fall/history of seizure at home
Head CT negative-ruled out any acute intracranial process-was checked as patient was on blood thinners and had a fall
Urine drug screen positive for barbiturates-valproate toxicity-resolved,Alcohol not detected
Ammonia levels on 09/22/2024, were up to 38, normalized as of 09/25/2024
ABG suggested acute respiratory failure, could be the cause of confusion?
Unfortunate had to be reintubated, continue with sedation for now
EEG completed, neurology following-no seizure activity noted on EEG, unsure about antiseizure medications-placed on lacosamide 100 mg 12 hourly by neuro-minimize sedation
Sedation vacation-spontaneous breathing trial today
Patient more oriented and following commands
Aspiration pneumonia/bronchopneumonia
CT chest done for hypoxia-Right lower lobe peribronchial thickening and patchy peribronchial opacities suspicious for aspiration and/or bronchopneumonia-no acute pulmonary embolism.
On Zosyn for management of aspiration pneumonia-WBC count trending down-6-day of Zosyn-stopped tomorrow
Cultures negative to date
Subclinical hypothyroidism
TSH increased to 12, free T4 normal, likely subclinical hypothyroidism
Resume home dose of levothyroxine
Hypocalcemia-Replete as needed
Pulmonary embolism-
on Eliquis 5 mg twice daily at home-INR 1.09-was using Eliquis questionable-repeat CT chest showed no active pulmonary embolism
Initially started on heparin-platelet count started to drop-heparin stopped-heparin associated antibody came less than 0.1-test negative-currently on Eliquis 5 mg twice daily
Essential hypertension
Currently on hold
Continue with pressors as needed, currently off vasopressors
Hyperlipidemia
No reported meds, given hypertriglyceridemia
Follow while on propofol
Diabetes mellitus type 2
No reported meds- HbA1c 6.6-monitor blood sugars
On insulin aspart moderate resistance scale
History of seizure disorder
Patient received phenytoin and lorazepam in ER
Takes Depakote at home, believes he missed his morning dose
Check LFT levels-management of antiepileptic drugs deferred to neurology
Currently on lacosamide 100 mg twice daily
Folic acid 1 mg daily, nicotine transdermal patch 14 mg daily
On sedation with fentanyl infusion and propofol boluses
Sacral pressure injury
#- DVT prophylaxis-Eliquis
# CODE STATUS-full code
# GI prophylaxis-Protonix 40 mg daily as on vasopressors-on tube feeds
# keep MAP greater than 65-taper as able
# On jksxcpfj-Xkrkkhps-Izddv as able
# Keep potassium greater than 4 and magnesium greater than 2
# Replete calcium as needed
Subjective Dataa
Subjective Data
Date of Service:
Date of Service: September 27, 2024
Chief Complaint: Cna Follow Up, Pulmonary Follow Up and Vent Management Follow Up
Subjective:
Patient remains critically ill
More awake and alert today, following commands
Currently on mechanical ventilation with vent settings AC RR 12/VT 450/PEEP +5/FiO2 40%
On sedation, intermittently off sedation
Cuff leak test positive
Plan to do spontaneous breathing trial today
Off vasopressors
Review of Systems
General: Unobtainable - Sedation (Minimally responsive and ETT tube in place)
Objective Data
Data Reviewed
Vital Signs / I&O / Oxygen:
Vital Signs
Temp Pulse Resp BP Pulse Ox
98.6 F 53 12 97/44 97
09/27/24 08:00 09/27/24 08:00 09/27/24 08:00 09/27/24 08:00 09/27/24 08:00
Intake and Output
09/26/24 09/27/24 09/28/24
06:59 06:59 06:59
Intake Total 2223.4 / 2314.2 2635.7 / 2728.6 215.8 / 215.8
Output Total 800 / 800 1120 / 1120
Balance 1423.4 / 1514.2 1515.7 / 1608.6 215.8 / 215.8
SaO2 [NIV (Non Invasive 96
Ventilation)]
SaO2 [A/C] 97
SaO2 96
Nasal Cannula flow liters per 6
minute
Physical Exam
General: Other (Patient intubated, sedated, soft restraints applied for agitation)
HEENT: Normocephalic and Anicteric
Cardiovascular: S1-S2, Regular Rhythm and Other (No murmurs or rubs, generalized body edema)
Respiratory: Clear, Non-Labored Respirations and ET Tube (When settings AC 12/450/+5/40%)
GI: Soft, Non Distended, Non Tender, Normal Bowel Sounds and Other (Dobbhoff tube in place)
Neurology: Lethargic (Sedated)
Skin: Warm and Other (Multiple tattoos on both arms)
Labs/Micro/Reports
Lab Data
09/27/24 04:15
09/27/24 04:19
Microbiology
09/22/24 12:36 Blood/Venous Blood Culture - Preliminary
No Growth in 4 days- Final report to follow
09/22/24 12:36 Endotracheal Respiratory Culture - Final
Usual Respiratory Mireya
09/22/24 12:36 Endotracheal Gram Stain - Final
--- NOTE | 2024-09-27 08:44 | PTCARENOTE ---
recd 0715 handoff at bedside, calm, eyes closed initially then awakened easily, following few simple commands. eval by Dr. Beck, 0840 awake agitated following commands gesturing with dissatisfaction at situation, shakes head no when requested to
listen to instructions. placed on SBT wean, weaning meds as noted. rest of assessment as documented, skin flushed. denies urge to void, abd soft.
--- NOTE | 2024-09-27 09:10 | PTCARENOTE ---
extubated smoothly after gtts dcd as noted and SBT. Dr. Beck in room.
--- NOTE | 2024-09-27 09:37 | PTCARENOTE ---
extubated smoothly, positioned to side, restless and irritable at times, agreeable to plan of care. support and encouragement given. presently listening to music tolerating 4l nc.
[2024-09-27] MEDS: VIMPAT 100 MG IV (11:49)
[2024-09-27 12:01] LABS: Glucose - Point of Care 159 mg/dl (70-99)
--- NOTE | 2024-09-27 12:19 | W.PN.UPDATE ---
Update Note
Progress Note Update
I saw and evaluated the patient. I reviewed the resident�s note and agree with findings and plan as documented in the resident�s note.
No new complaints.
Gen: NAD, Awake and alert
Eyes: EOMI, PERRLA, no scleral icterus.
Neck: supple.
CV: tachy, reg rhythm, +S1/S2, no m/r/g.
Resp: CTAB, no rales, wheezes, or rhonchi.
Abd: +BS, soft, NT, ND
Skin: No rashes.
Neuro: CN 2-12 intact, non-focal.
Psych: Normal mood and affect.
09/22/24 12:36 Blood/Venous Blood Culture - Preliminary
No Growth in 4 days- Final report to follow
09/22/24 12:36 Endotracheal Respiratory Culture - Final
Usual Respiratory Mireya
09/22/24 12:36 Endotracheal Gram Stain - Final
09/22/24 00:13 Urine Urine Culture - Final
NO GROWTH
09/21/24 18:45 Nasal Swab Influenza Types A & B (ESTIVEN) - Final
Negative for Influenza A & B, NAAT
Negative results must be combined with clinical observations
and patient history.
Nucleic Acid Amplification test (NAAT)performed on the
[employer] NOW platform.
CT brain 09/21/24: No evidence of acute intracranial abnormality.
CTA chest 09/21/24: No PE. RLL peribronchial thickening and patchy peribronchial opacities suspicious for aspiration and/or bronchopneumonia.
CXR 09/25/24: Endotracheal tube with tip in trachea above the avril and nasogastric tube with tip in proximal stomach. No pneumothorax.
Acute hypoxemia respiratory failure/VDRF:
-Became agitated, intermittently following commands
-extubated 09/22, then required reintubation 1/31PM, extubated around 1000 on 09/27/24
-cont steroids for airway edema
-discussed with Dr. Beck
-now on 4L NC O2
-drug induced shock: was able to come off of pressor support once prop/fent was weaned
Acute toxic and metabolic encephalopathy:
-UDS POS for barbiturates
-possible component of post-ictal state
-as per discussion with Dr. Christensen via [employer] on 09/25/24 MRI brain and LP are not necessary at this time
Seizure d/o:
-EEG: coma due excessive alpha activity suggestive of alpha coma
-repeat EEG 09/25/24: This study was suggestive of mild diffuse cortical dysfunction without focal abnormality. No seizures were recorded.
-Neurology following
-S/p Keppra load
-cont Vimpat
Right lower lobe pneumonia (likely aspiration):
-remains on Zosyn to complete 7 days
-RespCx/BCx/COVID/Flu NEG
Thrombocytopenia:
-Acute, concern was for HIT, was on heparin drip
-HIT Ab NEG
-resolved
Other problems:
h/o PE: cont Eliquis
Essential HTN: home antihypertensives on hold
DM2: SSI/accuchecks
Sacral pressure injury stage 3 (POA)
FULL/Eliquis
Total critical care time spent = 32 min
--- NOTE | 2024-09-27 13:16 | PTCARENOTE ---
in and out of bed, weak. seen by speech. on bedpan small amount liquid. remains as in previous assessment.
--- NOTE | 2024-09-27 13:19 | PTOTSP ---
SPEECH THERAPY SWALLOW EVALUATION:
Patient exhibits clinical signs of oropharyngeal dysphagia, likely acutely related to 6-day endotracheal intubation and recent extubation (this date 09/27), and critical illness 2/2 sepsis/aspiration pneumonia/TME and possible seizure activity.
Patient remains at risk for aspiration and related complications given confusion, impulsivity, and tenuous pulmonary status. Recommend NPO except for (1) necessary medications crushed in puree and (2) ARHP Small single sips of water (sparingly) with
RN supervision only when awake/alert and upright. Consider leaving current DHT in place until cleared for oral diet. ST to follow, re-assess in 24 hours, and determine readiness for initiation of oral diet and/or indication for instrumental
assessment of swallowing as appropriate. Discussed with RN.
RECOMMEND:
1) NPO except for (1) necessary medications crushed in puree and (2) ARHP Small single sips of water (sparingly) with RN supervision only when awake/alert and upright
2) Consider leaving current DHT in place until cleared for oral diet
3) Oral care 3x/day and increased mobility as able/tolerated to reduce risk for nosocomial infection
4) ST to follow, re-assess in 24 hours
[2024-09-27] MEDS: TYLENOL 650 MG PO ×2 (13:32→20:07)
--- NOTE | 2024-09-27 14:11 | CM ---
CM following re: discharge planning.
Reviewed pt's chart, met with pt.
Per Rounds meeting, pt extubated today to 4 L NC, NPO, DHT in place, restless and irritable at times, requesting to go home 'NOW', continue supportive care.
Pt lives with room mate/friend Roldan [phone] in a 2SH, 2 steps to enter, has no children, parents . Pt has cousin Zora, next of kin [phone].
D/C plan: uncertain at this time and will depend on pt's progress.
CM will follow with discharge plan updates as hospitalization progress
--- NOTE | 2024-09-27 14:57 | PTCARENOTE ---
on bedpan, moves well in bed. multiple c/o. CADDO. aware of plans for the day.
--- NOTE | 2024-09-27 15:14 | PTCARENOTE ---
ambulated hallway with PT, RW, 3 additional helpers. impulsive. back to chair with chair alarm. on room air, sats 92 range.
--- NOTE | 2024-09-27 15:32 | W.PN.UPDATE ---
Update Note
Progress Note Update
Patient has been stable from the critical care perspective
No recurrent airway edema
Ambulated in the hallway
Down to 1 L supplemental oxygen
Continue antibiotic for 1 more day
Incentive spirometer
Increase activity as able
Will advance diet as able
Discontinue dexamethasone tomorrow if he continues to improve
Transfer to telemetry
Pulmonary will follow briefly
--- NOTE | 2024-09-27 16:35 | PTCARENOTE ---
ambulated to bathroom with RW and much encouragement. weak but steady. back to recliner. a litany of complaints, reassured he is improving and making progress. positioned as able for comfort.
--- NOTE | 2024-09-27 17:01 | PTCARENOTE ---
bellalthea, stood, wobbled, complaining about care, does not listen when things are explained. presently in chair.
[2024-09-27] MEDS: APRESOLINE 10 MG IV (17:10)
[2024-09-27 18:30] LABS: Glucose - Point of Care 107 mg/dl (70-99)
[2024-09-27] MEDS: NOVOLOG FLEXPEN-MODERATE RESISTANCE SC (18:30)
--- NOTE | 2024-09-27 22:13 | PTCARENOTE ---
Pt AAOx 2-3 (time)
--- NOTE | 2024-09-27 22:14 | PTCARENOTE ---
Pt AAOx 2-3, time unclear. Pt had no complaints at this time. Pt aware of move to 3rd floor. Report called and given to RN. Assessment care as charted.
[2024-09-28] MEDS: VIMPAT 100 MG IV ×3 (00:06→23:17)
[2024-09-28 00:07] LABS: Glucose - Point of Care 145 mg/dl (70-99)
[2024-09-28] MEDS: NOVOLOG FLEXPEN-MODERATE RESISTANCE SC ×3 (00:12→11:51)
--- NOTE | 2024-09-28 01:26 | PTCARENOTE ---
Pt transferred to room from ICU by PCT. Pt set up on telemetry and is NSR. Blair in place. TF initiated as ordered @ 40cc/hr with a 25cc H2O flush. Pt is profoundly [place]. Answers questions appropriately. A&Ox3. Moves all extremities. PERRLA 2 and
brisk. RA. Lungs CTABL. No c/o abd pain but pt did have 1 sm soft BM. Wounds assessed including ankle and sacrum. [facility]OCN has been consulted and saw pt 2/4. Pictures noted in chart. Dsg to sacrum changed and wound cleansed with NS. No s/s of distress
assessed. Will continue to monitor.
[2024-09-28] MEDS: ZOSYN 50 IV ×3 (02:28→13:22)
[2024-09-28 03:02] VITALS: BP 156/72
[2024-09-28 05:49] LABS: Glucose - Point of Care 141 mg/dl (70-99)
[2024-09-28] MEDS: SYNTHROID 12.5 MCG PO (05:49)
[2024-09-28 06:00] VITALS: BMI 26.2
[2024-09-28 06:33] LABS: Hematocrit 36.7 % (39.0-52.0); Hemoglobin 11.6 g/dL (13.0-18.0); Mean Corp Hgb Conc. 31.6 g/dL (33.0-37.0); Mean Corpuscular Volume 104.6 fL (80.0-94.0); Mean Platelet Volume 9.4 fL (7.4-10.4); Platelet Count 210 10^3/uL (130-400); Red Blood Cell Count 3.51 10^6/uL (4.70-6.10); Red Cell Dist. Width 15.6 % (11.5-14.5); White Blood Cell Count 7.5 10^3/uL (4.8-10.8)
[2024-09-28 06:53] LABS: Triglycerides 234 mg/dl (10-149)
[2024-09-28 07:27] VITALS: BP 171/77
[2024-09-28] MEDS: ELIQUIS 5 MG PO ×2 (08:27→21:13)
[2024-09-28] MEDS: PROTONIX IV 40 MG IV (08:27)
[2024-09-28] MEDS: NSS (PRESERVATIVE FREE) 10 ML IV (08:27)
[2024-09-28] MEDS: FOLVITE 1 MG PO (08:27)
--- NOTE | 2024-09-28 08:28 | PTOTSP ---
Speech Therapy
Patient without overt signs of aspiration. Recommend Regular solids and thin liquids. Meds with liquid as tolerated. Will request easy to chew items given limited dentition.
[2024-09-28] MEDS: DECADRON 4 MG IV ×2 (08:29→21:13)
[2024-09-28] MEDS: NICODERM TRANSDERMAL 14 MG TRANSDERM (08:29)
[2024-09-28] MEDS: DESENEX/MITRAZOL/ZEASORB 1 APPLIC TOPICAL (08:30)
[2024-09-28] MEDS: SANTYL OINTMENT 1 APPLIC TOPICAL (08:32)
--- NOTE | 2024-09-28 08:59 | W.PN.HOSP.TC ---
Today's Communication/Plan
-
PT OT today
Continue antibiotics
Progress diet
Assessment / Plan
Assessment / Plan
#Acute hypoxic respiratory failure
Currently intubated, was reintubated over the weekend
Patient successfully extubated and downgraded to telemetry on 05/27.
Continue antibiotics for today
Continue incentive spirometry
Progress diet as tolerated
PT OT ordered for evaluation today
#Acute toxic metabolic encephalopathy
UDS positive for barbiturates, potentially overdosed on Depakote
no need for brain MRI or LP per Neurology
#Shock
Currently not on any pressor support
#Seizures
EEG completed 09/25
Neurology following
Continue Vimpat
#Right lower lobe pneumonia
Continue Zosyn
#Thrombocytopenia
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
#History of pulmonary embolism
Continue Eliquis
#Essential hypertension
Hold antihypertensives
#Diabetes mellitus
Continue SSI and Accu-Cheks
Full code
DVT prophylaxis�Eliquis
Anticipated Discharge: > 48 hours
Subjective/Interval History
-
Date of Service: September 28, 2024
Patient extubated and downgraded to telemetry. This morning patient continues to have significant sputum production. He states he feels like he is being 'crucified.' She reports no specific symptoms. Plan to transition patient to full regular
diet.
Objective Data
-
Labs:
Laboratory Results
09/28/24
06:10
WBC 7.5
Hgb 11.6 L
Hct 36.7 L
Plt Count 210 D
Vital Signs:
Vital Signs
Temp Pulse Resp BP Pulse Ox
98.7 F 82 18 171/77 96
09/28/24 07:27 09/28/24 07:27 09/28/24 07:27 09/28/24 07:27 09/28/24 07:27
I&O
09/27/24 09/28/24 09/29/24
06:59 06:59 06:59
Intake Total 2635.7 / 2728.6 1130.8 / 1130.8
Output Total 1120 / 1120 2800 / 2800
Balance 1515.7 / 1608.6 -1669.2 / -1669.2
Review of Systems
-
Unable to obtain full review of systems at this time due to: Other
History Source: Patient
Constitutional: Reports No Symptoms
EENT: Reports No Symptoms Reported
Respiratory: Reports Cough
Cardiac: Reports No Symptoms
Abdomen/GI: Reports No Symptoms
Musculoskeletal: Reports No Symptoms
Physical Exam
-
General: Conversant and Appears Chronically Ill
HEENT: Normocephalic and Atraumatic
Respiratory: Crackles
Cardiac: S1/S2
GI: Soft, Nontender, Nondistended and Normal Bowel Sounds
Musculoskeletal: No Clubbing and No Cyanosis
Skin: Warm and Dry
Neuro: AO x 3
Data Reviewed
-
Labs: Labs Reviewed by me and Discussed with Physician
Old Records: Reviewed
--- NOTE | 2024-09-28 09:53 | W.PN.UPDATE ---
Update Note
Progress Note Update
I saw and evaluated the patient. I reviewed the resident�s note and agree with findings and plan as documented in the resident�s note.
No new complaints.
Gen: NAD, Awake and alert
Eyes: EOMI, PERRLA, no scleral icterus.
Neck: supple.
CV: RRR, +S1/S2, no m/r/g.
Resp: CTAB anteriorly, no rales, wheezes, or rhonchi.
Abd: +BS, soft, NT, ND
Skin: No rashes.
Neuro: remains CN 2-12 intact, non-focal.
Psych: Normal mood and affect.
09/22/24 12:36 Blood/Venous Blood Culture - Preliminary
No Growth in 4 days- Final report to follow
09/22/24 12:36 Endotracheal Respiratory Culture - Final
Usual Respiratory Mireya
09/22/24 12:36 Endotracheal Gram Stain - Final
09/22/24 00:13 Urine Urine Culture - Final
NO GROWTH
09/21/24 18:45 Nasal Swab Influenza Types A & B (ESTIVEN) - Final
Negative for Influenza A & B, NAAT
Negative results must be combined with clinical observations
and patient history.
Nucleic Acid Amplification test (NAAT)performed on the
[employer] ID NOW platform.
CT brain 09/21/24: No evidence of acute intracranial abnormality.
CTA chest 09/21/24: No PE. RLL peribronchial thickening and patchy peribronchial opacities suspicious for aspiration and/or bronchopneumonia.
CXR 09/25/24: Endotracheal tube with tip in trachea above the avril and nasogastric tube with tip in proximal stomach. No pneumothorax.
Acute hypoxemia respiratory failure/VDRF:
-extubated 09/22, then required reintubation 1/31PM, extubated around 1000 on 09/27/24
-cont steroids for airway edema
-now on 2L NC O2
-drug induced shock: was able to come off of pressor support once prop/fent was weaned
Acute toxic and metabolic encephalopathy:
-UDS POS for barbiturates
-possible component of post-ictal state
-as per discussion with Dr. Christensen via [employer] on 09/25/24 MRI brain and LP are not necessary at this time
Seizure d/o:
-EEG: coma due excessive alpha activity suggestive of alpha coma
-repeat EEG 09/25/24: This study was suggestive of mild diffuse cortical dysfunction without focal abnormality. No seizures were recorded.
-Neurology following
-S/p Keppra load
-cont Vimpat
Right lower lobe pneumonia (likely aspiration):
-remains on Zosyn to complete 7 days
-RespCx/BCx/COVID/Flu NEG
Thrombocytopenia:
-Acute, concern was for HIT, was on heparin drip
-HIT Ab NEG
-resolved
Other problems:
h/o PE: cont Eliquis
Essential HTN: restart home BB/ARB
DM2: SSI/accuchecks
Sacral pressure injury stage 3 (POA)
FULL/Eliquis
--- NOTE | 2024-09-28 10:45 | W.PN.PUL3 ---
Today's Communication / Plan
-
Out of bed to chair, ambulate, PT/OT
Avoid oversedation
Pt on RA
Reviewed with patient risk for recurrent respiratory failure
It is imperative that he remains compliant with medications
We will sign off and please call with questions
Assessment
-
Patient is a 58-year-old male with history of seizure disorder, diabetes mellitus, hyperlipidemia and hypertension. Recently diagnosed with pulmonary embolism on his recent admission and [facility] on 08/28/2024, started on Eliquis, unsure
if he was taking it as INR is normal. Admitted with confusion/altered mental status. Workup till now shows a normal CT scan of head, normal ammonia levels, urine tox screen inconclusive, normal Tylenol levels, normal salicylate levels. Possible
valproate toxicity resolved. Currently being managed on lines of aspiration pneumonia/sepsis/acute respiratory failure. Currently intubated, sedated and on vasopressors. Had a spike of fever of 100.7 on 09/22, blood culture, urine culture and
sputum culture negative. CT chest revealed peribronchial thickening in the right lower lobe suspicious for aspiration pneumonia/bronchopneumonia.
Patient has vocal cord swelling requiring reintubation on 09/22, keep sedated for the next 48 - 72 hours and treat edema with Decadron
Follow HIT panel, continue Eliquis, continue checking platelet counts
On tube feeds
Avoid over ventilation-patient is a chronic carbon dioxide retainer
Assessment
Acute hypercapnic respiratory failure requiring intubation
Bradycardia--While on norepinephrine
Thrombocytopenia
Acute confusion
Aspiration pneumonia/bronchopneumonia
Subclinical hypothyroidism
Pulmonary embolism
Essential hypertension
Hyperlipidemia
Diabetes mellitus type 2
History of seizure disorder
Sacral pressure injury
Noncompliance to antiepileptic medications
Hypocalcemia
Plan/recommendations
Acute hypercapnic respiratory failure requiring intubation
Patient intubated on 09/21/2024 for acute respiratory failure, ABGs at that time-pH 7.29, pCO2 93, pO2 66, bicarb 44.7
Extubated 09/22 but reintubated later p.m.
Subsequently extubated, transferred out of ICU
Unfortunately, patient will continue tube be at risk for hypercapnic respiratory failure
Presently not following commands, seems annoyed at my attempt to elicit symptoms and examined
Acute confusion
Presented in acute confusion state to the ER/history of fall/history of seizure at home
Head CT negative-ruled out any acute intracranial process-was checked as patient was on blood thinners and had a fall
Urine drug screen positive for barbiturates-valproate toxicity-resolved,Alcohol not detected
Ammonia levels on 09/22/2024, were up to 38, normalized as of 09/25/2024
ABG suggested acute respiratory failure, could be the cause of confusion?
EEG completed, neurology following-no seizure activity noted on EEG, unsure about antiseizure medications-placed on lacosamide 100 mg 12 hourly by neuro-minimize sedation
Patient more oriented and following commands, but is not very cooperative with exam
Patient will continue to be at risk for hypercapnic respiratory failure
Aspiration pneumonia/bronchopneumonia
CT chest done for hypoxia-Right lower lobe peribronchial thickening and patchy peribronchial opacities suspicious for aspiration and/or bronchopneumonia-no acute pulmonary embolism.
On Zosyn for management of aspiration pneumonia-WBC count trending down-6-day of Zosyn-stopped tomorrow
Cultures negative to date
Presently on room air
Aspiration precautions
Increase activity
Subclinical hypothyroidism
TSH increased to 12, free T4 normal, likely subclinical hypothyroidism
Resume home dose of levothyroxine
Hypocalcemia-Replete as needed
Pulmonary embolism-
on Eliquis 5 mg twice daily at home-INR 1.09-was using Eliquis questionable-repeat CT chest showed no active pulmonary embolism
Initially started on heparin-platelet count started to drop-heparin stopped-heparin associated antibody came less than 0.1-test negative-currently on Eliquis 5 mg twice daily
Essential hypertension
Currently on hold
Continue with pressors as needed, currently off vasopressors
Hyperlipidemia
No reported meds, given hypertriglyceridemia
Follow while on propofol
Diabetes mellitus type 2
No reported meds- HbA1c 6.6-monitor blood sugars
On insulin aspart moderate resistance scale
History of seizure disorder
Continue antiseizure medication per neurology
Sacral pressure injury
#- DVT prophylaxis-Eliquis
# CODE STATUS-full code
We will sign off. Please call with questions
Subjective Data
-
Date of Service:
Date of Service: September 28, 2024
Subjective:
Patient appears to be comfortable but is lethargic. He is arousable, does not answer questions but does not consistently follow commands. Does not cough on command. Appears annoyed at my questions
Objective Data
Data Reviewed
Vital Signs / I&O / Oxygen:
Vital Signs
Temp Pulse Resp BP Pulse Ox
98.7 F 82 18 171/77 96
09/28/24 07:27 09/28/24 07:27 09/28/24 07:27 09/28/24 07:27 09/28/24 07:27
Intake and Output
09/27/24 09/28/24 09/29/24
06:59 06:59 06:59
Intake Total 2635.7 / 2728.6 1130.8 / 1130.8
Output Total 1120 / 1120 2800 / 2800
Balance 1515.7 / 1608.6 -1669.2 / -1669.2
SaO2 [NIV (Non Invasive 96
Ventilation)]
SaO2 [A/C] 97
SaO2 96
Nasal Cannula flow liters per 2
minute
Physical Exam
General: Comfortable and Other (Poor dentition)
HEENT: Normocephalic and Anicteric
Cardiovascular: S1-S2, Regular Rhythm, Murmur (n) and Rub (n)
Respiratory: Wheeze (n), Crackles (n), Rhonchi (few), Non-Labored Respirations, Stridor (n) and Other (Poor inspiratory effort)
GI: Soft, Non Distended and Non Tender
Neurology: Awake, Alert and No Motor Deficits (Spontaneously moves all extremities, generally weak)
Skin: Other (Scattered tattoos)
Labs/Micro/Reports
Lab Data
09/28/24 06:10
09/27/24 04:19
Microbiology
09/22/24 12:36 Blood/Venous Blood Culture - Final
No Growth - Final Report
[2024-09-28 10:50] VITALS: BP 177/81
[2024-09-28 11:44] LABS: Glucose - Point of Care 129 mg/dl (70-99)
[2024-09-28] MEDS: COZAAR 50 MG PO ×2 (12:03→21:12)
[2024-09-28] MEDS: COREG 3.125 MG PO ×2 (12:03→21:11)
[2024-09-28 15:48] VITALS: BP 185/98
[2024-09-28 21:06] VITALS: BP 170/78
[2024-09-28 23:10] VITALS: BP 176/83
[2024-09-29] MEDS: APRESOLINE 10 MG IV (00:10)
[2024-09-29 01:10] VITALS: BP 158/84
[2024-09-29] MEDS: SYNTHROID 12.5 MCG PO (05:03)
[2024-09-29 06:00] VITALS: BMI 24.6
[2024-09-29 06:03] LABS: % Basophils 0.2 % (0-2); % Eosinophils 0.4 % (0-6); % Immature Granulocytes 0.2 % (0-0.5); % Lymphocytes 33.8 % (20.5-51.1); % Monocytes 10.9 % (1.7-9.3); % Neutrophils 54.5 % (42.2-75.2); Absolute Lymphocytes 2.9 10^3/uL (1.2-3.4); Absolute Monocytes 0.9 10^3/uL (0.1-0.6); Absolute Neutrophils 4.7 10^3/uL (1.4-6.5); Hematocrit 39.5 % (39.0-52.0); Hemoglobin 12.9 g/dL (13.0-18.0); Mean Corp Hgb Conc. 32.7 g/dL (33.0-37.0); Mean Corpuscular Hgb 32.9 pg (27.0-31.0); Mean Corpuscular Volume 100.8 fL (80.0-94.0); Nucleated Red Blood Cells % 0 % (-); Platelet Count 288 10^3/uL (130-400); Red Blood Cell Count 3.92 10^6/uL (4.70-6.10); Red Cell Dist. Width 14.8 % (11.5-14.5); White Blood Cell Count 8.5 10^3/uL (4.8-10.8)
[2024-09-29 06:16] LABS: ALT (SGPT) 31 U/L (0-50); AST (SGOT) 32 U/L (17-59); Albumin 3.1 g/dl (3.5-5.0); Alkaline Phosphatase 56 U/L (38-126); Blood Urea Nitrogen 19 mg/dl (9-20); Carbon Dioxide 38 mmol/L (22-30); Chloride 99 mmol/L (98-107); Estimated Creatinine Clearance 112 ml/min; Glucose 113 mg/dl (70-99); Sodium 139 mmol/L (135-145); Total Bilirubin 0.5 mg/dl (0.2-1.3); eGFR > 60.00
[2024-09-29 07:37] VITALS: BP 165/83
--- NOTE | 2024-09-29 08:10 | W.PN.HOSP.TC ---
Today's Communication/Plan
-
Discharge planning
Assessment / Plan
Assessment / Plan
#Acute hypoxic respiratory failure
Currently intubated, was reintubated over the weekend
Patient successfully extubated and downgraded to telemetry on 05/27.
Antibiotics completed on 09/28
Continue incentive spirometry
Progress diet as tolerated. Currently on IDDSI 6 diet due to poor dentition.
PT recommended SNF at time of discharge
#Acute toxic metabolic encephalopathy
UDS positive for barbiturates, potentially overdosed on Depakote
no need for brain MRI or LP per Neurology
#Shock
Currently not on any pressor support
#Seizures
EEG completed 09/25
Neurology following
Continue Vimpat
#Right lower lobe pneumonia
Continue Zosyn
#Thrombocytopenia
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
#History of pulmonary embolism
Continue Eliquis
#Essential hypertension
Hold antihypertensives
#Diabetes mellitus
Continue SSI and Accu-Cheks
Full code
DVT prophylaxis�Eliquis
Anticipated Discharge: Within 24 hours
Subjective/Interval History
-
Date of Service: September 29, 2024
Patient reports no acute events overnight. He states that he has an appetite and was looking forward to breakfast this morning. He states he has no chest pain, nausea, vomiting, shortness of breath, abdominal pain, difficulty having bowel
movements. He is looking forward to being discharged and returning home to his dog.
Objective Data
-
Labs:
Laboratory Results
09/29/24
05:39
WBC 8.5
Hgb 12.9 L
Hct 39.5
Plt Count 288 D
Sodium 139
Potassium 4.0
Chloride 99
Carbon Dioxide 38 H
BUN 19
Creatinine 0.7
Glucose 113 H
Calcium 9.0
Total Bilirubin 0.5
AST 32
ALT 31
Alkaline Phosphatase 56
Vital Signs:
Vital Signs
Temp Pulse Resp BP Pulse Ox
97.9 F 78 16 165/83 96
09/29/24 07:37 09/29/24 07:37 09/29/24 07:37 09/29/24 07:37 09/29/24 07:37
I&O
09/28/24 09/29/24 09/30/24
06:59 06:59 06:59
Intake Total 1130.8 / 1130.8 480 / 480
Output Total 2800 / 2800 3550 / 3550
Balance -1669.2 / -1669.2 -3070 / -3070
Review of Systems
-
History Source: Patient
Constitutional: Reports No Symptoms
EENT: Reports No Symptoms Reported
Respiratory: Reports No Symptoms
Cardiac: Reports No Symptoms
Abdomen/GI: Reports No Symptoms
Genitourinary: Reports No Symptoms
Musculoskeletal: Reports No Symptoms
Physical Exam
-
General: Well Developed, Comfortable, Conversant and Appears Chronically Ill
HEENT: Normocephalic and Atraumatic
GI: Soft, Nontender, Nondistended and Normal Bowel Sounds
Musculoskeletal: No Clubbing, No Cyanosis and No Edema
Skin: Warm and Dry
Neuro: AO x 3
Psych: Calm
Data Reviewed
-
Labs: Labs Reviewed by me and Discussed with Physician
Old Records: Reviewed
[2024-09-29] MEDS: SANTYL OINTMENT 1 APPLIC TOPICAL (08:28)
[2024-09-29] MEDS: COZAAR 50 MG PO ×2 (08:28→20:17)
[2024-09-29] MEDS: PROTONIX 40 MG PO (08:28)
[2024-09-29] MEDS: FOLVITE 1 MG PO (08:28)
[2024-09-29] MEDS: COREG 3.125 MG PO ×2 (08:28→20:16)
[2024-09-29] MEDS: DECADRON 4 MG IV (08:29)
[2024-09-29] MEDS: NICODERM TRANSDERMAL 14 MG TRANSDERM (08:29)
[2024-09-29] MEDS: ELIQUIS 5 MG PO ×2 (08:30→20:17)
[2024-09-29] MEDS: DESENEX/MITRAZOL/ZEASORB 1 APPLIC TOPICAL (08:31)
--- NOTE | 2024-09-29 09:55 | W.PN.UPDATE ---
Update Note
Progress Note Update
I saw and evaluated the patient. I reviewed the resident�s note and agree with findings and plan as documented in the resident�s note.
No new complaints.
Gen: Remains NAD, Awake and alert
Eyes: EOMI, PERRLA, no scleral icterus.
Neck: supple.
CV: RRR, +S1/S2, no m/r/g.
Resp: CTAB, no rales, wheezes, or rhonchi.
Abd: +BS, soft, NT, ND
Skin: No rashes.
Neuro: Continues to remain CN 2-12 intact, non-focal.
Psych: Normal mood and affect.
09/22/24 12:36 Blood/Venous Blood Culture - Preliminary
No Growth in 4 days- Final report to follow
09/22/24 12:36 Endotracheal Respiratory Culture - Final
Usual Respiratory Mireya
09/22/24 12:36 Endotracheal Gram Stain - Final
09/22/24 00:13 Urine Urine Culture - Final
NO GROWTH
09/21/24 18:45 Nasal Swab Influenza Types A & B (ESTIVEN) - Final
Negative for Influenza A & B, NAAT
Negative results must be combined with clinical observations
and patient history.
Nucleic Acid Amplification test (NAAT)performed on the
[employer] ID NOW platform.
CT brain 09/21/24: No evidence of acute intracranial abnormality.
CTA chest 09/21/24: No PE. RLL peribronchial thickening and patchy peribronchial opacities suspicious for aspiration and/or bronchopneumonia.
CXR 09/25/24: Endotracheal tube with tip in trachea above the avril and nasogastric tube with tip in proximal stomach. No pneumothorax.
Acute hypoxemia and hypercapnic respiratory failure/VDRF:
-extubated 09/22, then required reintubation 1/31PM, extubated around 1000 on 09/27/24
-taper steroids for airway edema (can be tapered on d/c)
-now on RA NC O2
-drug induced shock: was able to come off of pressor support once prop/fent was weaned
Acute toxic and metabolic encephalopathy:
-UDS POS for barbiturates, ABG with hypercapnia
-possible component of post-ictal state
-as per discussion with Dr. Christensen via [employer] on 09/25/24 MRI brain and LP are not necessary at this time
Seizure d/o:
-EEG: coma due excessive alpha activity suggestive of alpha coma
-repeat EEG 09/25/24: This study was suggestive of mild diffuse cortical dysfunction without focal abnormality. No seizures were recorded.
-Neurology following
-S/p Keppra load
-cont Vimpat
Right lower lobe pneumonia (likely aspiration):
-completed 7 days Zosyn
-RespCx/BCx/COVID/Flu NEG
Thrombocytopenia:
-Acute, concern was for HIT, was on heparin drip
-HIT Ab NEG
-resolved
Other problems:
h/o PE: cont Eliquis
Essential HTN: cont home BB/ARB
DM2: SSI/accuchecks, check a1c
Sacral pressure injury stage 3 (POA)
FULL/Eliquis
Medically cleared for discharge. Case management aware.
--- NOTE | 2024-09-29 11:49 | CM ---
Addendum entered by Mary Stephens 09/29/24 13:46:
Patient given walker by therapy and CM spoke with patient he is requesting referral to [facility]. CM updated liaison and await confirmation of acceptance. CM will continue to follow for discharge planning needs.
Plan; home with [facility] and walker; friend to provide transportation
Original Note:
Patient seen at bedside, patient indicated he did not want to go to a SNF and wanted to go home. Patient walking in room. Patient nursing indicated that patient appeared to be able to go home. PT/OT recommendations today to have walker and CM
requested script from physicians and consult for [facility]N. CM will continue to follow for discharge planning needs.
Plan; home with [facility]/ walker
.
[2024-09-29] MEDS: DELTASONE 20 MG PO (12:21)
[2024-09-29] MEDS: VIMPAT 100 MG IV ×2 (12:21→23:29)
--- NOTE | 2024-09-29 12:44 | WOUNDNOTE ---
[facility] RN NOTE: Patient visited prior to discharge home today. Patient found ambulating in room. He reports good appetite. Sacral wound has improved since prior assessment. Air cushion in chair. Appropriate to discontinue Santyl and use Medihoney and
dry dressing at home. Patient agreeable to plan. Confirmed order with Dr. Resendez and updated orders and discharge. RN Jay aware. Will sign off.
--- NOTE | 2024-09-29 14:09 | W.DCSUMMARY ---
Discharge Summary
Discharge Data
Date of Admission: 09/21/24
Date of Discharge: 09/29/24
Total time spent discharging patient (in min): 45
-
Pending Results: No
Hospital Course
Discharging Physician : Mariano Resendez MD
Disposition : Home
Primary care physician : Unknown
Principal Discharge diagnosis : Acute hypoxemic respiratory failure
Hospital Course : 58-year-old male with past medical history of hypertension, hyperlipidemia, diabetes type 2, seizure disorder, pulmonary embolism, active smoker, sinus tachycardia, clinical hypothyroidism, sacral pressure injury who presented to
[facility] after witnessed fall by roommate potentially secondary to missing Depakote dose on 09/21. Patient was intubated overnight and admitted to ICU. Patient was given phenytoin and lorazepam in the ER, currently managed for seizures
on Depakote. UDS showed elevated Depakote level. He is currently on valproate 1500 mg twice daily, held during stay. Patient started on Vimpat on 09/24. Head CT was negative. UDS was positive for barbiturates. CT chest showed right lower lobe
peribronchial thickening and patchy peribronchial opacities suspicious for aspiration and/or bronchopneumonia. Patient was treated with Zosyn. Patient was negative for COVID, flu and blood/respiratory cultures. On first attempt of extubation,
patient became extremely agitated and grabbed for ET tube. During stay, sedation was managed with fentanyl and propofol. EEG on 09/22 showed patient on, due to excessive alpha activity suggesting of alpha, as well as severe generalized slowing.
Overnight on 09/22, patient was reintubated and notable vocal cord swelling was noted requiring IV steroid for management. As propofol and fentanyl was weaned, pressor support was stopped. On 09/24, there was concern of possibility of HIT due to
thrombocytopenia. Patient was started on Eliquis twice daily. On 09/27, patient was successfully extubated and transition to telemetry. Patient is placed on oral steroid taper and completed antibiotic treatment. Diet was progressed and Dobbhoff
tube feeds were stopped. Patient tolerated oral diet well. Patient stable for discharge.
Important imaging findings :
Chest x-ray 09/21:
No evidence of active cardiopulmonary disease
Head CT 09/21:
No evidence of acute intracranial abnormality
Chest CT 09/21:
IMPRESSION:
1. No CTA evidence for an acute pulmonary thromboembolism.
2. Right lower lobe peribronchial thickening and patchy peribronchial opacities suspicious for aspiration and/or bronchopneumonia.
Chest x-ray 09/22:
FINDINGS/IMPRESSION:
The endotracheal tube is well-positioned with the tip in the midthoracic trachea.
Patchy airspace opacity in the medial right lung base suspicious for aspiration/pneumonia. No pleural effusion or pneumothorax. The cardiomediastinal silhouette is normal. Chronic degenerative changes of the spine.
Chest x-ray 09/22:
IMPRESSION:
Endotracheal tube is present with tip in good position mid trachea.
Patchy parenchymal opacity within the medial aspect of both lower lungs as described.
Abdominal x-ray 09/23:
IMPRESSION:
Stable findings suggesting a small right infrahilar pneumonia.
Feeding tube placement in the stomach.
Chest x-ray 10/23:
IMPRESSION:
Endotracheal tube with tip in trachea above the avril and nasogastric tube with tip in proximal stomach.
No pneumothorax.
Discharge Plan
-
Patient Disposition: Home (Routine Discharge)
Discharge Diagnosis/Procedures: acute metabolic encephalopathy, acute hypoxic and hypercapnic respiratory failure
Condition: Fair
Diet: As tolerated and Diabetic, Carb Controlled
Activity: As tolerated
Driving Restrictions: As prior to admission
Bathing Restrictions: None
Activity Restrictions/Additional Instructions:
Wound Care Instructions
Sacrum: clean with saline, dusting of fungal powder to periwound followed by skin prep prn yeasty appearing skin, Medihoney to wound bed and cover with adaptic and silicone border foam.
L buttock and R lateral ankle: clean with soap and water, silicone foam change q 3 days and prn soilage.
Air cuhsion to chair
Frequent turning and repositioning
Optimize nutrtion and protein in the diet
Follow up at wound care center call for an appointment.
Referrals:
UNKNOWN - PT DOES,NOT KNOW [Family Provider] - in less than 1 week
Prescriptions:
New
prednisone 10 mg Tablet
10 mg PO DIRECTED Qty: 20 0RF
Rx Instructions:
see taper instructions
40mgx2 d
[id number]
[id number]
[id number]
nicotine 14 mg/24 hr Patch 24 Hour
14 mg transdermal DAILY Qty: 30 0RF
pantoprazole 40 mg Tablet,Delayed Release (Dr/Ec)
40 mg PO DAILY Qty: 30 0RF
folic acid 1 mg Tablet
1 mg PO DAILY Qty: 30 0RF
Santyl 250 unit/gram Ointment
1 applic topical DAILY Qty: 30 0RF
lacosamide [Vimpat] 100 mg tablet
100 mg PO BID Qty: 60 0RF
Continued
carvedilol 3.125 mg Tablet
3.125 mg PO BID Qty: 60 1RF
losartan 50 mg Tablet
50 mg PO BID Qty: 60 1RF
Eliquis 5 mg Tablet
5 mg PO BID Qty: 60 2RF
Rx Instructions:
First dose on the evening of August 31, 2024
amlodipine 5 mg Tablet
5 mg PO BID Qty: 60 1RF
levothyroxine 25 mcg tablet
12.5 mcg PO DAILY
Discontinued
divalproex 500 mg Tablet,Delayed Release (Dr/Ec)
1,500 mg PO BID Qty: 180 3RF
Discharge Orders:
Discharge Patient (As Directed); Ordered 09/29/24
Ordered By: Mariano Resendez
Discharge Date and Time
Print Language: CHINESE
--- NOTE | 2024-09-29 14:40 | VNURNOTE ---
Addendum entered by Amira Trujillo RN 09/29/24 16:03:
Rec'ed info from [facility] Int[facility] that [facility] does not accept pt's insurance. Unable to accept pt onto services. KIM Hernandez notified.
Original Note:
Home Health Liaison met with patient at bedside to discuss [facility] nurse/therapy, visits, schedule and homebound status. Patient is agreeable and understands that visits at home will be 2-3 x per week to assess and teach medical management. Patient is
waiting for his ride to come for DC. Reviewed with patient that [facility] can provide services while patient home bound. He stated he would like to go back to work within a few days to a few weeks. Patient is aware that [facility] will contact them for start
of care in 1-2 days after discharge from . [facility] referral completed in [facility].
[2024-09-29 15:53] VITALS: BP 148/92
--- NOTE | 2024-09-29 15:54 | CM ---
Addendum entered by Mary Stephens 09/29/24 16:18:
accepted by [facility]
Original Note:
[facility] notified CM that they do not accept patient insurance. CM sent referral to [facility] and await response.
[2024-09-29 20:15] VITALS: BP 145/91
[2024-09-29 23:30] VITALS: BP 172/90
[2024-09-30 00:16] VITALS: BP 170/70
[2024-09-30] MEDS: APRESOLINE 10 MG IV (00:17)
[2024-09-30 02:37] VITALS: BP 154/68
[2024-09-30] MEDS: SYNTHROID 12.5 MCG PO (05:04)
[2024-09-30 06:00] VITALS: BMI 24.5
[2024-09-30 06:26] LABS: Hematocrit 38.9 % (39.0-52.0); Hemoglobin 12.8 g/dL (13.0-18.0); Mean Corp Hgb Conc. 32.9 g/dL (33.0-37.0); Mean Corpuscular Hgb 33.5 pg (27.0-31.0); Mean Corpuscular Volume 101.8 fL (80.0-94.0); Mean Platelet Volume 8.9 fL (7.4-10.4); Platelet Count 345 10^3/uL (130-400); Red Blood Cell Count 3.82 10^6/uL (4.70-6.10); Red Cell Dist. Width 14.9 % (11.5-14.5)
--- NOTE | 2024-09-30 07:36 | W.PN.UPDATE ---
Update Note
Progress Note Update
I saw and evaluated the patient. I reviewed the resident�s note and agree with findings and plan as documented in the resident�s note.
No new complaints.
Gen: continues to remain NAD, Awake and alert
Eyes: EOMI, PERRLA, no scleral icterus.
Neck: supple.
CV: remains RRR, +S1/S2, no m/r/g.
Resp: CTAB anteriorly, no rales, wheezes, or rhonchi.
Abd: +BS, soft, NT, ND
Skin: No rashes.
Neuro: CN 2-12 intact, non-focal.
Psych: Normal mood and affect.
09/22/24 12:36 Blood/Venous Blood Culture - Preliminary
No Growth in 4 days- Final report to follow
09/22/24 12:36 Endotracheal Respiratory Culture - Final
Usual Respiratory Mireya
09/22/24 12:36 Endotracheal Gram Stain - Final
09/22/24 00:13 Urine Urine Culture - Final
NO GROWTH
09/21/24 18:45 Nasal Swab Influenza Types A & B (ESTIVEN) - Final
Negative for Influenza A & B, NAAT
Negative results must be combined with clinical observations
and patient history.
Nucleic Acid Amplification test (NAAT)performed on the
[employer] ID NOW platform.
CT brain 09/21/24: No evidence of acute intracranial abnormality.
CTA chest 09/21/24: No PE. RLL peribronchial thickening and patchy peribronchial opacities suspicious for aspiration and/or bronchopneumonia.
CXR 09/25/24: Endotracheal tube with tip in trachea above the avril and nasogastric tube with tip in proximal stomach. No pneumothorax.
Acute hypoxemia and hypercapnic respiratory failure/VDRF:
-extubated 09/22, then required reintubation 1/31PM, extubated around 1000 on 09/27/24
-taper steroids for airway edema (can be tapered on d/c)
-now on RA NC O2
-drug induced shock: was able to come off of pressor support once prop/fent was weaned
Acute toxic and metabolic encephalopathy:
-UDS POS for barbiturates, ABG with hypercapnia
-possible component of post-ictal state
-as per discussion with Dr. Christensen via [employer] on 09/25/24 MRI brain and LP are not necessary at this time
Seizure d/o:
-EEG: coma due excessive alpha activity suggestive of alpha coma
-repeat EEG 09/25/24: This study was suggestive of mild diffuse cortical dysfunction without focal abnormality. No seizures were recorded.
-Neurology following
-S/p Keppra load
-cont Vimpat
Right lower lobe pneumonia (likely aspiration):
-completed 7 days Zosyn
-RespCx/BCx/COVID/Flu NEG
Thrombocytopenia:
-Acute, concern was for HIT, was on heparin drip
-HIT Ab NEG
-resolved
Other problems:
h/o PE: cont Eliquis
Essential HTN: cont home BB/ARB
DM2: SSI/accuchecks, check a1c
Sacral pressure injury stage 3 (POA)
FULL/Eliquis
The pt was discharged yesterday but his ride did not show up. Remains medically stable for d/c.
[2024-09-30 07:57] VITALS: BP 141/82
[2024-09-30] MEDS: DELTASONE 40 MG PO (08:29)
[2024-09-30] MEDS: COREG 3.125 MG PO (08:30)
[2024-09-30] MEDS: COZAAR 50 MG PO (08:30)
[2024-09-30] MEDS: PROTONIX 40 MG PO (08:30)
[2024-09-30] MEDS: FOLVITE 1 MG PO (08:30)
[2024-09-30] MEDS: ELIQUIS 5 MG PO (08:30)
[2024-09-30] MEDS: NICODERM TRANSDERMAL TRANSDERM (08:32)
[2024-09-30] MEDS: DESENEX/MITRAZOL/ZEASORB 1 APPLIC TOPICAL (08:33)
--- NOTE | 2024-09-30 10:54 | CM ---
Was informed by attending this am that patient did not have a ride, therefore he stayed the night. Saeed ordered for patient [id number] Dane Lai. This information was conveyed to RN who set patient up for transfer to [facility] to get his
ride.
== END 2024-09-30 09:35 | disposition home or self-care (01) | DRG 870 ==
LOC: 3 WEST ACU 19:38
PROVIDERS: Clinical Nurse Specialist Family Health; Hospitalist; Nurse Practitioner Primary Care; Psychiatry & Neurology Neurology; Radiology Diagnostic Radiology; ADMITTING PHYSICIAN Student in an Organized Health Care Education/Training Program; ATTENDING PHYSICIAN Internal Medicine; CONSULT PHYSICIAN Internal Medicine Critical Care Medicine; CONSULT PHYSICIAN Psychiatry & Neurology Neurology; EMERGENCY PHYSICIAN Student in an Organized Health Care Education/Training Program
PROC: 0BH17EZ Insertion of Endotracheal Airway into Trachea, Via Natural or Artificial Opening (ICD-10-PCS; 2024-09-22)
PROC: 5A1955Z Respiratory Ventilation, Greater than 96 Consecutive Hours (ICD-10-PCS; 2024-09-22)
PROC: 0DH67UZ Insertion of Feeding Device into Stomach, Via Natural or Artificial Opening (ICD-10-PCS; 2024-09-23)
DX: A41.89 Other specified sepsis (principal); G92.8 Other toxic encephalopathy; L89.153 Pressure ulcer of sacral region, stage 3; J18.0 Bronchopneumonia, unspecified organism; J96.01 Acute respiratory failure with hypoxia; J69.0 Pneumonitis due to inhalation of food and vomit; J96.02 Acute respiratory failure with hypercapnia; R65.21 Severe sepsis with septic shock; R57.8 Other shock; E11.9 Type 2 diabetes mellitus without complications; E78.00 Pure hypercholesterolemia, unspecified; I10 Essential (primary) hypertension; F17.200 Nicotine dependence, unspecified, uncomplicated; E03.8 Other specified hypothyroidism; H91.92 Unspecified hearing loss, left ear; T42.6X5A Adverse effect of other antiepileptic and sedative-hypnotic drugs, initial encounter; Y92.9 Unspecified place or not applicable; R44.1 Visual hallucinations; F41.1 Generalized anxiety disorder; E78.1 Pure hyperglyceridemia; F70 Mild intellectual disabilities; E83.51 Hypocalcemia; I95.9 Hypotension, unspecified; D69.6 Thrombocytopenia, unspecified; G40.909 Epilepsy, unspecified, not intractable, without status epilepticus; Z78.1 Physical restraint status; Z79.01 Long term (current) use of anticoagulants; Z79.890 Hormone replacement therapy; Z86.711 Personal history of pulmonary embolism; Z11.52 Encounter for screening for COVID-19; Z97.4 Presence of external hearing-aid; Z91.148 Patient's other noncompliance with medication regimen for other reason
CPT/HCPCS: 31500; 36600; 70450; 71045; 71046; 71275; 74018; 80048; 80053; 80061; 80143; 80164; 80179; 80185; 80306; 81003; 81015; 82010; 82077; 82140; 82550; 82805; 82962; 82977; 83735; 84075; 84100; 84132; 84439; 84443; 84450; 84460; 84478; 85025; 85027; 85610; 85730; 86022; 87040; 87070; 87086; 87205; 87502; 87811; 92526; 92610; 93005; 94002; 94003; 94640; 95816; 97116; 97163; 97167; 97535; 99291; C9254; Q9967

== ENCOUNTER → 2024-10-13 12:30 | Outpatient (REF) | payer MEDICARE, SELFPAY | LOC: WOUND 12:30 | PROVIDERS: ATTENDING PHYSICIAN Surgery | DX: L89.153 Pressure ulcer of sacral region, stage 3 (principal); L89.513 Pressure ulcer of right ankle, stage 3; Z79.01 Long term (current) use of anticoagulants; F17.200 Nicotine dependence, unspecified, uncomplicated; I26.99 Other pulmonary embolism without acute cor pulmonale | CPT/HCPCS: 11042; 99203 ==